=== PATIENT | female | born 1975 | race Two or more races ===

== ENCOUNTER 2020-08-27 15:59 | Emergency (ER) | payer MEDICARE, MEDICAID, SELFPAY ==
[2020-08-27 16:11] VITALS: BP 162/101; PULSE 91; RESP 18; TEMP 36.4; O2SAT 98; BMI 32.0
--- NOTE | 2020-08-27 16:33 | ED.GENADULT ---
HPI - General Adult General Chief complaint: General Medical Stated complaint: Back pain Time Seen by Provider: 08/27/20 16:17 Source: patient Mode of arrival: ambulatory Limitations: no limitations History of Present Illness HPI narrative: 45 yo female presenting with acute on chronic low back pain. She reports a history of 2 low back surgeries back in 2004 with resulting chronic back pain since. She woke up 4 days ago with worsening pain. No trauma or injury. She states it is slightly worse on the left than the right and it radiates down the back of her legs. No numbness or tingling. No incontinence. She has been taking her previously prescribed hydromorphone, ibuprofen and Tylenol without improvement. MD complaint: back pain Onset (ago): day(s) (4) Location: back Radiation: extremity Severity: severe Severity scale (1-10): 9 Quality: aching and sharp Pain Consistency: constant Relieving factors: none Exacerbating factors: movement Associated symptoms: denies other symptoms Treatments prior to arrival: none Related Data Home Medications Medication Instructions Recorded Confirmed ibuprofen 800 mg tablet 800 mg PO TID 08/03/20 Previous Rx's Medication Instructions Recorded pregabalin 100 mg capsule 100 mg PO TID 30 Days #90 cap 06/14/20 zolpidem 10 mg tablet 10 mg PO BEDTIME #30 tab 07/14/20 ibuprofen 800 mg tablet 800 mg PO TID PRN 30 Days #90 tab 08/03/20 hydromorphone 4 mg tablet 4 mg PO TID PRN 15 Days #45 tab 08/11/20 cyclobenzaprine 10 mg PO TID PRN #15 tab 08/27/20 lidocaine [Lidoderm] 1 patch TOPICAL DAILY #15 ea 08/27/20 prednisone 40 mg PO DAILY #10 tab 08/27/20 Allergies Allergy/AdvReac Type Severity Reaction Status Date / Time morphine [MORPHINE] Allergy Unknown RASH Verified 08/27/20 16:14 Review of Systems Review of Systems: Constitutional: No Fever, No Chills Cardiovascular: No Chest Pain, No SOB Respiratory: No Cough, No Sputum Gastrointestinal: No Nausea, No Vomiting, No Diarrhea, No abdominal Pain Genitourinary: No Dysuria, No Urinary Frequency, No Hematuria Musculoskeletal: + joint pain, + Myalgias (hx fibromyalgia) Skin: No Skin Lesions, No rash Neuro: No Weakness, No Numbness, No Dizziness, No Headache Heme/Lymph: No Bruising PMFSH Past Medical History Attestation statement: The following information was validated with the patient. Medical History Fibromyalgia Social History Social History Advance Directives: No Advance Directives Information Provided: Yes Physical Exam Vital Signs: Vital Signs: Last Vital Signs Temp 97.6 F 08/27/20 16:11 Pulse 91 08/27/20 16:11 Resp 18 08/27/20 16:11 BP 162/101 H 08/27/20 16:11 Pulse Ox 98 08/27/20 16:11 Body Mass Index 32.0 Appearance: Alert. Oriented X3. No acute distress. HEENT: normal inspection CVS: Normal heart rate and rhythm. Pulses normal. Respiratory: No respiratory distress. Skin: Skin warm and dry. Normal skin color. Normal skin turgor. No rashes. Back: bilateral middle lumbar soft tissue with tenderness, bilateral SI joint tenderness, Extremities: pelvis stable, atraumatic, no LE edema, normal DTR Neuro: Oriented X 3. No motor deficit. No sensory deficit. Ambulates with steady gait Course Course Course Narrative: 45 y/o female with acute on chronic LBP, non-traumatic. Already on opiates. Suspect sciatica with nerve inflammation. No red flag symptoms of LBP. No hx IVDA. Will give trial of steroids to help with pain and refer to her NS and have her follow up with her PCP tomorrow. Pt requesting toradol now. Stable for discharge. Critical Care Time Critical Care Time Critical Care Time: No Discharge Plan Discharge Clinical Impression: Sciatica Qualifiers: Laterality: bilateral Qualified Code(s): M54.31 - Sciatica, right side Patient Disposition: Home, Self-Care Instructions: Sciatica (ED), Lower Back Exercises (ED) Additional Instructions: You need to follow up with your PCP tomorrow. Please follow up with a Neurosurgeon for further workup and possible surgical intervention. Take the prescribed medications as directed. If you develop new numbness, tingling, worsening pain or urinary incontinence come back to the ER for further evaluation. Prescriptions: New cyclobenzaprine 10 mg tablet 10 mg PO TID PRN (Reason: muscle spasm) Qty: 15 RF: 0 prednisone 20 mg tablet 40 mg PO DAILY Qty: 10 RF: 0 lidocaine [Lidoderm] 5 % adhesive patch,medicated 1 patch topical DAILY Qty: 15 RF: 0 No Action pregabalin 100 mg capsule 100 mg PO TID 30 Days Qty: 90 RF: 1 zolpidem 10 mg tablet 10 mg PO BEDTIME Qty: 30 RF: 0 ibuprofen 800 mg tablet 800 mg PO TID RF: 0 ibuprofen 800 mg tablet 800 mg PO TID PRN (Reason: pain) 30 Days Qty: 90 RF: 1 hydromorphone 4 mg tablet 4 mg PO TID PRN (Reason: pain) 15 Days Qty: 45 RF: 0 Referrals: Braydon Radford MD [Physician] - 2 days
[2020-08-27] MEDS: Ketorolac Tromethamine 30 MG/ML VIAL IM (16:40)
== END 2020-08-27 17:30 | disposition home or self-care (01) ==
PROVIDERS: Emergency Provider Emergency Medicine Emergency Medical Services; PCP Internal Medicine
DX: M54.41 Lumbago with sciatica, right side (principal); Z79.899 Other long term (current) drug therapy
CPT/HCPCS: 96372; 99283; 99284; J1885

== ENCOUNTER → 2020-09-07 15:25 | Outpatient (BNVA) | payer MEDICARE, MEDICAID, SELFPAY | PROVIDERS: PCP Internal Medicine; Visit Provider Nurse Practitioner Family | DX: M47.27 Other spondylosis with radiculopathy, lumbosacral region (principal) | CPT/HCPCS: 99202 ==

== ENCOUNTER 2020-10-05 18:31 | Outpatient (REF) | payer OTHER, SELFPAY ==
--- NOTE | 2020-10-05 18:45 | MR_ITS ---
EXAMINATION: MR LUMBAR SPINE WITHOUT CONTRAST CLINICAL INFORMATION: Low back pain radiating into groin and legs. Prior lumbar surgery. COMPARISON: X-ray dated 10/28/2015. TECHNIQUE: MRI of the lumbar spine was obtained using routine sequences without contrast. FINDINGS: VERTEBRAL BODIES AND PARASPINAL STRUCTURES: The patient is status post interbody fusion at the L4-L5 and L5-S1 levels with hardware in place. There are chronic fatty atrophic changes in the posterior paraspinal muscles at these levels. No compression fractures identified. There are mild posterior subluxations at the L1-L2, L2-L3, and L3-L4 levels. Aeeq-ii-pwxqkhcu loss of disc height evident at the L2-L3 level with reduced intradiscal signal. No marrow or soft tissue edema is seen. CONUS MEDULLARIS AND CAUDA EQUINA: Normal, terminating at the level of T12. No lower cord signal abnormality is seen. The cauda equina nerve roots are normal. SPINAL LEVELS: L1-L2: Central to left paracentral disc protrusion mildly distorts the ventral thecal sac without central canal stenosis or foraminal narrowing. L2-L3: Loss of disc height and retrosubluxation with a broad-based disc bulge and superimposed shallow, broad-based central to right subarticular zone disc protrusion contacting but not visibly compressing the right L3 nerve root. Mild facet arthropathy without significant central canal stenosis. Patent foramina. L3-L4: Mild retrosubluxation and posterior disc bulge present with a lateralized component resulting in moderate right foraminal encroachment. Tyov-hl-nlzvavcg facet arthropathy. No significant central canal stenosis. Milder left foraminal narrowing. L4-L5: Postsurgical changes and fusion across the disc space. Patent foramina. L5-S1: Post fusion changes across the disc space with hardware in place. Hypertrophic facet arthropathy without central canal stenosis or foraminal narrowing. MR/MR lumbar spine wo con IMPRESSION: Central to left paracentral disc protrusion mildly distorting the ventral thecal sac at the L1-L2 level. Fxil-qg-ssvzwgws spondylosis and retrosubluxation at L2-L3 with a shallow, broad-based central to right subarticular zone disc protrusion abutting the right L3 nerve root. Mild retrosubluxation and disc bulge lateralized to the right side posterolaterally at the L3-L4 level with moderate right foraminal encroachment.
== END 2020-10-05 18:32 | disposition home or self-care (01) ==
LOC: HO.MRI 18:31
PROVIDERS: Visit Provider Physician Assistant
DX: M47.16 Other spondylosis with myelopathy, lumbar region (principal)
CPT/HCPCS: 72148

== ENCOUNTER → 2020-11-23 10:11 | Outpatient (BNVA) | payer OTHER, SELFPAY | PROVIDERS: PCP Internal Medicine; Visit Provider Nurse Practitioner Family | DX: M47.27 Other spondylosis with radiculopathy, lumbosacral region (principal) | CPT/HCPCS: 99212 ==

== ENCOUNTER → 2020-12-07 10:04 | Outpatient (BNVA) | payer MEDICARE, OTHER, SELFPAY | PROVIDERS: PCP Internal Medicine; Visit Provider Nurse Practitioner Family | DX: M47.27 Other spondylosis with radiculopathy, lumbosacral region (principal); G89.29 Other chronic pain | CPT/HCPCS: 99212 ==

== ENCOUNTER → 2020-12-21 15:33 | Outpatient (BNVA) | payer MEDICARE, SELFPAY | PROVIDERS: PCP Internal Medicine; Visit Provider Nurse Practitioner Family | DX: M47.27 Other spondylosis with radiculopathy, lumbosacral region (principal) | CPT/HCPCS: 99212 ==

== ENCOUNTER 2021-01-14 13:35 | Emergency (ER) | payer OTHER, SELFPAY ==
--- NOTE | ~2021-01-14 | CT_ITS ---
EXAMINATION: CT HEAD WITHOUT CONTRAST CLINICAL INFORMATION: Left facial swelling and spasm. COMPARISON: None TECHNIQUE: Contiguous axial imaging was performed from the skull base to vertex without intravenous administration of contrast. This CT examination was performed using dose optimization techniques as appropriate, variously including the following: *Automated exposure control *Adjustment of mA and/or kV according to patient size (this includes techniques or standardized protocols for targeted exams where dose is matched to indication/reason for exam; i.e. extremities or head) *Use of iterative reconstruction technique DLP: 646 mGy-cm FINDINGS: There is no evidence of acute intracranial hemorrhage or territorial infarction. No abnormal mass effect or midline shift is seen. Cazares to white matter differentiation is well preserved. No extra-axial fluid collections are identified. The ventricles are normal in size. There is no abnormal attenuation within the brain parenchyma. The osseous structures and soft tissues are normal. The mastoid air cells and visualized portions of the paranasal sinuses are well aerated. CT/CT head/brain wo con IMPRESSION: No acute intracranial process seen.
[2021-01-14 13:41] VITALS: BP 148/93; PULSE 100; RESP 18; TEMP 36.8; O2SAT 98; BMI 34.7
--- NOTE | 2021-01-14 13:55 | PC.NURSE ---
cheryl judge to assess pt- ? bells palsy
--- NOTE | 2021-01-14 14:21 | ED.NEUROSD ---
HPI - Neuro Symptoms/Deficit General Chief Complaint: Neuro Symptoms/Deficit Stated Complaint: MOUTH SWELLING Time Seen by Provider: 01/14/21 14:07 Source: patient Mode of arrival: ambulatory Limitations: no limitations History of Present Illness HPI Narrative: 45 yo female with hx of chronic back pain depression and anxiety hx of facial twitching in the past (occurred with life stressors) that resolved on its own comes in with L lower facial twitching sice 1130am she denies any other symptoms, remote history of lyme in past. Onset (ago): hour(s) (started at 1130am today) Location: left face History of same: Yes Severity: moderate Quality: intermittent and other (her left lower face twitches) Relieving factors: none Exacerbating factors: other (anxious) Context: gradual onset On Anticoagulants: No Associated symptoms: other (anxiety) Treatments Prior to Arrival: none Related Data Home Medications Medication Instructions Recorded Confirmed albuterol sulfate 90 mcg/actuation 2 puff PO QID PRN 09/02/20 12/21/20 aerosol inhaler buspirone 10 mg tablet mg PO 09/02/20 12/21/20 cetirizine 10 mg tablet 10 mg PO DAILY PRN 09/02/20 12/21/20 fluticasone propionate 50 0 mcg INTRANASAL 09/02/20 12/21/20 mcg/actuation nasal spray,suspension omeprazole 20 mg capsule,delayed mg PO 09/02/20 12/21/20 release topiramate 25 mg tablet 25 mg PO BID 09/02/20 12/07/20 venlafaxine 150 mg mg PO 09/02/20 12/21/20 capsule,extended release 24 hr Previous Rx's Medication Instructions Recorded ibuprofen 800 mg tablet 800 mg PO TID PRN #90 tab 09/29/20 pregabalin 100 mg capsule 100 mg PO TID 30 Days #90 cap 11/12/20 hydromorphone 4 mg tablet 4 mg PO TID PRN 15 Days #45 tab 11/29/20 clonidine HCl 0.1 mg tablet 0.1 mg PO ONCE PRN #30 tab 12/07/20 hydroxyzine HCl 25 mg tablet 25 mg PO BID PRN #60 tab 12/07/20 buprenorphine 10 mcg/hour weekly 1 patch TRANSDERMAL Q7D #4 ea 01/01/21 transdermal patch tizanidine 2 mg tablet 2 mg PO TID PRN #90 tab 01/08/21 albuterol sulfate 2.5 mg CONTINUOUS NEBULIZATION QID 01/12/21 PRN 30 Days #120 vial zolpidem 10 mg tablet 10 mg PO BEDTIME PRN 30 Days #30 01/12/21 tab Allergies Allergy/AdvReac Type Severity Reaction Status Date / Time morphine [MORPHINE] Allergy Unknown RASH Verified 12/21/20 15:56 Review of Systems Review of Systems: Constitutional : No Weight loss, No Fever, No Chills, No Fatigue, No Malaise ENT/Mouth : No sore throat, No Rhinorrhea Eyes: No Eye Pain, No Swelling, No Redness Cardiovascular : No Chest Pain, No SOB, No Dyspnea on Exertion, No Orthopnea, No Edema, No Palpitations Respiratory : No Cough, No Sputum, No Wheezing Gastrointestinal : No Nausea, No Vomiting, No Diarrhea, No Constipation, No abdominal Pain, No Hematochezia, No Melena Genitourinary : No Dysuria, No Urinary Frequency, No Hematuria, Musculoskeletal : No joint pain, No Myalgias, No Joint Swelling Skin : No Skin Lesions, No rash Neuro : No Weakness, No Numbness, No Dizziness, No Headache, pos twitching L face Psych : pos Anxiety/Panic, No Depression Heme/Lymph: No Bruising, No Bleeding,No Lymphadenopathy Endocrine : No Polyuria, No Polydipsia All other systems reviewed and are negative [facility] Past Medical History Attestation statement: The following information was validated with the patient. Medical History Fibromyalgia Herniated intervertebral disc of lumbar spine Loss of hearing Opioid abuse Surgical History History of cholecystectomy History of lumbar fusion History of tubal ligation Family History Family History Father No problems noted. Mother Skin cancer Maternal Aunt Myocardial infarction Social History Social History Alcohol intake: never Smoking Status: Never smoker Advance Directives: Yes Advance Directives Information Provided: Yes Advance Directives on File: No Patient : No Physical Exam Vital Signs: Vital Signs: Last Vital Signs Temp 98.2 F 01/14/21 13:41 Pulse 100 01/14/21 13:41 Resp 18 01/14/21 13:41 BP 148/93 H 01/14/21 13:41 Pulse Ox 98 01/14/21 13:41 Body Mass Index 34.7 Appearance: Alert. Oriented X3. No acute distress. Eyes: Pupils equal, round and reactive to light. ENT: Pharynx normal. Neck: Normal inspection. Neck supple. CVS: Normal heart rate and rhythm. Pulses normal. Respiratory: No respiratory distress. Breath sounds normal. Abdomen: Soft and nontender. Skin: Skin warm and dry. Normal skin color. Normal skin turgor. Extremities: No lower extremity edema. No calf ttp Neuro: Oriented X 3. No motor deficit. No sensory deficit. Facial spasms of left lower face but all movements intact no CN deficits, no drift, steady gait Course Course Course Narrative: symptoms resolved with ativan patient already on multiple medications including tizanidine, buprenorphine patch, pregabalin MDM - Neuro Symptoms/Deficit MDM Narrative Medical decision making narrative: 45 yo female with hx of chronic pain, anxiety depression notes hx of facial twitching in the past that resolved on its own today's episode seems more facial spasms she can perform all CN testing without assymetry, stroke seems unlikely NIH 0 - will obtain basic labs, CT head and give ativan for spasms. Lab Data Result diagrams: 01/14/21 15:02 01/14/21 15:02 Labs: Lab Results 01/14/21 01/14/21 Range/Units 15:02 15:02 WBC 6.1 (4.8-10.8) X10*3/uL RBC 4.30 (4.20-5.50) X10*6/uL Hgb 11.6 L (12.0-16.0) g/dl Hct 37.0 (37-47) % MCV 86.0 (80-98) fL MCH 27.0 (27.0-33.0) pg MCHC 31.4 (31.0-35.0) g/dl RDW 13.9 (11.0-16.0) % Plt Count 294 (160-400) X10*3/uL MPV 9.6 (9.4-12.3) fL Immature Gran % (Auto) 0.3 (0.0-0.4) % Neut % (Auto) 68.6 (45-73) % Lymph % (Auto) 19.0 L (20-40) % [place] % (Auto) 8.1 (2-11) % Eos % (Auto) 3.3 (0-4) % Baso % (Auto) 0.7 (0-2) % Lymph # (Auto) 1.2 (1.2-4.9) X10*3/uL [place] # (Auto) 0.5 (0.1-1.2) X10*3/uL Eos # (Auto) 0.2 (0.0-0.4) X10*3/uL Baso # (Auto) 0.0 (0.0-0.2) X10*3/uL Abs Immat Gran (auto) 0.02 (0.00-0.03) X10*3/uL Absolute Neuts (auto) 4.2 (2.0-8.3) X10*3/uL Absolute Nucleated RBC 0.000 (0.0-0.012) X10*3/uL Nucleated RBC % (auto) 0.0 (0.0-0.2) /100WBC Hold Blue Top SEE NOTE NIH Stroke Scale Internal: Initial- Upon Arrival Level of Consciousness: Alert Level of Consciousness Questions: Answers both questions correctly Level of Consciousness Commands: Performs both tasks correctly Best Gaze: Normal Visual: No visual loss Facial Palsy: Normal Motor Arm (Right): No drift Motor Arm (Left): No drift Motor Leg (Right): No drift Motor Leg (Left): No drift Limb Ataxia: Absent Sensory: Normal Best Language: No aphasia Dysarthia: Normal Extinction and Inattention: No abnormality Score: 0 Discharge Plan Discharge Clinical Impression: Facial twitching Patient Disposition: Home, Self-Care Instructions: Muscle Spasm (ED) Additional Instructions: return to ED for any worsening symptoms or concerns Prescriptions: No Action ibuprofen 800 mg tablet 800 mg PO TID PRN (Reason: for pain) Qty: 90 RF: 6 pregabalin 100 mg capsule 100 mg PO TID 30 Days Qty: 90 RF: 1 hydromorphone 4 mg tablet 4 mg PO TID PRN (Reason: pain) 15 Days Qty: 45 RF: 0 buprenorphine [Butrans] 10 mcg/hour patch weekly 1 patch transdermal Q7D Qty: 4 RF: 0 tizanidine 2 mg tablet 2 mg PO TID PRN (Reason: muscle spasticity) Qty: 90 RF: 0 albuterol sulfate 2.5 mg /3 mL (0.083 %) solution for nebulization 2.5 mg continuous nebulization QID PRN (Reason: shortness of breath or wheezing) 30 Days Qty: 120 RF: 3 zolpidem 10 mg tablet 10 mg PO BEDTIME PRN (Reason: sleep) 30 Days Qty: 30 RF: 0 venlafaxine 150 mg capsule,extended release 24hr PO RF: 0 topiramate 25 mg tablet 25 mg PO BID RF: 0 fluticasone propionate 50 mcg/actuation spray,suspension 0 mcg intranasal RF: 0 omeprazole 20 mg capsule,delayed release(DR/EC) PO RF: 0 buspirone 10 mg tablet PO RF: 0 cetirizine 10 mg tablet 10 mg PO DAILY PRNRF: 0 albuterol sulfate 90 mcg/actuation HFA aerosol inhaler 2 puff PO QID PRNRF: 0 clonidine HCl 0.1 mg tablet 0.1 mg PO ONCE PRN (Reason: withdrawal symptoms) Qty: 30 RF: 0 hydroxyzine HCl 25 mg tablet 25 mg PO BID PRN (Reason: withdrawal symptoms) Qty: 60 RF: 0 Referrals: Fidencio Gomez MD [Primary Care Provider] - 2 days (if not better) Stand Alone Forms: Work/School Release
[2021-01-14] MEDS: diazePAM 5 MG TABLET PO (14:35)
[2021-01-14 15:07] LABS: MANUAL DIFF FLAG NO
[2021-01-14 15:17] LABS: Basophils Percent Auto 0.7 % (0-2); Eosinophils Absolute Auto 0.2 X10*3/uL (0.0-0.4); Eosinophils Percent Auto 3.3 % (0-4); Hemoglobin 11.6 g/dl (12.0-16.0); Imm Gran Abs Auto 0.02 X10*3/uL (0.00-0.03); Imm Gran Pct Auto 0.3 % (0.0-0.4); Lymphocytes Absolute Auto 1.2 X10*3/uL (1.2-4.9); Mean Corpuscular HGB Conc 31.4 g/dl (31.0-35.0); Mean Platelet Volume 9.6 fL (9.4-12.3); Monocytes Absolute Auto 0.5 X10*3/uL (0.1-1.2); Monocytes Percent Auto 8.1 % (2-11); Neutrophils Absolute Auto 4.2 X10*3/uL (2.0-8.3); Neutrophils Percent Auto 68.6 % (45-73); Platelet Count 294 X10*3/uL (160-400); Red Cell Distribution Width 13.9 % (11.0-16.0); White Blood Count 6.1 X10*3/uL (4.8-10.8)
[2021-01-14 15:32] LABS: Calcium 9.1 mg/dL (8.4-10.2)
[2021-01-14 15:39] LABS: Anion Gap 10 (12-20); Blood Urea Nitrogen 11 mg/dL (9-16); Calcium 8.9 mg/dL (8.4-10.2); Carbon Dioxide 28 mmol/L (22-29); Chloride 107 mmol/L (96-108); Creatinine Clr Calc Pharmacy 90.6; Estimated Glomerular Filt Rate > 60; Glucose Random 96 mg/dL (60-115); Potassium 4.4 mmol/L (3.3-5.1); Sodium 141 mmol/L (135-145)
== END 2021-01-14 15:59 | disposition home or self-care (01) ==
PROVIDERS: Emergency Provider Emergency Medicine; PCP Internal Medicine
DX: R25.3 Fasciculation (principal); F11.20 Opioid dependence, uncomplicated
CPT/HCPCS: 36415; 70450; 80048; 82310; 85025; 99283; 99284

== ENCOUNTER → 2021-01-15 09:51 | Outpatient (BNVA) | payer OTHER, SELFPAY | PROVIDERS: PCP Internal Medicine; Visit Provider Nurse Practitioner Family | DX: M47.27 Other spondylosis with radiculopathy, lumbosacral region (principal) | CPT/HCPCS: 99212 ==

== ENCOUNTER 2021-01-22 14:27 | Outpatient (REF) | payer OTHER, SELFPAY ==
[2021-01-22 14:45] LABS: COVID-19 Test Negative (Negative)
== END 2021-01-22 14:28 | disposition home or self-care (01) ==
LOC: HO.LAB 14:27
PROVIDERS: Visit Provider Internal Medicine
DX: Z20.822 Contact with and (suspected) exposure to COVID-19 (principal)
CPT/HCPCS: 36415; 87635; C9803

== ENCOUNTER → 2021-02-11 11:02 | Outpatient (REF) | payer OTHER, SELFPAY ==
--- NOTE | 2021-02-11 11:07 | ECG_ITS ---
Test Reason : Z91.89 Blood Pressure : / mmHG Vent. Rate : 069 BPM Atrial Rate : 069 BPM P-R Int : 152 ms QRS Dur : 086 ms QT Int : 410 ms P-R-T Axes : 046 053 036 degrees QTc Int : 439 ms Normal sinus rhythm Possible Left atrial enlargement Borderline ECG When compared to the previous EKG of No significant changes seen Referred By: Jumana Sabillon Electronically Signed By:Juan Ewing
== END ==
LOC: HO.CARD 11:02
PROVIDERS: PCP Internal Medicine; Visit Provider Nurse Practitioner Family
DX: Z91.89 Other specified personal risk factors, not elsewhere classified (principal)
CPT/HCPCS: 93005

== ENCOUNTER → 2021-02-12 11:11 | Outpatient (BNVA) | payer OTHER, SELFPAY | PROVIDERS: PCP Internal Medicine; Visit Provider Nurse Practitioner Family | DX: M47.27 Other spondylosis with radiculopathy, lumbosacral region (principal) | CPT/HCPCS: Q3014 ==

== ENCOUNTER 2021-02-27 22:22 | Inpatient (IN) | payer OTHER, SELFPAY ==
[2021-02-27 22:32] VITALS: BP 135/88; PULSE 114; RESP 22; TEMP 37.1; O2SAT 95; BMI 36.0
--- NOTE | 2021-02-27 22:49 | ED_ITS ---
HPI - Psych General Chief Complaint: Psychiatric Symptoms Stated Complaint: crisis Time Seen by Provider: 02/27/21 22:49 Source: patient Mode of arrival: ambulatory History of Present Illness HPI Narrative: This is a 45-year-old female who presents with complaints of suicidal ideation but does not have a specific plan and states that she is feeling additionally depressed that prompted her to do superficial cutting on the left wrist. She states that she is ?having a bad day?. She states that she is having a lot of stress and friction with her boyfriend and has been drinking alcohol today. Otherwise, she states she takes her prescribed medications regularly. Related Data Home Medications Medication Instructions Recorded Confirmed buprenorphine 1 patch TOPICAL QWEEK 02/27/21 02/27/21 hydroxyzine HCl 1 tab PO BID PRN 02/27/21 02/27/21 ibuprofen 1 tab PO TID 02/27/21 02/27/21 tizanidine 1 tab PO TID PRN 02/27/21 02/27/21 venlafaxine 300 mg PO QAM 02/27/21 02/27/21 ziprasidone HCl 40 mg PO BEDTIME 02/27/21 02/27/21 zolpidem 1 tab PO BEDTIME PRN 02/27/21 02/27/21 Previous Rx's Medication Instructions Recorded pregabalin 100 mg capsule 100 mg PO TID 30 Days #90 cap 11/12/20 Allergies Allergy/AdvReac Type Severity Reaction Status Date / Time morphine [MORPHINE] Allergy Unknown RASH Verified 02/12/21 11:33 Review of Systems Review of Systems: Pertinent positives and negatives as stated in HPI 10 point review of systems is otherwise negative. [facility] Past Medical History Source: nursing notes reviewed Medical History Anxiety Fibromyalgia Herniated intervertebral disc of lumbar spine Loss of hearing Memory impairment Obesity (BMI 30-39.9) Opioid abuse Opioid dependence Surgical History History of cholecystectomy History of lumbar fusion History of tubal ligation Family History Family History Father No problems noted. Mother Skin cancer Maternal Aunt Myocardial infarction Social History Social History Alcohol intake: current Alcohol intake frequency: holidays/special occasions only Advance Directives: No Advance Directives Information Provided: No Patient : No Physical Exam Vital Signs: Vital Signs: Last Vital Signs Temp 98.7 F 02/27/21 22:32 Pulse 114 H 02/27/21 22:32 Resp 22 H 02/27/21 22:32 BP 135/88 02/27/21 22:32 Pulse Ox 95 02/27/21 22:32 Body Mass Index 36.0 VITAL SIGNS: Reviewed. GENERAL: Well developed, well nourished, in no acute distress. HEAD: Normocephalic/atraumatic EYES: PERRLA, EOMI OROPHARYNX: no oral lesions noted, posterior pharynx clear NECK: Supple, no adenopathy LUNGS: Normal breath sounds. No adventitious sounds or accessory muscle use. SpO2<95> CARDIOVASCULAR: Regular rate and rhythm without noted murmurs ABDOMEN: Soft, non-tender, non-distended with bowel sounds. NEUROLOGIC: Alert and oriented x 4. PSYCH: Depressed affect, tearful Course Course Course Narrative: This is a 45-year-old female with history and clinical presentation consistent with depression and vague suicidal ideation without a discrete plan. Review of all investigations is otherwise negative in patient is medically clear for further evaluation by the crisis team. Reevaluation(s) Reevaluation #1: Patient placed in physician observation because the patient needed more time for crisis evaluation. At the time observation was started the patient's vital signs were stable, patient is alert and oriented, neuro: Nonfocal, CV RRR, lungs clear Time: 00:03 MDM - Psych Lab Data Labs: Lab Results 02/27/21 02/27/21 02/27/21 Range/Units 23:39 23:39 23:39 Urine Color STRAW Urine Appearance CLEAR Urine pH 6.0 (5.0-8.0) Ur Specific [place] <= 1.005 (1.005-1.025) Urine Protein NEG (NEG-TRACE) MG/DL Urine Glucose (UA) NEG (NEG) MG/DL Urine Ketones NEG (NEG) MG/DL Urine Blood NEG (NEG) Urine Nitrite NEG (NEG) Ur Leukocyte Esterase NEG (NEG) Urine Test NEGATIVE (NEGATIVE) Urine Opiates Screen (Not Detect) Ur Barbiturates Screen (Not Detect) Ur Phencyclidine Scrn (Not Detect) Ur Amphetamines Screen (Not Detect) U Benzodiazepines Scrn (Not Detect) Urine Cocaine Screen (Not Detect) U Marijuana (THC) Screen (Not Detect) Ethyl Alcohol 114 mg/dL COVID-19 (MARY) (Negative) COVID-19 [employer] 02/27/21 02/27/21 Range/Units 23:39 23:39 Urine Color Urine Appearance Urine pH (5.0-8.0) Ur Specific [place] (1.005-1.025) Urine Protein (NEG-TRACE) MG/DL Urine Glucose (UA) (NEG) MG/DL Urine Ketones (NEG) MG/DL Urine Blood (NEG) Urine Nitrite (NEG) Ur Leukocyte Esterase (NEG) Urine Test (NEGATIVE) Urine Opiates Screen Not Detected (Not Detect) Ur Barbiturates Screen Not Detected (Not Detect) Ur Phencyclidine Scrn Not Detected (Not Detect) Ur Amphetamines Screen Not Detected (Not Detect) U Benzodiazepines Scrn Not Detected (Not Detect) Urine Cocaine Screen Not Detected (Not Detect) U Marijuana (THC) Screen Not Detected (Not Detect) Ethyl Alcohol mg/dL COVID-19 (MARY) Negative (Negative) COVID-19 Clin Com See Note Discharge Plan Discharge Prescriptions: No Action pregabalin 100 mg capsule 100 mg PO TID 30 Days Qty: 90 RF: 1 tizanidine 2 mg tablet 1 tab PO TID PRN (Reason: muscle spasm) RF: 0 venlafaxine 150 mg capsule,extended release 24hr 300 mg PO QAM RF: 0 ziprasidone HCl 40 mg capsule 40 mg PO BEDTIME RF: 0 zolpidem 10 mg tablet 1 tab PO BEDTIME PRN (Reason: insomnia) RF: 0 buprenorphine 10 mcg/hour patch weekly 1 patch topical QWEEK RF: 0 ibuprofen 800 mg tablet 1 tab PO TID RF: 0 hydroxyzine HCl 25 mg tablet 1 tab PO BID PRN (Reason: diarrhea) RF: 0
[2021-02-27 23:57] LABS: Appearance Urine CLEAR; Color Urine STRAW; Glucose Urine UA NEG (NEG); Leukocyte Esterase Urine NEG (NEG); Nitrite Urine NEG (NEG); Specific Gravity - Urine <= 1.005 (1.005-1.025); Urine Blood NEG (NEG); Urine Ketones NEG (NEG); Urine Protein NEG (NEG-TRACE)
[2021-02-27 23:59] LABS: UPreg QC Valid YES; Urine Pregnancy NEGATIVE (NEGATIVE)
[2021-02-28 00:06] LABS: Amphetamine Screen Urine Not Detected (Not Detect); Barbiturates, Urine Not Detected (Not Detect); Benzodiazepines Screen Urine Not Detected (Not Detect); Cannabinoid Screen Urine Not Detected (Not Detect); Cocaine Screen Urine Not Detected (Not Detect); Opiate Screen Urine Not Detected (Not Detect); Phencyclidine Screen Urine Not Detected (Not Detect)
[2021-02-28 00:14] LABS: Ethanol 114 mg/dL
[2021-02-28 00:34] LABS: IDNOW Serial# 9DD0AD1C
[2021-02-28 00:35] LABS: COVID-19 Test Negative (Negative)
--- NOTE | 2021-02-28 01:18 | PC.NURSE ---
Patient in bed appears sleeping, no distress observed/reported, respiration +/=/non-labored bilaterally, [facility] faxed/called/spoke with [facility]/confirmed receipt of referral, will continue to monitor.
--- NOTE | 2021-02-28 02:21 | MHC.CARE ---
CARE team completed evaluation. Disposition is for inpt psych admission. Plan of care discussed with ED physician, Sect 12a signed and in chart. N notified that CARE team assumed responsibility of the case and asked that [facility] be contacted re: this.
[2021-02-28 04:42] VITALS: BP 127/76; PULSE 74; RESP 16; TEMP 37; O2SAT 95
[2021-02-28] MEDS: Venlafaxine HCl ER 75 MG CAP.ER.24H 300 MG PO (10:32)
[2021-02-28 10:33] VITALS: BP 134/76; PULSE 77
[2021-02-28] MEDS: cloNIDine HCL 0.1 MG TABLET PO (10:33)
[2021-02-28] MEDS: Ibuprofen 800 MG TABLET PO ×3 (10:33→20:48)
[2021-02-28 10:38] VITALS: BP 128/69; PULSE 84; RESP 17; TEMP 37.2; O2SAT 98
[2021-02-28] MEDS: Pregabalin 100 MG CAPSULE PO (10:51)
--- NOTE | 2021-02-28 10:59 | PC.NURSE ---
informed of bed search and agreeable , medicated as ordered, reports anxiety, pleasant and friendly
--- NOTE | 2021-02-28 12:18 | MHC.CARE ---
[facility] Rachael gave auth for 4 days 02/28-03/03 [id number] UR is Eleanor Santa [phone]
--- NOTE | 2021-02-28 14:01 | PC.NURSE ---
RN TO RN GIVEN TO COLLEEN
--- NOTE | 2021-02-28 14:17 | ECG_ITS ---
Test Reason : CHECK QTC Blood Pressure : / mmHG Vent. Rate : 065 BPM Atrial Rate : 065 BPM P-R Int : 146 ms QRS Dur : 082 ms QT Int : 400 ms P-R-T Axes : 061 061 046 degrees QTc Int : 416 ms Normal sinus rhythm Normal ECG When compared with ECG of 11-FEB-2021 11:32, No significant change was found Referred By: Francisco Banks Electronically Signed By:Juan Ewing
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
[2021-02-28] MEDS: busPIRone HCl 10 MG TABLET 20 MG PO ×2 (17:07→20:49)
[2021-02-28 18:00] VITALS: BP 150/72; PULSE 89; TEMP 36.4
[2021-02-28] MEDS: TiZANidine HCL 4 MG TABLET 2 MG PO (19:23)
[2021-02-28] MEDS: Ziprasidone 40 MG CAPSULE PO (20:48)
[2021-02-28] MEDS: busPIRone HCl 10 MG TABLET PO (20:48)
[2021-02-28] MEDS: Zolpidem Tartrate 5 MG TABLET 10 MG PO (20:49)
[2021-03-01 06:00] VITALS: BP 133/82; PULSE 84; TEMP 36.4
[2021-03-01] MEDS: Ibuprofen 800 MG TABLET PO ×3 (10:03→20:26)
[2021-03-01] MEDS: Pregabalin 100 MG CAPSULE PO ×3 (10:03→20:25)
[2021-03-01] MEDS: Venlafaxine HCl ER 75 MG CAP.ER.24H 300 MG PO (10:03)
[2021-03-01] MEDS: busPIRone HCl 10 MG TABLET 20 MG PO ×2 (10:05→20:26)
[2021-03-01] MEDS: TiZANidine HCL 4 MG TABLET 2 MG PO (14:06)
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
[2021-03-01 17:45] VITALS: BP 125/78; PULSE 72; TEMP 36.7
[2021-03-01] MEDS: Ziprasidone 40 MG CAPSULE PO (20:25)
[2021-03-01] MEDS: busPIRone HCl 10 MG TABLET PO (20:26)
[2021-03-01] MEDS: Zolpidem Tartrate 5 MG TABLET 10 MG PO (20:33)
[2021-03-02 06:00] VITALS: BP 128/69; PULSE 83; RESP 16; TEMP 37; O2SAT 98
[2021-03-02 07:04] LABS: MANUAL DIFF FLAG NO
[2021-03-02 07:11] LABS: Basophils Percent Auto 0.4 % (0-2); Eosinophils Absolute Auto 0.4 X10*3/uL (0.0-0.4); Eosinophils Percent Auto 5.6 % (0-4); Hematocrit 37.3 % (37-47); Imm Gran Abs Auto 0.03 X10*3/uL (0.00-0.03); Imm Gran Pct Auto 0.4 % (0.0-0.4); Lymphocytes Absolute Auto 2.6 X10*3/uL (1.2-4.9); Lymphocytes Percent Auto 36.1 % (20-40); Mean Corpuscular HGB Conc 32.2 g/dl (31.0-35.0); Mean Corpuscular Hemoglobin 27.3 pg (27.0-33.0); Mean Platelet Volume 9.5 fL (9.4-12.3); Monocytes Absolute Auto 0.6 X10*3/uL (0.1-1.2); Monocytes Percent Auto 7.6 % (2-11); Neutrophils Absolute Auto 3.6 X10*3/uL (2.0-8.3); Neutrophils Percent Auto 49.9 % (45-73); Platelet Count 336 X10*3/uL (160-400); Red Blood Count 4.39 X10*6/uL (4.20-5.50); Red Cell Distribution Width 13.7 % (11.0-16.0); White Blood Count 7.2 X10*3/uL (4.8-10.8)
[2021-03-02 07:29] LABS: Alanine Aminotransferase 15 U/L (0-31); Albumin Level 3.9 g/dL (3.5-5.0); Alkaline Phosphatase 111 U/L (39-117); Anion Gap 12 (12-20); Aspartate Amino Transferase 16 U/L (5-31); Bilirubin Total 0.2 mg/dL (0.0-1.0); Blood Urea Nitrogen 13 mg/dL (9-16); Calcium 9.4 mg/dL (8.4-10.2); Carbon Dioxide 28 mmol/L (22-29); Chloride 106 mmol/L (96-108); Cholesterol 198 mg/dL; Creatinine Clr Calc Pharmacy 90.1; Estimated Glomerular Filt Rate > 60; Glucose Random 101 mg/dL (60-115); HDL Cholesterol 53 mg/dL; LDL Cholesterol Calculated 102 mg/dl; Potassium 4.4 mmol/L (3.3-5.1); Sodium 142 mmol/L (135-145); Triglycerides 215 mg/dL
[2021-03-02 07:34] LABS: Estimated Average Glucose 108 mg/dL; Hemoglobin A1c % 5.4 %
[2021-03-02 07:49] LABS: Thyroid Stimulating Hormone 1.14 uIU/mL (0.32-4.0); Vitamin D 25-OH Total 29.1 ng/mL (>30)
[2021-03-02 08:15] LABS: Folate 13.5 ng/mL (> or = 4.0); Vitamin B12 285 pg/mL (200-900)
[2021-03-02] MEDS: Ibuprofen 800 MG TABLET PO ×3 (10:09→21:52)
[2021-03-02] MEDS: Pregabalin 100 MG CAPSULE PO ×3 (10:10→21:52)
[2021-03-02] MEDS: busPIRone HCl 10 MG TABLET 20 MG PO ×2 (10:11→21:51)
[2021-03-02] MEDS: Ziprasidone 20 MG CAPSULE PO (12:58)
[2021-03-02] MEDS: Venlafaxine HCl ER 75 MG CAP.ER.24H 300 MG PO (12:58)
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
[2021-03-02] MEDS: TiZANidine HCL 4 MG TABLET 2 MG PO (14:21)
[2021-03-02 14:23] VITALS: BP 145/74; PULSE 74
[2021-03-02] MEDS: cloNIDine HCL 0.1 MG TABLET PO (14:23)
[2021-03-02 17:16] VITALS: BP 130/58; PULSE 62; TEMP 35.9
[2021-03-02] MEDS: Magnesium Hydrox/Alum Hydrox 30 ML ORAL.SUSP PO (17:38)
[2021-03-02] MEDS: hydrOXYzine HCL 25 MG TABLET PO (19:33)
[2021-03-02] MEDS: busPIRone HCl 10 MG TABLET PO (21:51)
[2021-03-02] MEDS: lamoTRIgine 25 MG TABLET PO (21:52)
[2021-03-02] MEDS: Ziprasidone 40 MG CAPSULE PO (21:52)
[2021-03-02] MEDS: Zolpidem Tartrate 5 MG TABLET 10 MG PO (22:04)
[2021-03-03 06:00] VITALS: BP 128/71; PULSE 86; RESP 18; TEMP 36.6; O2SAT 99
[2021-03-03] MEDS: Ibuprofen 800 MG TABLET PO ×3 (08:53→22:04)
[2021-03-03] MEDS: DULoxetine HCl 30 MG CAPSULE.DR PO (08:53)
[2021-03-03] MEDS: Pregabalin 100 MG CAPSULE PO ×3 (08:53→22:05)
[2021-03-03] MEDS: Venlafaxine HCl ER 150 MG CAP.ER.24H PO (08:54)
[2021-03-03] MEDS: busPIRone HCl 10 MG TABLET 20 MG PO (08:54)
[2021-03-03] MEDS: Ziprasidone 20 MG CAPSULE PO (08:54)
[2021-03-03] MEDS: TiZANidine HCL 4 MG TABLET 2 MG PO ×2 (09:22→16:15)
[2021-03-03] MEDS: Magnesium Hydrox/Alum Hydrox 30 ML ORAL.SUSP PO (11:59)
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
[2021-03-03 16:14] VITALS: BP 134/67; PULSE 77
[2021-03-03] MEDS: cloNIDine HCL 0.1 MG TABLET PO (16:14)
[2021-03-03 18:00] VITALS: BP 134/67; PULSE 77; RESP 18; TEMP 36.3; O2SAT 98
[2021-03-03 21:18] LABS: Color Urine YELLOW; Glucose Urine UA NEG (NEG); Leukocyte Esterase Urine 1+ (NEG); Nitrite Urine NEG (NEG); PH 6.5 (5.0-8.0); UACC Culture Trigger YES; Urine Blood NEG (NEG); Urine Ketones NEG (NEG); Urine Protein NEG (NEG-TRACE)
[2021-03-03 21:19] LABS: Appearance Urine HAZY
[2021-03-03 21:25] LABS: Amorphous Sediment Urine 1+ /LPF; Bacteria Urine 2+ /LPF; RBC Urine 0 /HPF (0); Squamous Epithelial Cell Urine 1+ /LPF; WBC Urine 0-2 /HPF (0-4)
[2021-03-03] MEDS: Milk of Magnesia 30 ML ORAL.SUSP PO (22:04)
[2021-03-03] MEDS: busPIRone HCl 10 MG TABLET PO (22:04)
[2021-03-03] MEDS: lamoTRIgine 25 MG TABLET PO (22:04)
[2021-03-03] MEDS: Ziprasidone 40 MG CAPSULE PO (22:05)
[2021-03-03] MEDS: hydrOXYzine HCL 25 MG TABLET PO (22:36)
[2021-03-03] MEDS: Zolpidem Tartrate 5 MG TABLET 10 MG PO (22:38)
[2021-03-04 06:00] VITALS: BP 103/80; PULSE 96; RESP 18; TEMP 36.6; O2SAT 96
[2021-03-04] MEDS: busPIRone HCl 10 MG TABLET 20 MG PO (09:05)
[2021-03-04] MEDS: Venlafaxine HCl ER 150 MG CAP.ER.24H PO (09:05)
[2021-03-04] MEDS: Ibuprofen 800 MG TABLET PO ×3 (09:05→21:10)
[2021-03-04] MEDS: Ziprasidone 20 MG CAPSULE PO (09:05)
[2021-03-04] MEDS: Pregabalin 100 MG CAPSULE PO ×3 (09:05→21:10)
[2021-03-04] MEDS: DULoxetine HCl 30 MG CAPSULE.DR PO (09:05)
[2021-03-04 09:15] VITALS: BMI 37.0
[2021-03-04] MEDS: Fluconazole 150 MG TABLET PO (10:38)
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
[2021-03-04 16:11] VITALS: BP 141/81; PULSE 77
[2021-03-04] MEDS: cloNIDine HCL 0.1 MG TABLET PO (16:11)
[2021-03-04 16:53] VITALS: BP 141/81; PULSE 77; RESP 18; TEMP 36.3; O2SAT 97
[2021-03-04] MEDS: busPIRone HCl 10 MG TABLET PO (21:10)
[2021-03-04] MEDS: lamoTRIgine 25 MG TABLET PO (21:10)
[2021-03-04] MEDS: Ziprasidone 40 MG CAPSULE PO (21:10)
[2021-03-04] MEDS: Zolpidem Tartrate 5 MG TABLET 10 MG PO (21:11)
[2021-03-05 06:00] VITALS: BP 110/67; PULSE 77; RESP 18; TEMP 36.9; O2SAT 95
[2021-03-05] MEDS: busPIRone HCl 10 MG TABLET 20 MG PO ×2 (09:41→22:09)
[2021-03-05] MEDS: Pregabalin 100 MG CAPSULE PO ×3 (09:41→22:09)
[2021-03-05] MEDS: Venlafaxine HCl ER 150 MG CAP.ER.24H PO (09:41)
[2021-03-05] MEDS: DULoxetine HCl 30 MG CAPSULE.DR PO (09:41)
[2021-03-05] MEDS: Ibuprofen 800 MG TABLET PO ×3 (09:41→22:10)
[2021-03-05] MEDS: Ziprasidone 20 MG CAPSULE PO (09:41)
[2021-03-05 16:18] VITALS: BP 140/68; PULSE 61; RESP 18; TEMP 36.2; O2SAT 95
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
[2021-03-05 21:07] VITALS: BP 142/69; PULSE 76
[2021-03-05] MEDS: cloNIDine HCL 0.1 MG TABLET PO (21:07)
[2021-03-05 22:00] VITALS: BP 145/69; PULSE 74; TEMP 36.7
[2021-03-05] MEDS: busPIRone HCl 10 MG TABLET PO (22:10)
[2021-03-05] MEDS: Ziprasidone 40 MG CAPSULE PO (22:10)
[2021-03-05] MEDS: lamoTRIgine 25 MG TABLET PO (22:10)
[2021-03-05 22:11] VITALS: BP 145/69; PULSE 74
[2021-03-05] MEDS: Prazosin HCL 1 MG CAPSULE PO (22:11)
[2021-03-06] MEDS: Acetaminophen 325 MG TABLET 650 MG PO (04:50)
[2021-03-06 06:00] VITALS: BP 102/58; PULSE 87; RESP 16; TEMP 36.6; O2SAT 96
[2021-03-06] MEDS: Ibuprofen 800 MG TABLET PO ×3 (08:23→22:27)
[2021-03-06] MEDS: DULoxetine HCl 30 MG CAPSULE.DR PO (08:23)
[2021-03-06] MEDS: Ziprasidone 20 MG CAPSULE PO (08:23)
[2021-03-06] MEDS: Venlafaxine HCl ER 150 MG CAP.ER.24H PO (08:23)
[2021-03-06] MEDS: busPIRone HCl 10 MG TABLET 20 MG PO ×2 (08:23→22:28)
[2021-03-06] MEDS: Pregabalin 100 MG CAPSULE PO ×3 (08:23→22:27)
--- NOTE | 2021-03-06 09:30 | HO.PSYCHPN ---
Subjective Subjective Date of Service: 03/06/21 Reason For Visit: Depression SI Interim History: Patient was seen and discussed on rounds today. She states that she had trouble sleeping last night, mostly because of pain. We discussed options and I will increase the prazosin which was started for her to 2 mg. I also increased the for hydroxyzine 25 mg 2 t.i.d. p.r.n.. She denies any side effects. He is eating adequately and sleeping discussed. No other changes were made Review of Systems Review of Systems Yes all other systems are reviewed and are negative Psychiatric: Reports anxiety, Reports depression, Reports difficulty concentrating, Reports hopelessness, Reports irritability, Reports mood swings and Reports suicidal ideation Mental Status Exam Mental Status Exam Narrative: In today's visit she is alert, oriented and pleasant. Normal speech. Good eye contact. Affect is appropriate and slightly tense. Moderate anxiety present. She does admit to some racing thoughts. No signs of psychosis. No SI. Cognitively intact. Judgment is intact Diagnostics Vital Signs (24Hr): Vital Signs - 24 hr 03/05/21 16:18 03/05/21 21:07 03/05/21 22:00 Temperature 97.1 F 98.0 F Pulse Rate 61 76 74 Respiratory Rate 18 Blood Pressure 140/68 H 142/69 H 145/69 H Pulse Oximetry 95 03/05/21 22:11 03/06/21 06:00 Temperature 98 F Pulse Rate 74 87 Respiratory Rate 16 Blood Pressure 145/69 H 102/58 L Pulse Oximetry 96 Body Mass Index 37.0 Labs Results: 03/02/21 06:55 03/02/21 06:55 Medications Medications Current Medications Generic Name Dose Route Start Last Admin Trade Name Freq PRN Reason Stop Dose Admin Acetaminophen 650 mg 02/28/21 14:17 03/06/21 04:50 Acetaminophen 325 Mg Tablet PO 650 mg Q6H PRN Administration Headache/Pain Mild Scale (1-3) Al Hydroxide/Mg Hydroxide 30 ml 02/28/21 14:17 03/03/21 11:59 Magnesium Hydrox/Alum Hydrox 30 Ml Oral.Susp PO 30 ml Q6H PRN Administration Heartburn/Nausea Buspirone HCl 10 mg 02/28/21 21:00 03/05/21 22:10 Buspirone Hcl 10 Mg Tablet PO 10 mg BEDTIME RUSSELL Administration Buspirone HCl 20 mg 02/28/21 14:30 03/06/21 08:23 Buspirone Hcl 10 Mg Tablet PO 20 mg BID RUSSELL Administration Clonidine HCl 0.1 mg 02/28/21 10:11 03/05/21 21:07 Clonidine Hcl 0.1 Mg Tablet PO 0.1 mg DAILY PRN Administration withdrawl Protocol Duloxetine HCl 30 mg 03/03/21 09:00 03/06/21 08:23 Duloxetine Hcl 30 Mg Capsule.Dr PO 30 mg DAILY RUSSELL Administration Hydroxyzine HCl 25 mg 02/28/21 14:17 03/03/21 22:36 Hydroxyzine Hcl 25 Mg Tablet PO 25 mg BEDTIME PRN Administration Anxiety Hydroxyzine HCl 25 mg 03/06/21 09:30 Hydroxyzine Hcl 25 Mg Tablet PO TID PRN diarrhea Ibuprofen 800 mg 02/28/21 09:45 03/06/21 08:23 Ibuprofen 800 Mg Tablet PO 800 mg TID RUSSELL Administration Lamotrigine 25 mg 03/02/21 21:00 03/05/21 22:10 Lamotrigine 25 Mg Tablet PO 25 mg BEDTIME RUSSELL Administration Magnesium Hydroxide 30 ml 02/28/21 14:17 03/03/21 22:04 Milk Of Magnesia 30 Ml Oral.Susp PO 30 ml DAILY PRN Administration Constipation Prazosin HCl 2 mg 03/06/21 21:00 Prazosin Hcl 1 Mg Capsule PO BEDTIME RUSSELL Protocol Pregabalin 100 mg 02/28/21 09:45 03/06/21 08:23 Pregabalin 100 Mg Capsule PO 100 mg TID RUSSELL Administration Tizanidine HCl 2 mg 02/28/21 09:52 03/03/21 16:15 Tizanidine Hcl 4 Mg Tablet PO 2 mg TID PRN Administration muscle spasm Trazodone HCl 50 mg 02/28/21 14:17 Trazodone Hcl 50 Mg Tablet PO BEDTIME PRN Insomnia Venlafaxine HCl 150 mg 03/03/21 09:00 03/06/21 08:23 Venlafaxine Hcl Er 150 Mg Cap.Er.24h PO 150 mg DAILY RUSSELL Administration Ziprasidone 40 mg 02/28/21 21:00 03/05/21 22:10 Ziprasidone 40 Mg Capsule PO 40 mg BEDTIME RUSSELL Administration Ziprasidone 20 mg 03/02/21 09:00 03/06/21 08:23 Ziprasidone 20 Mg Capsule PO 20 mg DAILY RUSSELL Administration Allergies Allergies Allergy/AdvReac Type Severity Reaction Status Date / Time morphine [MORPHINE] Allergy Unknown RASH Verified 02/12/21 11:33 Assessment & Plan Assessment & Plan (1) Recurrent major depression-severe: Status: Acute Code(s): F33.2 - Major depressive disorder, recurrent severe without psychotic features Assessment and Plan: 45 yo female, s/p suicide attempt via cutting her wrist and attempt to stab herself and fiance with BAL 114 after drinking 4 beers, 2 shots and 3 shots of bauma red. Pt reports several stressors-her wedding is postponed due to fiance needing to address some issues, her rented room in mothers home is currently being used by her sister and pt is experiencing discord with her daughter. Pt reports also needing to live with chronic back pain. These, in addition to pt feeling useless and alone due to not being able to find a career that works for her precipitated sx. She reports lability so this may be a differential dx of bipolar disorder. Today, she reports fiance has ended their relationship. Plan: Continue Geodon to 20 mg a.m. and 40 mg h.s. Continue Effexor decrease to 150 mg daily ContinueCymbalta 30 mg daily Continue Lamictal 25 mg daily Prazosin 1 mg HS (2) Alcohol use disorder, moderate, dependence: Status: Acute Code(s): F10.20 - Alcohol dependence, uncomplicated Assessment and Plan: BAL 114. 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 (4) Borderline personality disorder: Status: Acute Code(s): F60.3 - Borderline personality disorder Assessment and Plan: Pt given written info on borderline personality, DBT, and DBT workbook to review. Greater than 50% of the session was spent on counseling and/or coordination of care Reason for contiued inpatient stay Substantial Risk for: other
[2021-03-06] MEDS: hydrOXYzine HCL 25 MG TABLET PO (11:17)
[2021-03-06] MEDS: TiZANidine HCL 4 MG TABLET 2 MG PO (14:15)
[2021-03-06] MEDS: TiZANidine HCL 4 MG TABLET PO (17:56)
[2021-03-06 22:20] VITALS: BP 116/67; PULSE 82; TEMP 36.4
[2021-03-06] MEDS: Ziprasidone 40 MG CAPSULE PO (22:26)
[2021-03-06] MEDS: lamoTRIgine 25 MG TABLET PO (22:27)
[2021-03-06] MEDS: busPIRone HCl 10 MG TABLET PO (22:27)
[2021-03-06 22:28] VITALS: BP 116/67; PULSE 82
[2021-03-06] MEDS: Prazosin HCL 1 MG CAPSULE 2 MG PO (22:28)
[2021-03-06] MEDS: Zolpidem Tartrate 5 MG TABLET 10 MG PO (22:37)
[2021-03-07] MEDS: TiZANidine HCL 4 MG TABLET PO ×2 (03:00→08:59)
[2021-03-07] MEDS: Acetaminophen 325 MG TABLET 650 MG PO (03:00)
[2021-03-07 06:00] VITALS: BP 96/67; PULSE 78; TEMP 36.7
[2021-03-07] MEDS: DULoxetine HCl 30 MG CAPSULE.DR PO (08:22)
[2021-03-07] MEDS: Ziprasidone 20 MG CAPSULE PO (08:22)
[2021-03-07] MEDS: Pregabalin 100 MG CAPSULE PO ×3 (08:22→22:44)
[2021-03-07] MEDS: Venlafaxine HCl ER 150 MG CAP.ER.24H PO (08:22)
[2021-03-07] MEDS: Ibuprofen 800 MG TABLET PO ×3 (08:22→22:43)
[2021-03-07] MEDS: busPIRone HCl 10 MG TABLET 20 MG PO ×2 (08:22→20:57)
--- NOTE | 2021-03-07 09:27 | P.PNPSI_ITS ---
Subjective Subjective Date of Service: 03/07/21 Reason For Visit: Depression SI Interim History: Patient was seen and discussed in rounds today. She continues to complain of depression and anxiety. She is more social. Continues to complain of pain there was a misunderstanding about her Suboxone patch which was ordered to use our own supply. A change was made in her nighttime CPAP order. No complaints other than above. No changes were made other than above. Continue current regimen and plans Mental Status Exam Mental Status Exam Narrative: In today's visit she is alert, oriented and pleasant. Normal speech. Good eye contact. Affect is appropriate and slightly tense. Moderate anxiety present. She does admit to some racing thoughts. No signs of psychosis. No SI. Cognitively intact. Judgment is intact Diagnostics Vital Signs (24Hr): Vital Signs - 24 hr 03/06/21 22:20 03/06/21 22:28 03/07/21 06:00 Temperature 97.5 F 98.1 F Pulse Rate 82 82 78 Blood Pressure 116/67 116/67 96/67 Body Mass Index 37.0 Labs Results: 03/02/21 06:55 03/02/21 06:55 Medications Medications Current Medications Generic Name Dose Route Start Last Admin Trade Name Freq PRN Reason Stop Dose Admin Acetaminophen 650 mg 02/28/21 14:17 03/07/21 03:00 Acetaminophen 325 Mg Tablet PO 650 mg Q6H PRN Administration Headache/Pain Mild Scale (1-3) Al Hydroxide/Mg Hydroxide 30 ml 02/28/21 14:17 03/03/21 11:59 Magnesium Hydrox/Alum Hydrox 30 Ml Oral.Susp PO 30 ml Q6H PRN Administration Heartburn/Nausea Buspirone HCl 10 mg 02/28/21 21:00 03/06/21 22:27 Buspirone Hcl 10 Mg Tablet PO 10 mg BEDTIME RUSSELL Administration Buspirone HCl 20 mg 02/28/21 14:30 03/07/21 08:22 Buspirone Hcl 10 Mg Tablet PO 20 mg BID RUSSELL Administration Clonidine HCl 0.1 mg 02/28/21 10:11 03/05/21 21:07 Clonidine Hcl 0.1 Mg Tablet PO 0.1 mg DAILY PRN Administration withdrawl Protocol Duloxetine HCl 30 mg 03/03/21 09:00 03/07/21 08:22 Duloxetine Hcl 30 Mg Capsule.Dr PO 30 mg DAILY RUSSELL Administration Hydroxyzine HCl 25 mg 02/28/21 14:17 03/03/21 22:36 Hydroxyzine Hcl 25 Mg Tablet PO 25 mg BEDTIME PRN Administration Anxiety Hydroxyzine HCl 25 mg 03/06/21 09:30 03/06/21 11:17 Hydroxyzine Hcl 25 Mg Tablet PO 25 mg TID PRN Administration diarrhea Ibuprofen 800 mg 02/28/21 09:45 03/07/21 08:22 Ibuprofen 800 Mg Tablet PO 800 mg TID RUSSELL Administration Lamotrigine 25 mg 03/02/21 21:00 03/06/21 22:27 Lamotrigine 25 Mg Tablet PO 25 mg BEDTIME RUSSELL Administration Magnesium Hydroxide 30 ml 02/28/21 14:17 03/03/21 22:04 Milk Of Magnesia 30 Ml Oral.Susp PO 30 ml DAILY PRN Administration Constipation Pt Own Med: 1 each 03/06/21 18:00 03/06/21 17:51 Buprenorphine 10 Mcg TOPICAL 1 each /Hr Patch Sa@1800 RUSSELL Administration Prazosin HCl 2 mg 03/06/21 21:00 03/06/21 22:28 Prazosin Hcl 1 Mg Capsule PO 2 mg BEDTIME RUSSELL Administration Protocol Pregabalin 100 mg 02/28/21 09:45 03/07/21 08:22 Pregabalin 100 Mg Capsule PO 100 mg TID RUSSELL Administration Tizanidine HCl 4 mg 03/06/21 14:25 03/07/21 08:59 Tizanidine Hcl 4 Mg Tablet PO 4 mg TID PRN Administration muscle spasm Trazodone HCl 50 mg 02/28/21 14:17 Trazodone Hcl 50 Mg Tablet PO BEDTIME PRN Insomnia Venlafaxine HCl 150 mg 03/03/21 09:00 03/07/21 08:22 Venlafaxine Hcl Er 150 Mg Cap.Er.24h PO 150 mg DAILY RUSSELL Administration Ziprasidone 40 mg 02/28/21 21:00 03/06/21 22:26 Ziprasidone 40 Mg Capsule PO 40 mg BEDTIME RUSSELL Administration Ziprasidone 20 mg 03/02/21 09:00 03/07/21 08:22 Ziprasidone 20 Mg Capsule PO 20 mg DAILY RUSSELL Administration Zolpidem Tartrate 10 mg 03/06/21 22:25 03/06/21 22:37 Zolpidem Tartrate 5 Mg Tablet PO 10 mg BEDTIME PRN Administration Insomnia Allergies Allergies Allergy/AdvReac Type Severity Reaction Status Date / Time morphine [MORPHINE] Allergy Unknown RASH Verified 02/12/21 11:33 Assessment & Plan Assessment & Plan (1) Recurrent major depression-severe: Status: Acute Code(s): F33.2 - Major depressive disorder, recurrent severe without psychotic features Assessment and Plan: 45 yo female, s/p suicide attempt via cutting her wrist and attempt to stab herself and fiance with BAL 114 after drinking 4 beers, 2 shots and 3 shots of bauma red. Pt reports several stressors-her wedding is postponed due to fiance needing to address some issues, her rented room in mothers home is currently being used by her sister and pt is experiencing discord with her daughter. Pt reports also needing to live with chronic back pain. These, in addition to pt feeling useless and alone due to not being able to find a career that works for her precipitated sx. She reports lability so this may be a differential dx of bipolar disorder. Today, she reports fiance has ended their relationship. Plan: Continue Geodon to 20 mg a.m. and 40 mg h.s. Continue Effexor decrease to 150 mg daily ContinueCymbalta 30 mg daily Continue Lamictal 25 mg daily Prazosin 1 mg HS (2) Alcohol use disorder, moderate, dependence: Status: Acute Code(s): F10.20 - Alcohol dependence, uncomplicated Assessment and Plan: BAL 114. 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 (4) Borderline personality disorder: Status: Acute Code(s): F60.3 - Borderline personality disorder Assessment and Plan: Pt given written info on borderline personality, DBT, and DBT workbook to review. Greater than 50% of the session was spent on counseling and/or coordination of care Reason for contiued inpatient stay Substantial Risk for: other
[2021-03-07 20:57] VITALS: BP 146/76; PULSE 85
[2021-03-07] MEDS: hydrOXYzine HCL 25 MG TABLET PO ×2 (20:57→22:43)
[2021-03-07] MEDS: Ziprasidone 40 MG CAPSULE PO (20:57)
[2021-03-07] MEDS: cloNIDine HCL 0.1 MG TABLET PO (20:57)
[2021-03-07] MEDS: busPIRone HCl 10 MG TABLET PO (20:57)
[2021-03-07] MEDS: Zolpidem Tartrate 5 MG TABLET 10 MG PO (22:43)
[2021-03-07] MEDS: Prazosin HCL 1 MG CAPSULE 2 MG PO (22:43)
[2021-03-07] MEDS: lamoTRIgine 25 MG TABLET PO (22:43)
[2021-03-08] MEDS: Magnesium Hydrox/Alum Hydrox 30 ML ORAL.SUSP PO (04:15)
[2021-03-08 06:20] VITALS: BP 102/55; PULSE 82; RESP 16; TEMP 36.4; O2SAT 94
[2021-03-08] MEDS: Pregabalin 100 MG CAPSULE PO ×3 (08:07→22:28)
[2021-03-08] MEDS: Ziprasidone 20 MG CAPSULE PO (08:07)
[2021-03-08] MEDS: Venlafaxine HCl ER 150 MG CAP.ER.24H PO (08:07)
[2021-03-08] MEDS: DULoxetine HCl 30 MG CAPSULE.DR PO (08:07)
[2021-03-08] MEDS: Ibuprofen 800 MG TABLET PO ×3 (08:08→22:28)
[2021-03-08] MEDS: busPIRone HCl 10 MG TABLET 20 MG PO ×2 (08:08→22:29)
--- NOTE | 2021-03-08 12:50 | HO.PSYCHPN ---
Subjective Subjective Date of Service: 03/08/21 Reason For Visit: Depression SI Subjective Notes: Conditional Voluntary Healthcare Proxy: No Guardianship: No Medical Problems Affecting Mental Status: Yes (pain) Interim History: Difficult weekend for pt. Loss of relationship, chronic pain. Today she reports feeling tired, possibly contributing is initiation and titration of Prazosin. Pt reports no SE from Effexor XR/Cymbalta cross-titration. Will continue this week. Discussed her feelings of loss and moving forward. Medication Compliance: Yes Side effects from medications: Yes (some tiredness) Attending Groups: Yes Review of Systems Psychiatric: Reports anxiety, Reports depression, Reports difficulty concentrating, Reports hopelessness, Reports irritability, Reports anhedonia, Reports mood swings and Reports suicidal ideation (If I was not here I think I would jump off a bridge.) Mental Status Exam Mental Status Exam Patient Appearance: Appropriate Patient Orientation: Person, Place, Time and Situation Level of Consciousness: Alert Patient Behavior: Talkative, Fatigued, Good Eye Contact and Crying Mood Description: Depressed Affect Description: Flat Patient Cognition Impaired: No Ability to Follow Directions: Good Speech Pattern: Perseverating, Spontaneous Speech and Soft-Spoken Memory Description: Intact Hallucinations: None Delusions: Not Present Perceptual Disturbances: Depersonalization Thought Process: Distracted and Rumination Thought Content: positive for Circumstantial, positive for Perseveration and positive for Suicidal Ideation Depressive Symptoms: Increased Anxiety, Diff. Making Decisions, Loss of Int. in Activity, Feelings of Worthlessness, Hopelessness, Isolating-Friends/Family, Feelings of Guilt, Unhappiness, Increased Fatigue, Thoughts of /Suicide, Low Self Esteem, Loss of Energy and Difficulty Concentrating Judgement: Fair Diagnostics Vital Signs (24Hr): Vital Signs - 24 hr 03/07/21 20:57 03/08/21 06:20 Temperature 97.5 F Pulse Rate 85 82 Respiratory Rate 16 Blood Pressure 146/76 H 102/55 L Pulse Oximetry 94 Body Mass Index 37.0 Labs Results: 03/02/21 06:55 03/02/21 06:55 Medications Medications Current Medications Generic Name Dose Route Start Last Admin Trade Name Freq PRN Reason Stop Dose Admin Acetaminophen 650 mg 02/28/21 14:17 03/07/21 03:00 Acetaminophen 325 Mg Tablet PO 650 mg Q6H PRN Administration Headache/Pain Mild Scale (1-3) Al Hydroxide/Mg Hydroxide 30 ml 02/28/21 14:17 03/08/21 04:15 Magnesium Hydrox/Alum Hydrox 30 Ml Oral.Susp PO 30 ml Q6H PRN Administration Heartburn/Nausea Buspirone HCl 10 mg 02/28/21 21:00 03/07/21 20:57 Buspirone Hcl 10 Mg Tablet PO 10 mg BEDTIME RUSSELL Administration Buspirone HCl 20 mg 02/28/21 14:30 03/08/21 08:08 Buspirone Hcl 10 Mg Tablet PO 20 mg BID RUSSELL Administration Clonidine HCl 0.1 mg 02/28/21 10:11 03/07/21 20:57 Clonidine Hcl 0.1 Mg Tablet PO 0.1 mg DAILY PRN Administration withdrawl Protocol Duloxetine HCl 30 mg 03/03/21 09:00 03/08/21 08:07 Duloxetine Hcl 30 Mg Capsule.Dr PO 30 mg DAILY RUSSELL Administration Hydroxyzine HCl 25 mg 02/28/21 14:17 03/07/21 22:43 Hydroxyzine Hcl 25 Mg Tablet PO 25 mg BEDTIME PRN Administration Anxiety Hydroxyzine HCl 25 mg 03/06/21 09:30 03/07/21 20:57 Hydroxyzine Hcl 25 Mg Tablet PO 25 mg TID PRN Administration diarrhea Ibuprofen 800 mg 02/28/21 09:45 03/08/21 08:08 Ibuprofen 800 Mg Tablet PO 800 mg TID RUSSELL Administration Lamotrigine 25 mg 03/02/21 21:00 03/07/21 22:43 Lamotrigine 25 Mg Tablet PO 25 mg BEDTIME RUSSELL Administration Magnesium Hydroxide 30 ml 02/28/21 14:17 03/03/21 22:04 Milk Of Magnesia 30 Ml Oral.Susp PO 30 ml DAILY PRN Administration Constipation Pt Own Med: 1 each 03/06/21 18:00 03/06/21 17:51 Buprenorphine 10 Mcg TOPICAL 1 each /Hr Patch Sa@1800 RUSSELL Administration Prazosin HCl 2 mg 03/06/21 21:00 03/07/21 22:43 Prazosin Hcl 1 Mg Capsule PO 2 mg BEDTIME RUSSELL Administration Protocol Pregabalin 100 mg 02/28/21 09:45 03/08/21 08:07 Pregabalin 100 Mg Capsule PO 100 mg TID RUSSELL Administration Tizanidine HCl 4 mg 03/06/21 14:25 03/07/21 08:59 Tizanidine Hcl 4 Mg Tablet PO 4 mg TID PRN Administration muscle spasm Trazodone HCl 50 mg 02/28/21 14:17 Trazodone Hcl 50 Mg Tablet PO BEDTIME PRN Insomnia Venlafaxine HCl 150 mg 03/03/21 09:00 03/08/21 08:07 Venlafaxine Hcl Er 150 Mg Cap.Er.24h PO 150 mg DAILY RUSSELL Administration Ziprasidone 40 mg 02/28/21 21:00 03/07/21 20:57 Ziprasidone 40 Mg Capsule PO 40 mg BEDTIME RUSSELL Administration Ziprasidone 20 mg 03/02/21 09:00 03/08/21 08:07 Ziprasidone 20 Mg Capsule PO 20 mg DAILY RUSSELL Administration Zolpidem Tartrate 10 mg 03/06/21 22:25 03/07/21 22:43 Zolpidem Tartrate 5 Mg Tablet PO 10 mg BEDTIME PRN Administration Insomnia Allergies Allergies Allergy/AdvReac Type Severity Reaction Status Date / Time morphine [MORPHINE] Allergy Unknown RASH Verified 02/12/21 11:33 Assessment & Plan Assessment & Plan (1) Recurrent major depression-severe: Status: Acute Code(s): F33.2 - Major depressive disorder, recurrent severe without psychotic features Assessment and Plan: 45 yo female, s/p suicide attempt via cutting her wrist and attempt to stab herself and fiance with BAL 114 after drinking 4 beers, 2 shots and 3 shots of bauma red. Pt reports several stressors-her wedding is postponed due to fiance needing to address some issues, her rented room in mothers home is currently being used by her sister and pt is experiencing discord with her daughter. Pt reports also needing to live with chronic back pain. These, in addition to pt feeling useless and alone due to not being able to find a career that works for her precipitated sx. She reports lability so this may be a differential dx of bipolar disorder. Today, she reports fiance has ended their relationship. Plan: Continue Geodon to 20 mg a.m. and 40 mg h.s. Decrease Effexor XR to 75 mg daily Increase Cymbalta 60 mg daily Continue Lamictal 25 mg daily Continue Prazosin 2 mg HS (2) Alcohol use disorder, moderate, dependence: Status: Acute Code(s): F10.20 - Alcohol dependence, uncomplicated Assessment and Plan: BAL 114. 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 (4) Borderline personality disorder: Status: Acute Code(s): F60.3 - Borderline personality disorder Assessment and Plan: Pt given written info on borderline personality, DBT, and DBT workbook to review. Greater than 50% of the session was spent on counseling and/or coordination of care Reason for contiued inpatient stay Substantial Risk for: harm to self, harm to others, inability to function and rapid decompensation
[2021-03-08 18:00] VITALS: BP 124/57; PULSE 85
[2021-03-08] MEDS: hydrOXYzine HCL 25 MG TABLET PO (19:42)
[2021-03-08] MEDS: cloNIDine HCL 0.1 MG TABLET PO (20:31)
[2021-03-08] MEDS: lamoTRIgine 25 MG TABLET PO (22:28)
[2021-03-08] MEDS: busPIRone HCl 10 MG TABLET PO (22:28)
[2021-03-08] MEDS: Prazosin HCL 1 MG CAPSULE 2 MG PO (22:28)
[2021-03-08] MEDS: Ziprasidone 40 MG CAPSULE PO (22:28)
[2021-03-08] MEDS: Zolpidem Tartrate 5 MG TABLET 10 MG PO (22:32)
[2021-03-09] MEDS: traZODone HCL 50 MG TABLET PO ×2 (02:34→22:41)
[2021-03-09] MEDS: hydrOXYzine HCL 25 MG TABLET PO ×2 (02:34→22:41)
[2021-03-09 06:00] VITALS: BP 101/55; PULSE 73; RESP 18; TEMP 36.7; O2SAT 95
[2021-03-09] MEDS: Ibuprofen 800 MG TABLET PO ×3 (08:37→21:02)
[2021-03-09] MEDS: busPIRone HCl 10 MG TABLET 20 MG PO ×2 (08:37→21:03)
[2021-03-09] MEDS: Pregabalin 100 MG CAPSULE PO ×3 (08:37→21:02)
[2021-03-09] MEDS: DULoxetine HCl 60 MG CAPSULE.DR PO (08:37)
[2021-03-09] MEDS: Venlafaxine HCl ER 75 MG CAP.ER.24H PO (08:37)
[2021-03-09] MEDS: Ziprasidone 20 MG CAPSULE PO (08:37)
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
[2021-03-09 17:28] VITALS: BP 138/69; PULSE 85
[2021-03-09] MEDS: cloNIDine HCL 0.1 MG TABLET PO (17:28)
[2021-03-09 18:00] VITALS: BP 123/66; PULSE 92; RESP 18; TEMP 35.4; O2SAT 97
[2021-03-09] MEDS: Ziprasidone 40 MG CAPSULE PO (21:01)
[2021-03-09] MEDS: Zolpidem Tartrate 5 MG TABLET 10 MG PO (21:01)
[2021-03-09 21:02] VITALS: BP 120/65; PULSE 83
[2021-03-09] MEDS: lamoTRIgine 25 MG TABLET PO (21:02)
[2021-03-09] MEDS: Prazosin HCL 1 MG CAPSULE 2 MG PO (21:02)
[2021-03-09] MEDS: busPIRone HCl 10 MG TABLET PO (21:03)
[2021-03-10 06:00] VITALS: BP 99/52; PULSE 77; RESP 18; TEMP 36.4; O2SAT 98
[2021-03-10] MEDS: Venlafaxine HCl ER 75 MG CAP.ER.24H PO (08:55)
[2021-03-10] MEDS: Ibuprofen 800 MG TABLET PO ×3 (08:55→20:38)
[2021-03-10] MEDS: Pregabalin 100 MG CAPSULE PO ×3 (08:55→20:38)
[2021-03-10] MEDS: DULoxetine HCl 60 MG CAPSULE.DR PO (08:55)
[2021-03-10] MEDS: busPIRone HCl 10 MG TABLET 20 MG PO ×2 (08:56→20:38)
[2021-03-10] MEDS: Ziprasidone 20 MG CAPSULE PO (08:56)
[2021-03-10 12:29] VITALS: BP 130/67; PULSE 83
[2021-03-10] MEDS: cloNIDine HCL 0.1 MG TABLET PO (12:29)
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
[2021-03-10 17:44] VITALS: BP 116/79; PULSE 94; RESP 16; TEMP 36.6; O2SAT 96
[2021-03-10 20:32] VITALS: BP 133/60; PULSE 81
[2021-03-10] MEDS: Prazosin HCL 1 MG CAPSULE 2 MG PO (20:32)
[2021-03-10] MEDS: Ziprasidone 40 MG CAPSULE PO (20:37)
[2021-03-10] MEDS: busPIRone HCl 10 MG TABLET PO (20:38)
[2021-03-10] MEDS: lamoTRIgine 25 MG TABLET PO (20:38)
[2021-03-10] MEDS: Zolpidem Tartrate 5 MG TABLET 10 MG PO (20:42)
[2021-03-10] MEDS: hydrOXYzine HCL 25 MG TABLET PO (20:42)
[2021-03-10] MEDS: traZODone HCL 50 MG TABLET PO (20:42)
[2021-03-11] MEDS: Magnesium Hydrox/Alum Hydrox 30 ML ORAL.SUSP PO (04:53)
[2021-03-11 05:01] VITALS: BP 129/73; PULSE 88; RESP 18; TEMP 36.6; O2SAT 96
[2021-03-11 07:00] VITALS: BMI 37.5
[2021-03-11] MEDS: Ibuprofen 800 MG TABLET PO ×3 (09:03→22:33)
[2021-03-11] MEDS: Pregabalin 100 MG CAPSULE PO ×3 (09:03→22:38)
[2021-03-11] MEDS: DULoxetine HCl 60 MG CAPSULE.DR PO (09:04)
[2021-03-11] MEDS: Venlafaxine HCl ER 75 MG CAP.ER.24H PO (09:04)
[2021-03-11] MEDS: Ziprasidone 20 MG CAPSULE PO (09:04)
[2021-03-11] MEDS: busPIRone HCl 10 MG TABLET 20 MG PO ×2 (09:04→22:33)
[2021-03-11] MEDS: TiZANidine HCL 4 MG TABLET PO (14:35)
[2021-03-11 14:38] VITALS: BP 122/70; PULSE 93
[2021-03-11] MEDS: cloNIDine HCL 0.1 MG TABLET PO (14:38)
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
[2021-03-11] MEDS: busPIRone HCl 10 MG TABLET PO (22:32)
[2021-03-11] MEDS: Ziprasidone 40 MG CAPSULE PO (22:33)
[2021-03-11] MEDS: lamoTRIgine 25 MG TABLET PO (22:33)
[2021-03-11] MEDS: Mirtazapine 7.5 MG TABLET PO (22:33)
[2021-03-11 22:34] VITALS: BP 149/83; PULSE 85
[2021-03-11] MEDS: Prazosin HCL 1 MG CAPSULE 2 MG PO (22:34)
[2021-03-11] MEDS: traZODone HCL 50 MG TABLET PO (22:42)
[2021-03-12 06:00] VITALS: BP 90/52; PULSE 72; TEMP 36.3
[2021-03-12] MEDS: Ibuprofen 800 MG TABLET PO ×3 (08:55→20:29)
[2021-03-12] MEDS: DULoxetine HCl 60 MG CAPSULE.DR PO (08:55)
[2021-03-12] MEDS: Ziprasidone 20 MG CAPSULE PO (08:55)
[2021-03-12] MEDS: Venlafaxine HCl ER 75 MG CAP.ER.24H PO (08:55)
[2021-03-12] MEDS: busPIRone HCl 10 MG TABLET 20 MG PO ×2 (08:55→20:29)
[2021-03-12] MEDS: Pregabalin 100 MG CAPSULE PO ×3 (08:55→20:28)
[2021-03-12 13:13] VITALS: BP 135/73; PULSE 110
[2021-03-12] MEDS: cloNIDine HCL 0.1 MG TABLET PO (13:13)
[2021-03-12] MEDS: TiZANidine HCL 4 MG TABLET PO (13:14)
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
[2021-03-12 18:00] VITALS: RESP 16; TEMP 36.2; O2SAT 97
[2021-03-12] MEDS: busPIRone HCl 10 MG TABLET PO (20:28)
[2021-03-12] MEDS: Ziprasidone 20 MG CAPSULE 60 MG PO (20:28)
[2021-03-12 20:29] VITALS: BP 120/66; PULSE 88
[2021-03-12] MEDS: lamoTRIgine 25 MG TABLET PO (20:29)
[2021-03-12] MEDS: Prazosin HCL 1 MG CAPSULE 2 MG PO (20:29)
[2021-03-12] MEDS: Mirtazapine 7.5 MG TABLET PO (20:29)
[2021-03-12] MEDS: Magnesium Hydrox/Alum Hydrox 30 ML ORAL.SUSP PO (20:29)
[2021-03-13] MEDS: Acetaminophen 325 MG TABLET 650 MG PO (06:37)
[2021-03-13 06:47] VITALS: BP 122/56; PULSE 65; RESP 16; O2SAT 95
[2021-03-13] MEDS: Ziprasidone 20 MG CAPSULE PO (09:31)
[2021-03-13] MEDS: Pregabalin 100 MG CAPSULE PO ×3 (09:31→21:17)
[2021-03-13] MEDS: busPIRone HCl 10 MG TABLET 20 MG PO ×2 (09:31→21:16)
[2021-03-13] MEDS: Ibuprofen 800 MG TABLET PO ×3 (09:31→21:17)
[2021-03-13] MEDS: DULoxetine HCl 60 MG CAPSULE.DR PO (09:31)
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
[2021-03-13] MEDS: TiZANidine HCL 4 MG TABLET PO ×2 (17:50→22:26)
[2021-03-13 17:51] VITALS: BP 131/69; PULSE 78
[2021-03-13] MEDS: cloNIDine HCL 0.1 MG TABLET PO (17:51)
[2021-03-13 18:00] VITALS: BP 107/50; PULSE 71; TEMP 36.7
[2021-03-13] MEDS: busPIRone HCl 10 MG TABLET PO (21:16)
[2021-03-13] MEDS: Mirtazapine 7.5 MG TABLET PO (21:17)
[2021-03-13] MEDS: lamoTRIgine 25 MG TABLET PO (21:17)
[2021-03-13] MEDS: Ziprasidone 20 MG CAPSULE 60 MG PO (21:20)
[2021-03-14] MEDS: traZODone HCL 50 MG TABLET PO ×2 (01:39→20:58)
[2021-03-14] MEDS: hydrOXYzine HCL 25 MG TABLET PO ×2 (01:39→20:58)
[2021-03-14 06:00] VITALS: BP 122/70; PULSE 70; RESP 16; TEMP 36.3; O2SAT 98
[2021-03-14] MEDS: Pregabalin 100 MG CAPSULE PO ×3 (07:54→20:58)
[2021-03-14] MEDS: Ziprasidone 20 MG CAPSULE PO (07:55)
[2021-03-14] MEDS: Ibuprofen 800 MG TABLET PO ×3 (07:55→20:58)
[2021-03-14] MEDS: DULoxetine HCl 60 MG CAPSULE.DR PO (07:55)
[2021-03-14] MEDS: busPIRone HCl 10 MG TABLET 20 MG PO ×2 (07:55→21:23)
[2021-03-14 09:53] VITALS: BP 139/63; PULSE 107
[2021-03-14] MEDS: cloNIDine HCL 0.1 MG TABLET PO (09:53)
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
[2021-03-14 16:58] VITALS: BP 128/69; PULSE 70; TEMP 36.4; O2SAT 100
[2021-03-14] MEDS: Ziprasidone 20 MG CAPSULE 60 MG PO (20:56)
[2021-03-14] MEDS: TiZANidine HCL 4 MG TABLET PO (20:56)
[2021-03-14 20:57] VITALS: BP 119/68; PULSE 73
[2021-03-14] MEDS: Prazosin HCL 1 MG CAPSULE 2 MG PO (20:57)
[2021-03-14] MEDS: lamoTRIgine 25 MG TABLET PO (20:58)
[2021-03-14] MEDS: busPIRone HCl 10 MG TABLET PO (20:58)
[2021-03-14] MEDS: Mirtazapine 7.5 MG TABLET PO (20:58)
[2021-03-15 06:00] VITALS: BP 111/59; PULSE 69; RESP 16; TEMP 36.4; O2SAT 93
[2021-03-15] MEDS: Ibuprofen 800 MG TABLET PO ×3 (08:29→20:38)
[2021-03-15] MEDS: DULoxetine HCl 60 MG CAPSULE.DR PO (08:29)
[2021-03-15] MEDS: Pregabalin 100 MG CAPSULE PO ×3 (08:29→20:38)
[2021-03-15] MEDS: busPIRone HCl 10 MG TABLET 20 MG PO ×2 (08:30→20:40)
[2021-03-15] MEDS: Ziprasidone 20 MG CAPSULE PO (08:30)
[2021-03-15 10:02] VITALS: BP 132/62; PULSE 91
[2021-03-15] MEDS: cloNIDine HCL 0.1 MG TABLET PO (10:02)
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
[2021-03-15 16:33] VITALS: BP 150/74; PULSE 79; RESP 16; TEMP 36.8; O2SAT 100
[2021-03-15 20:38] VITALS: BP 119/61; PULSE 75
[2021-03-15] MEDS: Prazosin HCL 1 MG CAPSULE 2 MG PO (20:38)
[2021-03-15] MEDS: Ziprasidone 20 MG CAPSULE 60 MG PO (20:39)
[2021-03-15] MEDS: busPIRone HCl 10 MG TABLET PO (20:39)
[2021-03-15] MEDS: traZODone HCL 50 MG TABLET PO (20:40)
[2021-03-15] MEDS: Mirtazapine 7.5 MG TABLET PO (20:40)
[2021-03-15] MEDS: TiZANidine HCL 4 MG TABLET PO (20:40)
[2021-03-15] MEDS: hydrOXYzine HCL 25 MG TABLET PO (20:41)
[2021-03-15] MEDS: lamoTRIgine 25 MG TABLET PO (20:41)
[2021-03-16 06:00] VITALS: BP 112/57; PULSE 77; RESP 18; TEMP 37.1; O2SAT 96
[2021-03-16] MEDS: Ziprasidone 20 MG CAPSULE PO (08:21)
[2021-03-16] MEDS: Ibuprofen 800 MG TABLET PO (08:21)
[2021-03-16] MEDS: Pregabalin 100 MG CAPSULE PO (08:21)
[2021-03-16] MEDS: busPIRone HCl 10 MG TABLET 20 MG PO (08:21)
[2021-03-16] MEDS: DULoxetine HCl 60 MG CAPSULE.DR PO (08:21)
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
== END 2021-03-16 12:00 | disposition home or self-care (01) | DRG 885 ==
LOC: HO.ED 22:44 → HO.PM5 02-28 14:37
PROVIDERS: Social Worker; Admitting Provider Psychiatry & Neurology Psychiatry; Emergency Provider Student in an Organized Health Care Education/Training Program; PCP Internal Medicine; Visit Provider Clinical Nurse Specialist Psychiatric/Mental Health, Adult
DX: F33.2 Major depressive disorder, recurrent severe without psychotic features (principal); R45.851 Suicidal ideations; F11.20 Opioid dependence, uncomplicated; F41.9 Anxiety disorder, unspecified; Y90.5 Blood alcohol level of 100-119 mg/100 ml; F10.20 Alcohol dependence, uncomplicated; F60.3 Borderline personality disorder; Z20.822 Contact with and (suspected) exposure to COVID-19; Z91.5 Personal history of self-harm; Z79.1 Long term (current) use of non-steroidal anti-inflammatories (NSAID); Z79.899 Other long term (current) drug therapy
CPT/HCPCS: 36415; 80053; 80061; 80307; 81001; 81003; 81025; 82077; 82306; 82607; 82746; 83036; 84443; 85025; 87086; 87635; 93005; 99284

== ENCOUNTER 2021-04-02 13:20 | Outpatient (REF) | payer OTHER, SELFPAY ==
[2021-04-03 01:17] LABS: CT PCR NOT DETECTED (Not Detect.); NG PCR NOT DETECTED (Not Detect.)
[2021-04-03 12:03] LABS: BV Int Neg Control Negative (Negative); BV Int Pos Control Positive (Positive)
[2021-04-07 17:00] LABS: HPV mRNA E6/E7 rflx Not Detected (Not Detected)
== END 2021-04-02 13:21 | disposition home or self-care (01) ==
LOC: HO.LAB 13:20
PROVIDERS: Visit Provider Advanced Practice Midwife
DX: Z01.419 Encounter for gynecological examination (general) (routine) without abnormal findings (principal); E66.9 Obesity, unspecified; Z87.42 Personal history of other diseases of the female genital tract; Z20.2 Contact with and (suspected) exposure to infections with a predominantly sexual mode of transmission; Z79.899 Other long term (current) drug therapy
CPT/HCPCS: 87480; 87491; 87510; 87591; 87624; 87660; 88142

== ENCOUNTER 2021-04-05 17:13 | Outpatient (REF) | payer OTHER, SELFPAY | END 2021-04-05 17:14 | disposition home or self-care (01) | LOC: HO.LNP 17:13 | PROVIDERS: Visit Provider Advanced Practice Midwife | DX: Z13.89 Encounter for screening for other disorder (principal) ==

== ENCOUNTER 2021-08-23 14:27 | Outpatient (REF) | payer OTHER, SELFPAY ==
[2021-08-23 16:55] LABS: Alanine Aminotransferase 16 U/L (0-31); Albumin Level 4.2 g/dL (3.5-5.0); Alkaline Phosphatase 112 U/L (39-117); Anion Gap 11 (12-20); Aspartate Amino Transferase 13 U/L (5-31); Bilirubin Total < 0.2 mg/dL (0.0-1.0); Blood Urea Nitrogen 12 mg/dL (9-16); Calcium 9.7 mg/dL (8.4-10.2); Carbon Dioxide 25 mmol/L (22-29); Chloride 107 mmol/L (96-108); Cholesterol 206 mg/dL; Estimated Glomerular Filt Rate > 60; Glucose Fasting 84 mg/dL (60-99); HDL Cholesterol 63 mg/dL; LDL Cholesterol Calculated 118 mg/dl; Potassium 4.1 mmol/L (3.3-5.1); Sodium 139 mmol/L (135-145); Total Protein 7.5 g/dL (6.5-8.0); Triglycerides 128 mg/dL
[2021-08-23 17:11] LABS: Syphilis Screen Nonreactive (Nonreactive)
[2021-08-24 02:51] LABS: CT PCR NOT DETECTED (Not Detect.); NG PCR NOT DETECTED (Not Detect.)
[2021-08-24 08:10] LABS: HIV AB/AG Nonreactive (Nonreactive); HIV Num 1 0.07 S/CO (0.00-0.99); ~HepC Num1 0.12 S/CO (0.00-0.79); ~Hepatitis C Antibody Nonreactive (Nonreactive)
[2021-08-24 08:36] LABS: HBsAGNum1 0.19 S/CO (0.00-0.99); Hepatitis B Surface Antigen Negative (Negative)
[2021-08-24 11:04] LABS: BV Int Neg Control Negative (Negative); BV Int Pos Control Positive (Positive)
== END 2021-08-23 14:28 | disposition home or self-care (01) ==
LOC: HO.LAB 14:27
PROVIDERS: PCP Internal Medicine; Visit Provider Advanced Practice Midwife
DX: Z01.411 Encounter for gynecological examination (general) (routine) with abnormal findings (principal); Z11.4 Encounter for screening for human immunodeficiency virus [HIV]; N85.2 Hypertrophy of uterus; Z20.2 Contact with and (suspected) exposure to infections with a predominantly sexual mode of transmission; E78.00 Pure hypercholesterolemia, unspecified; Z87.42 Personal history of other diseases of the female genital tract
CPT/HCPCS: 36415; 80053; 80061; 86780; 86803; 87340; 87389; 87480; 87491; 87510; 87591; 87660; 99212

== ENCOUNTER → 2021-09-01 10:13 | Outpatient (BNVA) | payer OTHER, SELFPAY | PROVIDERS: PCP Internal Medicine; Visit Provider Nurse Practitioner Family | DX: M47.816 Spondylosis without myelopathy or radiculopathy, lumbar region (principal); M53.3 Sacrococcygeal disorders, not elsewhere classified | CPT/HCPCS: 99212 ==

== ENCOUNTER 2021-10-11 14:23 | Outpatient (REF) | payer OTHER, SELFPAY ==
--- NOTE | ~2021-10-11 | XR_ITS ---
EXAMINATION: XR BILATERAL HIPS WITH AP PELVIS CLINICAL INFORMATION: Pain right hip COMPARISON: None TECHNIQUE: AP view of the pelvis and single views of each hip were obtained. FINDINGS: Bone alignment is normal. No fracture or dislocation is seen. The joint spaces are normal. Bones of the pelvis are normal. There are postsurgical changes at the L4-L5 and L5-S1 disc spaces. Soft tissues are unremarkable. XR/XR hip BI w PEL1V IMPRESSION: Normal-appearing hips.
[2021-10-11 15:33] LABS: Hematocrit 34.6 % (37.0-47.0); Mean Corpuscular HGB Conc 31.8 g/dl (31.0-35.0); Mean Corpuscular Hemoglobin 25.9 pg (27.0-33.0); Mean Corpuscular Volume 81.4 fL (80.0-98.0); Mean Platelet Volume 9.6 fL (9.4-12.3); Platelet Count 313 X10*3/uL (160-400); Red Blood Count 4.25 X10*6/uL (4.20-5.50); Red Cell Distribution Width 14.5 % (11.0-16.0); White Blood Count 7.5 X10*3/uL (4.8-10.8)
[2021-10-11 15:56] LABS: Alanine Aminotransferase 23 U/L (0-31); Alkaline Phosphatase 106 U/L (39-117); Anion Gap 11 (12-20); Aspartate Amino Transferase 18 U/L (5-31); Bilirubin Total 0.2 mg/dL (0.0-1.0); Blood Urea Nitrogen 8 mg/dL (9-16); Calcium 9.7 mg/dL (8.4-10.2); Carbon Dioxide 28 mmol/L (22-29); Chloride 107 mmol/L (96-108); Estimated Glomerular Filt Rate > 60; Glucose Random 104 mg/dL (60-115); Potassium 3.9 mmol/L (3.3-5.1); Sodium 142 mmol/L (135-145); Total Protein 7.3 g/dL (6.5-8.0)
[2021-10-12 18:31] LABS: Transglutaminase Ab IgG <1.0 U/mL; Transglutaminase IgA <1.0 U/mL
[2021-10-15 13:36] LABS: Vitamin D 25-OH, D2 <4 ng/mL; Vitamin D 25-OH, D3 25 ng/mL; Vitamin D 25-OH, Total 25 ng/mL (30-100)
== END 2021-10-11 14:24 | disposition home or self-care (01) ==
LOC: HO.XRAY 14:23
PROVIDERS: PCP Internal Medicine; Referring Provider Internal Medicine; Visit Provider Nurse Practitioner Family
DX: M25.551 Pain in right hip (principal); M25.552 Pain in left hip; R10.11 Right upper quadrant pain; E55.9 Vitamin D deficiency, unspecified; R14.0 Abdominal distension (gaseous); K62.5 Hemorrhage of anus and rectum; K21.9 Gastro-esophageal reflux disease without esophagitis; K58.2 Mixed irritable bowel syndrome; K59.01 Slow transit constipation; Z12.11 Encounter for screening for malignant neoplasm of colon
CPT/HCPCS: 36415; 73521; 80053; 82306; 85027; 86364; 99202

== ENCOUNTER → 2021-12-10 14:58 | Outpatient (BNVA) | payer OTHER, SELFPAY | PROVIDERS: PCP Internal Medicine; Visit Provider Nurse Practitioner Family | DX: M53.3 Sacrococcygeal disorders, not elsewhere classified (principal); M47.816 Spondylosis without myelopathy or radiculopathy, lumbar region; M79.7 Fibromyalgia; M96.1 Postlaminectomy syndrome, not elsewhere classified; M25.551 Pain in right hip; M25.552 Pain in left hip; M54.16 Radiculopathy, lumbar region | CPT/HCPCS: 99212 ==

== ENCOUNTER 2021-12-20 15:50 | Outpatient (REF) | payer OTHER, SELFPAY ==
--- NOTE | ~2021-12-20 | US_ITS ---
EXAMINATION: US PELVIC AND TRANSVAGINAL CLINICAL INFORMATION: Metrorrhagia. COMPARISON: None TECHNIQUE: Ultrasound of the pelvis is performed using both transabdominal and transvaginal transducers along with Doppler. Transvaginal imaging is performed due to inadequate visualization transabdominally. FINDINGS: UTERUS: The uterus is anteverted, anteflexed and measures 11.2 x 3.8 x 1.3 cm. The double wall endometrial thickness is 1.2 cm. The uterus is smooth in contour and has normal myometrial echogenicity. No visible fibroid. There are small nabothian cysts seen in the cervix. ADNEXA: Both ovaries are visualized. There is normal color flow to the adnexa. There is no ovarian torsion. There is no pelvic ascites or fluid collection. Right ovary measures 3.0 x 1.3 to 1.8 cm on transabdominal view. There is an anechoic cyst measuring 1.3 x 0.9 x 1.1 cm. Left ovary measures 5.2 x 2.9 x 2.6 cm and volume 21.0 mL. There are 2 anechoic cysts measuring 1.8 x 1.9 x 2.0 cm and 2.1 x 1.2 x 1.5 cm. US/US pelvic and transvaginal IMPRESSION: Bilateral renal cysts. No echogenic stones or hydronephrosis. Small nabothian cysts seen. The uterus is unremarkable.
== END 2021-12-20 15:51 | disposition home or self-care (01) ==
LOC: HO.US 15:50
PROVIDERS: PCP Internal Medicine; Visit Provider Advanced Practice Midwife
DX: N85.2 Hypertrophy of uterus (principal); Z20.2 Contact with and (suspected) exposure to infections with a predominantly sexual mode of transmission; Z87.42 Personal history of other diseases of the female genital tract
CPT/HCPCS: 76830; 76856

== ENCOUNTER 2022-01-04 14:43 | Outpatient (RCR) | payer OTHER, SELFPAY ==
--- NOTE | 2022-01-04 15:51 | MHC.PT.EP ---
[facility] [place] [facility] [place] [facility] [place] [facility] [address] Hussein Claire [address] [phone] F: [phone] F: [phone] F: [phone] F: [phone] Physical Therapy Plan of Care Date of Evaluation: Date of Surgery: Diagnosis: lumbar radiculopathy Assessment: 46 y/o F referred to PT with lumbar radiculopathy. She has a hx of lumbar fusion with hardware over 15 years ago and has on/off sever LBP that radiates into the groin. She reports pain and difficulty with prolonged standing, walking, sitting > 15min, lifting, and sleeping. S/s consistent with lumbar derangement and overlapping SI dysfunction secondary to decreased lumbar AROM, decreased LE strength, poor TrA recruitment and coordination, R posterior innominate, breath-=holding patterns, increased pain, and impaired postural awareness. Recommend PT 2x/week for 5 weeks to address impairments, implement HEP. Frequency and Duration: The patient will be seen 2x/week for 5 weeks Short Term Goals: 3 weeks 1. Compliance with HEP 2. Demonstrate proper diaphragmatic breathing technique without cues Care Home Goals: 5 weeks 1. I with HEP and self management of sx 2. Improve lumbar AROM by 25% to faciliate ADL's 3. Pt will be able to sit > 45 min with pain < 3/10 Treatment Plan: Modalities to reduce pain, spasms and effusion. Manual therapy to restore motion and function. Therapeutic exercise to improve strength and flexibility. Neuromuscular re-education for posture and balance. Therapeutic activities to return to functional activities of daily living. Electronically signed by: Joya Gamez PT Please sign and return to therapist. Thank you for your referral.
--- NOTE | 2022-01-25 10:48 | MHC.PT.DC ---
[facility] [place] Office [place] Office [place] Office [address] [place] [address] [facility] [phone] F: [phone] F: [phone] F: [phone] F: [phone] Physical Therapy Discharge Report Diagnosis: lumbar radiculopathy Date of Surgery: Date of Evaluation: 01/04/22 Date of Discharge: 01/25/22 Treatments to Date: 1 Cancellations to Date: 0 No Shows to Date: 0 Discharge Status: Patient Elected to Stop Discharge Summary: Pt daughter called to cancel and d/c as the pt is currently at an inpatient facility. Electronically signed by: Joya Gamez PT Please sign and return to therapist. Thank you for your referral.
== END 2022-01-25 10:48 | disposition home or self-care (01) ==
LOC: HO.PT 14:43
PROVIDERS: PCP Internal Medicine; Visit Provider Nurse Practitioner Family
DX: M54.16 Radiculopathy, lumbar region (principal)
CPT/HCPCS: 97110; 97112; 97162

== ENCOUNTER → 2022-01-05 13:22 | Outpatient (BNVA) | payer OTHER, SELFPAY | PROVIDERS: PCP Internal Medicine; Visit Provider Advanced Practice Midwife | DX: Z30.09 Encounter for other general counseling and advice on contraception (principal); N85.2 Hypertrophy of uterus; N76.0 Acute vaginitis; B96.89 Other specified bacterial agents as the cause of diseases classified elsewhere; Z87.42 Personal history of other diseases of the female genital tract | CPT/HCPCS: 99212 ==

== ENCOUNTER 2022-01-15 03:22 | Emergency (ER) | payer OTHER, SELFPAY ==
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
[2022-01-15 03:28] VITALS: RESP 24; BMI 35.5
[2022-01-15 03:34] VITALS: BP 131/76; PULSE 118; RESP 20; TEMP 36.9; O2SAT 96
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
[2022-01-15] MEDS: 0.9 % Sodium Chloride 1,000 ML 999 ML IV (03:47)
[2022-01-15] MEDS: LORazepam 2 MG/ML VIAL 1 MG IVPUSH (03:47)
[2022-01-15 04:30] LABS: MANUAL DIFF FLAG NO
[2022-01-15 04:32] LABS: Basophils Absolute Auto 0.1 X10*3/uL (0.0-0.2); Basophils Percent Auto 0.6 % (0-2); Eosinophils Percent Auto 0.1 % (0-4); Hematocrit 35.7 % (37.0-47.0); Hemoglobin 11.4 g/dl (12.0-16.0); Imm Gran Abs Auto 0.04 X10*3/uL (0.00-0.03); Imm Gran Pct Auto 0.5 % (0.0-0.4); Lymphocytes Absolute Auto 1.8 X10*3/uL (1.2-4.9); Mean Corpuscular HGB Conc 31.9 g/dl (31.0-35.0); Mean Corpuscular Hemoglobin 25.3 pg (27.0-33.0); Mean Corpuscular Volume 79.3 fL (80.0-98.0); Mean Platelet Volume 9.9 fL (9.4-12.3); Monocytes Absolute Auto 0.4 X10*3/uL (0.1-1.2); Neutrophils Percent Auto 71.8 % (45-73); Platelet Count 370 X10*3/uL (160-400); Red Cell Distribution Width 15.5 % (11.0-16.0); White Blood Count 8.4 X10*3/uL (4.8-10.8)
[2022-01-15 04:43] LABS: INTERNATIONAL NORM RATIO 1.1 (0.9-1.1); Prothrombin Time 12.8 SEC (9.9-13.0)
[2022-01-15 04:45] LABS: Ethanol 193 mg/dL
[2022-01-15 04:46] LABS: Partial Thromboplastin Time 33.4 SEC (24.1-38.0)
[2022-01-15 04:48] LABS: Alanine Aminotransferase 18 U/L (0-31); Albumin Level 4.3 g/dL (3.5-5.0); Alkaline Phosphatase 104 U/L (39-117); Anion Gap 15 (12-20); Aspartate Amino Transferase 24 U/L (5-31); Bilirubin Total 0.3 mg/dL (0.0-1.0); Blood Urea Nitrogen 7 mg/dL (9-16); COVID-19 Test Negative (Negative); Calcium 9.3 mg/dL (8.4-10.2); Carbon Dioxide 23 mmol/L (22-29); Chloride 106 mmol/L (96-108); Creatinine Clr Calc Pharmacy 76.7; Estimated Glomerular Filt Rate 54; Glucose Random 119 mg/dL (60-115); Lipase 18 U/L (8-78); Potassium 4.1 mmol/L (3.3-5.1); Sodium 140 mmol/L (135-145); Total Protein 7.8 g/dL (6.5-8.0)
[2022-01-15 04:54] LABS: HCG Quantitative < 2 mIU/mL
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
[2022-01-15 06:00] VITALS: BP 98/54; PULSE 82; RESP 15; O2SAT 96
[2022-01-15 06:11] VITALS: BP 112/77
--- NOTE | 2022-01-15 06:28 | PC.NURSE ---
call out to [facility] transfer line @[phone] spoke to Gina regarding transfer.
--- NOTE | 2022-01-15 06:52 | PC.NURSE ---
[facility] Charge nurse called, Peggy Terry and report given. While this specification writer was giving report, charge nurse hung up on this RN.
== END 2022-01-15 07:44 | disposition short-term general hospital (02) ==
PROVIDERS: Emergency Provider Emergency Medicine Emergency Medical Services
DX: S02.32XA Fracture of orbital floor, left side, initial encounter for closed fracture (principal); S00.81XA Abrasion of other part of head, initial encounter; M62.89 Other specified disorders of muscle; M79.89 Other specified soft tissue disorders; F41.9 Anxiety disorder, unspecified; J45.909 Unspecified asthma, uncomplicated; Z20.822 Contact with and (suspected) exposure to COVID-19; V87.8XXA Person injured in other specified noncollision transport accidents involving motor vehicle (traffic), initial encounter; Y93.9 Activity, unspecified; Y92.410 Unspecified street and highway as the place of occurrence of the external cause; Y99.9 Unspecified external cause status
CPT/HCPCS: 36415; 70450; 70486; 71250; 72125; 73090; 73130; 74176; 80053; 82077; 83690; 84702; 85025; 85610; 85730; 87635; 93005; 96361; 96374; 99285; 99291; J2060

== ENCOUNTER 2022-02-11 13:23 | Outpatient (RCR) | payer OTHER, SELFPAY | END 2022-04-14 13:07 | disposition home or self-care (01) | LOC: HO.PT 13:23 | PROVIDERS: PCP Internal Medicine; Visit Provider Internal Medicine | DX: M25.512 Pain in left shoulder (principal) ==

== ENCOUNTER 2022-02-22 06:16 | Outpatient (REF) | payer OTHER, SELFPAY ==
--- NOTE | ~2022-02-22 | FL_ITS ---
EXAMINATION: XR FLUOROSCOPY WITH IMAGES CLINICAL INFORMATION: M53.3 - Sacrococcygeal disorders, not elsewhere classified COMPARISON: CT abdomen and pelvis 01/15/2022 TECHNIQUE: Fluoroscopy performed by Dr. Saud Hutton. Fluoroscopy time: 0.3 minutes DAP: 3.33 Gycm2 Images: 3 FINDINGS: Spinal needle overlies lower bilateral SI joint. There is contrast in the periarticular soft tissues with probable early intra-articular contrast. There are disc spacers again noted lower lumbar spine. FL/FL guidance in treatment room IMPRESSION: Fluoroscopy for pain management procedure.
== END 2022-02-22 06:17 | disposition home or self-care (01) ==
LOC: HO.RADIR 06:16
PROVIDERS: Visit Provider Anesthesiology
DX: M53.3 Sacrococcygeal disorders, not elsewhere classified (principal); M47.816 Spondylosis without myelopathy or radiculopathy, lumbar region; M79.7 Fibromyalgia; M96.1 Postlaminectomy syndrome, not elsewhere classified; M25.551 Pain in right hip; M25.552 Pain in left hip; M54.16 Radiculopathy, lumbar region
CPT/HCPCS: 27096; J2795; Q9966

== ENCOUNTER → 2022-03-09 15:34 | Outpatient (BNVA) | payer OTHER, SELFPAY | PROVIDERS: PCP Internal Medicine; Visit Provider Nurse Practitioner Family | DX: M53.3 Sacrococcygeal disorders, not elsewhere classified (principal) | CPT/HCPCS: Q3014 ==

== ENCOUNTER 2022-03-18 15:21 | Outpatient (REF) | payer OTHER, SELFPAY ==
--- NOTE | ~2022-03-18 | XR_ITS ---
EXAMINATION: XR SHOULDER, LEFT CLINICAL INFORMATION: Fracture COMPARISON: None TECHNIQUE: AP external rotation, Grashey, scapular Y, and axillary views of the left shoulder. FINDINGS: There is question of nondisplaced fracture of the greater tuberosity. No other fracture is seen. Joint spaces are normal. Soft tissues are normal. XR/XR shoulder LT min 2V IMPRESSION: Question nondisplaced fracture of the left greater tuberosity.
== END 2022-03-18 15:22 | disposition home or self-care (01) ==
LOC: HO.XRAY 15:21
PROVIDERS: PCP Internal Medicine; Visit Provider Internal Medicine
DX: S42.92XA Fracture of left shoulder girdle, part unspecified, initial encounter for closed fracture (principal); X58.XXXA Exposure to other specified factors, initial encounter; Y93.9 Activity, unspecified; Y92.9 Unspecified place or not applicable; Y99.9 Unspecified external cause status
CPT/HCPCS: 73030

== ENCOUNTER 2022-03-31 08:55 | Outpatient (REF) | payer OTHER, SELFPAY | END 2022-03-31 08:56 | disposition home or self-care (01) | LOC: HO.HOSX 08:55 | PROVIDERS: Visit Provider Physician Assistant | DX: Z13.89 Encounter for screening for other disorder (principal) ==

== ENCOUNTER → 2022-04-05 14:55 | Outpatient (BNVA) | payer OTHER, SELFPAY | PROVIDERS: PCP Internal Medicine; Visit Provider Physician Assistant | DX: S42.302A Unspecified fracture of shaft of humerus, left arm, initial encounter for closed fracture (principal) | CPT/HCPCS: 99202 ==

== ENCOUNTER 2022-04-20 07:25 | Outpatient (REF) | payer OTHER, SELFPAY ==
--- NOTE | ~2022-04-20 | XR_ITS ---
EXAMINATION: XR SHOULDER, LEFT CLINICAL INFORMATION: Pain COMPARISON: 03/18/22 TECHNIQUE: Three views of the left shoulder. FINDINGS: There is increasing sclerosis involving a portion of the left greater tuberosity. This is best appreciated in a single view. No new suspicious right shoulder region finding. No abnormality in the visualized portion of the chest XR/XR shoulder LT min 2V IMPRESSION: There is an approximately 1.1 cm area of sclerosis developing around the region of the greater tuberosity. This could reflect some healing of an avulsion-type fracture. This is not reproduced on other views.
== END 2022-04-20 07:26 | disposition home or self-care (01) ==
LOC: HO.HOSX 07:25
PROVIDERS: Visit Provider Physician Assistant
DX: M25.512 Pain in left shoulder (principal)
CPT/HCPCS: 73030

== ENCOUNTER → 2022-06-21 11:36 | Outpatient (BNVA) | payer OTHER, SELFPAY | PROVIDERS: PCP Internal Medicine; Visit Provider Nurse Practitioner Family | DX: M53.3 Sacrococcygeal disorders, not elsewhere classified (principal); M96.1 Postlaminectomy syndrome, not elsewhere classified; M62.838 Other muscle spasm | CPT/HCPCS: 99212 ==

== ENCOUNTER 2022-06-24 12:05 | Outpatient (REF) | payer OTHER, SELFPAY | END 2022-06-24 12:06 | disposition home or self-care (01) | LOC: HO.HOSX 12:05 | PROVIDERS: Visit Provider Physician Assistant | DX: Z13.89 Encounter for screening for other disorder (principal) ==

== ENCOUNTER 2022-08-09 06:01 | Outpatient (REF) | payer OTHER, SELFPAY ==
--- NOTE | ~2022-08-09 | FL_ITS ---
EXAMINATION: XR FLUOROSCOPY WITH IMAGES CLINICAL INFORMATION: M53.3 - Sacrococcygeal disorders, not elsewhere classified COMPARISON: Fluoroscopic spot view 02/22/2022; CT abdomen and pelvis 01/15/2022 TECHNIQUE: Fluoroscopy Supervised By: Dr. Saud Hutton. Fluoroscopy Time: 0.1 minutes. Cumulative Dose: 2.20 mGy. DAP: 0.565 Gycm2. Images: 2. FINDINGS: Spinal needles overlies mid left and mid right SI joints. There is contrast in the periarticular soft tissues with probable early intra-articular contrast. No vasculature communication appreciated. There are prior postsurgical changes with disc spacers again noted lower lumbar spine. FL/FL guidance in treatment room IMPRESSION: Fluoroscopy for pain management procedure.
== END 2022-08-09 06:02 | disposition home or self-care (01) ==
LOC: CF 06:01
PROVIDERS: Visit Provider Anesthesiology
DX: M53.3 Sacrococcygeal disorders, not elsewhere classified (principal)
CPT/HCPCS: 27096; J2795; Q9965; Q9967

== ENCOUNTER → 2022-08-16 10:46 | Outpatient (BNVA) | payer OTHER, SELFPAY | PROVIDERS: PCP Internal Medicine; Visit Provider Nurse Practitioner Family | DX: M96.1 Postlaminectomy syndrome, not elsewhere classified (principal); M53.3 Sacrococcygeal disorders, not elsewhere classified; M47.816 Spondylosis without myelopathy or radiculopathy, lumbar region | CPT/HCPCS: Q3014 ==

== ENCOUNTER 2022-10-04 10:25 | Outpatient (REF) | payer OTHER, SELFPAY ==
[2022-10-04 15:04] LABS: CT PCR NOT DETECTED (Not Detect.); NG PCR NOT DETECTED (Not Detect.)
[2022-10-05 11:32] LABS: BV Int Neg Control Negative (Negative); BV Int Pos Control Positive (Positive)
== END 2022-10-04 10:26 | disposition home or self-care (01) ==
LOC: HO.LNP 10:25
PROVIDERS: PCP Internal Medicine; Visit Provider Advanced Practice Midwife
DX: Z11.3 Encounter for screening for infections with a predominantly sexual mode of transmission (principal); R35.0 Frequency of micturition; N95.1 Menopausal and female climacteric states; N91.1 Secondary amenorrhea; Z20.2 Contact with and (suspected) exposure to infections with a predominantly sexual mode of transmission
CPT/HCPCS: 0353U; 87086; 87088; 87186; 87480; 87510; 87660; 99212

== ENCOUNTER 2022-10-21 12:28 | Outpatient (REF) | payer OTHER, SELFPAY ==
--- NOTE | ~2022-10-21 | MM_ITS ---
EXAMINATION: MM SCREENING DIGITAL BREAST TOMOSYNTHESIS, BILATERAL CLINICAL INFORMATION: Screening. Asymptomatic. The lifetime risk of breast cancer based on the Tyrer-Cuzick Model is 13%. COMPARISON: Mammography: 05/12/2020, 09/22/2016, bilateral breast ultrasound 09/22/2016 TECHNIQUE: Digital breast tomosynthesis is performed in both the craniocaudal and mediolateral oblique views along with computer-aided detection (CAD). Synthesized 2D images are generated from the tomosynthesis. FINDINGS: There are scattered areas of fibroglandular density (ACR BI-RADS breast composition Category b). There are no significant masses, abnormal calcifications, or other abnormalities. No architectural abnormality or developing density or significant change from prior studies. Again, there are scattered stable bilateral minor parenchymal asymmetries. The axilla and skin contours are unremarkable. MM/MM tomosynthesis screening BI IMPRESSION: No mammographic evidence of malignancy. ASSESSMENT: BI-RADS 2: Benign RECOMMENDATION: Routine annual mammography screening. This patient's information was entered into a reminder system with a target due date for their next mammogram.
== END 2022-10-21 12:29 | disposition home or self-care (01) ==
LOC: HO.MAMMO 12:28
PROVIDERS: PCP Internal Medicine; Visit Provider Internal Medicine
DX: Z12.31 Encounter for screening mammogram for malignant neoplasm of breast (principal)
CPT/HCPCS: 77063; 77067

== ENCOUNTER → 2022-11-08 08:53 | Outpatient (BNVA) | payer OTHER, SELFPAY | PROVIDERS: PCP Internal Medicine; Visit Provider Nurse Practitioner Family | DX: M47.27 Other spondylosis with radiculopathy, lumbosacral region (principal); M96.1 Postlaminectomy syndrome, not elsewhere classified; M79.7 Fibromyalgia; M53.3 Sacrococcygeal disorders, not elsewhere classified; M47.816 Spondylosis without myelopathy or radiculopathy, lumbar region | CPT/HCPCS: Q3014 ==

== ENCOUNTER 2022-11-09 10:51 | Day surgery (SDC) | payer OTHER, SELFPAY ==
[2022-09-28 19:27] VITALS: BMI 29.2
--- NOTE | 2022-10-04 13:06 | P.CONAN_ITS ---
Documented by User: Amrita Cotton NP 10/04/22 13:09 HPI - Anesthesia Eval Consult details Narrative: 47yo F for Sacroiliac Joint Radiofrequency Ablation PMFSH Active Problems Active Problems: All Active Problems (Updated 10/04/22 @ 11:19 by Gisel Barney CNM) Amenorrhea, secondary (Acute) Increased urinary frequency (Acute) Lumbar spondylosis with myelopathy (Acute) Spondylosis of lumbosacral spine with radiculopathy (Acute) At risk for prolonged QT interval syndrome (Acute) Bipolar disorder, unspecified (Acute) Sherice-menopausal (Acute) Alcohol use disorder, moderate, dependence (Acute) Borderline personality disorder (Acute) Well woman exam with routine gynecological exam (Acute) Hx of abnormal cervical Pap smear (Acute) Potential exposure to STD (Acute) Bipolar disorder, now depressed (Acute) Annual physical exam (Acute) Bilateral hip pain (Acute) Potential exposure to STD (Acute) History of irregular menstrual bleeding (Acute) Bulky or enlarged uterus (Acute) Spondylosis of lumbar spine (Acute) Sacroiliac joint pain (Acute) Lumbar radiculopathy (Acute) Failed back syndrome of lumbar spine (Acute) Bacterial vaginosis (Acute) Counseling for control, intrauterine device (Acute) Left orbit fracture (Acute) Shoulder pain, left (Acute) SI (sacroiliac) joint dysfunction (Acute) Left humeral fracture (Acute) Greater tuberosity of humerus fracture (Acute) Muscle spasm (Acute) Hypertriglyceridemia (Acute) Bipolar disorder current episode depressed (Acute) Irritable bowel syndrome (IBS) (Acute) GERD without esophagitis (Acute) Asthma (Acute) Obesity (BMI 30-39.9) (Acute) Anxiety (Acute) Memory impairment (Acute) Loss of hearing (Acute) Fibromyalgia (Acute) Past Medical History Medical History Anxiety Asthma Bipolar disorder current episode depressed Fibromyalgia GERD without esophagitis Hypertriglyceridemia Irritable bowel syndrome (IBS) Loss of hearing Memory impairment Obesity (BMI 30-39.9) Opioid dependence Opioid use disorder, mild, in early remission Recurrent major depression-severe Family History Family History Father No problems noted. Mother Skin cancer Maternal Aunt Myocardial infarction Other Mental health problem Substance abuse Surgical History Surgical History History of cholecystectomy History of esophagogastroduodenoscopy (EGD) History of lumbar fusion History of tubal ligation Hx of excision of mass Social History Social History Household Members: Family Housing: Apartment Are you a primary spiritual care coordinator to a significant other at home: No Do you presently have visiting nurse or other home services: No Alcohol intake: current Alcohol intake frequency: holidays/special occasions only Patient Tobacco Use Status: Never used Tobacco e-Cigarette/Vaping Use: Never Used Second Hand Smoke Exposure: No Use of substances other than those prescribed or required for medical reasons: No Have you been hit, kicked, punched, or otherwise hurt by someone within the past year? 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 Sexual orientation: Straight/Heterosexual Cognitive needs: No Hearing needs: No Vision needs: No Meds Allergies Allergy/AdvReac Type Severity Reaction Status Date / Time morphine [MORPHINE] Allergy Intermediate RASH Verified 11/08/22 08:54 Home Medications Medication Instructions Recorded Confirmed Last Taken Type clonidine HCl 0.1 mg tablet 0.05 - 0.1 mg PO BID PRN anxiety 06/21/22 10/04/22 Unknown History lamotrigine 150 mg tablet 150 mg PO BID 06/21/22 10/04/22 11/09/22 History topiramate 50 mg tablet 50 mg PO BEDTIME 06/21/22 10/04/22 Unknown History zolpidem 10 mg tablet 10 mg PO BEDTIME PRN insomnia 06/21/22 10/04/22 Unknown History methylphenidate HCl 18 mg 18 mg PO QAM 10/04/22 11/09/22 11/09/22 History tablet,extended release 24 hr prazosin 2 mg capsule 2 mg PO DAILY 10/04/22 11/09/22 Unknown History Exam Exam Date and Time: October 04, 2022 1306 Height,Weight and Vital Signs: Height 5 ft 2 in Weight 72.575 kg Pertinent Lab Results Pertinent Lab Results: Laboratory Tests 01/15/22 01/15/22 04:22 04:22 WBC 8.4 Hgb 11.4 L Hct 35.7 L Plt Count 370 Sodium 140 Potassium 4.1 Chloride 106 Carbon Dioxide 23 BUN 7 L Creatinine 1.08 Narrative Narrative: EKG 01/2022 Vent. Rate : 122 BPM ? ? Atrial Rate : 122 BPM ?? P-R Int : 148 ms? QRS Dur : 084 ms ? ? QT Int : 324 ms ? ? ? P-R-T Axes : 069 078 054 degrees ?? QTc Int : 461 ms ? Sinus tachycardia Otherwise normal ECG When compared to the previous EKG of No significant changes seen Assessment and Plan Assessment Anesthesia Assessment: Chart Reviewed Documented by User: Anastacia Barnett MD 11/09/22 11:38 PMFSH Past Medical History Medical History Anxiety Asthma Bipolar disorder current episode depressed Fibromyalgia GERD without esophagitis Hypertriglyceridemia Irritable bowel syndrome (IBS) Loss of hearing Memory impairment Obesity (BMI 30-39.9) Opioid dependence Opioid use disorder, mild, in early remission Recurrent major depression-severe Family History Family History Father No problems noted. Mother Skin cancer Maternal Aunt Myocardial infarction Other Mental health problem Substance abuse Family history of problems with anesthesia: No Surgical History Surgical History History of cholecystectomy History of esophagogastroduodenoscopy (EGD) History of lumbar fusion History of tubal ligation Hx of excision of mass History of Problems with Anesthesia: No Social History Social History Household Members: Family Housing: Apartment Are you a primary spiritual care coordinator to a significant other at home: No Do you presently have visiting nurse or other home services: No Alcohol intake: current Alcohol intake frequency: holidays/special occasions only Patient Tobacco Use Status: Never used Tobacco e-Cigarette/Vaping Use: Never Used Second Hand Smoke Exposure: No Use of substances other than those prescribed or required for medical reasons: No Have you been hit, kicked, punched, or otherwise hurt by someone within the past year? 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 Sexual orientation: Straight/Heterosexual Cognitive needs: No Hearing needs: No Vision needs: No Meds Allergies Allergy/AdvReac Type Severity Reaction Status Date / Time morphine [MORPHINE] Allergy Intermediate RASH Verified 11/08/22 08:54 Home Medications Medication Instructions Recorded Confirmed Last Taken Type clonidine HCl 0.1 mg tablet 0.05 - 0.1 mg PO BID PRN anxiety 06/21/22 10/04/22 Unknown History lamotrigine 150 mg tablet 150 mg PO BID 06/21/22 10/04/22 11/09/22 History topiramate 50 mg tablet 50 mg PO BEDTIME 06/21/22 10/04/22 Unknown History zolpidem 10 mg tablet 10 mg PO BEDTIME PRN insomnia 06/21/22 10/04/22 Unknown History methylphenidate HCl 18 mg 18 mg PO QAM 10/04/22 11/09/22 11/09/22 History tablet,extended release 24 hr prazosin 2 mg capsule 2 mg PO DAILY 10/04/22 11/09/22 Unknown History Exam Airway Mallampati Class: II TM Dist: >3cm Neck ROM: Full Heart: rrr Lungs: cta Assessment and Plan Assessment Anesthesia Assessment: Anesthesia Plan Discussed Final Anesthetic Review Family History of Problems with Anesthesia: No History of Problems with Anesthesia: No NPO: Yes ASA Class: III Final Preanesthetic Review: No Changes in Pt Med Stat, Meds/Allgs Chart Reviewed and Consent Obtained/Reviewed Patient Risk: Intermediate Procedure Risk: Intermediate Anesthetic Plan Anesthetic Plan: MAC: Disposition: Standard PACU
--- NOTE | ~2022-11-09 | FL_ITS ---
EXAMINATION: XR FLUOROSCOPY WITH IMAGES CLINICAL INFORMATION: Pain management procedure. M53.3 - Sacrococcygeal disorders, not elsewhere classified. COMPARISON: Fluoroscopic images 08/09/2022. TECHNIQUE: Fluoroscopy Supervised By: Dr. Hugh Powell. Fluoroscopy Time: 0.6 minutes. Cumulative Dose: 11.0 mGy. DAP: 1.47 Gycm2. Images: 7. FINDINGS: There are 3 needles/electrodes overlying the left sacral wing and 3 needles/electrodes overlying the right sacral wing. Each set is in three separate arrangements for each side. Again, there are postsurgical changes lower lumbar spine as previously noted. FL/FL guidance in OR IMPRESSION: Fluoroscopy for pain management procedure.
[2022-11-09 11:11] VITALS: BMI 33.8
[2022-11-09 11:21] VITALS: BP 148/93; PULSE 88; RESP 18; TEMP 36.6; O2SAT 96; BMI 33.8
[2022-11-09 11:23] LABS: Amphetamine Screen Urine Not Detected (Not Detect); Barbiturates, Urine Not Detected (Not Detect); Benzodiazepines Screen Urine Not Detected (Not Detect); Cannabinoid Screen Urine Not Detected (Not Detect); Cocaine Screen Urine Not Detected (Not Detect); Fentanyl, urine Not Detected (Not Detect); Opiate Screen Urine Not Detected (Not Detect); Phencyclidine Screen Urine Not Detected (Not Detect)
[2022-11-09] MEDS: Lactated Ringers 1,000 ML 100 ML IVCONT (12:02)
[2022-11-09 13:56] VITALS: BP 126/86; PULSE 68; RESP 16; TEMP 36.2; O2SAT 97
[2022-11-09 14:11] VITALS: BP 122/88; PULSE 70; RESP 16; TEMP 36.2; O2SAT 98
--- NOTE | 2022-11-09 14:22 | MHC.SHP ---
Pre-Procedural Eval Section A Date of Service: 11/10/22 The patient is an INPATIENT: No The History & Physical has been completed within 30 days and I have reviewed it.: No Section B Chief Complaint: Sacrococcygeal disorders, not elsewhere classified Relevant Family History (Specify if Yes): No Relevant Social History: None Present Medications: see Short Stay Collaborative assessment Medical History: No relevant PMH History of Previous Operations: No relevant previous surgery Allergies: Allergies Allergy/AdvReac Type Severity Reaction Status Date / Time morphine [MORPHINE] Allergy Intermediate RASH Verified 11/08/22 08:54 Review of Systems Sugical H&P ROS: Negative: Constitution, Cardiovascular and Respiratory Exam Surgical H&P Exam: Normal: HEENT, Normal: Heart and Normal: Lungs Plan Diagnosis/Plan: Unchanged I have reviewed the history and physical and performed a pertinent physical examination on my patient. No changes have occurred unless specified. Time Spent With Patient Time: Total time managing care of this patient today ____ minutes.
--- NOTE | 2022-11-09 15:47 | P.OP_ITS ---
Operative Note Operative Note Date of Service: 11/09/22 Narrative: Cooled radiofrequency ablation, Bilateral L5 dorsal ramus and lateral branches of the S1, S2, S3 posterior primary rami nerves - fluoroscopic guided After obtaining written consent, pre-procedure blood pressure and heart rate were stable and recorded in the nursing record. Standard monitors were applied. The patient was placed prone on the fluoroscopy table and sedated by the methane gas collection system operator. The area overlying the peripheral nerves was widely prepped with chloraprep, allowed to dry and sterilely draped. Using fluoroscopy, the appropriate landmarks were identified. The skin overlying the target was anesth etized with 0.5% lidocaine. 18 gauge 50mm radiofrequency needles were advanced under fluoroscopic guidance to the sacral ala (L5 medial branch) and around the lateral margins of the S1, S2 & S3 foramina (sacral lateral branches). Verification was done using AP views and bony contact outside the foramina. Impedences were verified under 600 ohms. Sensory testing (50 Hz) and then motor testing (2 Hz) confirmed needle placement at each site within the appropriate voltage thresholds. Radiofrequency lesioning was performed for 165 seconds at 80 deg Celcius tissue temperature. Each site was then injected with 0.5 ml 0.5% preservative-free ropivacaine. The needles were removed, skin cleansed and a sterile bandage was applied. The patient tolerated the procedure well and no complications were enco untered. No immediate evidence of skin damage was seen. Following the procedure the patient's vital signs were stable. The patient was discharged home in good condition with post-procedural instructions. Time Out: Immediately prior to the procedure, the following was verbally confirmed that there is a signed consent form and that the correct patient, planned procedure, site and side are consistent with documentation and that necessary equipment and/or blood products are available prior to the start of the case. Complications: none EBL: <5 cc
--- NOTE | 2022-11-09 15:47 | P.BOP_ITS ---
Brief Operative Note Date of Service: 11/09/22 Pre-op diagnosis: Sacroiliac joint pain, bilateral; chronic sacroiliac joint dysfunction Post-op diagnosis: same Procedure: Cooled radiofrequency ablation, bilateral L5 dorsal ramus and lateral branches of the S1, S2, S3 posterior primary rami nerves - fluoroscopic guided Implants: None Surgeon: Hugh Powell MD Anesthesia: MAC Was an Roads Superintendent used for this Procedure?: No Estimated blood loss (mL): 1 Pathology: none sent Condition: stable Disposition: PACU
== END 2022-11-09 15:45 | disposition home or self-care (01) ==
PROVIDERS: Nurse Practitioner; PCP Internal Medicine; Visit Provider Internal Medicine
PROC: (CPT 64635; principal; 2022-11-09 12:00)
DX: M53.3 Sacrococcygeal disorders, not elsewhere classified (principal); G89.29 Other chronic pain; M96.1 Postlaminectomy syndrome, not elsewhere classified; M47.816 Spondylosis without myelopathy or radiculopathy, lumbar region; M79.7 Fibromyalgia; J45.909 Unspecified asthma, uncomplicated; F41.1 Generalized anxiety disorder; F31.9 Bipolar disorder, unspecified; R41.3 Other amnesia; F11.20 Opioid dependence, uncomplicated; F10.90 Alcohol use, unspecified, uncomplicated; Z87.820 Personal history of traumatic brain injury; Z88.8 Allergy status to other drugs, medicaments and biological substances; Z98.890 Other specified postprocedural states
CPT/HCPCS: 64625; 64640; 80307; J2250; J2795; J3301; Q9965

== ENCOUNTER 2022-12-21 13:33 | Outpatient (REF) | payer OTHER, SELFPAY ==
--- NOTE | ~2022-12-21 | US_ITS ---
EXAMINATION: US PELVIS CLINICAL INFORMATION: Secondary amenorrhea; the last menstrual period was one year prior. COMPARISON: Pelvic ultrasound dated 03/03/2011. TECHNIQUE: Ultrasound of the pelvis is performed using both transabdominal and transvaginal transducers along with Doppler. Transvaginal imaging is performed due to inadequate visualization transabdominally. FINDINGS: Uterus: The uterus is anteverted and measures 7.8 x 3.4 x 3.8 cm. The uterus is anteverted and anteflexed. Nabothian cysts are seen within the cervix. The double wall endometrial thickness is 4 mm. The uterus is smooth in contour and has normal myometrial echogenicity. No visible fibroid. Adnexa: Both ovaries are visualized. There is normal color flow to the adnexa. There is no ovarian torsion. There is no pelvic ascites or fluid collection. Right ovary measures 1.8 x 1.1 x 1.5 cm, volume 1.6 mL. Left ovary measures 1.9 x 1.0 x 2.1 cm, volume 2.0 mL. US/US pelvic and transvaginal IMPRESSION: Nabothian cysts are seen within the cervix. The examination is otherwise unremarkable.
== END 2022-12-21 13:34 | disposition home or self-care (01) ==
LOC: HO.US 13:33
PROVIDERS: PCP Internal Medicine; Visit Provider Advanced Practice Midwife
DX: N95.1 Menopausal and female climacteric states (principal); N91.1 Secondary amenorrhea
CPT/HCPCS: 76830; 76856

== ENCOUNTER 2022-12-28 16:22 | Outpatient (REF) | payer OTHER, SELFPAY ==
[2022-12-28 16:47] LABS: Appearance Urine Cloudy; Color Urine Yellow; Glucose Urine UA Negative (Negative); Leukocyte Esterase Urine Large (3+) (Negative); Nitrite Urine Negative (Negative); UMIC TRIGGER UACC YES; Urine Blood Large (3+) (Negative); Urine Ketones Negative (Negative); Urine Protein 30 (1+) mg/dL (Neg-Trace)
[2022-12-28 17:11] LABS: Bacteria Urine 1+ (None Seen); Calcium Oxalate Crystals Urine Present; RBC Urine >20 /HPF (0-2); UACC Culture Trigger YES; WBC Urine >50 /HPF (0-5)
== END 2022-12-28 16:23 | disposition home or self-care (01) ==
LOC: HO.LNP 16:22
PROVIDERS: Visit Provider Nurse Practitioner Family
DX: R30.0 Dysuria (principal)
CPT/HCPCS: 81001; 87086

== ENCOUNTER 2023-01-05 13:45 | Outpatient (REF) | payer OTHER, SELFPAY ==
[2023-01-05 15:24] LABS: Hematocrit 36.5 % (37.0-47.0); Hemoglobin 11.6 g/dl (12.0-16.0); Mean Corpuscular HGB Conc 31.8 g/dl (31.0-35.0); Mean Corpuscular Volume 81.7 fL (80.0-98.0); Mean Platelet Volume 9.6 fL (9.4-12.3); Platelet Count 324 X10*3/uL (160-400); Red Blood Count 4.47 X10*6/uL (4.20-5.50); Red Cell Distribution Width 15.1 % (11.0-16.0); White Blood Count 8.8 X10*3/uL (4.8-10.8)
[2023-01-05 16:19] LABS: Thyroid Stimulating Hormone 1.26 uIU/mL (0.32-4.0)
[2023-01-05 17:30] LABS: Appearance Urine Clear; Color Urine Yellow; Glucose Urine UA Negative (Negative); Leukocyte Esterase Urine Negative (Negative); Nitrite Urine Negative (Negative); Urine Blood Negative (Negative); Urine Ketones Negative (Negative); Urine Protein Negative (Neg-Trace)
[2023-01-06 08:24] LABS: HBsAGNum1 0.33 S/CO (0.00-0.99); HIV AB/AG Nonreactive (Nonreactive); HIV Num 1 0.06 S/CO (0.00-0.99); Hepatitis B Surface Antigen Negative (Negative); ~HepC Num1 0.14 S/CO (0.00-0.79); ~Hepatitis C Antibody Nonreactive (Nonreactive)
[2023-01-06 08:56] LABS: Syphilis Screen Nonreactive (Nonreactive)
[2023-01-06 18:19] LABS: Follicle Stimulating Hormone 76.3 mIU/mL
== END 2023-01-05 13:46 | disposition home or self-care (01) ==
LOC: HO.LAB 13:45
PROVIDERS: PCP Internal Medicine; Visit Provider Advanced Practice Midwife
DX: Z11.4 Encounter for screening for human immunodeficiency virus [HIV] (principal); R35.0 Frequency of micturition; R39.9 Unspecified symptoms and signs involving the genitourinary system; N91.1 Secondary amenorrhea; N95.1 Menopausal and female climacteric states; Z20.2 Contact with and (suspected) exposure to infections with a predominantly sexual mode of transmission
CPT/HCPCS: 36415; 81003; 83001; 84443; 85027; 86780; 86803; 87340; 87389; 99212

== ENCOUNTER → 2023-01-09 11:05 | Outpatient (BNVA) | payer OTHER, SELFPAY | PROVIDERS: PCP Internal Medicine; Visit Provider Nurse Practitioner Family | DX: K58.1 Irritable bowel syndrome with constipation (principal); K21.9 Gastro-esophageal reflux disease without esophagitis; K59.04 Chronic idiopathic constipation | CPT/HCPCS: 99212 ==

== ENCOUNTER → 2023-01-27 10:21 | Outpatient (BNVA) | payer OTHER, SELFPAY | PROVIDERS: PCP Internal Medicine; Visit Provider Internal Medicine | DX: M53.3 Sacrococcygeal disorders, not elsewhere classified (principal) | CPT/HCPCS: 99212 ==

== ENCOUNTER → 2023-02-23 15:22 | Outpatient (BNVA) | payer OTHER, SELFPAY | PROVIDERS: PCP Internal Medicine; Visit Provider Nurse Practitioner Family | DX: M53.3 Sacrococcygeal disorders, not elsewhere classified (principal); M47.816 Spondylosis without myelopathy or radiculopathy, lumbar region; G43.109 Migraine with aura, not intractable, without status migrainosus; R41.3 Other amnesia | CPT/HCPCS: 99212 ==

== ENCOUNTER 2023-03-07 13:48 | Outpatient (AMB) | payer OTHER, SELFPAY ==
[2023-03-07 13:56] VITALS: BP 106/63; PULSE 83; BMI 34.2
--- NOTE | 2023-03-07 13:56 | A.OFFVIS_ITS ---
Intake Vital Signs 03/07/23 13:56 Height 5 ft 2 in Weight 186 lb 15.232 oz BMI 34.2 BP 106/63 Blood Pressure Location Lt brachial Position Sitting Pulse 83 Intake Visit Reasons: 8wk f/u for CIC, IBS Intake Note: Shira presents in office as a est.patient for a 8wk f/u for CIC, IBS PT CC: pt reports having diarrhea, constipation , abdominal pain , bloating , GERD , nauseas pt denies any other GI Issues Teacher Resource Required: No Accompanied by: Self / Same As Patient Allergies morphine [MORPHINE] Allergy (Intermediate, Verified 03/07/23 13:56) RASH HPI 8wk f/u for CIC, IBS HPI Details LAST VISIT: Irritable bowel syndrome (IBS) Discussed with patient avoiding dietary triggers. Flow FODMAP diet discussed with patient. List of food recommended as well as list of food to avoid given to patient. GERD (gastroesophageal reflux disease) Patient can continue omeprazole and famotidine. She has not taking it for some time. Discussed with patient avoiding dietary triggers in late night snacking. Staying upright for minimum 3 hours after meals discussed with patient. Patient reports postprandial fullness will send her for gastric emptying study to rule out gastroparesis, however it might be just because patient is not emptying her bowels and has been constipated. Chronic idiopathic constipation Patient continues to be constipated despite taking senna and Colace. Will send script for Trulance. Patient will call us if this not going to be effective been will order Linzess for her. I will see her in 8 weeks, sooner as patient is agreeable to this plan and verbalizes understanding of instructions. She was given the opportunity to ask questions and all questions answered. ? Thank you for allowing me to participate in her care Plan Orders Orders NM gastric emptying study Today K21.9 Medications New plecanatide (Trulance) 3 mg PO DAILY 30 tabs 3RF K59.09 sennosides (Natural Senna Laxative) 8.6 mg PO BEDTIME 90 tabs 3RF constipation K59.00 hydrocortisone 2.5% (Proctosol HC) 1 appl [place] BID-QID PRN 30 grams 2RF hemorrhoids K64.9 Refilled cholecalciferol (vitamin D3) 50 mcg PO DAILY 90 caps 3RF R79.89 famotidine (Pepcid) 20 mg PO BEDTIME 90 tabs 3RF K21.9 TODAY'S VISIT Patient is here today for follow-up and to discuss going for colonoscopy. Gastric emptying study was not done yet. Patient reports that she continues to have occasional loose stool and then constipation. Patient denies melena, hematochezia, unintentional weight loss or ribbon like stools. Patient reports dyspepsia without dysphagia or odynophagia. Patient denies any issues with anesthesia in the past. Not on any anticoagulation medication. History of asthma. Denies any cardiac or respiratory symptoms. Denies any issues with anesthesia in the past. No history of sleep apnea. [facility] Medical History Anxiety Asthma Bipolar disorder current episode depressed Fibromyalgia GERD without esophagitis Hypertriglyceridemia Irritable bowel syndrome (IBS) Loss of hearing Memory impairment Obesity (BMI 30-39.9) Opioid dependence Opioid use disorder, mild, in early remission Recurrent major depression-severe Surgical History History of cholecystectomy History of esophagogastroduodenoscopy (EGD) History of lumbar fusion History of tubal ligation Hx of excision of mass Family History Father No problems noted. 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 Sexual orientation: Straight/Heterosexual Cognitive needs: No Hearing needs: No Vision needs: No Female Reproductive History Menstrual Age of Menarche: 10 Review of Systems Const Denies weight gain and Denies weight loss ENT Reports no additional complaints, Denies dysphagia and Denies odynophagia Card Reports no additional complaints Resp Reports no additional complaints GI Denies abdominal pain, Denies belching, Denies melena, Denies bloating, Reports constipation, Denies dysphagia, Denies excessive flatus, Reports dyspepsia, Reports heartburn, Denies diarrhea, Reports loose stools, Denies nausea, Denies odynophagia and Denies vomiting Musc Reports no additional complaints Neuro Reports no additional complaints Psych Reports no additional complaints Endo Reports no additional complaints Physical Exam Vital Signs: Last Vital Signs Pulse 83 03/07/23 13:56 BP 106/63 03/07/23 13:56 BMI result Body Mass Index 34.2 Const General: healthy appearing, no acute distress and well developed Nutritional Appearance: obese Orientation/consciousness: patient oriented x3 HEENT Head: Yes normal to inspection, Yes normocephalic and Yes atraumatic Face and sinus: Yes normal facial exam Mouth: Normal oral and palatal mucosa present Throat: Yes posterior oropharynx normal, Yes tonsils normal and Yes uvula midline Eyes General: appearance normal, both eyes and all related structures Neck Neck: Yes normal visual inspection, Yes full ROM and Yes trachea midline Thyroid: Thyroid normal Resp Effort & Inspection: normal respiratory effort, able to speak in complete sentences, no tracheal deviation and symmetric chest movement Auscultation: clear to auscultation bilaterally Cardio Rate: regular rate Heart sounds: S1 normal heart sound present and S2 normal heart sound present GI Inspection: Yes normal to inspection, No distended and Yes obesity Palpation (GI): Soft to palpation, not firm, nontender and No hepatosplenomegaly present Auscultation: normal bowel sounds General: Yes no CVA tenderness Back/Spine/Pelvis Back: no CVA tenderness Skin General skin exam: elasticity normal, turgor normal and dry skin Neuro General: patient oriented x3 Psych Appearance: grossly normal Mental Status: mental status grossly normal Speech and movement: Normal speech and movement present Affect: normal affect Assessment & Plan Assessment & Plan (1) Irritable bowel syndrome (IBS): Code(s): K58.9 - Irritable bowel syndrome without diarrhea Qualifiers: Irritable bowel syndrome type: with constipation Qualified Code(s): K58.1 - Irritable bowel syndrome with constipation Plan: IBS with both constipation and diarrhea. Patient was encouraged to eat smaller meals. Continue avoiding food that can trigger her symptoms. Low FODMAP diet discussed with patient. Patient has list of food recommended as well as list of food to avoid at home. (2) GERD (gastroesophageal reflux disease): Code(s): K21.9 - Gastro-esophageal reflux disease without esophagitis Qualifiers: Esophagitis presence: esophagitis presence not specified Qualified Code(s): K21.9 - Gastro-esophageal reflux disease without esophagitis Plan: Continue avoiding dietary treatment. Continue current management with omeprazole in the morning and famotidine at bedtime. I will send her for upper endoscopy to rule out esophagitis, gastritis, duodenitis, gastric or peptic ulcer, H pylori, Griffin's. Patient is also going for gastric emptying study that will be done next month (3) Chronic idiopathic constipation: Code(s): K59.04 - Chronic idiopathic constipation Plan: Continue current regimen with Trulance. Patient was encouraged to increase fluid intake and activity to promote better bowel motility. (4) Screen for colon cancer: Code(s): Z12.11 - Encounter for screening for malignant neoplasm of colon Plan: As mentioned above in HPI patient denies any issues with anesthesia. No history of sleep apnea. Not on any anticoagulation medication. No history of infectious diseases in the past or present. Patient denies any melena, hematochezia, unintentional weight loss or ribbon like stools. What to expect before during and after procedure discussed with patient. Clear liquid diet and good bowel prep day before the procedure discussed with patient. I will see her after the procedure, sooner on as needed basis. Patient is agreeable to this plan and verbalizes understanding of instructions. She was given the opportunity to ask questions and all questions answered. Thank you for allowing me to participate in her care Medications: New bisacodyl (Dulcolax (bisacodyl)) Start taking 2 tablet every night 7 days before the procedure and 1 day before procedure take 2 tablets at noon time followed by MiraLax prep 10 mg (2 x 5 mg) PO BEDTIME 14 tabs 0RF Z12.11 - Encounter for screening for malignant neoplasm of colon polyethylene glycol 3350 (Miralax) As directed by gastroenterology department at [facility] 238 grams PO ONCE 238 grams 0RF Z12.11 - Encounter for screening for malignant neoplasm of colon Coding Level of Care Code Est Pt Level 4 (62850) Diagnoses Irritable bowel syndrome (IBS) K58.1 Irritable bowel syndrome type: with constipation GERD (gastroesophageal reflux disease) K21.9 Esophagitis presence: esophagitis presence not specified Chronic idiopathic constipation K59.04 Screen for colon cancer Z12.11 Time Spent (min) 40 Comment 25 minute spent with patient and additional 15 minutes spent reviewing her records
== END 2023-03-07 15:13 | disposition home or self-care (01) ==
PROVIDERS: Visit Provider Nurse Practitioner Family
DX: K58.1 Irritable bowel syndrome with constipation (principal); K21.9 Gastro-esophageal reflux disease without esophagitis; K59.04 Chronic idiopathic constipation; Z12.11 Encounter for screening for malignant neoplasm of colon
CPT/HCPCS: 99214

== ENCOUNTER → 2023-03-07 13:48 | Outpatient (BNVA) | payer OTHER, SELFPAY | PROVIDERS: Visit Provider Nurse Practitioner Family | DX: Z12.11 Encounter for screening for malignant neoplasm of colon (principal); K58.1 Irritable bowel syndrome with constipation; K21.9 Gastro-esophageal reflux disease without esophagitis; K59.04 Chronic idiopathic constipation | CPT/HCPCS: 99212 ==

== ENCOUNTER 2023-04-12 12:01 | Day surgery (SDC) | payer OTHER, SELFPAY ==
[2023-04-10 10:47] VITALS: BMI 34.2
[2023-04-12] VITALS (7 sets, daily range): BP systolic 125–154; BP diastolic 81–98; PULSE 61–94; RESP 12–16; TEMP 36.1–36.7; O2SAT 93–99
--- NOTE | ~2023-04-12 | FL_ITS ---
EXAMINATION: XR FLUOROSCOPY WITH IMAGES CLINICAL INFORMATION: SI joint fusion. COMPARISON: None available. TECHNIQUE: Fluoroscopy Supervised By: Dr. Hugh Powell. Fluoroscopy Time: 1.7 minutes. Cumulative Dose: 49.7 mGy. DAP: 5.22 Gycm2. Images: 5. FINDINGS: Images demonstrate surgical hardware for fusion projecting over the right sacroiliac joint. There is evidence of previous surgery to the visualized lower lumbar spine. FL/FL guidance in OR IMPRESSION: Fluoroscopy guidance for right sacroiliac joint fusion.
--- NOTE | 2023-04-12 15:16 | MHC.SHP ---
Pre-Procedural Eval Section A Date of Service: 04/12/23 The patient is an INPATIENT: No Changes since office visit: Yes Patient answered all questions The History & Physical has been completed within 30 days and I have reviewed it.: No Section B Chief Complaint: Sacrococcygeal disorders, not elsewhere classified Relevant Family History (Specify if Yes): No Relevant Social History: None Present Medications: see Short Stay Collaborative assessment Medical History: No relevant PMH History of Previous Operations: No relevant previous surgery Allergies: Allergies Allergy/AdvReac Type Severity Reaction Status Date / Time morphine [MORPHINE] Allergy Intermediate RASH Verified 03/07/23 13:56 Review of Systems Sugical H&P ROS: Negative: Constitution, Cardiovascular and Respiratory Exam Surgical H&P Exam: Normal: HEENT, Normal: Heart and Normal: Lungs Plan Diagnosis/Plan: Unchanged I have reviewed the history and physical and performed a pertinent physical examination on my patient. No changes have occurred unless specified. Proceed with minimally invasive right posterior SI joint fusion. Time Spent With Patient Time: Total time managing care of this patient today ____ minutes.
[2023-04-12 17:18] LABS: MRSA Nasal PCR NEGATIVE (Negative); SA Nasal PCR POSITIVE (Negative)
--- NOTE | 2023-04-12 17:30 | PM.OP ---
Brief Operative Note Date of Service: 04/12/23 Pre-op diagnosis: Sacroiliac joint instability, dysfunction Post-op diagnosis: same Procedure: Posterior sacroiliac joint fusion with bone graft Implants: PainTeq LinQ SI joint fusion graft Surgeon: Hugh Powell MD Anesthesia: GETA Was an Job Press Feeder used for this Procedure?: No Estimated blood loss (mL): 50 Pathology: none sent Condition: stable Disposition: PACU
--- NOTE | 2023-04-12 17:32 | P.OP_ITS ---
Operative Note Operative Note Date of Service: 04/12/23 Narrative: Posterior Sacroiliac Joint Fusion, RIGHT After induction of general anesthesia, the patient was placed on the operating table in the prone position on a radiolucent table with appropriate padding and support. Cefazolin 2 gm was given intravenously for preoperative antibiotic prophylaxis. Time-out was performed, which included a confirmation of the operative side. The skin was then prepped and draped in the usual sterile manner. Intraoperative fluoroscopy was used to delineate the relevant sacroiliac joint, including the identification of the anterior and posterior joint articulation. A 22 gauge 3.5 in spinal needle was first used to access the joint and anesthetize the operative tract for intra and postop analgesia. A guide pin was then inserted under x-ray guidance and slid into the articular surface. Appropriate caution was observed to not advance the guide pin beyond the anterior cortical line of the sacrum. With the pin in place, a 1 cm incision was made superior and inferior to the guide pin including the skin and soft tissue using a 15 blade. Soft tissue dissection down to the sacroiliac joint was then performed using the blade superior and inferior to the guide pin. Hemostasis was achieved with electrocautery as needed.? The external and internal working channels were then assembled and railroaded over the guide pin to access the posterior articulation of the sacroiliac joint. Fluoroscopy was used to adjust the orientation of the working channels with respect to the posterior joint articulation. The superior and inferior tines of the outer working channel were oriented and aligned with the posterior joint line. Channel assembly was then gently tapped with a mallet to gain access into the sacroiliac joint. The sacroiliac joint was then prepared for a structural allograft implant by broaching and rasping the articular surfaces using a bone decorticater. Once the joint was prepared, the structural allograft implant was? packed with a DBM ortho-biologic in and around the implant and then inserted into the joint. The intra-articular position of the implant was confirmed with fluoroscopy. The access channels were then removed. Hemostasis was achieved with electroca utery as needed. The wound was irrigated copiously with vancomycin solution. Subcutaneous tissue was closed with 2-0 Vicryl interrupted sutures. Deep dermal layer was closed with 3-0 Vicryl followed by skin closure with rodo. The wound was dressed with bacitracin ointment, gauze and Tegaderm. The patient was then flipped supine and an appropriately sized sacroiliac compression belt was applied. The patient was then woken up and brought to the PACU in stable condition. Neurologic exam was within normal limits in the postop recovery area and the patient indicated adequate analgesia.?Patient was discharged in stable condition with discharge instructions, including instructions for follow-up. Complications: none? Estimated blood loss: 50 mL
== END 2023-04-12 18:37 | disposition home or self-care (01) ==
PROVIDERS: Registered Nurse Emergency; PCP Internal Medicine; Visit Provider Internal Medicine
PROC: (CPT 27279; principal; 2023-04-12 13:30)
DX: M53.3 Sacrococcygeal disorders, not elsewhere classified (principal); M46.1 Sacroiliitis, not elsewhere classified; M53.2X8 Spinal instabilities, sacral and sacrococcygeal region; M47.816 Spondylosis without myelopathy or radiculopathy, lumbar region; M54.50 Low back pain, unspecified; R20.2 Paresthesia of skin; M79.7 Fibromyalgia; G43.109 Migraine with aura, not intractable, without status migrainosus; Z87.820 Personal history of traumatic brain injury; F31.9 Bipolar disorder, unspecified; R41.3 Other amnesia; J45.909 Unspecified asthma, uncomplicated; Z79.899 Other long term (current) drug therapy; Z88.8 Allergy status to other drugs, medicaments and biological substances; F11.91 Opioid use, unspecified, in remission; Z98.890 Other specified postprocedural states
CPT/HCPCS: 27279; 87640; 87641; C1713; J0690; J1100; J2250; J2405; J2795; J3010; J3370

== ENCOUNTER → 2023-04-12 12:01 | Outpatient (BNV) | payer OTHER, SELFPAY | PROVIDERS: PCP Internal Medicine; Visit Provider Internal Medicine | DX: M53.3 Sacrococcygeal disorders, not elsewhere classified (principal) | CPT/HCPCS: 27279 ==

== ENCOUNTER 2023-04-18 14:19 | Outpatient (AMB) | payer OTHER, SELFPAY ==
--- NOTE | 2023-04-18 14:21 | MHC.OFFVIS ---
Intake Vital Signs 04/18/23 14:23 Height 5 ft 1 in Weight 186 lb BMI 35.1 BP 122/77 Blood Pressure Location Rt brachial Position Sitting Respiration 14 Pulse 113 H Pulse Source Pulse Oximeter Pulse Oximetry (%) 96 Oxygen Delivery Method Room Air Intake Visit Reasons: s/p R. SIJ Fusion 04/12/23 Allergies morphine [MORPHINE] Allergy (Intermediate, Verified 04/18/23 14:25) RASH Medication List - Last Reconciled 04/18/23 by Sylvie Jansen LPN albuterol sulfate 90 mcg/actuation (Ventolin HFA) 1 puff inhalation ONCE PRN bisacodyl (Dulcolax (bisacodyl)) 10 mg (2 x 5 mg) PO BEDTIME buspirone 0 mg PO cetirizine 10 mg PO DAILY PRN 90 days cholecalciferol (vitamin D3) 50 mcg PO DAILY clonidine HCl 0.05 - 0.1 mg (0.5 - 1 x 0.1 mg) PO BID PRN cyclobenzaprine 10 mg (2 x 5 mg) PO TID PRN 30 days dexmethylphenidate ER 10 mg PO DAILY duloxetine 60 mg PO DAILY famotidine (Pepcid) 20 mg PO BEDTIME hydrocortisone 2.5% (Proctosol HC) 1 appl [place] BID-QID PRN hydroxyzine HCl Take 1 to 2 tablets 3 times a day orally as needed for increased anxiety AND 1 tablet daily at bedtime; 30 days lamotrigine 150 mg PO BID magnesium glycinate 200 mg (2 x 100 mg) PO DAILY 30 days meloxicam 15 mg PO DAILY PRN omeprazole 40 mg PO DAILY 30 days oxycodone 5 mg PO TID PRN plecanatide (Trulance) 3 mg PO DAILY prazosin 2 mg PO DAILY riboflavin (vitamin B2) 400 mg PO DAILY 30 days sennosides (Natural Senna Laxative) 8.6 mg PO BEDTIME topiramate 50 mg PO BEDTIME zolpidem 10 mg PO BEDTIME PRN HPI HPI Comments History of Present Illness Details Patient presents today 1 week status PainTeq LinQ posterior right sacroiliac joint fusion on 04/12/[address] Powell. Patient presents via wheelchair today and reports significant surgical pain in the projection of right lower back and buttocks. She notes oxycodone is not very helpful and states hydromorphine worked better for her in the past. [facility] 2nd [facility]one script prescribed by Dr. Powell yesterday and was encouraged to use it only for moderate-severe pain. She was assisted by her daughter to exam table without significant difficulty. She is wearing SIJ belt. The dressing was removed today. No redness, swelling, erythema, local temperature or pathological discharge noted. [place] x8 are intact. The incision was cleansed with ChloraPrep, and dressed Bacitracin, gauze and Tegaderm film. Patient will return next week for ekta removal. Reviewed activity restrictions s/p SI fusion with patient and family. Denies any recent cough, cold, infection, fever or other significant changes in medical history since last office visit. Patient denies any bladder or bowel incontinence or saddle anesthesia. PRIOR: king presents today for follow up for increased pain in low back and has requested sacroiliac joint fusion in setting of prior relief from sacroiliac joint injections but incomplete relief from sacroiliac joint innervation ablation. She presents with localized tenderness in sacroliac joint areas, worse on the right side. She has previously exhausted conservative therapy including physical therapy, activity modifications, home exercise program and oral medications with no relief. Unfortunately, prior authorization is still pending for minimally invasive sacroiliac joint fusion with a LinQ device at this time and patient was informed accordingly. Patient also requests referral to Neurology for migraine headaches management and ongoing memory issues. Describes more than 15 episodes a month, each lasting about 6 to 8 hours and at times up to 3 days. Reports migraines with and without auras, usually involve half of her sculp associated with vision disturbances, nausea, at times vomiting, and photosensitivity before pounding headache starts. She was previously treated at [facility] with abortive therapy, topamax, duloxetine, Exedrine, NSAIDs, tramadol, pregabalin, and Botox injections. Patient reports she avoids known migraine triggers as well as trying to maintain a healthier weight, decrease stresses and improve sleep. She reports difficulty with maintaining adequate sleep given persistent sacroiliac joint pain that wakes her up at night and requires frequent repositioning for comport. PRIOR Dr. Powell 01/27/23: 47-year-old female presenting today for a follow-up. The patient reports 30-40% relief following the procedure. She is experiencing weakness in her leg and a pins and needles sensation. She discussed spinal cord stimulators in the past with [facility] but declined them because of her discomfort from anxiety. She underwent back surgery in 2004. She was recently approved for [employer]. She denies having any menstrual cycle, but she reports severe muscle cramps in her inguinal region. Past Procedures: Hugh Powell MD. 11/09/22: Cooled radiofrequency ablation, Bilateral L5 dorsal ramus and lateral branches of the S1, S2, S3 posterior primary rami nerves - fluoroscopic guided: 30-40% relief. Past Procedures: Saud Hutton MD. 08/09/22: Bilateral Diagnostic SIJ injections-100% pain relief for 24 hours. 02/22/22: Bilateral Diagnostic SIJ injections-100% pain relief for 12 hours. PRIOR: Shira is a pleasant 45 year old female accompanied by her fiance to help with her past medical history as she has had a traumatic brain injury. She is here for evaluation of her constant lower back pain that has been present for over 15 years. She states she had two ripped discs and had surgery performed about 15 years ago with hardware placed, but can not recall the name of the surgeon. She then reports having the rods removed due to possible nerve impingement shortly after. She does have some hardware still intact.? Recently she went to the ED for excruciating low back pain with radiation into bilateral legs, left worse than right.? At her ED follow up with her PCP, an MRI was ordered but she is still waiting for it to be scheduled. She reports the pain is affecting her activities of daily living, sleep and function normally. She was managed previously at [facility] receiving injections with no effect. She has tried physical therapy a few months ago, with some improvement. She reports the pain is exacerbated by weather changes and movements. Her pain is alleviated by medication and heat. She currently is receiving dilaudid 4 mg three times per day from her PCP for almost a year. She states she is not getting good relief from this dose and would like an increase. She rates her pain a 10/10. Her pain is worse in the morning and at night. In terms of tissue damage she describes her pain as pulsing, throbbing, stabbing, cramping, crushing, tight, squeezing and tearing. Her past medical history is fibromyalgia, depression, bipolar, anxiety, asthma, kidney stones and headaches. She reports occasional alcohol use and caffeine. She denies any recreational drug use, being addicted to any drug or any history of drug/alcohol rehabilitation. [facility] Medical History Anxiety Asthma Bipolar disorder current episode depressed Fibromyalgia GERD without esophagitis Hypertriglyceridemia Irritable bowel syndrome (IBS) Loss of hearing Memory impairment Obesity (BMI 30-39.9) Opioid dependence Opioid use disorder, mild, in early remission Recurrent major depression-severe Surgical History History of cholecystectomy History of esophagogastroduodenoscopy (EGD) History of lumbar fusion History of tubal ligation Hx of excision of mass Family History Father No problems noted. 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 Alert and oriented. Mood and affect appropriate. Follows and participates in conversation appropriately. Respiratory effort is unlabored. No cough present. Able to transition from sit to stand with assistance. Arrived via wheelchair, able to stand and walk with minimal assistance. Back/Spine/Pelvis Incision site looks clean, dry, and intact. Ek[place] x 8 are intact. No pathological discharge, no swelling, erythema, redness or tenderness. Dressing changed today. Patient is wearing a SIJ belt. Assessment & Plan Assessment & Plan (1) Spondylosis of lumbar spine: Code(s): M47.816 - Spondylosis without myelopathy or radiculopathy, lumbar region (2) Sacroiliac joint pain: Code(s): M53.3 - Sacrococcygeal disorders, not elsewhere classified (3) SI (sacroiliac) joint dysfunction: Code(s): M53.3 - Sacrococcygeal disorders, not elsewhere classified (4) Status post fusion of sacroiliac joint: Code(s): Z98.1 - Arthrodesis status Plan Patient is a status post right SIJ fusion on 04/12/23 with minimal chronic SIJ pain relief in the projection of the right SIJ. She reports post-op pain and has filled 2nd script of oxycodone on 04/17/[address] Powell. Dressing was changed today. No pathological discharge, no swelling, erythema, redness or tenderness. [place] are intact. Continue wearing SIJ belt 03/04, activity modifications including avoiding climbing stairs. All questions were answered and the patient agreed with the plan. Follow up in 1 week for staple removal and sooner as needed. Coding Level of Care Code Est Pt Level 3 (17558) Diagnoses Spondylosis of lumbar spine M47.816 Sacroiliac joint pain M53.3 SI (sacroiliac) joint dysfunction M53.3 Status post fusion of sacroiliac joint Z98.1
[2023-04-18 14:23] VITALS: BP 122/77; PULSE 113; RESP 14; O2SAT 96; BMI 35.1
== END 2023-04-18 14:50 | disposition home or self-care (01) ==
PROVIDERS: PCP Internal Medicine; Visit Provider Nurse Practitioner Family
DX: M47.816 Spondylosis without myelopathy or radiculopathy, lumbar region (principal); M53.3 Sacrococcygeal disorders, not elsewhere classified; Z98.1 Arthrodesis status
CPT/HCPCS: 99213

== ENCOUNTER → 2023-04-18 14:19 | Outpatient (BNVA) | payer OTHER, SELFPAY | PROVIDERS: PCP Internal Medicine; Visit Provider Nurse Practitioner Family | DX: M47.816 Spondylosis without myelopathy or radiculopathy, lumbar region (principal); M53.3 Sacrococcygeal disorders, not elsewhere classified; Z98.1 Arthrodesis status | CPT/HCPCS: 99212 ==

== ENCOUNTER 2023-04-24 14:09 | Outpatient (AMB) | payer OTHER, SELFPAY ==
[2023-04-24 14:13] VITALS: BP 137/80; PULSE 114; RESP 14; O2SAT 96; BMI 35.1
--- NOTE | 2023-04-24 14:13 | A.OFFVIS_ITS ---
Intake Vital Signs 04/24/23 14:13 Height 5 ft 1 in Weight 186 lb BMI 35.1 BP 137/80 Blood Pressure Location Lt radial Position Sitting Respiration 14 Pulse 114 H Pulse Source Pulse Oximeter Pulse Oximetry (%) 96 Oxygen Delivery Method Room Air Intake Visit Reasons: s/p R. SIJ Fusion 04/12/23 Allergies morphine [MORPHINE] Allergy (Intermediate, Verified 04/24/23 14:15) RASH HPI s/p R. SIJ Fusion 04/12/23 HPI Details 48-year-old female presenting today for a status post right SIJ fusion on 04/12/23. The patient reports mild relief following the procedure, though she feels it is too early to tell since she has had significant surgical site pain in the projection of the right lower back and buttock. She is wearing the SIJ belt as prescribed. She is able to get out of bed without support. Her daughter is helping with shower and dressing changes at home. She is currently taking oxycodone 5 mg. She is taking Tizanidine with good effect. She is a side sleeper and keeps switching positions throughout the night. She reports pain in her left side due to prolonged sleeping on the same side. She denies any weakness in her leg. Past Procedures: 04/12/23: Posterior Sacroiliac Joint Fusion, Right: 11/09/22: Cooled radiofrequency ablation, Bilateral L5 dorsal ramus and lateral branches of the S1, S2, S3 posterior primary rami nerves - fluoroscopic guided: 30-40% relief. 08/09/22: Bilateral Diagnostic SIJ injections-100% pain relief for 24 hours. 02/22/22: Bilateral Diagnostic SIJ injections-100% pain relief for 12 hours. [facility] Medical History Anxiety Asthma Bipolar disorder current episode depressed Fibromyalgia GERD without esophagitis Hypertriglyceridemia Irritable bowel syndrome (IBS) Loss of hearing Memory impairment Obesity (BMI 30-39.9) Opioid dependence Opioid use disorder, mild, in early remission Recurrent major depression-severe Surgical History History of cholecystectomy History of esophagogastroduodenoscopy (EGD) History of lumbar fusion History of tubal ligation Hx of excision of mass Family History Father No problems noted. 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 Alert and oriented. Mood and affect appropriate. Follows and participates in conversation appropriately. Respiratory effort is unlabored. Able to transition from sit to stand unassisted. Ambulates with bilaterally normal heel strike and toe off. Surgical site: Site is clean dry and intact. No tenderness to palpation. [place] removed atraumatically. Results Reviewed Results Reviewed: No imaging is available for review. Assessment & Plan Assessment & Plan (1) Status post fusion of sacroiliac joint: Comment: right side Code(s): Z98.1 - Arthrodesis status Plan Encouraged the patient to wean off the oxycodone 5 mg. She can resume her normal daily activities, but continued to exercise caution with bending forward or engaging in excessive activity. I advised her to abstain from showering for another three to four days until her incision is completely healed. The rodo were removed today in the office and a Band-Aid was placed overlying the incision. Ordered a refill of oxycodone 5 mg 7 tablets for the patient. If the patient notices significant improvement from the right-sided SIJ fusion procedure, we will schedule her for left-sided SIJ fusion. The patient will follow up in ten weeks. Scribed for Dr. Powell by Fausto Mariscal, medical record librarians teacher, on 04/24/2023. I, Dr. Powell, have personally reviewed and agree with the information entered by the scribe. Medications: Refilled 2 oxycodone Partial Fill upon patient request. 5 mg PO TID PRN 14 caps 0RF moderate pain (scale score 5-6) Coding Level of Care Code Est Pt Level 3 (02775) Diagnoses Status post fusion of sacroiliac joint Z98.1
== END 2023-04-24 14:35 | disposition home or self-care (01) ==
PROVIDERS: PCP Internal Medicine; Visit Provider Internal Medicine
DX: Z98.1 Arthrodesis status (principal)
CPT/HCPCS: 99441

== ENCOUNTER → 2023-04-24 14:09 | Outpatient (BNVA) | payer OTHER, SELFPAY | PROVIDERS: PCP Internal Medicine; Visit Provider Internal Medicine ==

== ENCOUNTER → 2023-05-01 15:53 | Outpatient (BNVA) | payer OTHER, SELFPAY | PROVIDERS: PCP Internal Medicine; Visit Provider Internal Medicine | DX: Z98.1 Arthrodesis status (principal); M79.7 Fibromyalgia; Z79.891 Long term (current) use of opiate analgesic | CPT/HCPCS: 99212 ==

== ENCOUNTER → 2023-05-01 15:54 | Outpatient (AMB) | payer OTHER, SELFPAY ==
--- NOTE | 2023-05-01 15:52 | A.OFFVIS_ITS ---
Intake Intake Visit Reasons: Concerns W/ SIJ Belt Causing Pain Allergies morphine [MORPHINE] Allergy (Intermediate, Verified 04/24/23 14:15) RASH HPI Concerns W/ SIJ Belt Causing Pain HPI Details 48-year-old female is presenting via telehealth visit for discussion of concerns about her SIJ belt. The patient reports aggravation of the back pain with certain movements from the SIJ belt. She states that oxycodone is not providing relief. She would like to try a muscle relaxant. She is currently taking Flexeril and Pepcid. [facility] Medical History Anxiety Asthma Bipolar disorder current episode depressed Fibromyalgia GERD without esophagitis Hypertriglyceridemia Irritable bowel syndrome (IBS) Loss of hearing Memory impairment Obesity (BMI 30-39.9) Opioid dependence Opioid use disorder, mild, in early remission Recurrent major depression-severe Surgical History History of cholecystectomy History of esophagogastroduodenoscopy (EGD) History of lumbar fusion History of tubal ligation Hx of excision of mass Family History Father No problems noted. 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 Assessment & Plan Assessment & Plan (1) Status post fusion of sacroiliac joint: Comment: right side Code(s): Z98.1 - Arthrodesis status Plan Advised the patient to intermittently use the SIJ belt as per her convenience, during periods of increased activity. I will switch her to tizanidine 4 mg as needed. Counseled her to avoid cyclobenzaprine (Flexeril) and pepcid with tizanidine. Patient expressed understanding. Scribed for Dr. Powell by Fausto Mariscal, biomedical photographer, on 05/01/2023. I, Dr. Powell, have personally reviewed and agree with the information entered by the scribe. Medications: New tizanidine 4 mg PO TID PRN 90 caps 6RF muscle spasticity Telehealth Telehealth Location of provider rendering services: practice address Location of patient: address on file Patient Identification confirmed using: Name, : Yes Telehealth method: voice only Patient verbally consented to treatment: Yes Patient verbally consented to billing insurance company: Yes Patient informed of any privacy concerns related to visit: Yes Minutes spent on Phone/Video with Pt.: 4 Coding Level of Care Code Tele Est Pt Level 3 (69316) Diagnoses Status post fusion of sacroiliac joint Z98.1
== END | disposition home or self-care (01) ==
LOC: HO.PMC 15:53
PROVIDERS: PCP Internal Medicine; Visit Provider Internal Medicine
DX: Z98.1 Arthrodesis status (principal)
CPT/HCPCS: 99024

== ENCOUNTER 2023-07-03 15:08 | Outpatient (AMB) | payer OTHER, SELFPAY ==
[2023-07-03 15:22] VITALS: PULSE 99; RESP 14; BMI 35.1
--- NOTE | 2023-07-03 15:22 | A.OFFVIS_ITS ---
Intake Vital Signs 07/03/23 15:22 Height 5 ft 1 in Weight 186 lb BMI 35.1 Blood Pressure Location Lt brachial Position Sitting Respiration 14 Pulse 99 Pulse Source Pulse Oximeter Intake Visit Reasons: 10 week follow up Allergies morphine [MORPHINE] Allergy (Intermediate, Verified 07/03/23 15:23) RASH Medication List - Last Reconciled 07/03/23 by Sylvie Jansen, GERARD albuterol sulfate 90 mcg/actuation (Ventolin HFA) 1 puff inhalation ONCE PRN bisacodyl (Dulcolax (bisacodyl)) 10 mg (2 x 5 mg) PO BEDTIME buspirone 0 mg PO cetirizine 10 mg PO DAILY PRN 90 days cholecalciferol (vitamin D3) 50 mcg PO DAILY clonidine HCl 0.05 - 0.1 mg (0.5 - 1 x 0.1 mg) PO BID PRN [DETACHABLE SHOWER HEAD As directed] dexmethylphenidate ER 10 mg PO DAILY duloxetine 60 mg PO DAILY famotidine (Pepcid) 20 mg PO BEDTIME hydrocortisone 2.5% (Proctosol HC) 1 appl NM BID-QID PRN hydroxyzine HCl Take 1 to 2 tablets 3 times a day orally as needed for increased anxiety AND 1 tablet daily at bedtime; 30 days lamotrigine 150 mg PO BID magnesium glycinate 200 mg (2 x 100 mg) PO DAILY 30 days meloxicam 15 mg PO DAILY PRN omeprazole 40 mg PO DAILY 30 days plecanatide (Trulance) 3 mg PO DAILY prazosin 2 mg PO DAILY riboflavin (vitamin B2) 400 mg PO DAILY 30 days sennosides (Natural Senna Laxative) 8.6 mg PO BEDTIME [SHOWER BENCH As directed] tizanidine 4 mg PO TID PRN [TOILET SEAT with GRAB BAR As directed] topiramate 50 mg PO BEDTIME zolpidem 10 mg PO BEDTIME PRN HPI 10 week follow up HPI Details 48-year-old female who presents today to the office for a 10-week follow-up. The patient reports >50% relief following the procedure. She is wearing a SIJ belt currently. She reports hypersensitivity in her back and inguinal region that started after the surgery. She had stopped wearing the SIJ belt for a few days, but her symptoms did not improve. She has difficulty wearing undergarments or clothes due to hypersensitivity. She had tried gabapentin in the past but not tolerated well. She has not used pregabalin in the past. Past Procedures: 04/12/23: Posterior Sacroiliac Joint Fus ion, Right: >50% relief. 11/09/22: Cooled radiofrequency ablation , Bilateral L5 dorsal ramus and lateral branches of the S1, S2, S3 posterior primary rami nerves - fluoroscopic guided: 30-40% relief. 08/09/22: Bilateral Diagnostic SIJ injec tions-100% pain relief for 24 hours. 02/22/22: Bilateral Diagnostic SIJ injec tions-100% pain relief for 12 hours. FOR[facility], LAT[facility] Medical History Anxiety Asthma Bipolar disorder current episode depressed Fibromyalgia GERD without esophagitis Hypertriglyceridemia Irritable bowel syndrome (IBS) Loss of hearing Memory impairment Obesity (BMI 30-39.9) Opioid dependence Opioid use disorder, mild, in early remission Recurrent major depression-severe Surgical History History of cholecystectomy History of esophagogastroduodenoscopy (EGD) History of lumbar fusion History of tubal ligation Hx of excision of mass Family History Father No problems noted. 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 Alert and oriented. Mood and affect appropriate. Follows and participates in conversation appropriately. Respiratory effort is unlabored. Able to transition from sit to stand unassisted. Ambulates with bilaterally normal heel strike and toe off. Results Reviewed Results Reviewed: No imaging is available for review. Assessment & Plan Assessment & Plan (1) Status post fusion of sacroiliac joint: Comment: right side Code(s): Z98.1 - Arthrodesis status (2) Sacroiliac joint pain: Code(s): M53.3 - Sacrococcygeal disorders, not elsewhere classified Plan Patient reports notable improvement in symptoms on the right side and feels the difference between her right and left side in terms of pain. She is interested in proceeding with left sacroiliac joint fusion. Will schedule her for a left posterior sacroiliac joint fusion. Discussed the risks and benefits of the procedure with the patient in detail. All questions were answered. The patient is on board with the plan. Also, advised taking pregabalin 75 mg PO QHS for hypersensitivity of the skin, likely secondary to cutaneous nerve compression from wearing the SI belt. I cleared her for removal of SI belt in resume usual activities without restrictions. Justification for interventional therapy: ? Patient with average pain > 6/10 ? Patient has exhausted conservative therapy . Right-sided intervention provided more than 50% relief Scribed for Dr. Powell by Fausto Mariscal, medical equipment technician, on 07/03/2023. I, Dr. Powell, have personally reviewed and agree with the information entered by the scribe. Medications: New pregabalin 75 mg PO BEDTIME 30 caps 1RF Coding Level of Care Code Est Pt Level 4 (92963) Diagnoses Status post fusion of sacroiliac joint Z98.1 Sacroiliac joint pain M53.3
== END 2023-07-03 15:45 | disposition home or self-care (01) ==
PROVIDERS: PCP Internal Medicine; Visit Provider Internal Medicine
DX: M53.3 Sacrococcygeal disorders, not elsewhere classified (principal); Z98.1 Arthrodesis status
CPT/HCPCS: 99024

== ENCOUNTER → 2023-07-03 15:08 | Outpatient (BNVA) | payer OTHER, SELFPAY | PROVIDERS: PCP Internal Medicine; Visit Provider Internal Medicine | DX: M53.3 Sacrococcygeal disorders, not elsewhere classified (principal); Z98.1 Arthrodesis status | CPT/HCPCS: 99212 ==

== ENCOUNTER 2023-08-14 09:40 | Outpatient (AMB) | payer MEDICARE, MEDICAID, SELFPAY ==
[2023-08-14 09:52] VITALS: BP 109/67; PULSE 94; RESP 12; BMI 34.8
--- NOTE | 2023-08-14 09:52 | MHC.OFFVIS ---
Intake Vital Signs 08/14/23 09:52 Height 5 ft 1 in Weight 184 lb BMI 34.8 BP 109/67 Blood Pressure Location Lt brachial Position Sitting Respiration 12 Pulse 94 Pulse Source Pulse Oximeter Intake Visit Reasons: low back pain/lvm Allergies morphine [MORPHINE] Allergy (Intermediate, Verified 08/14/23 09:53) RASH Medication List - Last Reconciled 08/14/23 by Sylvie Jansen LPN albuterol sulfate 90 mcg/actuation (Ventolin HFA) 1 puff inhalation ONCE PRN bisacodyl (Dulcolax (bisacodyl)) 10 mg (2 x 5 mg) PO BEDTIME buspirone 20 mg PO TID cetirizine 10 mg PO DAILY PRN 90 days cholecalciferol (vitamin D3) 50 mcg PO DAILY clonidine HCl 0.05 - 0.1 mg (0.5 - 1 x 0.1 mg) PO BID PRN cyclobenzaprine 10 mg PO TID PRN [DETACHABLE SHOWER HEAD As directed] dexmethylphenidate ER 10 mg PO DAILY duloxetine 60 mg PO DAILY famotidine (Pepcid) 20 mg PO BEDTIME hydrocortisone 2.5% (Proctosol HC) 1 appl NE BID-QID PRN hydroxyzine HCl Take 1 to 2 tablets 3 times a day orally as needed for increased anxiety AND 1 tablet daily at bedtime; 30 days lamotrigine 200 mg PO BID omeprazole 40 mg PO DAILY 30 days plecanatide (Trulance) 3 mg PO DAILY prazosin 2 mg PO DAILY riboflavin (vitamin B2) 400 mg PO DAILY 30 days sennosides (Natural Senna Laxative) 8.6 mg PO BEDTIME [SHOWER BENCH As directed] [TOILET SEAT with GRAB BAR As directed] topiramate 50 mg PO BEDTIME zolpidem 10 mg PO BEDTIME PRN HPI low back pain/lvm HPI Details 48-year-old female who presents today to the office for a low back pain. The patient reports bilateral low back pain. Her left side is worse than her right side. She is taking Lyrica. Her symptoms of burning pain and numbness in the thighs have mostly improved. She is no longer wearing tight belts or a dress. She has difficulty sleeping due to pain, primarily on the left side. She would like to defer the fusion on the left side until November. She is also using an OTC topical cream with moderate benefit. Past Procedures: 04/12/23: Posterior Sacroiliac Joint Fusion, Right: >50% relief. 11/09/22: Cooled radiofrequency ablation, Bilateral L5 dorsal ramus and lateral branches of the S1, S2, S3 posterior primary rami nerves - fluoroscopic guided: 30-40% relief. 08/09/22: Bilateral Diagnostic SIJ injections-100% pain relief for 24 hours. 02/22/22: Bilateral Diagnostic SIJ injections-100% pain relief for 12 hours. COUNT INCLUDES THE [facility] Medical History Anxiety Asthma Bipolar disorder current episode depressed Fibromyalgia GERD without esophagitis Hypertriglyceridemia Irritable bowel syndrome (IBS) Loss of hearing Memory impairment Obesity (BMI 30-39.9) Opioid dependence Opioid use disorder, mild, in early remission Recurrent major depression-severe Surgical History History of cholecystectomy History of esophagogastroduodenoscopy (EGD) History of lumbar fusion History of tubal ligation Hx of excision of mass Family History Father No problems noted. 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 Alert and oriented. Mood and affect appropriate. Follows and participates in conversation appropriately. Respiratory effort is unlabored. Able to transition from sit to stand unassisted. Ambulates with bilaterally normal heel strike and toe off. Results Reviewed Results Reviewed: No imaging is available for review. Assessment & Plan Assessment & Plan (1) Status post fusion of sacroiliac joint: Comment: right side Code(s): Z98.1 - Arthrodesis status (2) Sacroiliac joint pain: Code(s): M53.3 - Sacrococcygeal disorders, not elsewhere classified Plan 1. CT of the sacrum to interrogate the fusion status of her right sacroiliac joint. 2. I renewed her prescription for cyclobenzaprine 10 milligrams TID PRN. 3. Continue [id number] topical medications as needed for occasional pain exacerbations. Her pins and needles sensation in the thighs has resolved. 4. Schedule left-sided SI joint fusion as per patient preference. Scribed for Dr. Powell by Fausto Mariscal medical technologist microbiology, on 08/14/2023. I, Dr. Powell, have personally reviewed and agree with the information entered by the scribe. Orders: Orders CT sacrum 08/14/23 Z98.1 - Arthrodesis status Medications: New cyclobenzaprine 10 mg PO TID PRN 90 tabs 5RF muscle spasm Coding Level of Care Code Est Pt Level 4 (18649) Diagnoses Status post fusion of sacroiliac joint Z98.1 Sacroiliac joint pain M53.3
== END 2023-08-14 10:17 | disposition home or self-care (01) ==
PROVIDERS: PCP Internal Medicine; Visit Provider Internal Medicine
DX: Z98.1 Arthrodesis status (principal); M53.3 Sacrococcygeal disorders, not elsewhere classified
CPT/HCPCS: 99214

== ENCOUNTER → 2023-08-14 09:40 | Outpatient (BNVA) | payer MEDICARE, MEDICAID, SELFPAY | PROVIDERS: PCP Internal Medicine; Visit Provider Internal Medicine | DX: M53.3 Sacrococcygeal disorders, not elsewhere classified (principal); Z98.1 Arthrodesis status | CPT/HCPCS: 99212 ==

== ENCOUNTER 2023-09-27 17:18 | Outpatient (AMB) | payer OTHER, SELFPAY ==
[2023-09-27 17:19] VITALS: BP 106/80; PULSE 103; O2SAT 99; BMI 34.4
--- NOTE | 2023-09-27 17:19 | A.OFFPC_ITS ---
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: No Accompanied by: Self / Same As Patient Allergies morphine [MORPHINE] Allergy (Intermediate, Verified 09/27/23 17:32) RASH Medication List - Last Reconciled 09/27/23 by Fidencio Gomez MD albuterol sulfate 90 mcg/actuation (Ventolin HFA) 1 puff inhalation ONCE PRN bisacodyl (Dulcolax (bisacodyl)) 10 mg (2 x 5 mg) PO BEDTIME buspirone 20 mg PO TID cetirizine 10 mg PO DAILY PRN 90 days cholecalciferol (vitamin D3) 50 mcg PO DAILY clonidine HCl 0.05 - 0.1 mg (0.5 - 1 x 0.1 mg) PO BID PRN cyclobenzaprine 10 mg PO TID PRN [DETACHABLE SHOWER HEAD As directed] dexmethylphenidate ER 10 mg PO DAILY duloxetine 60 mg PO DAILY famotidine (Pepcid) 20 mg PO BEDTIME hydrocortisone 2.5% 1 appl AK Q8-12H hydroxyzine HCl Take 1 to 2 tablets 3 times a day orally as needed for increased anxiety AND 1 tablet daily at bedtime; 30 days lamotrigine 200 mg PO BID omeprazole 40 mg PO DAILY 30 days plecanatide (Trulance) 3 mg PO DAILY prazosin 2 mg PO DAILY riboflavin (vitamin B2) 400 mg PO DAILY 90 days sennosides (Natural Senna Laxative) 8.6 mg PO BEDTIME [SHOWER BENCH As directed] [TOILET SEAT with GRAB BAR As directed] topiramate 50 mg PO BEDTIME zolpidem 10 mg PO BEDTIME PRN Tobacco use date assessed: 09/27/23 Dental Screening Dental Screen Date: 09/27/23 Did you have a dental visit in the last 12 months?: No Did you have a dental problem in the last 6 months where you did not have access to dental care?: No Was dental information given to patient?: Patient has dentist HPI Physical Exam HPI Details Patient comes in today for her annual physical examination States that she is in constant pain, especially over her lower back Relates that she had a right posterior sacroiliac joint fusion done last year on 04/12/23, which provided some relief of her back pain at the time Since then, she's had RFA ablation and SI joint injections from pain management with mixed results She is currently being sent for a sacral CT for further evaluation although she has not gotten that scheduled yet and depending on her CT results, would like to see if she can get a left posterior fusion surgery done as well States that she continues to experience problems with her memory - her family states that she often keeps repeating herself Was seen by Dr. Bautista for the same complaints years ago and was diagnosed as MCI with memory changes and at the time, was advised that her symptoms are likely in large part due to her polypharmacy Patient states that she would like to see neurology for follow up but does not wish to go back to see Dr. Bautista Looking into her chart, it looks like she was referred to neurology already by pain management a few months ago and she is scheduled to be seen by [facility] Neurology at their office on [facility] next month on 10/26/2023 She relates (+) on and off headaches - (+) Hx of migraine Also relates (+) dizziness at times Patient denies any chest pains but has some ROCHA at times - feels that this is mostly due to her weight and her chronic pain, which makes it harder for her to move around and she has to exert a lot of effort just to move about and do some routine activities No nausea/vomiting, no abdominal pain Still has chronic constipation (has to take Trulance and stool softeners often) and is following up with GI regularly for these issues States that she has never had a colonoscopy done in the past She denies any acute urinary symptoms Had her screening mammogram last done in October 2022 and she is scheduled for her annual mammogram next month on 10/25/2023 She also has a gynecology appt scheduled next month on 11/02/23 here at [facility] Has had no recent follow up labs done [facility] Medical History (Updated 09/27/23 @ 18:46 by Fidencio Gomez MD) Vitamin D deficiency Migraine Hypertriglyceridemia Bipolar disorder current episode depressed Irritable bowel syndrome (IBS) GERD without esophagitis Recurrent major depression-severe Asthma Opioid use disorder, mild, in early remission Obesity (BMI 30-39.9) Anxiety Opioid dependence Memory impairment Loss of hearing Fibromyalgia Surgical History (Updated 09/27/23 @ 18:35 by Fidencio Gomez MD) Hx of excision of mass History of esophagogastroduodenoscopy (EGD) History of tubal ligation History of lumbar fusion History of cholecystectomy Family History Father No problems noted. 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 1. Little interest or pleasure in doing things: more than half the days 2. Feeling down, depressed, or hopeless: not at all 3. Trouble falling or staying asleep, or sleeping too much: nearly every day 4. Feeling tired or having little energy: nearly every day 5. Poor appetite or overeating: nearly every day 6. Feeling bad about yourself - or that you are a failure or have let yourself or your family down: not at all 7. Trouble concentrating on things, such as reading the newspaper or watching television: more than half the days 8. Moving or speaking so slowly that other people could have noticed. Or the opposite - being so fidgety or restless that you have been moving around a lot more than usual: not at all 9. Thoughts that you would be better off or of hurting yourself in some way: not at all Total score: 13 Depression Screening Interpretation: Positive Depression Screening Follow-up: Existing condition and In treatment Depression Screening Done: Yes 74006 - PHQ-9 Billing: Yes Source: Developed by Drs. Braydon Kellogg, Angela Ni, Adrian Monge and colleagues, with an educational chaz from [employer]. Thrive Questionnaire Date Thrive assessed: 09/27/23 I am a: Patient What is your living situation today?: I have a steady place to live Within the past 12 months, did the food you bought not last and you didn't have the money to get more?: Never true Within the past 12 months, did you worry whether your food would run out before you got money to buy more?: Never true Do you have trouble paying for medicines?: No Do you have trouble getting transportation to medical appointments?: No Do you have trouble paying your heating and electricity bill?: No Do you have trouble taking care of your child, family member or friend?: No Do you have trouble with day-to-day activities such as bathing, preparing meals, shopping, managing finances, etc.?: No Are you currently unemployed and looking for a job?: No Are you interested in more education?: No Please select the resources that you would like help with: None Currently or been in a relationship where the following occur: no concerns reported AUDIT C Alcohol Use Questionnaire (AUDIT-C) 1. How often do you have a drink containing alcohol?: Monthly or less 2. How many drinks containing alcohol do you have on a typical day when you are drinking?: 1 or 2 3. How often do you have six or more drinks on one occasion?: Never Total Score: 1 Score Reviewed/Action Taken: Yes CINTHIA-7 AMB Questionnaire CINTHIA-7 Date CINTHIA - 7 assessed: 09/27/23 Feeling nervous, anxious, or on edge: 3 = Nearly every day Not being able to stop or control worryin = Nearly every day Worrying too much about different things: 3 = Nearly every day Trouble relaxin = Nearly every day Being so restless that it is hard to sit still: 3 = Nearly every day Becoming easily annoyed or irritable: 3 = Nearly every day Feeling afraid as if something awful might happen: 3 = Nearly every day Total CINTHIA-7 score (0-4 normal; 5-9 mild; 10-14 moderate; 15-21 severe): 21 Source: Developed by Drs. Braydon Kellogg, Angela Ni, Adrian Monge and colleagues, with an educational chaz from [employer] Review of Systems Const Denies chills, Reports fatigue, Denies fever(s), Reports headache(s) (on and off) and Denies malaise Eyes Denies blurry vision, Denies change in vision, Denies irritation and Denies itchy eyes ENT Denies dysphagia, Reports dizziness (occasionally), Denies otalgia, Reports headache(s) (on and off), Denies nasal congestion, Denies neck pain, Denies odynophagia, Denies sinus pain and Denies sore throat Card Denies chest pain, Denies rapid heart rate, Denies irregular heart rhythm, Denies palpitations and Reports dyspnea on exertion (mild) Resp Denies chest congestion, Denies cough, Reports dyspnea on exertion (mild) and Denies wheezing GI Denies abdominal pain, Reports bloating (frequent), Reports hematochezia (at times), Reports constipation (chronic), Denies dysphagia, Denies heartburn, Denies diarrhea, Denies nausea, Denies odynophagia and Denies vomiting Denies hematuria, Denies urinary frequency, Reports nocturia, Denies dysuria, Denies urinary incontinence and Denies urinary urgency Musc Reports back pain (chronic; increasing lately), Reports myalgias (involving multiple joints), Reports arthralgias (diffuse), Denies joint swelling, Reports muscle weakness (especially in both legs) and Denies neck pain Skin/Breast Denies breast pain, Denies breast mass, Denies change in pigmentation, Denies lesions, Denies rash and Denies unusual bruising Neuro Reports dizziness (occasionally), Reports headache(s) (on and off), Reports memory loss and Denies paresthesias Psych Denies anxiety, Reports depression and Reports memory loss Endo Reports fatigue and Denies palpitations Juan R/Lymph Denies easy bruising Aller/Immun Denies itchy eyes and Denies wheezing Physical exam (Primary Care) Vital Signs: Last Vital Signs Pulse 103 H 09/27/23 17:19 BP 106/80 09/27/23 17:19 Pulse Ox 99 09/27/23 17:19 Oxygen Delivery Method Room Air 09/27/23 17:19 BMI result Body Mass Index 34.4 Tobacco/Smoking Status: Tobacco use Status Tobacco use date assessed 09/27/23 09/27/23 17:25 Patient Tobacco Use Status Never used Tobacco 09/27/23 17:25 e-Cigarette/Vaping Use Never Used 09/27/23 17:25 PHQ-9: PHQ-9 Score PHQ-9: Total score 13 09/27/23 17:25 Depression Screening Interpretation: Positive Depression Screening Follow-up: Existing condition and In treatment Thrive Assessment: Date of Thrive Assessment Date Thrive assessed 09/27/23 09/27/23 17:25 Currently or been in a relationship where the following occur: no concerns reported Const General: no acute distress, alert, awake and tired appearing Orientation/consciousness: patient oriented x3 HENMT Head: Yes normocephalic and Yes atraumatic Ears: external ears normal, TM's normal bilaterally and EAC's normal General nose exam: No nasal discharge present Face and sinus: Yes normal facial exam and Yes sinuses nontender Teeth and gingiva: dentition normal Throat: Yes posterior oropharynx normal and Yes tonsils normal (no TP congestion) Eyes Eyelids: Yes eyelids normal Conjunctivae: conjunctivae normal Pupils: Equal, round and reactive pupils present EOM: EOMs intact bilaterally Neck Neck: Yes no lymphadenopathy and Yes supple Thyroid: Thyroid normal Resp Auscultation: clear to auscultation bilaterally, no rales and no wheezes Cardio Rate: regular rate Rhythm: regular rhythm Heart sounds: no murmurs GI Palpation (GI): Soft to palpation, nontender and No hepatosplenomegaly present Auscultation: normal bowel sounds General: Yes no CVA tenderness Back/Spine/Pelvis Back: no CVA tenderness Thoracic/Lumbar Spine: lumbar spinal tenderness and straight leg raise positive (bilaterally) Sacroiliac joints: bilaterally tender to palpation Skin Lesions: no lesions Rashes: no rashes Neuro General: patient oriented x3, moves all extremities, no focal motor deficits and CN's II-XI intact bilaterally Cranial nerves: Yes Equal, round and reactive pupils present Cognition (Neuro): normal cognition Gait exam (Neuro): Normal gait present Extrem General: Yes no clubbing, cyanosis or edema Assessment and Plan Assessment & Plan (1) Annual physical exam: Code(s): Z00.00 - Encounter for general adult medical examination without abnormal findings Plan: Check labs Patient is scheduled for her annual mammogram and annual pap smear/gynecology exam next month She has never had a screening colonoscopy done in the past and is advised to speak to GI regarding this since she is following up with them regularly for her chronic constipation and GI issues (2) Memory impairment: Code(s): R41.3 - Other amnesia Plan: She has been diagnosed with mild cognitive impairment with memory loss a few years ago by Dr. Bautista She was referred back to neurology by pain management a few months ago and is scheduled to be seen by [facility] Neurology next month on 10/26/2023 (3) Hypertriglyceridemia: Code(s): E78.1 - Pure hyperglyceridemia Plan: Reinforced low cholesterol diet Will recheck her labs and fasting lipids PA for follow up (4) Migraine: Code(s): G43.909 - Migraine, unspecified, not intractable, without status migrainosus Qualifiers: Migraine type: unspecified Status migrainosus presence: without status migrainosus Intractability: not intractable Qualified Code(s): G43.909 - Migraine, unspecified, not intractable, without status migrainosus Plan: Continue Vitamin B2 400 mg QD and Topiramate 50 mg Q HS for [place] prophylaxis Will be seeing neurology for further management of her headaches as well next month (5) Asthma: Code(s): J45.909 - Unspecified asthma, uncomplicated Qualifiers: Asthma severity: mild Asthma persistence: intermittent Asthma complication type: uncomplicated Qualified Code(s): J45.20 - Mild intermittent asthma, uncomplicated Plan: Stable Continue Ventolin HFA 1 to 2 inhalations Q 6 hours PRN (6) GERD without esophagitis: Code(s): K21.9 - Gastro-esophageal reflux disease without esophagitis Plan: Dietary restrictions reinforced Continue Omeprazole 40 mg QD and Famotidine 20 mg Q HS Follow up with GI as scheduled (7) Irritable bowel syndrome (IBS): Code(s): K58.9 - Irritable bowel syndrome without diarrhea Qualifiers: Irritable bowel syndrome type: with constipation Qualified Code(s): K58.1 - Irritable bowel syndrome with constipation Plan: Continue Trulance 3 mg QD, Senna 8.6 mg Q HS and Dulcolax 10 mg Q HS PRN Patient also used to take Dicyclomine 20 mg QID PRN but has not done so in a while now Follow up with GI as scheduled - she is advised to speak to GI about getting a screening colonoscopy done as she has never had one done in the past (8) Vitamin D deficiency: Code(s): E55.9 - Vitamin D deficiency, unspecified Plan: Continue Vitamin D3 2000 units QD Will recheck her Vitamin D level for follow up (9) Spondylosis of lumbosacral spine with radiculopathy: Code(s): M47.27 - Other spondylosis with radiculopathy, lumbosacral region Plan: Reinforced activity and weight-lifting restrictions Patient has had right posterior sacroiliac joint fusion done last year in April 2023 and subsequently had RFA ablation and SI joint injections done with variable results She is currently awaiting appointment for a sacral CT for follow up Follow up with [facility] Pain Management as scheduled (10) Fibromyalgia: Code(s): M79.7 - Fibromyalgia Plan: Continue Duloxetine 60 mg QD and Cyclobenzaprine 10 mg TID PRN She is encouraged again to continue to exercise regularly and stay active as much as she can to help manage her fibromyalgia symptoms better although she states that her lower back issues (pain) is making this much more difficult for her (11) Insomnia: Code(s): G47.00 - Insomnia, unspecified Qualifiers: Insomnia type: unspecified Qualified Code(s): G47.00 - Insomnia, unspecified Plan: Sleep hygiene reinforced Continue Zolpidem 10 mg Q HS PRN (12) Anxiety: Code(s): F41.9 - Anxiety disorder, unspecified Plan: Continue Buspirone 20 mg TID, Clonidine 0.1 mg 1/2 to 1 tablet BID PRN and Hydroxyzine 25 mg 1 to 2 tablets TID PRN and Q HS Follow up with psychiatry as scheduled (13) Bipolar disorder current episode depressed: Code(s): F31.30 - Bipolar disorder, current episode depressed, mild or moderate severity, unspecified Qualifiers: Current episode severity: unspecified Qualified Code(s): F31.30 - Bipolar disorder, current episode depressed, mild or moderate severity, unspecified Plan: Continue current medications, including Duloxetine 60 mg QD, Lamictal 200 mg BID and Prazosin 2 mg Q HS Follow up with psychiatry as scheduled (14) Obesity (BMI 30-39.9): Code(s): E66.9 - Obesity, unspecified Plan: Reinforced diet; exercise and weight loss are unrealistic expectations in this patient due to her multiple physical comorbidities Plan Follow up in 4 months Orders: Orders Complete Blood Count Auto Diff Today D64.9 - Anemia, unspecified, Z00.00 - Encounter for general adult medical examination without abnormal findings Comprehensive [place]. Panel Fast Today E78.00 - Pure hypercholesterolemia, unspecified, Z00.00 - Encounter for general adult medical examination without abnormal findings TSH reflex Free T4 Today E78.00 - Pure hypercholesterolemia, unspecified, Z00.00 - Encounter for general adult medical examination without abnormal findings UA CC w/rflx Micro + Cult Today R30.0 - Dysuria, Z00.00 - Encounter for general adult medical examination without abnormal findings Erythrocyte Sedimentation Rate Today M79.7 - Fibromyalgia, Z00.00 - Encounter for general adult medical examination without abnormal findings Hemoglobin A1c Today R73.01 - Impaired fasting glucose Vitamin B12 and Folate Today E53.8 - Deficiency of other specified B group vitamins, R41.3 - Other amnesia Lyme IgG/IgM w/reflex to WB Today M25.50 - Pain in unspecified joint, R41.3 - Other amnesia Lipid Panel Today E78.00 - Pure hypercholesterolemia, unspecified, Z00.00 - Encounter for general adult medical examination without abnormal findings Vitamin D 25-OH Total Today E55.9 - Vitamin D deficiency, unspecified, Z00.00 - Encounter for general adult medical examination without abnormal findings Coding Level of Care Code Est Pt Prev Care 40-64y(58048) Diagnoses Annual physical exam Z00.00 Memory impairment R41.3 Hypertriglyceridemia E78.1 Migraine without status migrainosus, not intractable, unspecified migraine type G43.909 Migraine type: unspecified Status migrainosus presence: without status migrainosus Intractability: not intractable Mild intermittent asthma without complication J45.20 Asthma severity: mild Asthma persistence: intermittent Asthma complication type: uncomplicated GERD without esophagitis K21.9 Irritable bowel syndrome with constipation K58.1 Irritable bowel syndrome type: with constipation Vitamin D deficiency E55.9 Spondylosis of lumbosacral spine with radiculopathy M47.27 Fibromyalgia M79.7 Insomnia, unspecified type G47.00 Insomnia type: unspecified Anxiety F41.9 Bipolar affective disorder, current episode depressed, current episode severity unspecified F31.30 Current episode severity: unspecified Obesity (BMI 30-39.9) E66.9
== END 2023-09-27 17:46 | disposition home or self-care (01) ==
LOC: HO.HMGH 17:18
PROVIDERS: PCP Internal Medicine; Visit Provider Internal Medicine
DX: Z00.00 Encounter for general adult medical examination without abnormal findings (principal); F31.30 Bipolar disorder, current episode depressed, mild or moderate severity, unspecified; R41.3 Other amnesia; E78.1 Pure hyperglyceridemia; G43.909 Migraine, unspecified, not intractable, without status migrainosus; J45.20 Mild intermittent asthma, uncomplicated; K21.9 Gastro-esophageal reflux disease without esophagitis; K58.1 Irritable bowel syndrome with constipation; E55.9 Vitamin D deficiency, unspecified; M47.27 Other spondylosis with radiculopathy, lumbosacral region; M79.7 Fibromyalgia; E66.9 Obesity, unspecified
CPT/HCPCS: 99396

== ENCOUNTER 2023-10-12 14:19 | Outpatient (AMB) | payer OTHER, SELFPAY ==
[2023-10-12 14:34] VITALS: BP 105/60; PULSE 111; BMI 33.3
--- NOTE | 2023-10-12 14:34 | A.OFFVIS_ITS ---
Intake Vital Signs 10/12/23 14:34 Height 5 ft 1 in Weight 176 lb 5.917 oz BMI 33.3 BP 105/60 Blood Pressure Location Lt brachial Position Sitting Pulse 111 H Intake Visit Reasons: pt req appointment Intake Note: Shira presents to in office follow up of CIC, IBS CC: Pt states that she was supposed to have a colonoscopy and EGD but she had to cancel d/t back surgery. She c/o constipation, rectal bleeding, and not eating much. Patient unsure about medications she is taking as she gets them pre packed by pharmacy. 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 Patient was encouraged to eat smaller meals. Continue avoiding food that can trigger her symptoms. Low FODMAP diet discussed with patient. Patient has list of food recommended as well as list of food to avoid at home. GERD (gastroesophageal reflux disease) Continue avoiding dietary treatment. Continue current management with omeprazole in the morning and famotidine at bedtime. I will send her for upper endoscopy to rule out esophagitis, gastritis, duodenitis, gastric or peptic ulcer, H pylori, Griffin's. Patient is also going for gastric emptying study that will be done next month Chronic idiopathic constipation Continue current regimen with Trulance. Patient was encouraged to increase fluid intake and activity to promote better bowel motility. Screen for colon cancer As mentioned above in HPI patient denies any issues with anesthesia. No history of sleep apnea. Not on any anticoagulation medication. No history of infectious diseases in the past or present. Patient denies any melena, hematochezia, unintentional weight loss or ribbon like stools. What to expect before during and after procedure discussed with patient. Clear liquid diet and good bowel prep day before the procedure discussed with patient. I will see her after the procedure, sooner on as needed basis. Patient is agreeable to this plan and v ashaalizes understanding of instructions. She was given the opportunity to ask questions and all questions answered. ? Thank you for allowing me to participate in her care Plan Medications New bisacodyl (Dulcolax (bisacodyl)) Start taking 2 tablet every night 7 days before the procedure and 1 day before procedure take 2 tablets at noon time followed by MiraLax prep 10 mg (2 x 5 mg) PO BEDTIME 14 tabs 0RF Z12.11 - Encounter for screening for malignant neoplasm of colon polyethylene glycol 3350 (Miralax) As directed by gastroenterology department at [facility] 238 grams PO ONCE 238 grams 0RF Z12.11 - Encounter for screening for malignant neoplasm of colon TODAY'S VISIT Patient is here today requesting a follow-up visit. Patient was unable to have colonoscopy as she had to have back surgery. Patient had posterior sacral ileal joint fusion in April of last year. Patient has been recuperating and following up with pain management. Patient reports that she continues to be constipated. States that Trulance and senna are not helpful. Patient states t hat in the very beginning Trulance was helpful, however lately she has been having trouble moving her bowels. Patient also states that omeprazole has not been working for her. She continues to have an epigastric discomfort postprandially. Occasional postprandial abdominal bloating. Patient denies any nausea or vomiting. Occasional dyspepsia without dysphagia or odynophagia. Patient denies any melena, hematochezia, unintentional weight loss or ribbon like stools [facility] Medical History Vitamin D deficiency Migraine Hypertriglyceridemia Bipolar disorder current episode depressed Irritable bowel syndrome (IBS) GERD without esophagitis Recurrent major depression-severe Asthma Opioid use disorder, mild, in early remission Obesity (BMI 30-39.9) Anxiety Opioid dependence Memory impairment Loss of hearing Fibromyalgia Surgical History Hx of excision of mass History of esophagogastroduodenoscopy (EGD) History of tubal ligation History of lumbar fusion History of cholecystectomy Family History Father No problems noted. 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 Sexual orientation: Straight/Heterosexual Cognitive needs: No Hearing needs: No Vision needs: No Female Reproductive History Menstrual Age of Menarche: 10 Review of Systems Const Denies weight gain and Denies weight loss ENT Reports no additional complaints, Denies dysphagia and Denies odynophagia Card Reports no additional complaints Resp Reports no additional complaints GI Denies abdominal pain, Denies belching, Denies melena, Reports bloating, Reports constipation, Denies dysphagia, Denies excessive flatus, Denies dyspepsia, Reports heartburn, Denies diarrhea, Denies loose stools, Denies nausea, Denies odynophagia and Denies vomiting Reports no additional complaints Musc Reports no additional complaints Neuro Reports no additional complaints Psych Reports no additional complaints Endo Reports no additional complaints Physical Exam Vital Signs: Last Vital Signs Pulse 111 H 10/12/23 14:34 BP 105/60 10/12/23 14:34 BMI result Body Mass Index 33.3 Const General: healthy appearing, no acute distress and well developed Nutritional Appearance: well nourished Orientation/consciousness: patient oriented x3 Resp Effort & Inspection: normal respiratory effort, able to speak in complete sentences, no tracheal deviation and symmetric chest movement Auscultation: clear to auscultation bilaterally Cardio Rate: regular rate GI Inspection: Yes normal to inspection and No distended Palpation (GI): Soft to palpation, not firm, nontender and No hepatosplenomegaly present Auscultation: normal bowel sounds General: Yes no CVA tenderness Back/Spine/Pelvis Back: no CVA tenderness Skin General skin exam: elasticity normal, turgor normal and dry skin Neuro General: patient oriented x3 Psych Appearance: grossly normal Mental Status: mental status grossly normal Assessment & Plan Assessment & Plan (1) Irritable bowel syndrome (IBS): Code(s): K58.9 - Irritable bowel syndrome without diarrhea Qualifiers: Irritable bowel syndrome type: with constipation Qualified Code(s): K58.1 - Irritable bowel syndrome with constipation (2) GERD (gastroesophageal reflux disease): Code(s): K21.9 - Gastro-esophageal reflux disease without esophagitis Qualifiers: Esophagitis presence: esophagitis presence not specified Qualified Code(s): K21.9 - Gastro-esophageal reflux disease without esophagitis (3) Chronic idiopathic constipation: Code(s): K59.04 - Chronic idiopathic constipation (4) Screen for colon cancer: Code(s): Z12.11 - Encounter for screening for malignant neoplasm of colon Plan Will change omeprazole to pantoprazole daily and will add famotidine at bedtime. Discussed with patient avoiding dietary triggers and late night snacking. Staying upright for minimum 3 hours after meals discussed with patient. Patient will be sent to check for H pylori and will treat empirically if positive. Reports upper abdominal pain, epigastric postprandially. Will check lipase and liver enzymes. Patient continues with postprandial abdominal bloating most likely related to patient's constipation and related to food. Low FODMAP diet discussed with patient. List of food recommended as well as list of food to avoid given to patient. Patient will be started on Linzess in the morning. Patient can take magnesium at bedtime. I will see patient in 6 weeks so we can discuss going for colonoscopy and possible upper endoscopy. Patient is agreeable to this plan and verbalizes understanding of instructions. She was given the opportunity to ask questions and all questions answered. Thank you for allowing me to participate in her care Orders: Orders H pylori Ag Stool 10/12/23 K21.9 - Gastro-esophageal reflux disease without esophagitis Lipase 10/12/23 R10.9 - Unspecified abdominal pain Liver Panel 10/12/23 R74.01 - Elevation of levels of liver transaminase levels Medications: New linaclotide (Linzess) 145 mcg PO DAILY 30 caps 2RF famotidine 40 mg PO BEDTIME 30 tabs 3RF K21.9 - Gastro-esophageal reflux disease without esophagitis pantoprazole take one tablet half an hour before breakfast 40 mg PO DAILY 30 tabs 2RF K21.9 - Gastro-esophageal reflux disease without esophagitis magnesium oxide 400 mg PO DAILY 30 caps 2RF K59.04 - Chronic idiopathic constipation Discontinued omeprazole Discontinued Reason: Doctor's Order 40 mg PO DAILY 30 days 30 caps 3RF K21.9 - Gastro-esophageal reflux disease without esophagitis sennosides Discontinued Reason: Duplicate 8.6 mg PO BEDTIME 90 tabs 3RF constipation K59.00 - Constipation, unspecified plecanatide Discontinued Reason: Doctor's Order 3 mg PO DAILY 30 tabs 3RF K59.09 - Other constipation Coding Level of Care Code Est Pt Level 4 (41996) Diagnoses Irritable bowel syndrome with constipation K58.1 Irritable bowel syndrome type: with constipation Gastroesophageal reflux disease, unspecified whether esophagitis present K21.9 Esophagitis presence: esophagitis presence not specified Chronic idiopathic constipation K59.04 Screen for colon cancer Z12.11 Time Spent (min) 40 Comment 25 minutes spent with patient and additional 15 minutes spent reviewing her records
== END 2023-10-12 15:37 | disposition home or self-care (01) ==
PROVIDERS: PCP Internal Medicine; Visit Provider Nurse Practitioner Family
DX: K58.1 Irritable bowel syndrome with constipation (principal); K21.9 Gastro-esophageal reflux disease without esophagitis; K59.04 Chronic idiopathic constipation; Z12.11 Encounter for screening for malignant neoplasm of colon
CPT/HCPCS: 99214

== ENCOUNTER → 2023-10-12 14:19 | Outpatient (BNVA) | payer OTHER, SELFPAY | PROVIDERS: PCP Internal Medicine; Visit Provider Nurse Practitioner Family | DX: K58.1 Irritable bowel syndrome with constipation (principal); K21.9 Gastro-esophageal reflux disease without esophagitis; K59.04 Chronic idiopathic constipation; Z79.899 Other long term (current) drug therapy | CPT/HCPCS: 99212 ==

== ENCOUNTER → 2023-10-26 15:22 | Outpatient (BNVA) | payer OTHER, SELFPAY | PROVIDERS: PCP Internal Medicine; Referring Provider Nurse Practitioner Family; Visit Provider Nurse Practitioner Family | DX: F09 Unspecified mental disorder due to known physiological condition (principal); G43.709 Chronic migraine without aura, not intractable, without status migrainosus; R53.83 Other fatigue; R51.9 Headache, unspecified; R47.1 Dysarthria and anarthria; R20.2 Paresthesia of skin; R25.1 Tremor, unspecified; R06.83 Snoring; R06.81 Apnea, not elsewhere classified; G47.9 Sleep disorder, unspecified | CPT/HCPCS: 99202 ==

== ENCOUNTER 2023-11-02 13:42 | Outpatient (REF) | payer OTHER, SELFPAY ==
[2023-11-03 16:53] LABS: CT PCR NOT DETECTED (Not Detect.); NG PCR NOT DETECTED (Not Detect.)
[2023-11-04 14:43] LABS: BV Int Neg Control Negative (Negative); BV Int Pos Control Positive (Positive)
[2023-11-12 11:04] LABS: HPV mRNA E6/E7 rflx Not Detected (Not Detected)
== END 2023-11-02 13:43 | disposition home or self-care (01) ==
LOC: HO.LAB 13:42
PROVIDERS: PCP Internal Medicine; Visit Provider Advanced Practice Midwife
DX: Z01.419 Encounter for gynecological examination (general) (routine) without abnormal findings (principal); N76.0 Acute vaginitis; B96.89 Other specified bacterial agents as the cause of diseases classified elsewhere; N95.1 Menopausal and female climacteric states; R33.9 Retention of urine, unspecified; R41.3 Other amnesia; Z11.3 Encounter for screening for infections with a predominantly sexual mode of transmission; Z20.2 Contact with and (suspected) exposure to infections with a predominantly sexual mode of transmission; Z87.42 Personal history of other diseases of the female genital tract
CPT/HCPCS: 0353U; 87480; 87510; 87624; 87660; 88142

== ENCOUNTER 2023-11-02 13:42 | Outpatient (AMB) | payer OTHER, SELFPAY ==
--- NOTE | 2023-11-02 13:46 | A.OFFVIS_ITS ---
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 Information Interpreted: clinical only Opto Mechanical Technician: Opto Mechanical Technician Present Allergies morphine [MORPHINE] Allergy (Intermediate, Verified 11/02/23 13:46) RASH Medication List - Last Reconciled 11/02/23 by Gisel Barney CNM albuterol sulfate 90 mcg/actuation (Ventolin HFA) 1 puff inhalation ONCE PRN bisacodyl (Dulcolax (bisacodyl)) 10 mg (2 x 5 mg) PO BEDTIME buspirone 20 mg PO TID cetirizine 10 mg PO DAILY PRN 90 days cholecalciferol (vitamin D3) 50 mcg PO DAILY clonidine HCl 0.05 - 0.1 mg (0.5 - 1 x 0.1 mg) PO BID PRN cyclobenzaprine 10 mg PO TID PRN [DETACHABLE SHOWER HEAD As directed] dexmethylphenidate ER 15 mg PO DAILY duloxetine 60 mg PO DAILY famotidine 40 mg PO BEDTIME famotidine (Pepcid) 20 mg PO BEDTIME galcanezumab-gnlm (Emgality Pen) 240 mg (2 mL) subcut ONCE 30 days hydrocortisone 2.5% 1 appl OK Q8-12H hydroxyzine HCl Take 1 to 2 tablets 3 times a day orally as needed for increased anxiety AND 1 tablet daily at bedtime; 30 days lamotrigine 200 mg PO BID linaclotide (Linzess) 145 mcg PO DAILY magnesium oxide 400 mg PO DAILY pantoprazole 40 mg PO DAILY prazosin 2 mg PO DAILY riboflavin (vitamin B2) 400 mg PO DAILY 90 days [SHOWER BENCH As directed] sumatriptan succinate 50 - 100 mg orally at onset of headache, may repeat in 2 hrs PRN; max 2 tabs per day or 4 tabs/week (may take with Ibuprofen) 30 days [TOILET SEAT with GRAB BAR As directed] topiramate 100 mg PO DAILY zolpidem 10 mg PO BEDTIME PRN Post menopausal: Yes HPI 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 She has been seen by many different specialists she is getting neurological workups as well as repeat sleep apnea studies. She has been having such problems with her memory and that such that her daughter is taking care of her finances and her sister is taking care of her appointments and both have stepped up to take care of her and she feels very mitchell to have them both and she trust them. She had not been sexually active for a long time and she was recently a couple of weeks ago she has not had a period in a few years but she does not remember exactly how long. She has been plagued by a fishy odor to the discharge she had not expected to have sex it was very unexpected she says but the fishy odor remains and she would like something to do with that as well as getting tested for all STDs. Additionally she feels she does urinate frequently but she always feels like she has to go again and she wonders if she is peeing on herself. Additionally when she did have sex it was dry and uncomfortable. She believes she has a mammogram appointment coming up in November. [facility] Medical History (Updated 11/02/23 @ 14:49 by Gisel Barney CNM) Bacterial vaginosis Vitamin D deficiency Migraine Hypertriglyceridemia Bipolar disorder current episode depressed Irritable bowel syndrome (IBS) GERD without esophagitis Recurrent major depression-severe Asthma Opioid use disorder, mild, in early remission Obesity (BMI 30-39.9) Anxiety Opioid dependence Memory impairment Loss of hearing Fibromyalgia Surgical History Hx of excision of mass History of esophagogastroduodenoscopy (EGD) History of tubal ligation History of lumbar fusion History of cholecystectomy Family History Father No problems noted. 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 Sexual orientation: Straight/Heterosexual Cognitive needs: No Hearing needs: No Vision needs: No Female Reproductive History Menstrual Age of Menarche: 10 control method: none Menopause type: natural Total pregnancies: 3 Full term: 3 Date of last pap smear: 03/31/21 (negative) History of abnormal pap smear: Yes (unsure date ?) Physical Exam Vital Signs: Last Vital Signs BP 116/70 11/02/23 14:03 BMI result Body Mass Index 33.1 Const General: healthy appearing, comfortable, no acute distress, well developed and alert Nutritional Appearance: average body habitus Orientation/consciousness: patient oriented x3 Limitations: no limitations HEENT Head: Yes normocephalic Neck Neck: Yes normal visual inspection Chest Chest palpation & inspection: normal inspection of the chest Breast/axilla inspection: normal inspection of the breasts and normal inspection of the axillae Breast/axilla palpation: normal palpation of the breasts and normal palpation of the axillae Resp Effort & Inspection: normal respiratory effort GI Inspection: Yes normal to inspection, No Abdominal wall edema and No distended Palpation (GI): Soft to palpation and nontender Other: Vagina pink and moist there was a thin whitish yellowish runny discharge possibly consistent with BV not really suspicious for trich but we will test for it. Testing for STIs done as well as Pap smear as she has a history of abnormals. Uterus is feeling today small midposition mobile nontender adnexa nontender patient has a excellent tone with Kegel and was able to sustain a muscle contraction for upwards of 30 seconds.. General: Yes bladder normal to palpation External Female Exam: normal external appearance and normal appearance of the urethra Speculum Exam - Vagina: normal appearance of the vagina, normal palpation and normal vaginal discharge Speculum Exam - Cervix: normal appearance of the cervix, normal palpation and nontender Bimanual exam- vagina & uterus: normal bimanual exam, normal palpation, uterine size normal, bladder normal to palpation, consistency normal, normal palpation, uterine mobility normal, uterine shape normal, No Cervical tenderness present, non-tender and no cervical motion tenderness Bimanual Exam- Adnexa, other: normal adnexae, no masses, normal and No adnexal tenderness Neuro General: patient oriented x3 Assessment & Plan Assessment & Plan (1) Encounter for screening examination for sexually transmitted disease: Code(s): Z11.3 - Encounter for screening for infections with a predominantly sexual mode of transmission (2) Bacterial vaginosis: Code(s): N76.0 - Acute vaginitis; B96.89 - Other specified bacterial agents as the cause of diseases classified elsewhere (3) Memory impairment: Code(s): R41.3 - Other amnesia (4) Urinary retention with incomplete bladder emptying: Comment: Very good tone with Kegel. Code(s): R33.9 - Retention of urine, unspecified (5) Sherice-menopausal: Code(s): N95.1 - Menopausal and female climacteric states (6) Well woman exam with routine gynecological exam: Code(s): Z01.419 - Encounter for gynecological examination (general) (routine) without abnormal findings (7) Hx of abnormal cervical Pap smear: Comment: 04/02/21 pap = neg w neg hpv. Code(s): Z87.42 - Personal history of other diseases of the female genital tract Plan -----Discussed in this visit the following: healthy balanced diet, regular and consistent exercise, getting recommended health screens, doing the best she can for her particular health concerns, kegel exercises, pap smear screening and followup recommendations, mammography screening and SBE, normal changes in cycles in her life stage--- ---Discussed the current research around the phenomena of bacterial vaginosis, and the many factors involved in the increase and change in the prevalence of certain bacteria in the vagina, that contribute to the clingy discharge, the fishy malodor, and the discomfort, that many women experience very frequently in their lives. Discussed the many factors that can promote it, and current thinkin g about best options for treatment of both the a 1 time episode, or frequently occurring episodes. Discussed the role of partner condom use. Discussed that previously, treatment was recommended for both partners, but is not currently recommended today in 2020. Discussed the testing involved. Discussed treatment options including Flagyl, metronidazole gel, boric acid capsules and others.- given that odor is the main concern I recommend treating with Metrogel instead of Flagyl p.o. as she is already on so many medications. Additionally I told her about boric acid capsules that she could consider for occasional use if she has a problem. Additionally condoms are useful tool discussed the challenges of introduction of another person's zac even if there are no infectious issues -----. Discussed her many challenges with her memory and accepting help and the challenges that that brings up also discussed menopausal changes in detail that she is experiencing. ---------discussed her symptoms with the frequent urination it may be that she has not completely emptying her bladder and she suspects this may be the case she has very very good tone with a Kegel so it has not about not being able to hold her urine in any way she has had other spinal surgeries so there may be some innervated of issues as well I placing a referral to Urology. We will see her next year she has her mammograms scheduled. Orders: Orders Hepatitis B Surface Antigen Today B96.89 - Other specified bacterial agents as the cause of diseases classified elsewhere, N76.0 - Acute vaginitis, R33.9 - Retention of urine, unspecified, Z11.3 - Encounter for screening for infections with a predominantly sexual mode of transmission Hepatitis C Antibody Today B96.89 - Other specified bacterial agents as the cause of diseases classified elsewhere, N76.0 - Acute vaginitis, R33.9 - Retention of urine, unspecified, Z11.3 - Encounter for screening for infections with a predominantly sexual mode of transmission HIV Ab/Ag Today B96.89 - Other specified bacterial agents as the cause of diseases classified elsewhere, N76.0 - Acute vaginitis, R33.9 - Retention of urine, unspecified, Z11.3 - Encounter for screening for infections with a p redominantly sexual mode of transmission Pap Smear Today Z01.419 - Encounter for gynecological examination (general) (routine) without abnormal findings CT NG by PCR Today Z01.419 - Encounter for gynecological examination (general) (routine) without abnormal findings Bacterial Vaginosis Panel Today Z20.2 - Contact with and (suspected) exposure to infections with a predominantly sexual mode of transmission Syphilis Screen Today B96.89 - Other specified bacterial agents as the cause of diseases classified elsewhere, N76.0 - Acute vaginitis, R33.9 - Retention of urine, unspecified, Z11.3 - Encounter for screening for infections with a predominantly sexual mode of transmission Referrals Urology Referral B96.89 - Other specified bacterial agents as the cause of diseases classified elsewhere, N76.0 - Acute vaginitis, R33.9 - Retention of urine, unspecified, R41.3 - Other amnesia, Z11.3 - Encounter for screening for infections with a predominantly sexual mode of transmission Medications: New metronidazole 0.75%(37.5mg/5gram) use when you have clear symptoms of Bacterial vaginosis 1 appful vaginal BID 5 days 70 grams 2RF Coding Level of Care Code Est Pt Prev Care 40-64y([id number]) Diagnoses Encounter for screening examination for sexually transmitted disease Z11.3 Bacterial vaginosis N76.0; B96.89 Memory impairment R41.3 Urinary retention with incomplete bladder emptying R33.9 Sherice-menopausal N95.1 Well woman exam with routine gynecological exam Z01.419 Hx of abnormal cervical Pap smear Z87.42
[2023-11-02 14:03] VITALS: BP 116/70; BMI 33.1
== END 2023-11-02 15:00 | disposition home or self-care (01) ==
LOC: HO.HWSM 13:42
PROVIDERS: PCP Internal Medicine; Visit Provider Advanced Practice Midwife
DX: Z01.419 Encounter for gynecological examination (general) (routine) without abnormal findings (principal); N76.0 Acute vaginitis; B96.89 Other specified bacterial agents as the cause of diseases classified elsewhere; R41.3 Other amnesia
CPT/HCPCS: 99396

== ENCOUNTER 2023-11-08 13:49 | Outpatient (REF) | payer OTHER, SELFPAY ==
--- NOTE | ~2023-11-08 | CT_ITS ---
EXAMINATION: CT SACRUM WITHOUT CONTRAST INDICATION: Z98.1 - Arthrodesis status. Assess arthrodesis, right SI joint. COMPARISON: Fluoroscopic images dated 04/12/2023. CT abdomen and pelvis dated 01/15/2022. TECHNIQUE: Multidetector volumetric imaging was obtained through the sacrum without contrast material. Multiplanar reformatted images in coronal and sagittal orientations were submitted. This CT examination was performed using dose optimization techniques as appropriate, variously including the following: *Automated exposure control *Adjustment of mA and/or kV according to patient size (this includes techniques or standardized protocols for targeted exams where dose is matched to indication/reason for exam; i.e. extremities or head) *Use of iterative reconstruction technique DLP: 384 mGy-cm. FINDINGS: There is a round allograft at the fibrous portion of the right SI joint posterosuperiorly at the level of S2. There are sites of osseous bridging between the allograft and both the iliac and sacral margins of the joint, consistent with at least partial osseous bridging. The sites of osseous fusion are relatively small and constitute less than 20 percent of the overall area of the graft. This represents a very small percentage effusion of the entirety of the right SI joint. In particular, there is no osseous bridging across the synovial portion of the SI joint. There is vauy-ay-ctzqxcnc osteoarthritis at the SI joints bilaterally, characterized by marginal osteophytes and articular sclerosis, as well as mild articular cortical irregularity. No erosions. There is solid osseous bridging across the interbody graft at L5-S1, as well as across the L5-S1 facet joints bilaterally. No central canal or neural foraminal narrowing. Mild osteoarthritis is present in both hips. Pubic symphysis is only partially imaged. No acute osseous findings. Diverticulosis is present in the sigmoid colon. No acute diverticulitis. No intrapelvic free fluid or free air. Pelvic musculature is unremarkable. CT/CT sacrum IMPRESSION: Partial osseous bridging across the allograft at the right SI joint accounting for less than 20 percent of the potential allograft contact area. No osseous bridging at the synovial portion of the SI joint. Uxbw-gt-tqybzipi sacroiliac osteoarthritis bilaterally. Solid osseous fusion at L5-S1.
[2023-11-08 14:51] LABS: MANUAL DIFF FLAG NO
[2023-11-08 15:17] LABS: Basophils Percent Auto 0.6 % (0-2); Eosinophils Absolute Auto 0.2 X10*3/uL (0.0-0.4); Eosinophils Percent Auto 2.8 % (0-4); Hematocrit 33.1 % (37.0-47.0); Hemoglobin 10.7 g/dl (12.0-16.0); Imm Gran Abs Auto 0.04 X10*3/uL (0.00-0.03); Imm Gran Pct Auto 0.6 % (0.0-0.4); Lymphocytes Absolute Auto 1.8 X10*3/uL (1.2-4.9); Lymphocytes Percent Auto 26.9 % (20-40); Mean Corpuscular HGB Conc 32.3 g/dl (31.0-35.0); Mean Corpuscular Hemoglobin 26.9 pg (27.0-33.0); Mean Corpuscular Volume 83.2 fL (80.0-98.0); Mean Platelet Volume 10.1 fL (9.4-12.3); Monocytes Absolute Auto 0.3 X10*3/uL (0.1-1.2); Monocytes Percent Auto 4.8 % (2-11); Neutrophils Absolute Auto 4.2 x10*3/uL (2.0-8.3); Neutrophils Percent Auto 64.3 % (45-73); Platelet Count 299 X10*3/uL (160-400); Red Blood Count 3.98 X10*6/uL (4.20-5.50); Red Cell Distribution Width 14.3 % (11.0-16.0); White Blood Count 6.5 X10*3/uL (4.8-10.8)
[2023-11-08 16:02] LABS: Erythrocyte Sedimentation Rate 23 MM/HR (0-20)
[2023-11-08 16:05] LABS: Estimated Average Glucose 100 mg/dL; Hemoglobin A1c % 5.1 % (<6.0)
[2023-11-08 16:06] LABS: Folate 12.8 ng/mL (> or = 4.0); Vitamin B12 515 pg/mL (200-900)
[2023-11-08 17:16] LABS: Appearance Urine Cloudy; Color Urine Dark Yellow; Glucose Urine UA Negative (Negative); Leukocyte Esterase Urine Moderate (2+) (Negative); Nitrite Urine Negative (Negative); UMIC TRIGGER UACC YES; Urine Blood Negative (Negative); Urine Ketones Negative (Negative); Urine Protein Negative (Neg-Trace)
[2023-11-08 18:00] LABS: Bacteria Urine 4+ (None Seen); Hyaline Casts Urine 0-2 /LPF (0-2); RBC Urine 0-2 /HPF (0-2); UACC Culture Trigger YES; WBC Urine 21-50 /HPF (0-5)
[2023-11-08 18:01] LABS: Alanine Aminotransferase 12 U/L (0-31); Albumin Level 4.1 g/dL (3.5-5.0); Alkaline Phosphatase 123 U/L (39-117); Anion Gap 13 (12-20); Aspartate Amino Transferase 13 U/L (5-31); Bilirubin Direct < 0.2 mg/dL (0.0-0.5); Bilirubin Total 0.2 mg/dL (0.0-1.0); Blood Urea Nitrogen 8 mg/dL (9-16); Calcium 9.3 mg/dL (8.4-10.2); Carbon Dioxide 23 mmol/L (22-29); Chloride 109 mmol/L (96-108); Estimated Glomerular Filt Rate 51; Glucose Fasting 84 mg/dL (60-99); Glucose Random 82 mg/dL (60-115); Iron 40 mcg/dL (30-160); Lipase 20 U/L (8-78); Percent Iron Saturation 15 % (15-50); Potassium 3.5 mmol/L (3.3-5.1); Sodium 141 mmol/L (135-145); Total Iron Binding Capacity 268 mcg/dL (228-428); Total Protein 7.5 g/dL (6.5-8.0); Unsaturated Iron Binding 228 ug/dL
[2023-11-08 18:05] LABS: TSH reflex Free T4 1.63 uIU/mL (0.32-4.0); Vitamin D 25-OH Total 48.6 ng/mL (>30)
[2023-11-08 18:17] LABS: Rheumatoid Factor 176.1 IU/mL (<15.0)
[2023-11-09 04:09] LABS: Syphilis Screen Nonreactive (Nonreactive)
[2023-11-09 04:10] LABS: Syphilis Screen Nonreactive (Nonreactive)
[2023-11-09 04:17] LABS: HBsAGNum1 0.62 S/CO (0.00-0.99); HIV AB/AG Nonreactive (Nonreactive); HIV Num 1 0.05 S/CO (0.00-0.99); Hepatitis B Surface Antigen Negative (Negative); ~HepC Num1 0.18 S/CO (0.00-0.79); ~Hepatitis C Antibody Nonreactive (Nonreactive)
[2023-11-09 04:19] LABS: HIV AB/AG Nonreactive (Nonreactive); HIV Num 1 0.07 S/CO (0.00-0.99)
[2023-11-09 13:19] LABS: Lyme Abs Screen <0.90 index
[2023-11-09 17:13] LABS: Homocysteine 12.1 umol/L (<10.4)
[2023-11-09 19:28] LABS: CRP High Sensitivity >10.0 mg/L
[2023-11-15 08:33] LABS: Anti Nuclear Antibody Screen NEGATIVE (NEGATIVE)
[2023-11-15 17:32] LABS: Methylmalonic Acid 247 nmol/L (87-318)
== END 2023-11-08 13:50 | disposition home or self-care (01) ==
LOC: HO.CT 13:49
PROVIDERS: Nurse Practitioner Family; Absent Provider Nurse Practitioner Family; PCP Internal Medicine; Referring Provider Advanced Practice Midwife; Visit Provider Nurse Practitioner Family
DX: Z00.00 Encounter for general adult medical examination without abnormal findings (principal); Z11.4 Encounter for screening for human immunodeficiency virus [HIV]; E78.00 Pure hypercholesterolemia, unspecified; M79.7 Fibromyalgia; E53.8 Deficiency of other specified B group vitamins; R41.3 Other amnesia; E55.9 Vitamin D deficiency, unspecified; R73.01 Impaired fasting glucose; F09 Unspecified mental disorder due to known physiological condition; R53.83 Other fatigue; F41.9 Anxiety disorder, unspecified; G43.909 Migraine, unspecified, not intractable, without status migrainosus; R10.9 Unspecified abdominal pain; Z20.2 Contact with and (suspected) exposure to infections with a predominantly sexual mode of transmission; R74.01 Elevation of levels of liver transaminase levels; R33.9 Retention of urine, unspecified; N76.0 Acute vaginitis; B96.89 Other specified bacterial agents as the cause of diseases classified elsewhere; Z98.1 Arthrodesis status
CPT/HCPCS: 36415; 72192; 80053; 81001; 82248; 82306; 82607; 82746; 83036; 83090; 83540; 83690; 83921; 84443; 85025; 85652; 86038; 86141; 86431; 86617; 86618; 86780; 86803; 87086; 87340; 87389

== ENCOUNTER → 2023-11-21 12:45 | Outpatient (BNV) | payer OTHER, SELFPAY | PROVIDERS: PCP Internal Medicine; Visit Provider Radiology Diagnostic Radiology | DX: Z12.31 Encounter for screening mammogram for malignant neoplasm of breast (principal) | CPT/HCPCS: 77063; 77067 ==

== ENCOUNTER 2023-11-21 13:29 | Outpatient (REF) | payer OTHER, SELFPAY ==
--- NOTE | ~2023-11-21 | MM_ITS ---
EXAMINATION: MM SCREENING DIGITAL BREAST TOMOSYNTHESIS, BILATERAL CLINICAL INFORMATION: Screening. Asymptomatic. COMPARISON: Mammography: 10/21/2022, 05/12/2020, 09/22/2016,; bilateral breast ultrasound 09/22/2016. TECHNIQUE: Digital breast tomosynthesis is performed in both the craniocaudal and mediolateral oblique views along with computer-aided detection (CAD). Synthesized 2D images are generated from the tomosynthesis. FINDINGS: There are scattered areas of fibroglandular density (ACR BI-RADS breast composition Category b). Parenchymal nodular focus on the central left CC projection is unchanged from 2017 and benign. Nodular appearing parenchyma in the right breast 12:00 axis posterior one third is also unchanged. There are no suspicious masses, suspicious grouped calcifications, or areas of architectural distortion in either breast. The parenchymal pattern is stable from prior exams. MM/MM tomosynthesis screening BI IMPRESSION: No mammographic evidence of malignancy. Overall no change. ASSESSMENT: BI-RADS BI-RADS 2 - Benign Findings RECOMMENDATION: Routine annual mammography screening. 1 year F/U This examination should not preclude the clinical evaluation of a suspicious palpable abnormality. This patient's information was entered into a reminder system with a target due date for their next mammogram.
== END 2023-11-21 13:30 | disposition home or self-care (01) ==
LOC: HO.MAMMO 13:29
PROVIDERS: PCP Internal Medicine; Visit Provider Internal Medicine
DX: Z12.31 Encounter for screening mammogram for malignant neoplasm of breast (principal)
CPT/HCPCS: 77063; 77067

== ENCOUNTER → 2023-11-22 15:19 | Outpatient (BNVA) | payer OTHER, SELFPAY | PROVIDERS: PCP Internal Medicine; Visit Provider Nurse Practitioner Family ==

== ENCOUNTER 2023-11-30 13:11 | Outpatient (REF) | payer OTHER, SELFPAY ==
--- NOTE | 2023-11-30 13:14 | EEG_ITS ---
This is a 16-channel EEG with an EKG lead. The patient is reported restless during the tracing, which resulted in frequent muscle artifact limiting interpretation of EEG. Background EEG rhythm when clearly seen was about 10 hertz 5-20 microvolt posteriorly and lower amplitude fast anteriorly. Photic stimulation was not performed. Hyperventilation did not produce any significant abnormality. Cardiac lead did not reveal any significant arrhythmia. No obvious sharp wave spikes or paroxysmal tendency noted. IMPRESSION: No significant abnormality noted on this EEG. MD STACY Harris/BEAN / [id number]
== END 2023-11-30 13:12 | disposition home or self-care (01) ==
LOC: HO.NEURO 13:11
PROVIDERS: PCP Internal Medicine; Visit Provider Nurse Practitioner Family
DX: F09 Unspecified mental disorder due to known physiological condition (principal); G43.909 Migraine, unspecified, not intractable, without status migrainosus
CPT/HCPCS: 95816

== ENCOUNTER 2023-12-15 15:35 | Outpatient (REF) | payer OTHER, SELFPAY | END 2023-12-15 15:36 | disposition home or self-care (01) | LOC: HO.LNP 15:35 | PROVIDERS: PCP Internal Medicine; Visit Provider Nurse Practitioner Family | DX: R33.9 Retention of urine, unspecified (principal); R39.15 Urgency of urination; R32 Unspecified urinary incontinence; N32.81 Overactive bladder; R35.1 Nocturia; Z79.899 Other long term (current) drug therapy | CPT/HCPCS: 51798; 81003; 87086; 99202 ==

== ENCOUNTER 2023-12-15 15:35 | Outpatient (AMB) | payer OTHER, SELFPAY ==
--- NOTE | 2023-12-15 15:47 | MHC.OFFVIS ---
Intake Intake Visit Reasons: Incomplete Bladder Emptying Intake Note: New Patient presents for initial visit for incomplete bladder emptying Urology Medications: none Blood Thinner: none PVR: 0ml's Flat Locker Required: No Accompanied by: Unknown Allergies morphine [MORPHINE] Allergy (Intermediate, Verified 12/15/23 16:43) RASH Medication List - Last Reconciled 12/15/23 by STEWART MoyerP- albuterol sulfate 90 mcg/actuation (Ventolin HFA) 1 puff inhalation ONCE PRN bisacodyl (Dulcolax (bisacodyl)) 10 mg (2 x 5 mg) PO BEDTIME buspirone 20 mg PO TID cetirizine 10 mg PO DAILY PRN 90 days cholecalciferol (vitamin D3) 50 mcg PO DAILY clonidine HCl 0.05 - 0.1 mg (0.5 - 1 x 0.1 mg) PO BID PRN cyclobenzaprine 10 mg PO TID PRN [DETACHABLE SHOWER HEAD As directed] dexmethylphenidate ER 15 mg PO DAILY duloxetine 60 mg PO DAILY famotidine 40 mg PO BEDTIME famotidine (Pepcid) 20 mg PO BEDTIME galcanezumab-gnlm (Emgality Pen) 120 mg subcut ONCE 30 days hydrocortisone 2.5% 1 appl [place] Q8-12H hydroxyzine HCl Take 1 to 2 tablets 3 times a day orally as needed for increased anxiety AND 1 tablet daily at bedtime; 30 days lamotrigine 200 mg PO BID linaclotide (Linzess) 145 mcg PO DAILY magnesium oxide 400 mg PO DAILY metronidazole 0.75%(37.5mg/5gram) 1 appful vaginal BID 5 days metronidazole 0.75%(37.5mg/5gram) 1 appful vaginal BEDTIME 5 days mirabegron ER (Myrbetriq) 25 mg PO DAILY 30 days pantoprazole 40 mg PO DAILY prazosin 2 mg PO DAILY riboflavin (vitamin B2) 400 mg PO DAILY 90 days [SHOWER BENCH As directed] sumatriptan succinate 50 - 100 mg orally at onset of headache, may repeat in 2 hrs PRN; max 2 tabs per day or 4 tabs/week (may take with Ibuprofen) 30 days [TOILET SEAT with GRAB BAR As directed] topiramate 100 mg PO DAILY zolpidem 10 mg PO BEDTIME PRN HPI HPI Comments History of Present Illness Details Shira is a pleasant 48 year old female patient of Dr. Gomez was accompanied by her sister at today's office visit. She has a PMH of BV, vitamin-D deficiency, migraines, bipolar disorder, IBS, GERD, depression, asthma, opioid use disorder in remission, obesity, anxiety, memory impairment, loss of hearing, and fibromyalgia. She presents to the office today as a new patient for ongoing lower urinary tract symptoms. In discussion with the patient today she reports noting for over a year to be having episodes of urinary urgency and frequency as well as sensed and on sensed incontinence. She otherwise denies hematuria, dysuria, foul smelling urine, changes to urinary stream, flank pain, fever, and or chills. She discusses at length her multiple medical issues as well as undergoing back surgery twice and is currently awaiting a 3rd surgery for her back. In office urinalysis results reviewed with the patient today 2+ leukocytes negative nitrates. PVR 0 mL. She reports following up with [employer] as she often receives treatment for ongoing bacterial vaginosis. Discussed at length potential causes for lower urinary tract symptoms patient is experiencing. She otherwise offers no other issues or concerns at this time. [facility] Medical History Bacterial vaginosis Vitamin D deficiency Migraine Hypertriglyceridemia Bipolar disorder current episode depressed Irritable bowel syndrome (IBS) GERD without esophagitis Recurrent major depression-severe Asthma Opioid use disorder, mild, in early remission Obesity (BMI 30-39.9) Anxiety Opioid dependence Memory impairment Loss of hearing Fibromyalgia Surgical History Hx of excision of mass History of esophagogastroduodenoscopy (EGD) History of tubal ligation History of lumbar fusion History of cholecystectomy Family History Father No problems noted. 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 Sexual orientation: Straight/Heterosexual Cognitive needs: No Hearing needs: No Vision needs: No Female Reproductive History Menstrual Age of Menarche: 10 Review of Systems Const Reports as per [facility] Eyes Reports no additional complaints ENT Reports as per HPI Card Reports as per HPI Resp Reports as per [facility] GI Reports as per [facility] Reports as per [facility] Musc Reports as per [facility] Neuro Reports as per HPI Psych Reports as per HPI Endo Reports no additional complaints Juan R/Lymph Reports no additional complaints Aller/Immun Reports as per [facility] Physical Exam Const General: cooperative, comfortable, no acute distress, well developed, alert and awake Orientation/consciousness: patient oriented x3 HEENT Head: Yes normal to inspection, Yes normocephalic and Yes atraumatic Ears: hearing grossly normal bilaterally Eyes General: appearance normal, both eyes and all related structures Neck Neck: Yes normal visual inspection and Yes trachea midline Chest Chest palpation & inspection: normal inspection of the chest Resp Effort & Inspection: normal respiratory effort and able to speak in complete sentences Cardio Rate: regular rate GI Inspection: Yes normal to inspection General: Yes no CVA tenderness Back/Spine/Pelvis Back: no CVA tenderness Skin General skin exam: no rashes or lesions noted Neuro General: patient oriented x3 Extrem General: Yes normal to inspection Psych Appearance: grossly normal and well kempt Mental Status: mental status grossly normal Speech and movement: Normal speech and movement present and Clear speech present Affect: normal affect Attitude: cooperative Thought process: Normal thought process present Thought content: Normal thought content present Office Procedures Post Void Residual Post Residual Void Post Void Residual (PVR): 0 [id number] Void Residual by ultrasound Results AMB Urinalysis, Automated UA Leukoctes 125 Fiona/uL Last Edit by Alirio Mason on 12/15/23 16:00 UA Nitrite Negative Last Edit by Alirio Mason on 12/15/23 16:00 UA Urobilinogen 0.2 mg/dL Last Edit by Alirio Mason on 12/15/23 16:00 UA Protein 0 mg/dL Last Edit by Alirio Mason on 12/15/23 16:00 UA pH 6.0 Last Edit by Alirio Mason on 12/15/23 16:00 UA Blood 0 Victor Hugo/uL Last Edit by Eduardjewelamelia Aritajose luis on 12/15/23 16:00 UA Specific [place] 1.010 Last Edit by Alirio Aritajose luis on 12/15/23 16:00 UA Ketone Negative Last Edit by Eduardshana Lylajose luis on 12/15/23 16:00 UA Bilirubin 0 mg/dL Last Edit by Eduardshana Lylajose luis on 12/15/23 16:00 UA Glucose 0 mg/dL Last Edit by Eduardshana Lylajose luis on 12/15/23 16:00 Results Reviewed Results Reviewed: Laboratory Last Values Urine pH (Auto) 6.0 12/15/23 15:50 Specific [place] (Auto) 1.010 12/15/23 15:50 Urine Protein (Auto) 0 mg/dL 12/15/23 15:50 Glucose (UA)(Auto) 0 mg/dL 12/15/23 15:50 Urine Ketones (Auto) Negative 12/15/23 15:50 Urine Blood (Auto) 0 Victor Hugo/uL 12/15/23 15:50 Urine Nitrite (Auto) Negative 12/15/23 15:50 Urine Bilirubin (Auto) 0 mg/dL 12/15/23 15:50 Urine Urobilinogen (Auto) 0.2 mg/dL 12/15/23 15:50 Leukocyte Esterase (Auto) 125 Fiona/uL 12/15/23 15:50 Assessment & Plan Assessment & Plan (1) Increased urinary frequency: Code(s): R35.0 - Frequency of micturition Plan In office urinalysis results reviewed with the patient today; as noted above; will send for urine culture. PVR 0 mL. Discussed at length potential causes for lower urinary tract symptoms patient is experiencing. Discussed at length further treatment options. Will obtain retroperitoneal ultrasound for further assessment evaluation. Discussed bladder triggers/irritants. Will refer to pelvic floor therapy for further assessment evaluation. Start Myrbetriq 25 mg daily as discussed and prescribed. Discussed possible near future in office cystoscopy and or urodynamics for further assessment evaluation. Follow-up in 6-8 weeks with imaging and PVR at next office visit; or sooner with any issues, concerns, and or questions. Orders: Orders AMB Urinalysis Automated Today Z13.9 - Encounter for screening, unspecified AMB Post Void Residual by ultrasound Today R33.9 - Retention of urine, unspecified Urine Culture Today R35.0 - Frequency of micturition US retroperitoneal comp Today R32 - Unspecified urinary incontinence, R35.0 - Frequency of micturition, R39.15 - Urgency of urination PT Evaluation and Treatment Today R32 - Unspecified urinary incontinence, R39.15 - Urgency of urination Medications: New mirabegron ER (Myrbetriq) 25 mg PO DAILY 30 days 30 tabs 2RF N30.10 - Interstitial cystitis (chronic) without hematuria, N32.81 - Overactive bladder, R35.1 - Nocturia, R39.15 - Urgency of urination Patient Instructions: The patient had an opportunity to ask questions regarding the treatment plan. All questions were answered. Physical exam, labs, and imaging were discussed and reviewed in detail. As well as risks, benefits, and discussion of treatment choices. No major barriers to understanding were identified. The patient expressed understanding and agreement with the above treatment plan. The patient was made aware they should contact our office by phone for worsening of their current condition, the appearance of new symptoms, or with any questions or concerns. Compliance is encouraged with any medications and follow up testing that is ordered. It is a privilege to be allowed the opportunity to participate in? your urological care.? Again, if you have any questions or concerns If you have any questions or concerns please do not hesitate to contact me. The office is [phone]. This note is constructed using voice recognition software. While every effort has been made to ensure accuracy fire department battalion chief errors may have been included. Yours sincerely, MARIA FERNANDA Moyer Coding Level of Care Code New Pt Level 4 (96885) Diagnoses Increased urinary frequency R35.0 CPT Codes Post Residual Void - PVR CPT Code: 28888-Kthf Void Residual by ultrasound ([id number])
== END 2023-12-15 16:38 | disposition home or self-care (01) ==
PROVIDERS: PCP Internal Medicine; Visit Provider Nurse Practitioner Family
DX: Z13.9 Encounter for screening, unspecified (principal); R35.0 Frequency of micturition
CPT/HCPCS: 99204

== ENCOUNTER 2023-12-18 11:49 | Outpatient (AMB) | payer OTHER, SELFPAY ==
--- NOTE | 2023-12-18 11:50 | A.OFFVIS_ITS ---
Intake Intake Visit Reasons: 8 wks f/u-Conf Intake Note: Patient presents for 8 week Allergies morphine [MORPHINE] Allergy (Intermediate, Verified 12/18/23 11:51) RASH Medication List - Last Reconciled 12/18/23 by RAYMON Rosas albuterol sulfate 90 mcg/actuation (Ventolin HFA) 1 puff inhalation ONCE PRN bisacodyl (Dulcolax (bisacodyl)) 10 mg (2 x 5 mg) PO BEDTIME buspirone 20 mg PO TID cetirizine 10 mg PO DAILY PRN 90 days cholecalciferol (vitamin D3) 50 mcg PO DAILY clonidine HCl 0.05 - 0.1 mg (0.5 - 1 x 0.1 mg) PO BID PRN cyclobenzaprine 10 mg PO TID PRN [DETACHABLE SHOWER HEAD As directed] dexmethylphenidate ER 15 mg PO DAILY duloxetine 60 mg PO DAILY famotidine 40 mg PO BEDTIME famotidine (Pepcid) 20 mg PO BEDTIME galcanezumab-gnlm (Emgality Pen) 120 mg subcut ONCE 30 days hydrocortisone 2.5% 1 appl [place] Q8-12H hydroxyzine HCl Take 1 to 2 tablets 3 times a day orally as needed for increased anxiety AND 1 tablet daily at bedtime; 30 days lamotrigine 200 mg PO BID linaclotide (Linzess) 145 mcg PO DAILY magnesium oxide 400 mg PO BEDTIME 30 days metronidazole 0.75%(37.5mg/5gram) 1 appful vaginal BID 5 days metronidazole 0.75%(37.5mg/5gram) 1 appful vaginal BEDTIME 5 days mirabegron ER (Myrbetriq) 25 mg PO DAILY 30 days pantoprazole 40 mg PO DAILY prazosin 2 mg PO DAILY riboflavin (vitamin B2) 400 mg PO DAILY 90 days [SHOWER BENCH As directed] sumatriptan succinate 50 - 100 mg orally at onset of headache, may repeat in 2 hrs PRN; max 2 tabs per day or 4 tabs/week (may take with Ibuprofen) 30 days [TOILET SEAT with GRAB BAR As directed] topiramate 100 mg PO DAILY zolpidem 10 mg PO BEDTIME PRN HPI HPI Comments History of Present Illness Details 48-yr-old female presents for f/u televi jerald visit via [facility]. Pt reports she is feeling more tired and increased hypersomnia, achey, and she has started having red round/oval mildy itchy patches on her legs. She also notes chronic dry eye, vaginal dryness. Continues to be very forgetful. She has started Emgality- loading dose and 1 f/u dose so far. Does continue to have low grade daily but now severe headache only 2 x's per week. She does not think that she started B2 or Mag yet. Also compliant w/ Topiramate- states memory difficulties started before starting Topiramate. Sumatriptan is effective when needed. Interval work-up notable for RBC 3.98 L, Hgb 10.7 L, Hct 33.1 L, MCV 83.2, Rheumatoid Factor 176.1, IVANA Screen- negative. Upon review of labs, rheumatology referral was placed- has initial appt tomorrow. She states she has previously not tolerated oral iron tx. EEG: unremarkable. HST- scheduled for 12/26. MRI, brain w/wo- not scheduled. 11/08/23 14:49 WBC 6.5 RBC 3.98 L Hgb 10.7 L Hct 33.1 L MCV 83.2 MCH 26.9 L ESR 23 H Sodium 141 Potassium 3.5 Chloride 109 H Carbon Dioxide 23 Anion Gap 13 BUN 8 L Creatinine 1.14 Estimated GFR 51 Random Glucose 82 Fasting Glucose 84 Estimat Average Gl ucose 100 Hemoglobin A1c % 5.1 Calcium 9.3 Iron 40 TIBC 268 % Saturation 15 Unsat Iron Binding 228 Direct Bilirubin < 0.2 AST 13 ALT 12 Alkaline Phosphata se 123 H C-React Prot High Sens >10.0 H Albumin 4.1 Lipase 20 Vitamin B12 515 Methylmalonic Acid 247 25-OH Vitamin D To keena 48.6 Folate 12.8 Homocysteine 12.1 H TSH 1.63 Rheumatoid Factor 176.1 H IVANA Screen NEGATIVE T.pallidum Ab (EIA ) Nonreactive Lyme Screen IgG & IgM <0.90 Hep Bs Antigen Negative Hepatitis C Ab (EI A) Nonreactive HIV 1&2 Ab/P24 Ag 4thGn Nonreactive PFSH Medical History Bacterial vaginosis Vitamin D deficiency Migraine Hypertriglyceridemia Bipolar disorder current episode depressed Irritable bowel syndrome (IBS) GERD without esophagitis Recurrent major depression-severe Asthma Opioid use disorder, mild, in early remission Obesity (BMI 30-39.9) Anxiety Opioid dependence Memory impairment Loss of hearing Fibromyalgia Surgical History Hx of excision of mass History of esophagogastroduodenoscopy (EGD) History of tubal ligation History of lumbar fusion History of cholecystectomy Family History Father No problems noted. 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 Sexual orientation: Straight/Heterosexual Cognitive needs: No Hearing needs: No Vision needs: No Female Reproductive History Menstrual Age of Menarche: 10 Physical Exam Const General: cooperative and no acute distress Orientation/consciousness: patient oriented x3 Resp Effort & Inspection: normal respiratory effort and able to speak in complete sentences Neuro General: patient oriented x3 Cognition (Neuro): normal cognition Psych Appearance: grossly normal Mental Status: mental status grossly normal Speech and movement: Normal speech and movement present Affect: normal affect Attitude: cooperative Assessment & Plan Assessment & Plan (1) Chronic migraine without aura: Code(s): G43.709 - Chronic migraine without aura, not intractable, without status migra inosus (2) Anemia: Code(s): D64.9 - Anemia, unspecified (3) Elevated rheumatoid factor: Code(s): R76.8 - Other specified abnormal immunological findings in serum (4) Cognitive dysfunction: Code(s): F09 - Unspecified mental disorder due to known physiological condition (5) Hypersomnia: Code(s): G47.10 - Hypersomnia, unspecified Plan Will f/u on order for Brain MRI with and without contrast to assess for secondary etiologies of worsening headaches, paresthesias, worsening cognition. HST as scheduled. EEG- no evidence of epileptic or encephalopathic changes. Reviewed labs: Significantly elevated RF w/ negative IVANA, in setting of fatigue/hypersomnia, dry eye, cognitive difficulties, body pains, new skin lesions. Rheumatology consult as ordered. Chronic, likely iron def anemia, will check ferritin and iron profile. For overall headache management: Optimize good self-care, including but not limited to maintaining a healthy diet, adequate fluid intake, adequate sleep, and engaging in regular physical activity. Track headaches. For acute headache treatment: Continue sumatriptan 100 mg p.r.n., may repeat x1. Max 200 mg per day. May adjuvant with naproxen. Pt asks for refill of Ibuporfen 800mg- will send- advised to not take > 15 days per month. Previous acute migraine medication trials: Naproxen Acute migraine medication contraindications: None at this time. For headache prevention medication:t. Start Riboflavin 400mg qam Start Magnesium 400mg qhs Continue Emgality 120 mg subcu q.month- as pt has already started to have good effect from use. Continue topiramate 100 mg q.day for now, consider decreasing in follow-up in hopes this helps reduce cognitive dysfunction symptoms. Continue duloxetine- ordered for mood. Continue Lamotrigine- ordered for mood. Previous migraine prevention medication trials: Botox in cervical region, had some benefit. Migraine prevention medication contraindications: Beta-blockers due to asthma diagnosis, and pt currently taking clonidine and prazosin. Follow-up on review of above and in clinic 4-6 months or sooner prn. Orders: Orders Ferritin Today D64.9 - Anemia, unspecified IRON PROFILE Today D64.9 - Anemia, unspecified Medications: New magnesium oxide may hold for loose stools 400 mg PO BEDTIME 30 tabs 6RF 30 days ibuprofen 800 mg PO Q8H PRN 60 tabs 3RF pain 30 days MDD 2 tabs Refilled riboflavin (vitamin B2) 400 mg PO DAILY 90 tabs 3RF for pain 90 days G43.109 - Migraine with aura, not intractable, without status migrainosus Discontinued magnesium oxide Discontinued Reason: Ancillary Entered New Order 400 mg PO DAILY 30 caps 2RF K59.04 - Chronic idiopathic constipation Telehealth Telehealth Location of provider rendering services: practice address Location of patient: address on file Patient Identification confirmed using: Name, : Yes Telehealth method: video Patient verbally consented to treatment: Yes Patient verbally consented to billing insurance company: Yes Patient informed of any privacy concerns related to visit: Yes Minutes spent on Phone/Video with Pt.: 30 Coding Level of Care Code Tele Est Pt Level 4 (78450) Diagnoses Chronic migraine without aura G43.709 Anemia D64.9 Elevated rheumatoid factor R76.8 Cognitive dysfunction F09 Hypersomnia G47.10
== END 2023-12-19 14:17 | disposition home or self-care (01) ==
LOC: HO.HSMS 11:49
PROVIDERS: PCP Internal Medicine; Visit Provider Nurse Practitioner Family
DX: G43.709 Chronic migraine without aura, not intractable, without status migrainosus (principal); D64.9 Anemia, unspecified; R76.8 Other specified abnormal immunological findings in serum; R41.89 Other symptoms and signs involving cognitive functions and awareness; G47.10 Hypersomnia, unspecified
CPT/HCPCS: 99214

== ENCOUNTER → 2023-12-18 11:49 | Outpatient (BNVA) | payer OTHER, SELFPAY | PROVIDERS: PCP Internal Medicine; Visit Provider Nurse Practitioner Family ==

== ENCOUNTER 2023-12-19 15:17 | Outpatient (REF) | payer OTHER, SELFPAY ==
[2023-12-19 16:55] LABS: MANUAL DIFF FLAG NO
[2023-12-19 17:10] LABS: Basophils Percent Auto 0.6 % (0-2); Eosinophils Absolute Auto 0.2 X10*3/uL (0.0-0.4); Eosinophils Percent Auto 2.3 % (0-4); Hematocrit 34.5 % (37.0-47.0); Imm Gran Abs Auto 0.03 X10*3/uL (0.00-0.03); Imm Gran Pct Auto 0.4 % (0.0-0.4); Lymphocytes Absolute Auto 1.7 X10*3/uL (1.2-4.9); Lymphocytes Percent Auto 23.8 % (20-40); Mean Corpuscular HGB Conc 31.9 g/dl (31.0-35.0); Mean Corpuscular Hemoglobin 26.7 pg (27.0-33.0); Mean Corpuscular Volume 83.7 fL (80.0-98.0); Mean Platelet Volume 9.5 fL (9.4-12.3); Monocytes Absolute Auto 0.4 X10*3/uL (0.1-1.2); Monocytes Percent Auto 5.9 % (2-11); Neutrophils Absolute Auto 4.9 x10*3/uL (2.0-8.3); Platelet Count 322 X10*3/uL (160-400); Red Blood Count 4.12 X10*6/uL (4.20-5.50); White Blood Count 7.3 X10*3/uL (4.8-10.8)
[2023-12-19 17:36] LABS: Alanine Aminotransferase 15 U/L (0-31); Albumin Level 4.5 g/dL (3.5-5.0); Alkaline Phosphatase 125 U/L (39-117); Anion Gap 11 (12-20); Aspartate Amino Transferase 17 U/L (5-31); Bilirubin Total 0.3 mg/dL (0.0-1.0); Blood Urea Nitrogen 9 mg/dL (9-16); C Reactive Protein 2.38 mg/dL (< or = 0.50); Calcium 9.5 mg/dL (8.4-10.2); Carbon Dioxide 25 mmol/L (22-29); Chloride 111 mmol/L (96-108); Estimated Glomerular Filt Rate 51; Glucose Random 81 mg/dL (60-115); Iron 41 mcg/dL (30-160); Percent Iron Saturation 13 % (15-50); Sodium 143 mmol/L (135-145); Total Iron Binding Capacity 311 mcg/dL (228-428); Total Protein 8.1 g/dL (6.5-8.0); Unsaturated Iron Binding 270 ug/dL
[2023-12-19 17:50] LABS: Erythrocyte Sedimentation Rate 33 MM/HR (0-20)
[2023-12-19 17:54] LABS: Ferritin 51 ng/mL (10-250)
[2023-12-20 08:20] LABS: HBS Num1 0.29 mIU/mL (0-7.99); HBc Num1 0.12 S/CO (0.00-0.79); HBsAGNum1 0.26 S/CO (0.00-0.99); Hepatitis A Antibody IgM 0.23 Index (0-0.79); Hepatitis B Core Antibody Nonreactive (Nonreactive); Hepatitis B Surface Antigen Negative (Negative); ~Hepatitis A Antibody IgM Nonreactive (Nonreactive); ~Hepatitis B Surface Antibody NONREACTIVE (Nonreactive); ~Hepatitis C Antibody Nonreactive (Nonreactive)
[2023-12-20 11:33] LABS: Prot Elec - Albumin 4.4 g/dL (3.8-4.8); Prot Elec - Alpha1 0.3 g/dL (0.2-0.3); Prot Elec - Alpha2 0.8 g/dL (0.5-0.9); Prot Elec - Beta 1 0.5 g/dL (0.4-0.6); Prot Elec - Beta 2 0.6 g/dL (0.2-0.5); Prot Elec - Gamma 1.1 g/dL (0.8-1.7); Prot Elec - Total Protein 7.7 g/dL (6.1-8.1)
[2023-12-20 20:09] LABS: Antibody to SS-A Antigen <1.0 NEG AI (<1.0 NEG); Antibody to SS-B Antigen <1.0 NEG AI (<1.0 NEG)
[2023-12-21 13:59] LABS: Cyclic Citrullinated Peptide <16 UNITS
[2023-12-22 07:48] LABS: TS Negative Control Passed; TS Panel A 0; TS Panel B 0; TS Positive Control Passed; TSpotTB Negative (Negative)
[2023-12-22 11:34] LABS: IgA 494 mg/dL (47-310); IgG 1175 mg/dL (600-1640); IgM 187 mg/dL (50-300)
[2023-12-23 14:13] LABS: Vitamin D 25-OH, D2 <4 ng/mL; Vitamin D 25-OH, D3 40 ng/mL; Vitamin D 25-OH, Total 40 ng/mL (30-100)
== END 2023-12-19 15:18 | disposition home or self-care (01) ==
LOC: HO.LAB 15:17
PROVIDERS: Nurse Practitioner Family; PCP Internal Medicine; Visit Provider Nurse Practitioner Family
DX: Z11.9 Encounter for screening for infectious and parasitic diseases, unspecified (principal); F09 Unspecified mental disorder due to known physiological condition; R53.83 Other fatigue; F41.9 Anxiety disorder, unspecified; R41.3 Other amnesia; M25.50 Pain in unspecified joint; G43.909 Migraine, unspecified, not intractable, without status migrainosus; R76.8 Other specified abnormal immunological findings in serum; E55.9 Vitamin D deficiency, unspecified; D64.9 Anemia, unspecified; R21 Rash and other nonspecific skin eruption
CPT/HCPCS: 36415; 80053; 82306; 82550; 82728; 82784; 83540; 84165; 84550; 85025; 85652; 86140; 86200; 86235; 86334; 86481; 86704; 86706; 86709; 86803; 87338; 87340; 99202

== ENCOUNTER 2023-12-19 15:17 | Outpatient (AMB) | payer OTHER, SELFPAY ==
--- NOTE | 2023-12-19 15:19 | A.OFFVIS_ITS ---
Intake Vital Signs 12/19/23 15:20 Height 5 ft 1 in Weight 179 lb 0.246 oz BMI 33.8 BP 112/74 Blood Pressure Location Rt brachial Position Sitting Pulse 98 Pulse Source Pulse Oximeter Pulse Oximetry (%) 96 Oxygen Delivery Method Room Air Intake Visit Reasons: Joint Pain/cm Intake Note: New patient, internally referred, presents to office today for joint pain. Joints affected: diffused myalgias, most bothersome- claribel knee pain radiating down the legs Pain began approx: forever Has tried: PT and cortisone injections through [facility], PO meds Reports unsteady wait for a long time, always bumping into things . Deicer Finisher Required: No Accompanied by: Daughter Allergies morphine [MORPHINE] Allergy (Intermediate, Verified 12/19/23 15:19) RASH HPI HPI Comments History of Present Illness Details Ms. Rome is a 48-yr-old female, on referral from neuro, presents for initial evaluation highly positive rheumatoid factor. She has a PMH of bipolar mood disorder, acid reflux, fibromyalgia and migraine headache. She has been seeing neuro because of increased incidence of forgetfulness. She has had a suicide attempt within the last month. The patient reports that she has pain all over her body. She describes excruciating pain to her upper arms, down the front of her thighs, and her hands. About a month ago she also started having red round/oval mildy itchy lesion on her thighs and lower legs. She also notes chronic dry eye, uses eyedrops about twice per day and vaginal dryness. She also has a low-grade fever daily. The patient denies sun sensitivity, mouth sores, and inflammatory swelling to her joints. She describes Raynaud's to her fingers and toes. She reports IBS with constipation takes Linzess. She denies blood or mucus in her stool. She denies uveitis, knowledge of plantar fasciitis, but does say that the backs of her heels are always tender. She has had surgery for SI joint fusion (Apr 2023) and still finds it painful such that she needs support to walk and finds it challanging to move around without holding on to items. She takes multiple mood stabilizers and depression medications, duloxetine and Ibuprofen. Per new a record: Interval work-up notable for RBC 3.98 L, Hgb 10.7 L, Hct 33.1 L, MCV 83.2, Rheumatoid Factor 176.1, IVANA Screen- negative. EEG: unremarkable. HST- scheduled for 12/26. MRI, brain w/wo- not scheduled. 11/08/23 14:49 WBC 6.5 RBC 3.98 L Hgb 10.7 L Hct 33.1 L MCV 83.2 MCH 26.9 L ESR 23 H Sodium 141 Potassium 3.5 Chloride 109 H Carbon Dioxide 23 Anion Gap 13 BUN 8 L Creatinine 1.14 Estimated GFR 51 Random Glucose 82 Fasting Glucose 84 Estimat Average Gl ucose 100 Hemoglobin A1c % 5.1 Calcium 9.3 Iron 40 TIBC 268 % Saturation 15 Unsat Iron Binding 228 Direct Bilirubin < 0.2 AST 13 ALT 12 Alkaline Phosphata se 123 H C-React Prot High Sens >10.0 H Albumin 4.1 Lipase 20 Vitamin B12 515 Methylmalonic Acid 247 25-OH Vitamin D To keena 48.6 Folate 12.8 Homocysteine 12.1 H TSH 1.63 Rheumatoid Factor 176.1 H IVANA Screen NEGATIVE T.pallidum Ab (EIA ) Nonreactive Lyme Screen IgG & IgM <0.90 Hep Bs Antigen Negative Hepatitis C Ab (EI A) Nonreactive HIV 1&2 Ab/P24 Ag 4thGn Nonreactive PFSH Medical History (Updated 12/19/23 @ 21:05 [facility] Rash and nonspecific skin eruption Pain in joint involving multiple sites Screening examination for infectious disease Hypovitaminosis D Bacterial vaginosis Vitamin D deficiency Migraine Hypertriglyceridemia Bipolar disorder current episode depressed Irritable bowel syndrome (IBS) GERD without esophagitis Recurrent major depression-severe Asthma Opioid use disorder, mild, in early remission Obesity (BMI 30-39.9) Anxiety Opioid dependence Memory impairment Loss of hearing Fibromyalgia Surgical History Hx of excision of mass History of esophagogastroduodenoscopy (EGD) History of tubal ligation History of lumbar fusion History of cholecystectomy Family History Father No problems noted. Mother Skin cancer Maternal Aunt Myocardial infarction Family/Other Lupus Other Mental health problem Substance abuse Social History (Updated 12/19/23 @ 15:22 by ZOE Godinez) Household Members: None Housing: House Are you a primary career development associate to a significant other at home: No Do you presently have visiting nurse or other home services: No Alcohol intake: current Alcohol intake frequency: holidays/special occasions only Patient Tobacco Use Status: Never used Tobacco e-Cigarette/Vaping Use: Never Used Second Hand Smoke Exposure: No service: No Current occupational status: employed and disabled 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 External ear normal. NOSE/SINUS:? Airflow through both nares, no nasal discharge, no bleeding THROAT:? Oral mucosa moist, no ulcerations NECK:? No thyromegaly or masses, no adenopathy, trachea midline. HEART:? Regular rhythm, S1-S2 heard, no murmurs, rubs or gallops. LUNG:? Clear to percussion and auscultation EXTREMITIES:? No edema, no calf tenderness, normal peripheral pulses. NEURO:? Oriented and alert x3.? No focal weakness.? Reflexes symmetric.? Gait normal. SKIN:? Multiple erythematous annular lesions to lower extremity, more to the thighs. No objective signs of Raynaud's JOINT EXAM: Cervical Spine:.? Full range of motion without pain; moderate tenderness. Thoracic Spine:.? No scoliosis.? moderate tenderness on palpation. Lumbar Spine:.? Alignment normal.? no range of motion attempted, movement causes pain, moderate tenderness. Chest Wall:.? mild tenderness, swelling, no increased warmth or erythema. Hands:.? Normal pain-free range of motion without tenderness, swelling, increased warmth or erythema. Able to make a full fist and has a good registered vascular technologist (rvt) strength but describes diffused to PIPs in fist form. Wrists:.? Normal pain-free range of motion with mild tenderness, but no swelling, increased warmth or erythema. Elbows:. Normal pain-free range of motion without tenderness, swelling, increased warmth or erythema. Shoulders:.?? Full range of motion with discomfort. Mild tenderness, but no wea kness, swelling, increased warmth or erythema. Hips:.? Range of motion not attempted due to SI joint fusion and lower back pain Hip bursa:.? Moderate tenderness. Knees:.?? Normal pain-free range of motion without tenderness, swelling, increased warmth or erythema.? There is no effusion or crepitation Ankles:.? Normal pain-free range of motion without tenderness, swelling, increased warmth or erythema. Feet:.? Normal pain-free range of motion without tenderness, swelling, increased warmth or erythema. Tender points:?Tenderness to digital palpation at the occiput, trapezius, second rib, lateral epicondyle, knees, greater trochanter and gluteal area bilaterally. Assessment & Plan Assessment & Plan (1) Elevated rheumatoid factor: Code(s): R76.8 - Other specified abnormal immunological findings in serum (2) Pain in joint involving multiple sites: Code(s): M25.50 - Pain in unspecified joint (3) Rash and nonspecific skin eruption: Code(s): R21 - Rash and other nonspecific skin eruption Plan #Positive rheumatoid factor/joint pain: Ms. Rome presents with multiple joint pains and highly positive rheumatoid factor greater than 170. On initial presentation, she does not have a clinical picture for inflammatory rheumatoid arthritis. She does presents as having fibromyalgia for which she is already being treated. I will do a thorough basic rheumatology panel to further evaluation. I think the SI joint is a big part of her discomfort. She is encouraged to increase her activity level and improved muscle strength for better joint support. #Rash:The rash to her lower extremity is concerning but the patient cannot identify any associated incidents or causes. She describes that they come and go in different areas and very itchy, but not painful. They do not present as erythema nodosum. She may benefit from Dermatology consult. Return to office in 2 weeks I spent 50 minutes reviewing history, evaluating patient, and documenting Orders: Orders Erythrocyte Sedimentation Rate Today R76.8 - Other specified abnormal immunological findings in serum Comprehensive Met. Panel Today R76.8 - Other specified abnormal immunological findings in serum Immunoglobulins,IgG IgA IgM Today R76.8 - Other specified abnormal immunological findings in serum Immunofixation Pnl, Serum Today R76.8 - Other specified abnormal immunological findings in serum T Spot TB Today R76.8 - Other specified abnormal immunological findings in serum, Z11.9 - Encounter for screening for infectious and parasitic diseases, unspecified Creatine Kinase Total Today R76.8 - Other specified abnormal immunological findings in serum Hepatitis A,B,C Profile Today R76.8 - Other specified abnormal immunological findings in serum, Z11.9 - Encounter for screening for infectious and parasitic diseases, unspecified C Reactive Protein Today R76.8 - Other specified abnormal immunological findings in serum Sjogren's Antibodies Today R76.8 - Other specified abnormal immunological findings in serum Protein Electrophoresis, Serum Today R76.8 - Other specified abnormal immunological findings in serum Uric Acid Today R76.8 - Other specified abnormal immunological findings in serum Vitamin D 25-OH (D2 and D3) Today E55.9 - Vitamin D deficiency, unspecified, R76.8 - Other specified abnormal immunological findings in serum Cyclic Citrullinated Peptide Today R76.8 - Other specified abnormal immunological findings in serum Coding Level of Care Code New Pt Level 5 (57759) Diagnoses Elevated rheumatoid factor R76.8 Pain in joint involving multiple sites M25.50 Rash and nonspecific skin eruption R21
[2023-12-19 15:20] VITALS: BP 112/74; PULSE 98; O2SAT 96; BMI 33.8
== END 2023-12-19 16:22 | disposition home or self-care (01) ==
LOC: HO.RHE 15:18
PROVIDERS: PCP Internal Medicine; Visit Provider Nurse Practitioner Family
DX: R76.8 Other specified abnormal immunological findings in serum (principal); M25.50 Pain in unspecified joint; R21 Rash and other nonspecific skin eruption
CPT/HCPCS: 99204

== ENCOUNTER 2023-12-19 19:08 | Outpatient (REF) | payer OTHER, SELFPAY | END 2023-12-19 19:09 | disposition home or self-care (01) | LOC: HO.LNP 19:08 | PROVIDERS: Visit Provider Nurse Practitioner Family | DX: Z13.89 Encounter for screening for other disorder (principal) | CPT/HCPCS: 87338 ==

== ENCOUNTER → 2023-12-26 14:31 | Outpatient (BNVA) | payer OTHER, SELFPAY | PROVIDERS: PCP Internal Medicine; Visit Provider Nurse Practitioner Family | DX: Z12.11 Encounter for screening for malignant neoplasm of colon (principal); K58.1 Irritable bowel syndrome with constipation; K21.9 Gastro-esophageal reflux disease without esophagitis; K59.04 Chronic idiopathic constipation | CPT/HCPCS: 99212 ==

== ENCOUNTER 2023-12-26 14:32 | Outpatient (AMB) | payer OTHER, SELFPAY ==
--- NOTE | 2023-12-26 14:34 | A.OFFVIS_ITS ---
Intake Vital Signs 12/26/23 14:36 Height 5 ft 1 in Weight 176 lb 5.917 oz BMI 33.3 BP 104/56 L Blood Pressure Location Lt brachial Position Sitting Pulse 97 Intake Visit Reasons: 6 week follow up Intake Note: Shira presents in the office as a 6 week follow up. CC: She states that she is showing signs of hyperglycemia - states her DRAW MACHINE OPERATOR. She wakes up with a migraine and lightheadedness - dizziness. She feels sick when she eats so she refuses to eat. Weatherization Director Required: No Allergies morphine [MORPHINE] Allergy (Intermediate, Verified 12/26/23 14:36) RASH HPI 6 week follow up HPI Details LAST VISIT: Irritable bowel syndrome (IBS) GERD (gastroesophageal reflux disease) Chronic idiopathic constipation Screen for colon cancer Plan Will change omeprazole to pantoprazole daily and will add famotidine at bedtime. Discussed with patient avoiding dietary triggers and late night snacking. Staying upright for minimum 3 hours after meals discussed with patient. Patient will be sent to check for H pylori and will treat empirically if positive. Reports upper abdominal pain, epigastric postprandially. Will check lipase and liver enzymes. Patient continues with postprandial abdominal bloating most likely related to patient's constipation and related to food. Low FODMAP diet discussed with patient. List of food recommended as well as list of food to avoid given to patient. Patient will be started on Linzess in the morning. Patient can take magnesium at bedtime. I will see patient in 6 weeks so we can discuss going for colonoscopy and possible upper endoscopy. Patient is agreeable to this plan and verbalizes understanding of instructions. She was given the opportunity to ask questions and all questions answered. ? Thank you for allowing me to participate in her care Orders Orders H pylori Ag Stool 10/12/23 K21.9 Lipase 10/12/23 R10.9 Liver Panel 10/12/23 R74.01 Medications New linaclotide (Linzess) 145 mcg PO DAILY 30 caps 2RF famotidine 40 mg PO BEDTIME 30 tabs 3RF K21.9 pantoprazole take one tablet half an hour before breakfast 40 mg PO DAILY 30 tabs 2RF K21.9 magnesium oxide 400 mg PO DAILY 30 caps 2RF K59.04 Discontinued omeprazole Discontinued Reason: Doctor's Order 40 mg PO DAILY 30 days 30 caps 3RF K21.9 sennosides Discontinued Reason: Duplicate 8.6 mg PO BEDTIME 90 tabs 3RF constipati on K59.00 plecanatide Discontinued Reason: Doctor's Order 3 mg PO DAILY 30 tabs 3RF K59.09 TODAY'S VISIT: Patient is here today for follow-up and to discuss going for colonoscopy. Patient reports that she was not taking Linzess every day and she continues to have abdominal bloating, cramping and constipation. Patient does admit that when she was taking the Linzess she was doing better. Patient continues to have epigastric discomfort and dyspepsia. Frequent abdominal bloating. Patient is taking her medications from [facility] so they are all pre packed. Believes she is taking pantoprazole in the morning and famotidine at bedtime. Patient reports that her symptoms of acid reflux continue throughout the night. Patient does admit to be eating late at night at times. Patient does admit to be creating carbs and sweets. Denies any melena, hematochezia, unintentional weight loss or ribbon like stools. Patient is little nervous about going for colonoscopy, however she agrees to it. Patient is accompanied at this visit by her sister who is her DRAW MACHINE OPERATOR. Patient denies any issues with anesthesia in the past. No history of sleep apnea. Not on any anticoagulation medication. [facility] Medical History (Updated 12/19/23 @ 21:05 by MARIA FERNANDA Mcmanus) Rash and nonspecific skin eruption Pain in joint involving multiple sites Screening examination for infectious disease Hypovitaminosis D Bacterial vaginosis Vitamin D deficiency Migraine Hypertriglyceridemia Bipolar disorder current episode depressed Irritable bowel syndrome (IBS) GERD without esophagitis Recurrent major depression-severe Asthma Opioid use disorder, mild, in early remission Obesity (BMI 30-39.9) Anxiety Opioid dependence Memory impairment Loss of hearing Fibromyalgia Surgical History Hx of excision of mass History of esophagogastroduodenoscopy (EGD) History of tubal ligation History of lumbar fusion History of cholecystectomy Family History Father No problems noted. Mother Skin cancer Maternal Aunt Myocardial infarction Family/Other Lupus Other Mental health problem Substance abuse Social History (Updated 12/19/23 @ 15:22 by ZOE Godinez) Household Members: None Housing: House Are you a primary director of career services to a significant other at home: No Do you presently have visiting nurse or other home services: No Alcohol intake: current Alcohol intake frequency: holidays/special occasions only Patient Tobacco Use Status: Never used Tobacco e-Cigarette/Vaping Use: Never Used Second Hand Smoke Exposure: No service: No Current occupational status: employed and disabled 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 Sexual orientation: Straight/Heterosexual Cognitive needs: No Hearing needs: No Vision needs: No Female Reproductive History Menstrual Age of Menarche: 10 Review of Systems Const Denies weight gain and Denies weight loss ENT Reports no additional complaints, Denies dysphagia and Denies odynophagia Card Reports no additional complaints Resp Reports no additional complaints GI Reports abdominal pain, Denies belching, Denies melena, Reports bloating, Reports constipation, Denies dysphagia, Denies excessive flatus, Denies dyspepsia, Reports heartburn, Denies diarrhea, Reports loose stools, Denies nausea, Denies odynophagia and Denies vomiting Reports no additional complaints Musc Reports no additional complaints Neuro Reports no additional complaints Psych Reports no additional complaints Endo Reports no additional complaints Physical Exam Vital Signs: Last Vital Signs Pulse 97 12/26/23 14:36 BP 104/56 L 12/26/23 14:36 BMI result Body Mass Index 33.3 Const General: healthy appearing and no acute distress Nutritional Appearance: obese Orientation/consciousness: patient oriented x3 Resp Effort & Inspection: normal respiratory effort, able to speak in complete sentences, no tracheal deviation and symmetric chest movement Auscultation: clear to auscultation bilaterally Cardio Rate: regular rate GI Inspection: Yes normal to inspection, No distended and Yes obesity Palpation (GI): Soft to palpation, not firm, nontender and No hepatosplenomegaly present Auscultation: normal bowel sounds General: Yes no CVA tenderness Back/Spine/Pelvis Back: no CVA tenderness Skin General skin exam: elasticity normal, turgor normal and dry skin Neuro General: patient oriented x3 Psych Appearance: grossly normal Mental Status: mental status grossly normal Results Reviewed Results Reviewed: Laboratory Tests 12/19/23 16:54 Iron 41 Total Bilirubin 0.3 AST 17 ALT 15 C-Reactive Protein 2.38 H Assessment & Plan Assessment & Plan (1) Irritable bowel syndrome (IBS): Code(s): K58.9 - Irritable bowel syndrome without diarrhea Qualifiers: Irritable bowel syndrome type: with constipation Qualified Code(s): K58.1 - Irritable bowel syndrome with constipation (2) GERD (gastroesophageal reflux disease): Code(s): K21.9 - Gastro-esophageal reflux disease without esophagitis Qualifiers: Esophagitis presence: esophagitis presence not specified Qualified Code(s): K21.9 - Gastro-esophageal reflux disease without esophagitis (3) Chronic idiopathic constipation: Code(s): K59.04 - Chronic idiopathic constipation (4) Screen for colon cancer: Code(s): Z12.11 - Encounter for screening for malignant neoplasm of colon Plan Epigastric discomfort postprandially. Patient will start taking Nexium in the morning and will stop pantoprazole. She can continue to take famotidine at bedtime. Patient will be sent for upper endoscopy to rule out gastritis, duodenitis, esophagitis, gastric or peptic ulcers, H pylori, Griffin's. Discussed with patient avoiding dietary triggers and late night snacking. Staying upright for minimum 3 hours after meals discussed with patient. Patient will go for her 1st colonoscopy. Denies any family history of colorectal cancer. Denies melena, hematochezia, unintentional weight loss or ribbon like stools. Patient denies any issues with anesthesia in the past. No history of sleep apnea. Not on any anticoagulation medication. Patient denies any cardiac or respiratory symptoms. What to expect before during and after procedure discussed with patient. Discussed with patient the importance of clear liquid diet as well as good bowel prep day before procedure. Patient will use wet wipes and Calmoseptine cream or Vaseline for comfort. I will see patient after the procedure, sooner on as needed basis. Both patient and her sister are agreeable to plan of care and verbalizes understanding of instructions. They were given the opportunity to ask questions and all questions answered. Thank you for allowing me to participate in her care Medications: New polyethylene glycol 3350 (Miralax) As directed by gastroenterology department at [facility] 238 grams PO ONCE 238 grams 0RF Z12.11 - Encounter for screening for malignant neoplasm of colon esomeprazole magnesium (Nexium) 40 mg PO DAILY 30 caps 5RF K21.9 - Gastro- esophageal reflux disease without esophagitis bisacodyl (Dulcolax (bisacodyl)) take 4 tabs at noon the day before your colonoscopy 20 mg (4 x 5 mg) PO ONCE 1 day 4 tabs 0RF Z12.11 - Encounter for screening for malignant neoplasm of colon Discontinued pantoprazole take one tablet half an hour before breakfast Discontinued Reason: Doctor's Order 40 mg PO DAILY 30 tabs 2RF K21.9 - Gastro-esophageal reflux disease without esophagitis Coding Level of Care Code Est Pt Level 4 (81997) Diagnoses Irritable bowel syndrome with constipation K58.1 Irritable bowel syndrome type: with constipation Gastroesophageal reflux disease, unspecified whether esophagitis present K21.9 Esophagitis presence: esophagitis presence not specified Chronic idiopathic constipation K59.04 Screen for colon cancer Z12.11 Time Spent (min) 35 Comment 25 minutes spent with patient and additional 10 minutes spent reviewing her records
[2023-12-26 14:36] VITALS: BP 104/56; PULSE 97; BMI 33.3
== END 2023-12-26 15:34 | disposition home or self-care (01) ==
PROVIDERS: PCP Internal Medicine; Visit Provider Nurse Practitioner Family
DX: K58.1 Irritable bowel syndrome with constipation (principal); K21.9 Gastro-esophageal reflux disease without esophagitis; K59.04 Chronic idiopathic constipation; Z12.11 Encounter for screening for malignant neoplasm of colon
CPT/HCPCS: 99214

== ENCOUNTER → 2023-12-27 14:15 | Outpatient (REF) | payer OTHER, SELFPAY | LOC: HO.SL 14:15 | PROVIDERS: PCP Internal Medicine; Visit Provider Nurse Practitioner Family | DX: G47.10 Hypersomnia, unspecified (principal); R06.81 Apnea, not elsewhere classified; G47.9 Sleep disorder, unspecified; R06.83 Snoring; R53.83 Other fatigue | CPT/HCPCS: 95806 ==

== ENCOUNTER → 2023-12-27 14:29 | Outpatient (BNV) | payer OTHER, SELFPAY | PROVIDERS: PCP Internal Medicine; Visit Provider Psychiatry & Neurology Neurology | DX: R06.83 Snoring (principal); G47.10 Hypersomnia, unspecified | CPT/HCPCS: 95806 ==

== ENCOUNTER 2024-02-01 15:06 | Outpatient (REF) | payer OTHER, SELFPAY ==
--- NOTE | ~2024-02-01 | MR_ITS ---
EXAMINATION: MR BRAIN WITHOUT AND WITH CONTRAST CLINICAL INFORMATION: Headache. COMPARISON: CT head from 01/15/2022. TECHNIQUE: MRI of the brain was obtained using routine sequences without and following the administration of 8 mL of Gadavist intravenous contrast. FINDINGS: No focal restricted diffusion is demonstrated to suggest acute or subacute cerebral ischemia. No evidence of acute or chronic hemorrhagic products on heme-sensitive imaging. Normal parenchymal signal characteristics. The ventricles are normal in morphology and size. No abnormal mass effect. No midline shift. Normal appearance of the pituitary gland. Normal positioning of the cerebellar tonsils. Normal arterial and venous vascular flow voids are present. No abnormal contrast enhancement. Normal, homogeneous marrow signal. Mild mucosal thickening of the paranasal sinuses. No signal abnormalities within the mastoids. MR/MR head/brain wo/w con IMPRESSION: 1. No acute intracranial abnormalities. No abnormal intracranial enhancement. 2. No MRI abnormalities to explain the patient's symptoms.
[2024-02-01] MEDS: gadobutroL 10 ML VIAL IVPUSH (16:03)
== END 2024-02-01 15:07 | disposition home or self-care (01) ==
LOC: HO.MRI 15:06
PROVIDERS: PCP Internal Medicine; Visit Provider Nurse Practitioner Family
DX: R51.9 Headache, unspecified (principal); F09 Unspecified mental disorder due to known physiological condition; R47.1 Dysarthria and anarthria; R20.2 Paresthesia of skin; R25.1 Tremor, unspecified
CPT/HCPCS: 70553; A9585

== ENCOUNTER 2024-02-02 12:57 | Outpatient (REF) | payer OTHER, SELFPAY ==
--- NOTE | ~2024-02-02 | US_ITS ---
EXAMINATION: US RETROPERITONEAL LIMITED (RENAL ONLY) CLINICAL INFORMATION: Frequency of micturition. COMPARISON: CT abdomen and pelvis 01/15/2022. TECHNIQUE: Real-time imaging of the kidneys. FINDINGS: RIGHT KIDNEY: 9.9 x 5.2 x 5.6 cm (SAG x AP x TRV). The kidney is normal in size, contour, and echogenicity. Renal cortical thickness is normal. No calculi or focal parenchymal lesions. No hydronephrosis. LEFT KIDNEY: 10.3 x 4.5 x 4.1 cm (SAG x AP x TRV). The kidney is normal in size, contour, and echogenicity. Renal cortical thickness is normal. No calculi or focal parenchymal lesions. No hydronephrosis. The bladder was not full at this time of scanning. The patient was scheduled bladder ultrasound for 02/08/2024. US/US renal BI IMPRESSION: Normal renal ultrasound. Bladder ultrasound rescheduled for 02/08/2024.
== END 2024-02-02 12:58 | disposition home or self-care (01) ==
LOC: HO.US 12:57
PROVIDERS: PCP Internal Medicine; Visit Provider Nurse Practitioner Family
DX: R35.0 Frequency of micturition (principal); R39.15 Urgency of urination; R32 Unspecified urinary incontinence
CPT/HCPCS: 76775

== ENCOUNTER 2024-02-08 12:28 | Outpatient (REF) | payer OTHER, SELFPAY ==
--- NOTE | ~2024-02-08 | US_ITS ---
EXAMINATION: US PELVIS LIMITED (BLADDER) CLINICAL INFORMATION: Frequency of micturition. Urgency. Incontinence. COMPARISON: CT abdomen and pelvis 01/15/2022. Renal ultrasound 02/02/2024. TECHNIQUE: Real-time imaging of the bladder. FINDINGS: BLADDER: Well distended and normal. Bilateral ureteral jets are demonstrated. Prevoid bladder volume is 301 mL. Postvoid bladder volume is 8.6 mL. US/US bladder IMPRESSION: Normal appearance of the bladder. Minimal post void residual.
== END 2024-02-08 12:29 | disposition home or self-care (01) ==
LOC: HO.US 12:28
PROVIDERS: PCP Internal Medicine; Visit Provider Nurse Practitioner Family
DX: R35.0 Frequency of micturition (principal); R39.15 Urgency of urination; R32 Unspecified urinary incontinence
CPT/HCPCS: 76857

== ENCOUNTER → 2024-02-12 20:30 | Outpatient (REF) | payer OTHER, SELFPAY | LOC: HO.SL 20:30 | PROVIDERS: PCP Internal Medicine; Visit Provider Nurse Practitioner Family | DX: G47.9 Sleep disorder, unspecified (principal); R06.81 Apnea, not elsewhere classified; R06.83 Snoring; R53.83 Other fatigue | CPT/HCPCS: 95810 ==

== ENCOUNTER → 2024-02-12 21:36 | Outpatient (BNV) | payer OTHER, SELFPAY | PROVIDERS: PCP Internal Medicine; Visit Provider Psychiatry & Neurology Neurology | DX: R06.83 Snoring (principal); G47.61 Periodic limb movement disorder | CPT/HCPCS: 95810 ==

== ENCOUNTER 2024-02-13 13:49 | Outpatient (AMB) | payer OTHER, SELFPAY ==
--- NOTE | 2024-02-13 13:54 | A.OFFVIS_ITS ---
Vital Signs 02/13/24 13:59 Height 5 ft 1 in Weight 179 lb 10.828 oz BMI 33.9 BP 122/88 Blood Pressure Location Rt brachial Position Sitting Pulse 72 Pulse Oximetry (%) 98 Intake Visit Reasons: +RF/Rash Intake Note: Patient last seen 12/19/23 by Catina, presents today for +RF/rash follow up and test results. Allergies morphine [MORPHINE] Allergy (Intermediate, Verified 02/13/24 14:00) RASH HPI Comments Details: Ms. Rome is a 48-yr-old female, returns for review of diagnostic and to discuss treatment options in the context of joint pain and highly positive rheumatoid factor. She continues to describe much the same pain to upper arms, down the front of her thighs and her hands. She has had no new developments since last visit. Initial history 12/19/2023 Ms. Rome is a 48-yr-old female, on referral from neuro, presents for initial evaluation highly positive rheumatoid factor. She has a PMH of bipolar mood disorder, acid reflux, fibromyalgia and migraine headache. She has been seeing neuro because of increased incidence of forgetfulness. She has had a suicide attempt within the last month. The patient reports that she has pain all over her body. She describes excruciating pain to her upper arms, down the front of her thighs, and her hands. About a month ago she also started having red round/oval mildy itchy lesion on her thighs and lower legs. She also notes chronic dry eye, uses eye drops about twice per day and vaginal dryness. She also has a low-grade fever daily. The patient denies sun sensitivity, mouth sores, and inflammatory swelling to her joints. She describes Raynaud's to her fingers and toes. She reports IBS with constipation takes Linzess. She denies blood or mucus in her stool. She denies uveitis, knowledge of plantar fasciitis, but does say that the backs of her heels are always tender. She has had surgery for SI joint fusion (Apr 2023) and still finds it painful such that she needs support to walk and finds it challanging to move around without holding on to items. She takes multiple mood stabilizers and depression medications, duloxetine and Ibuprofen. Per Neuro record: Interval work-up notable for RBC 3.98 L, Hgb 10.7 L, Hct 33.1 L, MCV 83.2, Rheumatoid Factor 176.1, IVANA Screen- negative. EEG: unremarkable. HST- scheduled for 12/26. MRI, brain w/wo- not scheduled. 11/08/23 14:49 WBC 6.5 RBC 3.98 L Hgb 10.7 L Hct 33.1 L MCV 83.2 MCH 26.9 L ESR 23 H Sodium 141 Potassium 3.5 Chloride 109 H Carbon Dioxide 23 Anion Gap 13 BUN 8 L Creatinine 1.14 Estimated GFR 51 Random Glucose 82 Fasting Glucose 84 Estimat Average Glucose 100 Hemoglobin A1c % 5.1 Calcium 9.3 Iron 40 TIBC 268 % Saturation 15 Unsat Iron Binding 228 Direct Bilirubin < 0.2 AST 13 ALT 12 Alkaline Phosphatase 123 H C-React Prot High Sens >10.0 H Albumin 4.1 Lipase 20 Vitamin B12 515 Methylmalonic Acid 247 25-OH Vitamin D Total 48.6 Folate 12.8 Homocysteine 12.1 H TSH 1.63 Rheumatoid Factor 176.1 H IVANA Screen NEGATIVE T.pallidum Ab (EIA) Nonreactive Lyme Screen IgG & IgM <0.90 Hep Bs Antigen Negative Hepatitis C Ab (EIA) Nonreactive HIV 1&2 Ab/P24 Ag 4thGn Nonreactive [facility] History (Updated 02/13/24 @ 14:40 by Zayda Dominique [facility]) Long-term use of immunosuppressant medication Seropositive rheumatoid arthritis Rash and nonspecific skin eruption Pain in joint involving multiple sites Screening examination for infectious disease Hypovitaminosis D Bacterial vaginosis Vitamin D deficiency Migraine Hypertriglyceridemia Bipolar disorder current episode depressed Irritable bowel syndrome (IBS) GERD without esophagitis Recurrent major depression-severe Asthma Opioid use disorder, mild, in early remission Obesity (BMI 30-39.9) Anxiety Opioid dependence Memory impairment Loss of hearing Fibromyalgia Surgical History Hx of excision of mass History of esophagogastroduodenoscopy (EGD) History of tubal ligation History of lumbar fusion History of cholecystectomy Family History Father No problems noted. Mother Skin cancer Maternal Aunt Myocardial infarction Family/Other Lupus Other Mental health problem Substance abuse Social History (Updated 12/19/23 @ 15:22 by ZOE Godinez) Household Members: None Housing: House Are you a primary care professionals to a significant other at home: No Do you presently have visiting nurse or other home services: No Alcohol intake: current Alcohol intake frequency: holidays/special occasions only Patient Tobacco Use Status: Never used Tobacco e-Cigarette/Vaping Use: Never Used Second Hand Smoke Exposure: No service: No Current occupational status: employed and disabled 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 External ear normal. NOSE/SINUS:? Airflow through both nares, no nasal discharge, no bleeding THROAT:? Oral mucosa moist, no ulcerations NECK:? No thyromegaly or masses, no adenopathy, trachea midline. HEART:? Regular rhythm, S1-S2 heard, no murmurs, rubs or gallops. LUNG:? Clear to percussion and auscultation EXTREMITIES:? No edema, no calf tenderness, normal peripheral pulses. NEURO:? Oriented and alert x3.? No focal weakness.? Reflexes symmetric.? Gait normal. SKIN:? Multiple scattered flat hyperpigmented annular lesions to lower extremity, more to the thighs. No objective signs of Raynaud's JOINT EXAM: Cervical Spine:.? Full range of motion without pain; moderate tenderness. Thoracic Spine:.? No scoliosis.? moderate tenderness on palpation. Lumbar Spine:.? Alignment normal.? no range of motion attempted, movement causes pain, moderate tenderness. Chest Wall:.? mild tenderness, swelling, no increased warmth or erythema. Hands:.? Normal pain-free range of motion without tenderness, swelling, increased warmth or erythema. Able to make a full fist and has a good canal driver strength but describes diffused tightness to PIPs in fist form. Wrists:.? Normal pain-free range of motion with mild tenderness, but no swelling, increased warmth or erythema. Elbows:. Normal pain-free range of motion without tenderness, swelling, increased warmth or erythema. Shoulders:.?? Full range of motion with discomfort. Mild tenderness, but no weakness, swelling, increased warmth or erythema. Hips:.? Range of motion not attempted due to SI joint fusion and lower back pain Hip bursa:.? Moderate tenderness. Knees:.?? Normal pain-free range of motion without tenderness, swelling, increased warmth or erythema.? There is no effusion or crepitation Ankles:.? Normal pain-free range of motion without tenderness, swelling, increased warmth or erythema. Feet:.? Normal pain-free range of motion without tenderness, swelling, increased warmth or erythema. Tender points:?Tenderness to digital palpation at the occiput, trapezius, second rib, lateral epicondyle, knees, greater trochanter and gluteal area bilaterally. Results Reviewed Results Reviewed: Laboratory Tests 11/08/23 12/19/23 14:49 16:54 WBC 7.3 RBC 4.12 L Hgb 11.0 L Hct 34.5 L ESR 33 H Uric Acid 5.0 Calcium 9.5 Iron 41 TIBC 311 % Saturation 13 L Unsat Iron Binding 270 Ferritin 51 AST 17 ALT 15 Alkaline Phosphatase 125 H Total Creatine Kinase 106 C-Reactive Protein 2.38 H Total Protein 8.1 H 25-OH Vitamin D Total 40 IgG Total 1175 IgA Total 494 H IgM 187 Rheumatoid Factor 176.1 H Cycl Citrul Peptide IgG <16 SS-A/Ro Antibody <1.0 NEG SS-B/La Antibody <1.0 NEG Assessment & Plan Assessment & Plan (1) Elevated rheumatoid factor: Code(s): R76.8 - Other specified abnormal immunological findings in serum Category: Medical (2) Pain in joint involving multiple sites: Code(s): M25.50 - Pain in unspecified joint Category: Medical (3) Rash and nonspecific skin eruption: Code(s): R21 - Rash and other nonspecific skin eruption Category: Medical (4) Anemia: Code(s): D64.9 - Anemia, unspecified Category: Medical Qualifiers: Anemia type: iron deficiency Iron deficiency anemia type: inadequate dietary iron intake Qualified Code(s): D50.8 - Other iron deficiency anemias (5) Seropositive rheumatoid arthritis: Code(s): M05.9 - Rheumatoid arthritis with rheumatoid factor, unspecified Category: Medical (6) Long-term use of immunosuppressant medication: Code(s): Z79.60 - assistant terminal manager (current) use of unspecified immunomodulators and immunosuppressants Category: Medical Plan #SeroPos RA - Positive rheumatoid factor/joint pain: Ms. Rome presents with multiple joint pains and highly positive rheumatoid factor greater than 170. On initial presentation, she does not have a clinical picture for inflammatory rheumatoid arthritis and her PE does not have synovitis and bradley tenderness to IP joints. But she does describe chronic stiffness to hands. Her rheumatology panel results had elevated IgA, ESR/CRP suggesting acute inflammation. Nonetheless, I think there is enough to start treatment for seropositive rheumatoid arthritis. Therefore I will start her on leflunomide 20 mg q.d. and a course of prednisone in the interim and reassess in 8 weeks for improvement. At a minimum we would hope to see improvement in her hand stiffness and perhaps prednisone can give her an overall decrease in her arthralgias and improvement in ESR CRP. I did discuss with the patient that the leflunomide will take some time to on board so the prednisone can give her immediate relief. I think the SI joint is a big part of her discomfort. She is encouraged to increase her activity level and improved muscle strength for better joint support. #Rash:The rash to her lower extremity is concerning, the patient cannot identify any associated incidents or causes. She describes that they come and go in different areas and very itchy, but not painful. Given her likely seropositive rheumatoid arthritis it is possible that this is an associated autoimmune rash. The lesions do not present as erythema nodosum. They are flat and circular with hyperpigmented appearance. But the patient shares that they are brighter when they 1st come and they hurt and they are restricted to her lower extremities. Upon consult with Dr. Bernal he recommended that this may be fungal and so we will give her a topical fungal treatment to use at this time. She may benefit from Dermatology consult so I recommend that she discuss with primary care to get a referral #AWAIS anemia: Start ferrous sulfate 325 mg q.d. patient will monitor for constipation recommend she takes with vitamin-C to help with absorption #Senior Living Use: we discussed possible side effects with leflunomide and prednisone. Patient will obtain labs 1 week before next visit. We will continue to monitor CBC and CMP while on leflunomide. Patient knows to call the office to report any side effects. Discussed with patient to hold medication in case of fevers, infections, nonhealing wounds and pending surgeries, Return to office in 8 weeks I spent 30 minutes reviewing chart, evaluating patient, educating patient on disease process and treatment options and documenting Orders: Orders Erythrocyte Sedimentation Rate 02/13/24 M05.9 - Rheumatoid arthritis with rheumatoid factor, unspecified, Z79.60 - assistant terminal manager (current) use of unspecified immunomodulators and immunosuppressants Comprehensive Met. Panel 02/13/24 M05.9 - Rheumatoid arthritis with rheumatoid factor, unspecified, Z79.60 - assistant terminal manager (current) use of unspecified immunomodulators and immunosuppressants C Reactive Protein 02/13/24 M05.9 - Rheumatoid arthritis with rheumatoid factor, unspecified, Z79.60 - assistant terminal manager (current) use of unspecified immunomodulators and immunosuppressants Complete Blood Count Auto Diff 02/13/24 M05.9 - Rheumatoid arthritis with rheumatoid factor, unspecified, Z79.60 - penitentiary (current) use of unspecified immunomodulators and immunosuppressants Medications: New leflunomide take one tablet per day for 2 weeks then 2 tablets per day 60 tabs 0RF R21 - Rash and other nonspecific skin eruption, M25.50 - Pain in unspecified joint, M05.9 - Rheumatoid arthritis with rheumatoid factor, unspecified ferrous sulfate 325 mg PO DAILY 90 tabs 1RF D64.9 - Anemia, unspecified clotrimazole-betamethasone 1-0.05 % 1 appl topical BID 45 grams 0RF R21 - Rash and other nonspecific skin eruption prednisone 3 tablets per day for 7 days 2 tablets per day for 7 days 1 tablet per day for 7 days 45 tabs 0RF Discontinued linaclotide Discontinued Reason: Doctor's Order 145 mcg PO DAILY 30 caps 2RF Coding Level of Care Code Est Pt Level 4 (82417) Complex EM visit Add On G2211 Diagnoses Elevated rheumatoid factor R76.8 Pain in joint involving multiple sites M25.50 Rash and nonspecific skin eruption R21 Iron deficiency anemia secondary to inadequate dietary iron intake D50.8 Anemia type: iron deficiency Iron deficiency anemia type: inadequate dietary iron intake Seropositive rheumatoid arthritis M05.9 Long-term use of immunosuppressant medication Z79.60
[2024-02-13 13:59] VITALS: BP 122/88; PULSE 72; O2SAT 98; BMI 33.9
== END 2024-02-13 14:40 | disposition home or self-care (01) ==
LOC: HO.RHE 13:49
PROVIDERS: PCP Internal Medicine; Visit Provider Nurse Practitioner Family
DX: M05.79 Rheumatoid arthritis with rheumatoid factor of multiple sites without organ or systems involvement (principal); R76.8 Other specified abnormal immunological findings in serum; M25.50 Pain in unspecified joint; R21 Rash and other nonspecific skin eruption; D50.8 Other iron deficiency anemias; Z79.60 Long term (current) use of unspecified immunomodulators and immunosuppressants
CPT/HCPCS: 99214; G2211

== ENCOUNTER → 2024-02-13 13:49 | Outpatient (BNVA) | payer OTHER, SELFPAY | PROVIDERS: PCP Internal Medicine; Visit Provider Nurse Practitioner Family | DX: R76.8 Other specified abnormal immunological findings in serum (principal); M25.50 Pain in unspecified joint; R21 Rash and other nonspecific skin eruption; D50.8 Other iron deficiency anemias; M05.9 Rheumatoid arthritis with rheumatoid factor, unspecified; Z79.60 Long term (current) use of unspecified immunomodulators and immunosuppressants | CPT/HCPCS: 99212 ==

== ENCOUNTER 2024-04-09 15:37 | Outpatient (AMB) | payer OTHER, SELFPAY ==
--- NOTE | 2024-04-09 15:48 | MHC.OFFVIS ---
Vital Signs 04/09/24 15:54 Height 5 ft 1 in Weight 170 lb 13.732 oz BMI 32.3 BP 120/74 Blood Pressure Location Lt brachial Position Sitting Pulse 80 Pulse Source Pulse Oximeter Pulse Oximetry (%) 98 Oxygen Delivery Method Room Air Intake Visit Reasons: RA/ Intake Note: Patient presents for RA. Allergies morphine [MORPHINE] Allergy (Intermediate, Verified 04/09/24 15:53) RASH Medication List - Last Reconciled 04/09/24 by Piyush Bernal MD albuterol sulfate 90 mcg/actuation (Ventolin HFA) 1 puff inhalation ONCE PRN bisacodyl (Dulcolax (bisacodyl)) 20 mg (4 x 5 mg) PO ONCE 1 day buspirone 20 mg PO TID cetirizine 10 mg PO DAILY PRN 90 days cholecalciferol (vitamin D3) 50 mcg PO DAILY clonidine HCl 0.05 - 0.1 mg (0.5 - 1 x 0.1 mg) PO BID PRN clotrimazole-betamethasone 1-0.05 % 1 appl topical BID [DETACHABLE SHOWER HEAD As directed] dexmethylphenidate ER 20 mg PO DAILY duloxetine 60 mg PO DAILY esomeprazole magnesium (Nexium) 40 mg PO DAILY famotidine 40 mg PO BEDTIME ferrous sulfate 325 mg PO DAILY galcanezumab-gnlm (Emgality Pen) 120 mg subcut ONCE 30 days hydrocortisone 2.5% 1 appl VA Q8-12H ibuprofen 800 mg PO Q8H PRN 30 days MDD 2 tabs lamotrigine 200 mg PO BID leflunomide 20 mg PO DAILY linaclotide (Linzess) 290 mcg PO QAM magnesium oxide 400 mg PO BEDTIME 30 days mesalamine ER (Apriso) 1.5 grams (4 x 0.375 gram) PO QAM mirabegron ER (Myrbetriq) 25 mg PO DAILY 30 days ondansetron 4 mg PO Q6H PRN 14 days polyethylene glycol 3350 (Miralax) 238 grams PO ONCE prazosin 2 mg PO DAILY prednisone 5 mg PO DAILY riboflavin (vitamin B2) 400 mg PO DAILY 90 days [SHOWER BENCH As directed] sumatriptan succinate 50 - 100 mg orally at onset of headache, may repeat in 2 hrs PRN; max 2 tabs per day or 4 tabs/week (may take with Ibuprofen) 30 days [TOILET SEAT with GRAB BAR As directed] topiramate 100 mg PO DAILY zolpidem 10 mg PO BEDTIME PRN HPI Comments Details: This is a 49-year-old female with recently diagnosed seropositive RA by Zayda Husain who returns for follow-up. She has been taking prednisone taper as prescribed as well as leflunomide 20 mg daily. She can not think of any side effects related to medicines. She feels that she feels somewhat improved but she continues to have diffuse pain everywhere. Even her nails hurt [facility] Medical History (Updated 04/09/24 @ 16:36 by Piyush Bernal MD) Rash and nonspecific skin eruption Pain in joint involving multiple sites Screening examination for infectious disease Hypovitaminosis D Bacterial vaginosis Vitamin D deficiency Migraine Hypertriglyceridemia Bipolar disorder current episode depressed Irritable bowel syndrome (IBS) GERD without esophagitis Recurrent major depression-severe Asthma Opioid use disorder, mild, in early remission Obesity (BMI 30-39.9) Anxiety Opioid dependence Memory impairment Loss of hearing Fibromyalgia Surgical History Hx of excision of mass History of esophagogastroduodenoscopy (EGD) History of tubal ligation History of lumbar fusion History of cholecystectomy Family History Father No problems noted. 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 Sexual orientation: Straight/Heterosexual Cognitive needs: No Hearing needs: No Vision needs: No Female Reproductive History Menstrual Age of Menarche: 10 Review of Systems Musc Reports back pain, Reports myalgias, Reports arthralgias, Reports numbness, Reports stiffness and Reports tingling Neuro Reports numbness and Reports tingling Physical Exam Vital Signs: Last Vital Signs Pulse 80 04/09/24 15:54 BP 120/74 04/09/24 15:54 Pulse Ox 98 04/09/24 15:54 Oxygen Delivery Method Room Air 04/09/24 15:54 BMI result Body Mass Index 32.3 Const General: cooperative and healthy appearing Nutritional Appearance: obese Orientation/consciousness: patient oriented x3 Limitations: no limitations HEENT Head: Yes normocephalic and Yes atraumatic Mouth: moist mucous membranes Resp Effort & Inspection: normal respiratory effort and able to speak in complete sentences Auscultation: clear to auscultation bilaterally Cardio Rate: regular rate Skin General skin exam: no rashes or lesions noted Neuro General: patient oriented x3 Extrem Other: No swollen joints appreciated Diffusely tender joints and diffuse fibromyalgia tender points Normal nailfold capillaroscopy Assessment & Plan Assessment & Plan (1) Pain in joint involving multiple sites: Code(s): M25.50 - Pain in unspecified joint Category: Medical Plan: This is a 49-year-old female with recently diagnosed seropositive rheumatoid arthritis by Zayda Husain returns for follow-up. She has been taking prednisone taper and has also been on leflunomide 20 mg daily. She does not note much improvement. On exam I do not see any swollen joints. There was also no swollen joints on exam by Zayda Husain before treatment was started. She has diffuse fibromyalgia tender points on exam. Advised patient to stop treatment at this time. Until diagnosis is confirmed. Repeat inflammatory markers. Check further serologies Re-evaluate in 2 months Plan I spent 22 minutes reviewing patient's chart, evaluating patient, ordering diagnostic workup, counseling patient and documenting in the chart Orders: Orders Complement C3 Today M32.9 - Systemic lupus erythematosus, unspecified Complement C4 Today M32.9 - Systemic lupus erythematosus, unspecified C Reactive Protein Today M32.9 - Systemic lupus erythematosus, unspecified Erythrocyte Sedimentation Rate Today M32.9 - Systemic lupus erythematosus, unspecified UA w Microscopic Today M32.9 - Systemic lupus erythematosus, unspecified Anti Extractable Nuclear Ag Today M32.9 - Systemic lupus erythematosus, unspecified Anti DNA DS Antibody Today M32.9 - Systemic lupus erythematosus, unspecified DNA Double Stranded-Crithidia Today M32.9 - Systemic lupus erythematosus, unspecified Protein Creatinine Ratio, Ur Today M32.9 - Systemic lupus erythematosus, unspecified Complete Blood Count Auto Diff Today M32.9 - Systemic lupus erythematosus, unspecified Comprehensive Met. Panel Today M32.9 - Systemic lupus erythematosus, unspecified Cryoglobulin Today D89.1 - Cryoglobulinemia Medications: Discontinued prednisone Discontinued Reason: Doctor's Order 5 mg PO DAILY 30 tabs 0RF leflunomide Discontinued Reason: Doctor's Order 20 mg PO DAILY 90 tabs 0RF Coding Level of Care Code Est Pt Level 4 (25705) Diagnoses Pain in joint involving multiple sites M25.50
[2024-04-09 15:54] VITALS: BP 120/74; PULSE 80; O2SAT 98; BMI 32.3
== END 2024-04-09 16:17 | disposition home or self-care (01) ==
PROVIDERS: PCP Internal Medicine; Visit Provider Student in an Organized Health Care Education/Training Program
DX: M25.50 Pain in unspecified joint (principal)
CPT/HCPCS: 99214

== ENCOUNTER → 2024-04-09 15:37 | Outpatient (BNVA) | payer OTHER, SELFPAY | PROVIDERS: PCP Internal Medicine; Visit Provider Student in an Organized Health Care Education/Training Program | DX: M25.50 Pain in unspecified joint (principal) | CPT/HCPCS: 99212 ==

== ENCOUNTER 2024-05-20 15:49 | Outpatient (REF) | payer OTHER, SELFPAY ==
[2024-05-20 16:31] LABS: MANUAL DIFF FLAG NO
[2024-05-20 17:21] LABS: Basophils Absolute Auto 0.1 X10*3/uL (0.0-0.2); Basophils Percent Auto 1.1 % (0-2); Eosinophils Absolute Auto 0.4 X10*3/uL (0.0-0.4); Eosinophils Percent Auto 4.2 % (0-4); Hematocrit 32.5 % (37.0-47.0); Hemoglobin 10.2 g/dl (12.0-16.0); Imm Gran Abs Auto 0.06 X10*3/uL (0.00-0.03); Imm Gran Pct Auto 0.7 % (0.0-0.4); Lymphocytes Absolute Auto 1.3 X10*3/uL (1.2-4.9); Lymphocytes Percent Auto 14.3 % (20-40); Mean Corpuscular HGB Conc 31.4 g/dl (31.0-35.0); Mean Corpuscular Hemoglobin 26.8 pg (27.0-33.0); Mean Corpuscular Volume 85.5 fL (80.0-98.0); Mean Platelet Volume 10.5 fL (9.4-12.3); Monocytes Absolute Auto 0.4 X10*3/uL (0.1-1.2); Monocytes Percent Auto 4.8 % (2-11); Neutrophils Absolute Auto 6.7 x10*3/uL (2.0-8.3); Neutrophils Percent Auto 74.9 % (45-73); Platelet Count 317 X10*3/uL (160-400); Red Cell Distribution Width 14.5 % (11.0-16.0)
[2024-05-20 17:35] LABS: Appearance Urine Clear; Color Urine Dark Yellow; Glucose Urine UA Negative (Negative); Leukocyte Esterase Urine Moderate (2+) (Negative); Nitrite Urine Negative (Negative); UMIC TRIGGER UA YES; Urine Blood Negative (Negative); Urine Ketones Negative (Negative); Urine Protein Negative (Neg-Trace)
[2024-05-20 17:40] LABS: Bacteria Urine 2+ (None Seen); Hyaline Casts Urine 0-2 /LPF (0-2); RBC Urine 0-2 /HPF (0-2)
[2024-05-20 18:06] LABS: Erythrocyte Sedimentation Rate 27 MM/HR (0-20)
[2024-05-20 18:14] LABS: Creatinine Urine 142.83 mg/dL; Protein/Creatinine Ratio, Ur 0.08 (<0.2); Total Protein Urine Random 12 mg/dL (<12)
[2024-05-20 18:23] LABS: Alanine Aminotransferase 20 U/L (0-31); Albumin Level 4.3 g/dL (3.5-5.0); Alkaline Phosphatase 143 U/L (39-117); Anion Gap 14 (12-20); Aspartate Amino Transferase 21 U/L (5-31); Bilirubin Total 0.2 mg/dL (0.0-1.0); Blood Urea Nitrogen 16 mg/dL (9-16); C Reactive Protein 0.77 mg/dL (< or = 0.50); Calcium 9.7 mg/dL (8.4-10.2); Carbon Dioxide 23 mmol/L (22-29); Chloride 111 mmol/L (96-108); Estimated Glomerular Filt Rate 59; Glucose Random 98 mg/dL (60-115); Potassium 3.9 mmol/L (3.3-5.1); Sodium 144 mmol/L (135-145); Total Protein 7.7 g/dL (6.5-8.0)
[2024-05-21 19:39] LABS: Anti DNA DS Antibody 1 IU/mL; SM/Ribonucleoprotein Ab <1.0 NEG AI (<1.0 NEG); Smith Protein <1.0 NEG AI (<1.0 NEG)
[2024-05-21 21:44] LABS: Complement C3 149 mg/dL (83-193)
[2024-05-23 04:39] LABS: HLA B27 Negative (Negative)
[2024-05-24 06:34] LABS: DNAds, Crithidia Antibody Positive (Negative)
[2024-05-24 07:04] LABS: DNAds, Crithidia Antibody 1:10 titer (<1:10)
[2024-05-26 21:24] LABS: Cryoglobulin, Qual Negative (Negative)
== END 2024-05-20 15:50 | disposition home or self-care (01) ==
LOC: HO.LAB 15:49
PROVIDERS: PCP Internal Medicine; Visit Provider Student in an Organized Health Care Education/Training Program
DX: M32.9 Systemic lupus erythematosus, unspecified (principal); Z79.60 Long term (current) use of unspecified immunomodulators and immunosuppressants; D89.1 Cryoglobulinemia; M45.9 Ankylosing spondylitis of unspecified sites in spine
CPT/HCPCS: 36415; 80053; 81001; 82570; 82595; 84156; 85025; 85652; 86140; 86160; 86225; 86235; 86255; 86812

== ENCOUNTER 2024-05-31 13:56 | Outpatient (AMB) | payer OTHER, SELFPAY ==
[2024-05-31 14:23] VITALS: BP 122/80; PULSE 82; O2SAT 96; BMI 32.1
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
== END 2024-05-31 15:52 | disposition home or self-care (01) ==
PROVIDERS: PCP Internal Medicine; Visit Provider Internal Medicine
DX: M79.7 Fibromyalgia (principal); F31.30 Bipolar disorder, current episode depressed, mild or moderate severity, unspecified; E66.9 Obesity, unspecified; Z68.32 Body mass index [BMI] 32.0-32.9, adult; M47.27 Other spondylosis with radiculopathy, lumbosacral region; E78.1 Pure hyperglyceridemia; G43.909 Migraine, unspecified, not intractable, without status migrainosus; R41.3 Other amnesia; J45.20 Mild intermittent asthma, uncomplicated; K21.9 Gastro-esophageal reflux disease without esophagitis; K58.1 Irritable bowel syndrome with constipation; E55.9 Vitamin D deficiency, unspecified

== ENCOUNTER → 2024-05-31 13:56 | Outpatient (BNVA) | payer OTHER, SELFPAY | PROVIDERS: PCP Internal Medicine; Visit Provider Internal Medicine | DX: M79.7 Fibromyalgia (principal); M47.27 Other spondylosis with radiculopathy, lumbosacral region; E78.1 Pure hyperglyceridemia; G43.909 Migraine, unspecified, not intractable, without status migrainosus; R41.3 Other amnesia; J45.20 Mild intermittent asthma, uncomplicated; K21.9 Gastro-esophageal reflux disease without esophagitis; K58.1 Irritable bowel syndrome with constipation; E55.9 Vitamin D deficiency, unspecified; G47.00 Insomnia, unspecified; F41.9 Anxiety disorder, unspecified; F31.30 Bipolar disorder, current episode depressed, mild or moderate severity, unspecified; E66.9 Obesity, unspecified; Z79.899 Other long term (current) drug therapy | CPT/HCPCS: 99212 ==

== ENCOUNTER 2024-06-27 14:33 | Outpatient (AMB) | payer OTHER, SELFPAY ==
[2024-06-27 14:37] VITALS: BP 118/72; PULSE 114; O2SAT 98; BMI 30.8
--- NOTE | 2024-06-27 14:37 | MHC.OFFVIS ---
Vital Signs 06/27/24 14:37 Height 5 ft 1 in Weight 163 lb BMI 30.8 BP 118/72 Blood Pressure Location Lt brachial Position Sitting Pulse 114 H Pulse Source Pulse Oximeter Pulse Oximetry (%) 98 Oxygen Delivery Method Room Air Intake Visit Reasons: RA /LVM Intake Note: Patient is here for RA follow up and lab review. Allergies morphine [MORPHINE] Allergy (Intermediate, Verified 06/27/24 14:41) RASH Medication List - Last Reconciled 06/27/24 by Ivanna Patel MD albuterol sulfate 90 mcg/actuation (Ventolin HFA) 2 puffs inhalation Q6-8H PRN bisacodyl (Dulcolax (bisacodyl)) 20 mg (4 x 5 mg) PO ONCE 1 day buspirone 20 mg PO TID cetirizine 10 mg PO DAILY PRN 90 days cholecalciferol (vitamin D3) 50 mcg PO DAILY clonidine HCl 0.05 - 0.1 mg (0.5 - 1 x 0.1 mg) PO BID PRN clotrimazole-betamethasone 1-0.05 % 1 appl topical BID [DETACHABLE SHOWER HEAD As directed] dexmethylphenidate ER 20 mg PO DAILY duloxetine 60 mg PO DAILY esomeprazole magnesium (Nexium) 40 mg PO DAILY famotidine 40 mg PO BEDTIME ferrous sulfate 325 mg PO DAILY galcanezumab-gnlm (Emgality Pen) 120 mg subcut ONCE 30 days hydrocortisone 2.5% 1 appl [place] Q8-12H ibuprofen 800 mg PO Q8H PRN 30 days MDD 2 tabs lamotrigine 200 mg PO BID linaclotide (Linzess) 290 mcg PO QAM magnesium oxide 400 mg PO BEDTIME 30 days mesalamine ER (Apriso) 1.5 grams (4 x 0.375 gram) PO QAM mirabegron ER (Myrbetriq) 25 mg PO DAILY 30 days ondansetron 4 mg PO Q6H PRN 14 days polyethylene glycol 3350 (Miralax) 238 grams PO ONCE prazosin 2 mg PO DAILY riboflavin (vitamin B2) 400 mg PO DAILY 90 days [SHOWER BENCH As directed] sumatriptan succinate 50 - 100 mg orally at onset of headache, may repeat in 2 hrs PRN; max 2 tabs per day or 4 tabs/week (may take with Ibuprofen) 30 days [TOILET SEAT with GRAB BAR As directed] topiramate 100 mg PO DAILY zolpidem 10 mg PO BEDTIME PRN HPI Comments Details: Patient is a 49-year-old female with depression and anxiety, overactive bladder, back pain status post multiple back surgeries presents for evaluation of joint pain in the setting of positive RF. Interval History: Patient last seen 04/09/[address] Bernal. At that time she noted to not have any evidence of synovitis in the was question of a diagnosis of inflammatory arthritis. Leflunomide was stopped. Today patient is frustrated because the lack of diagnosis of her symptoms. Her symptoms include multiple joints being affected including her wrists her elbows her shoulders her knees and her feet. She has a longstanding history of back problems. She reports morning stiffness lasting for about 20 minutes. Denies Raynaud's. Has overwhelming fatigue states that she feels like she can not even do this small less than activity without feeling drained. Denies photosensitivity or rashes. Has hair thinning but no alopecia. She does have a diagnosis of fibromyalgia but she thinks this is more than the fibromyalgia Rheumatologic History: Patient was 1st seen 12/19/2023 after referral for a elevated rheumatoid factor in the setting of polyarthralgias. Her other autoimmune markers were negative but her ESR and CRP were elevated. She was trialed on leflunomide and prednisone however there was a delay in follow-up since her provider had left the practice. At her follow-up she was discontinued off of leflunomide 04/09/2024 Current Rheumatology Medication([facility]): [facility] Medical History Rash and nonspecific skin eruption Pain in joint involving multiple sites Screening examination for infectious disease Hypovitaminosis D Bacterial vaginosis Vitamin D deficiency Migraine Hypertriglyceridemia Bipolar disorder current episode depressed Irritable bowel syndrome (IBS) GERD without esophagitis Recurrent major depression-severe Asthma Opioid use disorder, mild, in early remission Obesity (BMI 30-39.9) Anxiety Opioid dependence Memory impairment Loss of hearing Fibromyalgia Surgical History Hx of excision of mass History of esophagogastroduodenoscopy (EGD) History of tubal ligation History of lumbar fusion History of cholecystectomy Family History Father No problems noted. 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 Sexual orientation: Straight/Heterosexual Cognitive needs: No Hearing needs: No Vision needs: No Female Reproductive History Menstrual Age of Menarche: 10 Review of Systems Const Details: Review of Systems Constitutional: Denies fever, chills, weight loss ENT: Denies vision changes, eye pain or eye redness, dental caries, dry mouth GI: Denies nausea, vomiting, diarrhea, abdominal pain, change in BM Pulm: Denies SOB, ROCHA, hemoptysis, wheezing Cards: Denies chest pain, palpitations Skin: Denies Raynaud's, rash, nail changes, photosensitivity, [employer] 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 ?Gait normal. Constitutional Mucous membranes pink and moist patient alert and cooperative HEENT Conjunctiva and sclera clear. ?Pupils equal round and reactive to light. ?No lymphadenopathy. ?Normal dentition. Respiratory System Normal respiratory effort and able to speak in complete sentences. ?Clear to auscultation bilaterally. ?No crackles, rales, rhonchi, wheezes heard. Cardiac System Regular rate and rhythm. ?S1 and S2 heard no murmurs. ?Radial pulses intact bilaterally MSK No evidence of synovitis. ?Able to move all joints with full range of motion, without limitation. Hands:. Right 2nd and 3rd digits in splint. Able to make a fist with the left hand. No tenderness to palpation of the MCPs or PIPs DIPs. Mild swelling to the 3rd and 4th digits but this is localized in the inter joint region. Wrists: Normal pain-free range of motion without tenderness, swelling, increased warmth or erythema. Elbows: Full range of motion without pain. No tenderness, weakness, swelling, increased warmth or erythema. Shoulders: Full range of motion without pain. No tenderness, weakness, swelling, increased warmth or erythema. Hips: Full range of motion without pain. Hip bursa:.??No tenderness. Knees:.???Normal pain-free range of motion without tenderness, swelling, increased warmth or erythema.??There is no effusion or crepitation. tenderness to right lateral, area of fibia head Ankles:.??Normal pain-free range of motion without tenderness, swelling, increased warmth or erythema. Feet:.??Normal pain-free range of motion without tenderness, swelling, increased warmth or erythema. Tender points:??Tenderness to digital palpation at the occiput, trapezius, second rib, lateral epicondyle, knees, greater trochanter bilaterally Results Reviewed Results Reviewed: Laboratory Tests 12/19/23 05/20/24 16:54 16:30 WBC 7.3 9.0 RBC 4.12 L 3.80 L Hgb 11.0 L 10.2 L Hct 34.5 L 32.5 L Plt Count 322 317 ESR 33 H 27 H Sodium 143 144 Potassium 4.0 3.9 Chloride 111 H 111 H Carbon Dioxide 25 23 BUN 9 16 Creatinine 1.13 1.00 Alkaline Phosphatase 125 H 143 H C-Reactive Protein 2.38 H 0.77 H Total Protein 8.1 H 7.7 25-OH Vitamin D Total 40 Assessment & Plan Assessment & Plan (1) Fibromyalgia: Code(s): M79.7 - Fibromyalgia Category: Medical Plan: #Fibromyalgia Patient with fibromyalgia. Currently on duloxetine. We will continue the same. She expresses concern for an underlying autoimmune disease especially in the setting of elevated rheumatoid factor and elevated ESR and CRP. We will give her a trial of steroids and see again in 4-6 weeks to evaluate effectiveness. (2) Pain in joint involving multiple sites: Code(s): M25.50 - Pain in unspecified joint Category: Medical Plan I spent 60 minutes reviewing the record and labs, seeing the patient, discussing the treatment plan to patient and sister, and documenting in the medical record Orders: Orders XR elbow LT min 3V Today M25.50 - Pain in unspecified joint, M79.7 - Fibromyalgia XR knee RT 3V Today M25.50 - Pain in unspecified joint, M79.7 - Fibromyalgia XR hand wrist RT Today M25.50 - Pain in unspecified joint, M79.7 - Fibromyalgia XR hand wrist LT Today M25.50 - Pain in unspecified joint, M79.7 - Fibromyalgia XR elbow RT min 3V Today M25.50 - Pain in unspecified joint, M79.7 - Fibromyalgia XR knee LT 3V Today M25.50 - Pain in unspecified joint, M79.7 - Fibromyalgia Medications: New methylprednisolone (Medrol) Take 3 tablets for 2 weeks then 2 tablets for 2 weeks then 1 tablet for 2 weeks then stop 4 mg PO DAILY 90 tabs 0RF M25.50 - Pain in unspecified joint, M79.7 - Fibromyalgia Coding Level of Care Code Est Pt Level 5 (67226) Diagnoses Fibromyalgia M79.7 Pain in joint involving multiple sites M25.50
== END 2024-06-27 15:36 | disposition home or self-care (01) ==
PROVIDERS: PCP Internal Medicine; Visit Provider Student in an Organized Health Care Education/Training Program
DX: M79.7 Fibromyalgia (principal); M25.50 Pain in unspecified joint
CPT/HCPCS: 99215

== ENCOUNTER → 2024-06-27 14:33 | Outpatient (BNVA) | payer OTHER, SELFPAY | PROVIDERS: PCP Internal Medicine; Visit Provider Student in an Organized Health Care Education/Training Program | DX: M79.7 Fibromyalgia (principal); M25.50 Pain in unspecified joint | CPT/HCPCS: 99212 ==

== ENCOUNTER 2024-07-05 10:36 | Outpatient (AMB) | payer OTHER, SELFPAY ==
[2024-07-05 10:36] VITALS: BP 118/76; PULSE 88; O2SAT 98; BMI 31.8
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
== END 2024-07-05 11:36 | disposition home or self-care (01) ==
LOC: HO.HSMS 10:36
PROVIDERS: PCP Internal Medicine; Visit Provider Nurse Practitioner Family
DX: R41.3 Other amnesia (principal); F90.9 Attention-deficit hyperactivity disorder, unspecified type; G43.709 Chronic migraine without aura, not intractable, without status migrainosus; D50.8 Other iron deficiency anemias; R76.8 Other specified abnormal immunological findings in serum; R41.89 Other symptoms and signs involving cognitive functions and awareness; G47.10 Hypersomnia, unspecified
CPT/HCPCS: 99214

== ENCOUNTER → 2024-07-05 10:36 | Outpatient (BNVA) | payer OTHER, SELFPAY | PROVIDERS: PCP Internal Medicine; Visit Provider Nurse Practitioner Family | DX: G43.709 Chronic migraine without aura, not intractable, without status migrainosus (principal); D50.8 Other iron deficiency anemias; R76.8 Other specified abnormal immunological findings in serum; F09 Unspecified mental disorder due to known physiological condition; G47.10 Hypersomnia, unspecified; F90.9 Attention-deficit hyperactivity disorder, unspecified type; R41.3 Other amnesia | CPT/HCPCS: 99212 ==

== ENCOUNTER 2024-09-19 15:38 | Outpatient (REF) | payer OTHER, SELFPAY ==
--- NOTE | ~2024-09-19 | XR_ITS ---
CLINICAL HISTORY: M25.50 - Pain in unspecified joint 4 view left hand Comparison: None Findings: No fractures or dislocations. No significant arthritic change. No erosions. No radiopaque foreign body. IMPRESSION: 1. No acute findings This document has been electronically signed by: David Moore MD on 09/21/2024 07:20:28
--- NOTE | ~2024-09-19 | XR_ITS ---
CLINICAL HISTORY: M25.50 - Pain in unspecified joint 4 view right hand and wrist Comparison: None Findings: No acute fractures. No dislocations. There are surgical material crossing a minimally healing index finger proximal phalangeal fracture. No significant loss of joint space or osteophytes. No erosions. No other radiopaque foreign body. IMPRESSION: 1. No acute findings This document has been electronically signed by: David Moore MD on 09/21/2024 07:22:18
--- NOTE | ~2024-09-19 | XR_ITS ---
CLINICAL HISTORY: M25.50 - Pain in unspecified joint 3 view left elbow Comparison: None Findings: No acute fractures. Normal alignment. No significant loss of joint space, osteophytes, or erosions. No joint effusion. No radiopaque foreign body. IMPRESSION: 1. No acute findings This document has been electronically signed by: David Moore MD on 09/21/2024 07:19:50
--- NOTE | ~2024-09-19 | XR_ITS ---
CLINICAL HISTORY: M25.50 - Pain in unspecified joint 3 view right knee Comparison: None Findings: Bones intact. No dislocations. No significant arthritic change or erosions. No joint effusion. No radiopaque foreign body. IMPRESSION: 1. No acute findings. This document has been electronically signed by: David Moore MD on 09/21/2024 07:17:59
--- NOTE | ~2024-09-19 | XR_ITS ---
CLINICAL HISTORY: M25.50 - Pain in unspecified joint 3 view right elbow Comparison: None Findings: No acute fractures. Normal alignment. No significant arthritic change or erosions. No joint effusion. No radiopaque foreign body. IMPRESSION: 1. No acute findings This document has been electronically signed by: David Moore MD on 09/21/2024 07:15:42
--- NOTE | ~2024-09-19 | XR_ITS ---
CLINICAL HISTORY: M25.50 - Pain in unspecified joint 3 view left knee Comparison: None Findings: Bones intact. No dislocations. No significant arthritic change or erosions. No joint effusion. No radiopaque foreign body. IMPRESSION: 1. No acute findings. This document has been electronically signed by: David Moore MD on 09/21/2024 07:15:14
== END 2024-09-19 15:39 | disposition home or self-care (01) ==
LOC: HO.XRAY 15:38
PROVIDERS: PCP Internal Medicine; Visit Provider Student in an Organized Health Care Education/Training Program
DX: M25.50 Pain in unspecified joint (principal); M79.7 Fibromyalgia
CPT/HCPCS: 73080; 73110; 73130; 73562

== ENCOUNTER → 2024-09-19 15:43 | Outpatient (BNV) | payer OTHER, SELFPAY | PROVIDERS: PCP Internal Medicine; Visit Provider Specialist | DX: M25.561 Pain in right knee (principal); M25.562 Pain in left knee; M25.521 Pain in right elbow; M25.522 Pain in left elbow | CPT/HCPCS: 73080; 73562 ==

== ENCOUNTER 2024-10-21 12:12 | Outpatient (AMB) | payer OTHER, SELFPAY ==
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
[2024-10-21 12:25] VITALS: BP 100/58; PULSE 94; O2SAT 97; BMI 32.2
== END 2024-10-21 14:46 | disposition home or self-care (01) ==
PROVIDERS: PCP Internal Medicine; Visit Provider Nurse Practitioner Family
DX: K58.2 Mixed irritable bowel syndrome (principal); K21.9 Gastro-esophageal reflux disease without esophagitis; Z12.11 Encounter for screening for malignant neoplasm of colon
CPT/HCPCS: 99214; G2211

== ENCOUNTER → 2024-10-21 12:12 | Outpatient (BNVA) | payer OTHER, SELFPAY | PROVIDERS: PCP Internal Medicine; Visit Provider Nurse Practitioner Family | DX: Z01.818 Encounter for other preprocedural examination (principal); K58.1 Irritable bowel syndrome with constipation; K59.04 Chronic idiopathic constipation; K21.9 Gastro-esophageal reflux disease without esophagitis; R13.10 Dysphagia, unspecified; K52.9 Noninfective gastroenteritis and colitis, unspecified; R15.9 Full incontinence of feces | CPT/HCPCS: 99212 ==

== ENCOUNTER 2024-10-31 10:32 | Day surgery (SDC) | payer OTHER, SELFPAY ==
[2024-10-31 11:10] VITALS: BMI 30.7
[2024-10-31 11:18] VITALS: BP 107/73; PULSE 68; RESP 16; TEMP 36.2; O2SAT 99
[2024-10-31] MEDS: Lactated Ringers 1,000 ML 100 ML IVCONT (11:20)
--- NOTE | 2024-10-31 12:17 | P.HPSUR_ITS ---
Pre-Procedural Eval Section A - 24 Hr Update-Section A only Date of Service: 10/31/24 Section B - Complete if H&P > 30 days Chief Complaint: abn bowel habits and dysphagia Relevant Family History (Specify if Yes): No Relevant Social History: None Present Medications: see Short Stay Collaborative assessment Medical History: Significant History ( Rash and nonspecific skin eruption Pain in joint involving multiple sites Screening examination for infectious disease Hypovitaminosis D Bacterial vaginosis Vitamin D deficiency Migraine Hypertriglyceridemia Bipolar disorder current episode depressed Irritable bowel syndrome (IBS) GERD without esop) History of Previous Operations: Relevant previous surgery/procedure and date(s) (Hx of excision of mass History of esophagogastroduodenoscopy (EGD) History of tubal ligation History of lumbar fusion History of cholecystectomy) Allergies: Allergies Allergy/AdvReac Type Severity Reaction Status Date / Time morphine [MORPHINE] Allergy Intermediate RASH Verified 10/31/24 11:27 Review of Systems Sugical H&P ROS: Negative: Constitution, Cardiovascular, Respiratory, Neurological, Psychiatric, Hem-Onc, Allergic/Immunologic, Gastrointestinal, Genitourinary, Musculoskeletal, Integumentary, Endocrine and Eyes/Ears/ Nose/Throat Exam Surgical H&P Exam: Normal: HEENT, Normal: Heart, Normal: Lungs, Normal: Extremities, Normal: Abdomen, Normal: Skin and Normal: Neurological Plan Diagnosis/Plan: Unchanged I have reviewed the history and physical and performed a pertinent physical examination on my patient. No changes have occurred unless specified. Time Spent With Patient Time: Total time managing care of this patient today ____ minutes.
--- NOTE | 2024-10-31 12:18 | HO.ANESPROP2 ---
HPI - Anesthesia Eval Consult details Narrative: foe EGD and colonoscopy PMFSH Active Problems Active Problems: All Active Problems ADHD (Acute) Rash and nonspecific skin eruption (Acute) Pain in joint involving multiple sites (Acute) Screening examination for infectious disease (Acute) Hypovitaminosis D (Acute) Hypersomnia (Acute) Anemia (Acute) Incontinence in female (Acute) Urinary urgency (Acute) Elevated rheumatoid factor (Acute) Chronic migraine without aura (Acute) Urinary retention with incomplete bladder emptying (Acute) Bacterial vaginosis (Acute) Encounter for screening examination for sexually transmitted disease (Acute) Witnessed apneic spells (Acute) Snoring (Acute) Sleep difficulties (Acute) Tremor (Acute) Paresthesias (Acute) Dysarthria (Acute) Worsening headaches (Acute) Fatigue (Acute) Cognitive dysfunction (Acute) Insomnia (Acute) Vitamin D deficiency (Acute) Migraine (Acute) Arthralgia (Acute) Impaired fasting glucose (Acute) Status post fusion of sacroiliac joint (Acute) Migraine aura occurring with and without headache (Acute) Cystitis (Acute) Exposure to sexually transmitted disease (STD) (Acute) Dysuria (Acute) Amenorrhea, secondary (Acute) Increased urinary frequency (Acute) Lumbar spondylosis with myelopathy (Acute) Spondylosis of lumbosacral spine with radiculopathy (Acute) At risk for prolonged QT interval syndrome (Acute) Bipolar disorder, unspecified (Acute) Sherice-menopausal (Acute) Alcohol use disorder, moderate, dependence (Acute) Borderline personality disorder (Acute) Well woman exam with routine gynecological exam (Acute) Hx of abnormal cervical Pap smear (Acute) Potential exposure to STD (Acute) Bipolar disorder, now depressed (Acute) Annual physical exam (Acute) Bilateral hip pain (Acute) Potential exposure to STD (Acute) History of irregular menstrual bleeding (Acute) Bulky or enlarged uterus (Acute) Spondylosis of lumbar spine (Acute) Sacroiliac joint pain (Acute) Lumbar radiculopathy (Acute) Failed back syndrome of lumbar spine (Acute) Counseling for control, intrauterine device (Acute) Left orbit fracture (Acute) Shoulder pain, left (Acute) SI (sacroiliac) joint dysfunction (Acute) Left humeral fracture (Acute) Greater tuberosity of humerus fracture (Acute) Muscle spasm (Acute) Hypertriglyceridemia (Acute) Bipolar disorder current episode depressed (Acute) Irritable bowel syndrome (IBS) (Acute) GERD without esophagitis (Acute) Asthma (Acute) Obesity (BMI 30-39.9) (Acute) Anxiety (Acute) Memory impairment (Acute) Loss of hearing (Acute) Fibromyalgia (Acute) Past Medical History Medical History Rash and nonspecific skin eruption Pain in joint involving multiple sites Screening examination for infectious disease Hypovitaminosis D Bacterial vaginosis Vitamin D deficiency Migraine Hypertriglyceridemia Bipolar disorder current episode depressed Irritable bowel syndrome (IBS) GERD without esophagitis Recurrent major depression-severe Asthma Opioid use disorder, mild, in early remission Obesity (BMI 30-39.9) Anxiety Opioid dependence Memory impairment Loss of hearing Fibromyalgia Family History Family History Father No problems noted. Mother Skin cancer Maternal Aunt Myocardial infarction Family/Other Lupus Other Mental health problem Substance abuse Family history of problems with anesthesia: No Surgical History Surgical History Hx of excision of mass History of esophagogastroduodenoscopy (EGD) History of tubal ligation History of lumbar fusion History of cholecystectomy History of Problems with Anesthesia: No Social History Social History Household Members: None Housing: House Are you a primary reproductive healthcare assistant to a significant other at home: No Do you presently have visiting nurse or other home services: No Alcohol intake: current Alcohol intake frequency: holidays/special occasions only Patient Tobacco Use Status: Never used Tobacco e-Cigarette/Vaping Use: Never Used Second Hand Smoke Exposure: No Use of substances other than those prescribed or required for medical reasons: No Are you DNR?: No Advance Directives: No Advance Directives Information Provided: Yes service: No Current occupational status: employed and disabled 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 Sexual orientation: Straight/Heterosexual Cognitive needs: No Hearing needs: No Vision needs: No Meds Allergies Allergy/AdvReac Type Severity Reaction Status Date / Time morphine [MORPHINE] Allergy Intermediate RASH Verified 10/31/24 11:27 Active Medications: Current Medications Lactated Ringer's (Lr) 1,000 mls @ 100 mls/hr IVCONT .Q10H RUSSELL Home Medications ?Medication ?Instructions ?Recorded ?Confirmed ?Last Taken ?Type zolpidem 10 mg tablet 10 mg PO BEDTIME PRN insomnia 06/21/22 10/31/24 Unknown History prazosin 2 mg capsule 2 mg PO DAILY 10/04/22 10/31/24 Unknown History buspirone 10 mg tablet 20 mg PO TID 08/14/23 10/31/24 Unknown History lamotrigine 200 mg tablet 200 mg PO BID 08/14/23 10/31/24 Unknown History topiramate 100 mg tablet 100 mg PO DAILY 10/12/23 10/31/24 Unknown History dexmethylphenidate 30 mg mg PO QAM 10/21/24 Unknown History capsule,extended release [id number] dexmethylphenidate 5 mg tablet mg PO DAILY PRN ADHD 10/21/24 Unknown History propranolol 10 mg tablet mg PO DAILY 10/21/24 Unknown History Exam Height,Weight and Vital Signs: Height 5 ft 2 in Weight 76.204 kg Last Vital Signs Temp 97.2 F 10/31/24 11:18 Pulse 68 10/31/24 11:18 Resp 16 10/31/24 11:18 BP 107/73 10/31/24 11:18 Pulse Ox 99 10/31/24 11:18 O2 Del Method Room Air 10/31/24 11:18 Airway Mallampati Class: II TM Dist: <=3cm Neck ROM: Full Loose/Missing/Broken Teeth: No Heart: ok Lungs: ok Assessment and Plan Assessment Anesthesia Assessment: Anesthesia Plan Discussed and Chart Reviewed Final Anesthetic Review Family History of Problems with Anesthesia: No History of Problems with Anesthesia: No NPO: Yes ASA Class: II Final Preanesthetic Review: No Changes in Pt Med Stat, Meds/Allgs Chart Reviewed, Consent Obtained/Reviewed and Anes Risks/Benef Reviewed Patient Risk: Intermediate Procedure Risk: Intermediate Anesthetic Plan Anesthetic Plan: Agree w/ Assess. and Plan and TIVA Disposition: Standard PACU
--- NOTE | 2024-10-31 13:07 | HO.OPN-COLON ---
Colonoscopy Operative Note Operative Note Date of Service: 10/31/24 Narrative: Operative Information Procedure Description: EGD, Colonoscopy Indication: satiety, dysphagia and abn bowel habits Anesthesia: MAC FLEXIBLE TRANSORAL UPPER GASTROINTESTINAL ENDOSCOPY AND COLONOSCOPY PROCEDURE NOTE UPPER ENDOSCOPY Consent: Indications for the procedure and potential complications of bleeding, perforation, reaction to medications and missed diagnosis were discussed with the patient and informed consent was obtained. Instrument: Olympus GIF H 190 J mid size upper endoscope Monitoring: Vital signs and clinical assessment, continuous EKG monitoring, Pulse oximetry, Carbon Dioxide monitoring and blood pressure monitoring were done throughout the procedure. Procedure: The patient was placed in the left lateral decubitis position and pre-procedure medications were administered and a bite block was placed. The endoscope was inserted into the mouth and advanced under direct vision to the third part of duodenum. A careful inspection was made as the upper endoscope was withdrawn including a retroflexed examination of the proximal stomach; Findings and interventions are described below. Findings: Larynx:normal Esophagus: GE junction at 38 cm, diaphragm hiatus at 38 cm, mild esophagitis and possible tongue of short segment barretts, bx taken and balloon dilation done to 18 mm to LES and UES, no tears seen Stomach: Normal mucosa. Biopsies were obtained. Grade 2 flap valve on retroflexed examination of the cardia. Pylorus seemed tight, balloon dilation to 19 mm with wire guided technique with tear noted at outlet Duodenum: Normal bulb and descending duodenum, bx taken Intervention: Biopsies as noted above, balloon with wire guidance at pylorus and without wire at esophagus COLONOSCOPY Instrument: Olympus variable stiffness pediatric scope 190L Colonoscopy Monitoring: Vital signs and clinical assessment, continuous EKG monitoring, Pulse oximetry, Carbon Dioxide monitoring and blood pressure monitoring were done throughout the procedure. Colon withdrawal time was 14 minutes. Procedure: The patient was placed in the left lateral decubitis position and pre-procedure medications were administered. After a digital rectal examination of the ano-rectum, the video colonoscope was inserted into the rectum and advanced through the colon to the cecum/TI. The colonoscope was slowly withdrawn in a retrograde panoramic fashion and the colon mucosa was carefully examined including a retroflexed view of the rectum. Findings and interventions are described below. Procedure Difficulty:moderate Findings: Terminal Ileum-normal, bx taken random bx taken from right, left and rectum, one area on the left was oozing a lot so clip applied for hemostasis Cecum:normal Ascending Colon: normal Transverse Colon -normal Descending Colon:normal Sigmoid Colon: patchy areas of featureless colon, mild diverticulosis noted Rectum: Retroflexion with small internal hemorrhoids, grade I 10-12 mm sessile polyp removed with cold snare Anorectum - normal Colon preparation: [place] Bowel Preparation Scale Right colon; 2 Transverse colon: 2 Left colon; 2 (0 = Unprepared colon segment with mucosa not seen due to solid stool that cannot be cleared. 1 = Portion of mucosa of the colon segment seen, but other areas of the colon segment not well seen due to staining, residual stool and/or opaque liquid. 2 = Minor amount of residual staining, small fragments of stool and/or opaque liquid, but mucosa of colon segment seen well. 3 = Entire mucosa of colon segment seen well with no residual staining, small fragments of stool or opaque liquid) Impression and Post Procedure Diagnosis: Endoscopy Findings: pyloric stenosis possible barretts Colonoscopy Findings: diverticulosis colon polyps internal hemorrhoids Plan: Await Pathology results Repeat Colonoscopy in 3-5 years if adenomatous polyp, 5 yrs if hyperplastic due to the size or earlier if clinically indicated High fiber diet leaflet avoid straining at stool, epsom salts and sitz bath, anusol supps or cream Above findings were reviewed with the patient and relevant handouts were provided if indicated.
[2024-10-31 13:14] VITALS: BP 117/56; PULSE 80; RESP 17; TEMP 36.2; O2SAT 98
[2024-10-31] MEDS: Mag&Al/Sim/Diphenhyd/Lidocaine 10 ML ORAL.SUSP PO (13:25)
[2024-10-31 13:29] VITALS: BP 123/77; PULSE 66; RESP 20; TEMP 36.8; O2SAT 97
== END 2024-10-31 14:16 | disposition home or self-care (01) ==
PROVIDERS: PCP Internal Medicine; Visit Provider Internal Medicine Gastroenterology
PROC: (CPT 45385; principal; 2024-10-31 13:10)
DX: R19.4 Change in bowel habit (principal); K62.1 Rectal polyp; K57.30 Diverticulosis of large intestine without perforation or abscess without bleeding; K64.0 First degree hemorrhoids; K58.9 Irritable bowel syndrome, unspecified; R13.10 Dysphagia, unspecified; K21.9 Gastro-esophageal reflux disease without esophagitis; K20.80 Other esophagitis without bleeding; R68.81 Early satiety; K31.1 Adult hypertrophic pyloric stenosis; K44.9 Diaphragmatic hernia without obstruction or gangrene; E55.9 Vitamin D deficiency, unspecified; M79.7 Fibromyalgia; E78.1 Pure hyperglyceridemia; G43.909 Migraine, unspecified, not intractable, without status migrainosus; F31.9 Bipolar disorder, unspecified; Z79.899 Other long term (current) drug therapy; Z88.5 Allergy status to narcotic agent; Z90.49 Acquired absence of other specified parts of digestive tract; Z98.890 Other specified postprocedural states
CPT/HCPCS: 45385; 45380; 43249; 43245; 43239; 88305; 88312; 88313; 88342; C1726; J2003; J2704; J3010

== ENCOUNTER → 2024-10-31 10:32 | Outpatient (BNV) | payer OTHER, SELFPAY | PROVIDERS: PCP Internal Medicine; Visit Provider Internal Medicine Gastroenterology | DX: R19.4 Change in bowel habit (principal); K63.5 Polyp of colon; K57.30 Diverticulosis of large intestine without perforation or abscess without bleeding; K64.0 First degree hemorrhoids; R68.81 Early satiety; R13.10 Dysphagia, unspecified; K29.80 Duodenitis without bleeding; K20.90 Esophagitis, unspecified without bleeding; K31.1 Adult hypertrophic pyloric stenosis | CPT/HCPCS: 43239; 43245; 43249; 45380; 45385 ==

== ENCOUNTER 2024-11-08 09:50 | Outpatient (AMB) | payer OTHER, SELFPAY ==
--- NOTE | 2024-11-08 09:53 | A.OFFVIS_ITS ---
Vital Signs 11/08/24 10:03 Height 5 ft 2 in Weight 171 lb 1.259 oz BMI 31.3 BP 112/80 Blood Pressure Location Lt brachial Position Sitting Pulse 95 Pulse Source Pulse Oximeter Pulse Oximetry (%) 98 Oxygen Delivery Method Room Air Intake Visit Reasons: RA/ discuss xray Intake Note: Patient presents for RA and Xray results. Allergies morphine [MORPHINE] Allergy (Intermediate, Verified 11/08/24 09:58) RASH Medication List - Last Reconciled 11/08/24 by Ivanna Patel MD albuterol sulfate 90 mcg/actuation (Ventolin HFA) 2 puffs inhalation Q6-8H PRN [Bathmat As directed] [Boost supplement drinks As directed] buspirone 20 mg PO TID cetirizine 10 mg PO DAILY PRN 90 days cholecalciferol (vitamin D3) 50 mcg PO DAILY clotrimazole-betamethasone 1-0.05 % 1 appl topical BID [DETACHABLE SHOWER HEAD As directed] dexmethylphenidate mg PO DAILY PRN dexmethylphenidate ER mg PO QAM duloxetine 60 mg PO DAILY esomeprazole magnesium 40 mg PO DAILY famotidine 40 mg PO BEDTIME ferrous sulfate 325 mg PO DAILY galcanezumab-gnlm (Emgality Pen) 120 mg subcut ONCE 30 days hydrocortisone 2.5% 1 appl LA Q8-12H ibuprofen 800 mg PO Q8H PRN 30 days MDD 2 tabs lamotrigine 200 mg PO BID linaclotide (Linzess) 290 mcg PO QAM magnesium oxide 400 mg PO BEDTIME 90 days melatonin 3 - 9 mg (1 - 3 x 3 mg) PO DAILY PRN 30 days methylprednisolone (Medrol) 4 mg PO DAILY mirabegron ER (Myrbetriq) 25 mg PO DAILY 30 days ondansetron 4 mg PO Q6H PRN 14 days prazosin 2 mg PO DAILY propranolol mg PO DAILY [Wilkinson size memory form foam bed topper As directed] riboflavin (vitamin B2) 400 mg PO DAILY 90 days [SHOWER BENCH As directed] sucralfate 10 mL PO BEDTIME sumatriptan succinate 50 - 100 mg orally at onset of headache, may repeat in 2 hrs PRN; max 2 tabs per day or 4 tabs/week (may take with Ibuprofen) 30 days [TOILET SEAT with GRAB BAR As directed] topiramate 100 mg PO DAILY zolpidem 10 mg PO BEDTIME PRN HPI Comments Details: Patient is a 49-year-old female with depression and anxiety, overactive bladder, back pain status post multiple back surgeries and polyarthralgias in the setting of positive rheumatoid factor here today for follow up Interval History: Patient last seen 06/27/2024 with me. At that time she was very frustrated because of the lack of diagnosis of her symptoms. She continued to complain of widespread joint pains with about 20 minutes of morning stiffness. She was given a trial of Medrol which she said helped her symptoms. Brought pictures showing swelling involving her digits of bilateral hands.. Rheumatologic History: Patient was 1st seen 12/19/2023 after referral for a elevated rheumatoid factor in the setting of polyarthralgias. Her other autoimmune markers were negative but her ESR and CRP were elevated. She was trialed on leflunomide and prednisone however there was a delay in follow-up since her provider had left the practice. At her follow-up she was discontinued off of leflunomide 04/09/2024 Current Rheumatology Medication(s): Medrol taper (completed) [facility] Medical History (Updated 11/08/24 @ 10:22 by Ivanna Patel MD) Rash and nonspecific skin eruption Screening examination for infectious disease Hypovitaminosis D Bacterial vaginosis Vitamin D deficiency Migraine Hypertriglyceridemia Bipolar disorder current episode depressed Irritable bowel syndrome (IBS) GERD without esophagitis Recurrent major depression-severe Asthma Opioid use disorder, mild, in early remission Obesity (BMI 30-39.9) Anxiety Opioid dependence Memory impairment Loss of hearing Fibromyalgia Surgical History Hx of excision of mass History of esophagogastroduodenoscopy (EGD) History of tubal ligation History of lumbar fusion History of cholecystectomy Family History Father No problems noted. Mother Skin cancer Maternal Aunt Myocardial infarction Family/Other Lupus Other Mental health problem Substance abuse Social History Household Members: None Housing: House Are you a primary care rep to a significant other at home: No Do you presently have visiting nurse or other home services: No Alcohol intake: current Alcohol intake frequency: holidays/special occasions only Patient Tobacco Use Status: Never used Tobacco e-Cigarette/Vaping Use: Never Used Second Hand Smoke Exposure: No service: No Current occupational status: employed and disabled Current occupation: [employer]/rt hand Sexual orientation: Straight/Heterosexual Cognitive needs: No Hearing needs: No Vision needs: No Female Reproductive History Menstrual Age of Menarche: 10 Review of Systems Const Details: Review of Systems Constitutional: Denies fever, chills, weight loss ENT: Denies vision changes, eye pain or eye redness, dental caries, dry mouth GI: Denies nausea, vomiting, diarrhea, abdominal pain, change in BM Pulm: Denies SOB, ROCHA, hemoptysis, wheezing Cards: Denies chest pain, palpitations Skin: Denies Raynaud's, rash, nail changes, photosensitivity, 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 ?Gait normal. Constitutional Mucous membranes pink and moist patient alert and cooperative HEENT Conjunctiva and sclera clear. ?Pupils equal round and reactive to light. ?No lymphadenopathy. ?Normal dentition. Respiratory System Normal respiratory effort and able to speak in complete sentences. ?Clear to auscultation bilaterally. ?No crackles, rales, rhonchi, wheezes heard. Cardiac System Regular rate and rhythm. ?S1 and S2 heard no murmurs. ?Radial pulses intact bilaterally MSK No evidence of synovitis. ?Able to move all joints with full range of motion, without limitation. Hands:. Right 2nd and 3rd digits in splint. Able to make a fist with the left hand. No tenderness to palpation of the MCPs or PIPs DIPs. Mild swelling to the 3rd and 4th digits but this is localized in the inter joint region. Wrists: Normal pain-free range of motion without tenderness, swelling, increased warmth or erythema. Elbows: Full range of motion without pain. No tenderness, weakness, swelling, increased warmth or erythema. Shoulders: Full range of motion without pain. No tenderness, weakness, swelling, increased warmth or erythema. Hips: Full range of motion without pain. Hip bursa:.??No tenderness. Knees:.???Normal pain-free range of motion without tenderness, swelling, increased warmth or erythema.??There is no effusion or crepitation. tenderness to right lateral, area of fibia head Ankles:.??Normal pain-free range of motion without tenderness, swelling, increased warmth or erythema. Feet:.??Normal pain-free range of motion without tenderness, swelling, increased warmth or erythema. Tender points:??Tenderness to digital palpation at the occiput, trapezius, second rib, lateral epicondyle, knees, greater trochanter bilaterally Results Reviewed Results Reviewed: Laboratory Tests 12/19/23 05/20/24 16:54 16:30 WBC 7.3 9.0 RBC 4.12 L 3.80 L Hgb 11.0 L 10.2 L Hct 34.5 L 32.5 L Plt Count 322 317 ESR 33 H 27 H Sodium 143 144 Potassium 4.0 3.9 Chloride 111 H 111 H Carbon Dioxide 25 23 BUN 9 16 Creatinine 1.13 1.00 Alkaline Phosphatase 125 H 143 H C-Reactive Protein 2.38 H 0.77 H Total Protein 8.1 H 7.7 25-OH Vitamin D Total 40 Laboratory Tests 11/08/23 12/19/23 14:49 16:54 Rheumatoid Factor 176.1 H Cycl Citrul Peptide IgG <16 Assessment & Plan Assessment & Plan (1) Seropositive rheumatoid arthritis: Code(s): M05.9 - Rheumatoid arthritis with rheumatoid factor, unspecified Category: Medical Plan: #Seropositive RA Patient is a 49-year-old female with polyarthralgias in the setting of the highly elevated rheumatoid factor. Responded to prednisone. We will try methotrexate the next 4 months. All questions answered and discussed side effect profile with patient and her sister. 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 Limit alcohol and avoid Bactrim ? Monitoring: ?CBC, BMP, LFTs every 3-4 months and hepatitis serologies as needed (3) Fibromyalgia: Code(s): M79.7 - Fibromyalgia Category: Medical Plan: #Fibromyalgia Patient with fibromyalgia. Currently on duloxetine. We will continue the same. Plan - Continue duloxetine Plan I spent 35 minutes reviewing the record and labs, taking a history, examining the patient, discussing the treatment plan and documenting in the medical record Orders: Orders Comprehensive Met. Panel 4 Months M05.9 - Rheumatoid arthritis with rheumatoid factor, unspecified C Reactive Protein 4 Months M05.9 - Rheumatoid arthritis with rheumatoid factor, unspecified T Spot TB 4 Months M05.9 - Rheumatoid arthritis with rheumatoid factor, unspecified Comprehensive Met. Panel Today M05.9 - Rheumatoid arthritis with rheumatoid factor, unspecified Hepatitis A,B,C Profile Today M05.9 - Rheumatoid arthritis with rheumatoid factor, unspecified T Spot TB Today M05.9 - Rheumatoid arthritis with rheumatoid factor, unspecified Cyclic Citrullinated Peptide Today M05.9 - Rheumatoid arthritis with rheumatoid factor, unspecified Complete Blood Count Auto Diff 4 Months M05.9 - Rheumatoid arthritis with rheumatoid factor, unspecified Erythrocyte Sedimentation Rate 4 Months M05.9 - Rheumatoid arthritis with rheumatoid factor, unspecified Hepatitis A,B,C Profile 4 Months M05.9 - Rheumatoid arthritis with rheumatoid factor, unspecified Complete Blood Count Auto Diff Today M05.9 - Rheumatoid arthritis with rheumatoid factor, unspecified C Reactive Protein Today M05.9 - Rheumatoid arthritis with rheumatoid factor, unspecified Erythrocyte Sedimentation Rate Today M05.9 - Rheumatoid arthritis with rheumatoid factor, unspecified Rheumatoid Factor Today M05.9 - Rheumatoid arthritis with rheumatoid factor, unspecified Medications: New methotrexate sodium 15 mg (6 x 2.5 mg) PO QWEEK 78 tabs 1RF 90 days M05.9 - Rheumatoid arthritis with rheumatoid factor, unspecified, Z51.81 - Encounter for therapeutic drug level monitoring, 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
[2024-11-08 10:03] VITALS: BP 112/80; PULSE 95; O2SAT 98; BMI 31.3
== END 2024-11-08 10:31 | disposition home or self-care (01) ==
PROVIDERS: PCP Internal Medicine; Visit Provider Student in an Organized Health Care Education/Training Program
DX: M05.79 Rheumatoid arthritis with rheumatoid factor of multiple sites without organ or systems involvement (principal); Z51.81 Encounter for therapeutic drug level monitoring; Z79.631 Long term (current) use of antimetabolite agent; M79.7 Fibromyalgia
CPT/HCPCS: 99214; G2211

== ENCOUNTER → 2024-11-08 09:50 | Outpatient (BNVA) | payer OTHER, SELFPAY | PROVIDERS: PCP Internal Medicine; Visit Provider Student in an Organized Health Care Education/Training Program | DX: M05.9 Rheumatoid arthritis with rheumatoid factor, unspecified (principal); M79.7 Fibromyalgia; Z79.631 Long term (current) use of antimetabolite agent | CPT/HCPCS: 99212 ==

== ENCOUNTER 2024-11-13 15:00 | Outpatient (AMB) | payer OTHER, SELFPAY ==
--- NOTE | 2024-11-13 15:10 | A.OFFVIS_ITS ---
Vital Signs 11/13/24 15:16 Height 5 ft 2 in Weight 171 lb BMI 31.3 BP 116/72 Intake Visit Reasons: Pain with [place] Director Of Email Marketing: Director Of Email Marketing Present (Rochelle) Accompanied by: Self / Same As Patient Allergies morphine [MORPHINE] Allergy (Intermediate, Verified 11/13/24 15:13) RASH Medication List - Last Reconciled 11/13/24 by Gisel Barney CNM albuterol sulfate 90 mcg/actuation (Ventolin HFA) 2 puffs inhalation Q6-8H PRN [Bathmat As directed] [Boost supplement drinks As directed] buspirone 20 mg PO TID cetirizine 10 mg PO DAILY PRN 90 days cholecalciferol (vitamin D3) 50 mcg PO DAILY clotrimazole-betamethasone 1-0.05 % 1 appl topical BID [DETACHABLE SHOWER HEAD As directed] dexmethylphenidate mg PO DAILY PRN dexmethylphenidate ER mg PO QAM duloxetine 60 mg PO DAILY esomeprazole magnesium 40 mg PO DAILY famotidine 40 mg PO BEDTIME ferrous sulfate 325 mg PO DAILY folic acid 1 mg PO DAILY galcanezumab-gnlm (Emgality Pen) 120 mg subcut ONCE 30 days hydrocortisone 2.5% 1 appl IN Q8-12H lamotrigine 200 mg PO BID linaclotide (Linzess) 290 mcg PO QAM magnesium oxide 400 mg PO BEDTIME 90 days melatonin 3 - 9 mg (1 - 3 x 3 mg) PO DAILY PRN 30 days methotrexate sodium 15 mg (6 x 2.5 mg) PO QWEEK 90 days methylprednisolone (Medrol) 4 mg PO DAILY mirabegron ER (Myrbetriq) 25 mg PO DAILY 30 days ondansetron 4 mg PO Q6H PRN 14 days prazosin 2 mg PO DAILY propranolol mg PO DAILY [Wilkinson size memory form foam bed topper As directed] riboflavin (vitamin B2) 400 mg PO DAILY 90 days [SHOWER BENCH As directed] sucralfate 10 mL PO BEDTIME sumatriptan succinate 50 - 100 mg orally at onset of headache, may repeat in 2 hrs PRN; max 2 tabs per day or 4 tabs/week (may take with Ibuprofen) 30 days [TOILET SEAT with GRAB BAR As directed] topiramate 100 mg PO DAILY zolpidem 10 mg PO BEDTIME PRN Is last menstrual period known: No Post menopausal: Yes Patient : No HPI HPI Pain with [place]: Details: She wants checked for STDs and she has had been having pain with intercourse. The last time she had sex was a couple of months ago. She has got a number of medical conditions and she is on a number of medications that have different side effects including causing oral mouth dryness for which she sucks on Lollie pops all the time she also has vaginal dryness which we have discussed in past visits she does use some vaginal lubricants but it does not help necessarily she also has constipation and diarrhea with IBS she had a colonoscopy and endoscopic procedure done last week because she is also having digestive issues. She thinks that a lot of the issues are related to the medications and are side effects of the medications but on balance between medications she has her for her physical symptoms and mental health meds she thinks she needs the medications and she has had conversations with her doctors about the side effects in light of this as well. She is awaiting a follow-up from her colonoscopy to see if there is anything more she can do to deal with the constipation and stool patterns., Patient clenched very tightly during the speculum exam and it was difficult to visualize her cervix the vagina itself was not particularly dry although external vulva was dry.. On bimanual exam cervix was very deep in the pelvis and difficult to reach but it was near the nontender uterus difficult palpate completely but again mobile nontender. Adnexa nontender patient had hard lump of stool in rectum that was in some ways blocking vaginal entrance which explained some of her clenching with the exam. Picture drawn of the proximal location of rectum to vagina and discussed that this could be contributing to her dyspareunia when she does have sex in that she did not not in perceive that she had hard lump of stool there today. Testing done for gonorrhea chlamydia trich as well as BV and yeast discharge appeared fairly within normal limits actually. Testing ordered for her for STIs including HIV and syphilis. There were already orders in the system from previous provider's for hep a B and C panel. She can check the portal for the results we will call for positive discussed vaginal lubrication discussed the challenge of dry mouth and drive vagina and the medications that would cause dryness in 1 would certainly cause dryness in another as well as they are not entirely dissimilar from each other. She will be scheduling her annual exam if it isn't already scheduled. [facility] Medical History (Updated 11/13/24 @ 15:46 by Gisel Barney CNM) Rash and nonspecific skin eruption Screening examination for infectious disease Hypovitaminosis D Bacterial vaginosis Vitamin D deficiency Migraine Hypertriglyceridemia Bipolar disorder current episode depressed Irritable bowel syndrome (IBS) GERD without esophagitis Recurrent major depression-severe Asthma Opioid use disorder, mild, in early remission Obesity (BMI 30-39.9) Anxiety Opioid dependence Memory impairment Loss of hearing Fibromyalgia Surgical History Hx of excision of mass History of esophagogastroduodenoscopy (EGD) History of tubal ligation History of lumbar fusion History of cholecystectomy Family History Father No problems noted. 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: [employer]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 Sexual orientation: Straight/Heterosexual Cognitive needs: No Hearing needs: No Vision needs: No Female Reproductive History Menstrual Age of Menarche: 10 Total pregnancies: 3 Full term: 3 Date of last pap smear: 11/02/23 History of abnormal pap smear: Yes Date of Mammogram: 11/21/23 ([facility] RAD 2) Physical Exam Vital Signs: Last Vital Signs BP 116/72 11/13/24 15:16 BMI result Body Mass Index 31.3 Other: External vulva is slightly dry vaginal mucosa is moist healthy appearing cervix deep in pelvis difficult to reach but mobile and nontender uterus difficult to palpate but mobile and nontender adnexa nontender patient had hard lumps of stool in rectum that was partially blocking the entrance to the vagina with the speculum in the the speculum needed to rise over it and press down. Discussed how this could possibly be contributing to dyspareunia when she does have sex she has extensive IBS and has just undergone a colonoscopy and endoscopy and is awaiting results and we will be discussing possible other relief measures for her constipation and diarrhea.. See note. External Female Exam: normal external appearance and normal appearance of the urethra Speculum Exam - Vagina: normal appearance of the vagina, normal palpation and normal vaginal discharge Speculum Exam - Cervix: normal appearance of the cervix, normal palpation and Cervical os closed Bimanual exam- vagina & uterus: normal bimanual exam, normal palpation, consistency normal, normal palpation and uterine mobility normal Assessment & Plan Assessment & Plan (1) Shreice-menopausal: Code(s): N95.1 - Menopausal and female climacteric states Category: Medical (2) Encounter for screening examination for sexually transmitted disease: Code(s): Z11.3 - Encounter for screening for infections with a predominantly sexual mode of transmission Category: Medical (3) Dyspareunia in female: Code(s): N94.10 - Unspecified dyspareunia Category: Medical (4) Oral dryness: Code(s): R68.2 - Dry mouth, unspecified Category: Medical Plan She wants checked for STDs and she has had been having pain with intercourse. The last time she had sex was a couple of months ago. She has got a number of medical conditions and she is on a number of medications that have different side effects including causing oral mouth dryness for which she sucks on Lollie pops all the time she also has vaginal dryness which we have discussed in past visits she does use some vaginal She wants checked for STDs and she has had been having pain with intercourse. The last time she had sex was a couple of months ago. She has got a number of medical conditions and she is on a number of medications that have different side effects including causing oral mouth dryness for which she sucks on Lollie pops all the time she also has vaginal dryness which we have discussed in past visits she does use some vaginal lubricants but it does not help necessarily she also has constipation and diarrhea with IBS she had a colonoscopy and endoscopic procedure done last week because she is also having digestive issues. She thinks that a lot of the issues are related to the medications and are side effects of the medications but on balance between medications she has her for her physical symptoms and mental health meds she thinks she needs the med ications and she has had conversations with her doctors about the side effects in light of this as well. She is awaiting a follow-up from her colonoscopy to see if there is anything more she can do to deal with the constipation and stool patterns., Patient clenched very tightly during the speculum exam and it was difficult to visualize her cervix the vagina itself was not particularly dry although external vulva was dry.. On bimanual exam cervix was very deep in the pelvis and difficult to reach but it was near the nontender uterus difficult palpate completely but again mobile nontender. Adnexa nontender patient had hard lump of stool in rectum that was in some ways blocking vaginal entrance which explained some of her clenching with the exam. Picture drawn of the proximal location of rectum to vagina and discussed that this could be contributing to her dyspareunia when she does have sex in that she did not not in perceive that she had hard lump of stool there today. Testing done for gonorrhea chlamydia trich as well as BV and yeast discharge appeared fairly within normal limits actually. Testing ordered for her for STIs including HIV and syphilis. There were already orders in the system from previous provider's for hep a B and C panel. She can check the portal for the results we will call for positive discussed vaginal lubrication discussed the challenge of dry mouth and drive vagina and the medications that would cause dryness in 1 would certainly cause dryness in another as well as they are not entirely dissimilar from each other. She will be scheduling her annual exam if it isn't already scheduled. 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 well directional annual when she is scheduled Orders: Orders CT NG by PCR Today N89.8 - Other specified noninflammatory disorders of vagina, Z20.2 - Contact with and (suspected) exposure to infections with a predominantly sexual mode of transmission Bacterial Vaginosis Panel Today N89.8 - Other specified noninflammatory disorders of vagina HIV Ab/Ag Today N94.10 - Unspecified dyspareunia, N95.1 - Menopausal and female climacteric states, R68.2 - Dry mouth, unspecified, Z11.3 - Encounter for screening for infections with a predominantly sexual mode of transmission Syphilis Screen Today N94.10 - Unspecified dyspareunia, N95.1 - Menopausal and female climacteric states, R68.2 - Dry mouth, unspecified, Z11.3 - Encounter for screening for infections with a predominantly sexual mode of transmission Coding Level of Care Code Est Pt Level 3 (18281) Diagnoses Sherice-menopausal N95.1 Encounter for screening examination for sexually transmitted disease Z11.3 Dyspareunia in female N94.10 Oral dryness R68.2 Time Spent (min) 30 Comment Most spent explaining possible reasons for her challenges and solutions
[2024-11-13 15:16] VITALS: BP 116/72; BMI 31.3
== END 2024-11-13 16:02 | disposition home or self-care (01) ==
PROVIDERS: PCP Internal Medicine; Visit Provider Advanced Practice Midwife
DX: N95.1 Menopausal and female climacteric states (principal); Z11.3 Encounter for screening for infections with a predominantly sexual mode of transmission; N94.10 Unspecified dyspareunia; R68.2 Dry mouth, unspecified
CPT/HCPCS: 99213

== ENCOUNTER 2024-11-13 15:00 | Outpatient (REF) | payer OTHER, SELFPAY ==
[2024-11-14 08:39] LABS: Syphilis Screen Nonreactive (Nonreactive)
[2024-11-14 08:55] LABS: HIV AB/AG Nonreactive (Nonreactive); HIV Num 1 0.07 S/CO (0.00-0.99)
[2024-11-15 11:37] LABS: Bacterial Vaginosis PCR POSITIVE (Negative); Candida Group PCR NOT DETECTED (Not Detect); Candida glab krusei PCR NOT DETECTED (Not Detect); Trichomonas vaginalis PCR NOT DETECTED (Not Detect)
[2024-11-15 12:07] LABS: CT PCR NOT DETECTED (Not Detect.); NG PCR NOT DETECTED (Not Detect.)
== END 2024-11-13 15:01 | disposition home or self-care (01) ==
LOC: HO.LAB 15:00
PROVIDERS: PCP Internal Medicine; Visit Provider Advanced Practice Midwife
DX: Z13.89 Encounter for screening for other disorder (principal)
CPT/HCPCS: 81515; 86780; 87389; 87491; 87591; 99212

== ENCOUNTER 2024-11-13 16:06 | Outpatient (REF) | payer OTHER, SELFPAY ==
[2024-11-13 16:32] LABS: MANUAL DIFF FLAG NO
[2024-11-13 17:21] LABS: Basophils Absolute Auto 0.1 X10*3/uL (0.0-0.2); Basophils Percent Auto 0.7 % (0-2); Eosinophils Absolute Auto 0.3 X10*3/uL (0.0-0.4); Hematocrit 34.7 % (37.0-47.0); Hemoglobin 10.8 g/dl (12.0-16.0); Imm Gran Abs Auto 0.02 X10*3/uL (0.00-0.03); Imm Gran Pct Auto 0.3 % (0.0-0.4); Lymphocytes Absolute Auto 2.2 X10*3/uL (1.2-4.9); Mean Corpuscular HGB Conc 31.1 g/dl (31.0-35.0); Mean Corpuscular Hemoglobin 26.3 pg (27.0-33.0); Mean Corpuscular Volume 84.6 fL (80.0-98.0); Mean Platelet Volume 9.6 fL (9.4-12.3); Monocytes Absolute Auto 0.3 X10*3/uL (0.1-1.2); Monocytes Percent Auto 4.4 % (2-11); Neutrophils Percent Auto 58.6 % (45-73); Platelet Count 367 X10*3/uL (160-400); Red Cell Distribution Width 14.6 % (11.0-16.0); White Blood Count 6.8 X10*3/uL (4.8-10.8)
[2024-11-13 18:11] LABS: Alanine Aminotransferase 22 U/L (0-31); Albumin Level 4.1 g/dL (3.5-5.0); Alkaline Phosphatase 126 U/L (39-117); Anion Gap 8 (12-20); Aspartate Amino Transferase 20 U/L (5-31); Bilirubin Total 0.2 mg/dL (0.0-1.0); Blood Urea Nitrogen 11 mg/dL (9-16); C Reactive Protein 0.36 mg/dL (< or = 0.50); Calcium 9.2 mg/dL (8.4-10.2); Carbon Dioxide 25 mmol/L (22-29); Chloride 111 mmol/L (96-108); Estimated Glomerular Filt Rate 59; Glucose Random 83 mg/dL (60-115); Iron 54 mcg/dL (30-160); Percent Iron Saturation 18 % (15-50); Potassium 3.8 mmol/L (3.3-5.1); Sodium 140 mmol/L (135-145); Total Iron Binding Capacity 304 mcg/dL (228-428); Total Protein 7.8 g/dL (6.5-8.0); Unsaturated Iron Binding 250 ug/dL
[2024-11-13 18:21] LABS: Rheumatoid Factor 201.2 IU/mL (<15.0)
[2024-11-13 18:23] LABS: C Reactive Protein 0.32 mg/dL (< or = 0.50)
[2024-11-13 18:26] LABS: Ferritin 29 ng/mL (10-250)
[2024-11-13 18:42] LABS: Folate 8.1 ng/mL (> or = 4.0); Vitamin B12 381 pg/mL (200-900)
[2024-11-13 18:50] LABS: Erythrocyte Sedimentation Rate 23 MM/HR (0-20)
[2024-11-14 08:59] LABS: HBc Num1 0.17 S/CO (0.00-0.79); HBsAGNum1 0.29 S/CO (0.00-0.99); Hepatitis A Antibody IgM 0.16 Index (0-0.79); Hepatitis B Core Antibody Nonreactive (Nonreactive); Hepatitis B Surface Antigen Negative (Negative); ~HepC Num1 0.12 S/CO (0.00-0.79); ~Hepatitis A Antibody IgM Nonreactive (Nonreactive); ~Hepatitis B Surface Antibody NONREACTIVE (Nonreactive); ~Hepatitis C Antibody Nonreactive (Nonreactive)
[2024-11-14 15:54] LABS: Cyclic Citrullinated Peptide <16 UNITS
[2024-11-14 16:27] LABS: Homocysteine 13.8 umol/L (<10.4)
[2024-11-16 11:39] LABS: TS Negative Control Passed; TS Panel A 0; TS Panel B 0; TS Positive Control Passed; TSpotTB Negative (Negative)
[2024-11-17 06:20] LABS: Methylmalonic Acid 503 nmol/L (55-335)
[2024-11-18 15:43] LABS: Nicotinamide <20 ng/mL (see note); Vit B3 - Nicotinic Acid <20 ng/mL (see note); Vitamin B5 (Pantothenic Acid) <=40 ng/mL (<275)
[2024-11-18 16:44] LABS: Vitamin B6 6.5 ng/mL (2.1-21.7)
[2024-11-19 14:33] LABS: Vitamin B2 (Riboflavin) 146.5 nmol/L (6.2-39.0)
[2024-11-23 08:38] LABS: Vitamin B1 18 nmol/L (8-30)
== END 2024-11-13 16:07 | disposition home or self-care (01) ==
LOC: HO.LAB 16:06
PROVIDERS: Nurse Practitioner Family; Student in an Organized Health Care Education/Training Program; PCP Internal Medicine; Visit Provider Advanced Practice Midwife
DX: M05.9 Rheumatoid arthritis with rheumatoid factor, unspecified (principal); K58.9 Irritable bowel syndrome, unspecified; D50.9 Iron deficiency anemia, unspecified; N89.8 Other specified noninflammatory disorders of vagina; Z13.6 Encounter for screening for cardiovascular disorders; N95.1 Menopausal and female climacteric states; N94.10 Unspecified dyspareunia; R68.2 Dry mouth, unspecified
CPT/HCPCS: 36415; 80053; 81515; 82607; 82728; 82746; 83090; 83540; 83921; 84207; 84252; 84425; 84591; 85025; 85652; 86140; 86200; 86431; 86481; 86704; 86706; 86709; 86780; 86803; 87340; 87389; 87491; 87591; 99212

== ENCOUNTER 2025-02-05 09:16 | Outpatient (AMB) | payer OTHER, SELFPAY ==
--- NOTE | 2025-02-05 09:24 | MHC.OFFVIS ---
Vital Signs 02/05/25 09:35 Height 5 ft 2 in Weight 172 lb BMI 31.5 BP 92/62 Blood Pressure Location Lt brachial Position Sitting Pulse 78 Pulse Source Pulse Oximeter Pulse Oximetry (%) 100 Oxygen Delivery Method Room Air Intake Visit Reasons: TENTATIVE exacerbation of sx. Intake Note: ESTABLISHED PATIENT for mgmt of [facility]. CC: C.O. N+V, dysphagia, lack of appetite, umbilical central pain which spreads to the epigastric region. Pt also reports foreign body sensation in the esophagus. Pt reports her GERD has become worse since running out of her sucralfate. Pharmacy did not send a refill in her most recent package within the last 2 weeks. Electrostatic Paint Operator Required: No Electrostatic Paint Operator Services: Electrostatic Paint Operator Offered & Declined Accompanied by: Daughter Allergies morphine [MORPHINE] Allergy (Intermediate, Verified 02/05/25 09:26) RASH HPI HPI TENTATIVE exacerbation of sx.: Details: LAST VISIT: Irritable bowel syndrome (IBS) GERD (gastroesophageal reflux disease) Chronic idiopathic constipation Screen for colon cancer Postprandial diarrhea Plan Will recheck CRP today although patient does have elevation of rheumatoid factor and is being seen by rheumatology. History of fibromyalgia. Will check calprotectin. Will stop mesalamine at this point. Patient will try to take fiber supplement to help her control her bowels. Will avoid lactose. Discussed with patient low FODMAP diet. List of food recommended as well as list of food to avoid given to patient. Patient will start taking Nexium in the morning and sucralfate at bedtime. Patient will be also scheduled for upper endoscopy to rule out gastritis, duodenitis, esophagitis, Barretts, H pylori. Will walk patient to schedulers office to book procedure. I will see her after, sooner on as needed basis. What to expect before during and after procedure discussed with patient. Stressed the importance of good bowel prep and clear liquid diet day before procedure. Patient will call our office if she will have any GI concerning symptoms. She is agreeable to this plan and verbalizes understanding of instructions. She was given the opportunity to ask questions and all questions answered. ? Thank you for allowing me to participate in her care Orders Orders C Reactive Protein Today K58.9 Calprotectin, Fecal Today R15.9 Medications New sucralfate 10 mL PO BEDTIME 400 mL 3RF K21.9 bisacodyl (Dulcolax (bisacodyl)) take 4 tabs at noon the day before your colonoscopy 20 mg (4 x 5 mg) PO ONCE 1 day 4 tabs 0RF Z12.11 polyethylene glycol 3350 (Miralax) As directed by gastroenterology department at [facility] 238 grams PO ONCE 238 grams 0RF Z12.11 Refilled esomeprazole magnesium 40 mg PO DAILY 90 caps 1RF K21.9 linaclotide (Linzess) 290 mcg PO QAM 30 caps 4RF K59.00 Discontinued mesalamine ER Discontinued Reason: Doctor's Order 1.5 grams (4 x 0.375 gram) PO QAM 120 caps 2RF UPPER ENDOSCOPY AND COLONOSCOPY: Findings: Larynx:normal Esophagus: GE junction at 38 cm, diaphragm hiatus at 38 cm, mild esophagitis and possible tongue of short segment barretts, bx taken and balloon dilation done to 18 mm to LES and UES, no tears seen Stomach: Normal mucosa. Biopsies were obtained. Grade 2 flap valve on retroflexed examination of the cardia. Pylorus seemed tight, balloon dilation to 19 mm with wire guided technique with tear noted at outlet Duodenum: Normal bulb and descending duodenum, bx taken Intervention: Biopsies as noted above, balloon with wire guidance at pylorus and without wire at esophagus COLONOSCOPY Instrument: Olympus variable stiffness pediatric scope 190L Colonoscopy Monitoring: Vital signs and clinical assessment, continuous EKG monitoring, Pulse oximetry, Carbon Dioxide monitoring and blood pressure monitoring were done throughout the procedure. Colon withdrawal time was 14 minutes. Procedure: The patient was placed in the left lateral decubitis position and pre-procedure medications were administered. After a digital rectal examination of the ano-rectum, the video colonoscope was inserted into the rectum and advanced through the colon to the cecum/TI. The colonoscope was slowly withdrawn in a retrograde panoramic fashion and the colon mucosa was carefully examined including a retroflexed view of the rectum. Findings and interventions are described below. Procedure Difficulty:moderate Findings: Terminal Ileum-normal, bx taken random bx taken from right, left and rectum, one area on the left was oozing a lot so clip applied for hemostasis Cecum:normal Ascending Colon: normal Transverse Colon -normal Descending Colon:normal Sigmoid Colon: patchy areas of featureless colon, mild diverticulosis noted Rectum: Retroflexion with small internal hemorrhoids, grade I 10-12 mm sessile polyp removed with cold snare Anorectum - normal Colon preparation: [place] Bowel Preparation Scale Right colon; 2 Transverse colon: 2 Left colon; 2 (0 = Unprepared colon segment with mucosa not seen due to solid stool that cannot be cleared. 1 = Portion of mucosa of the colon segment seen, but other areas of the colon segment not well seen due to staining, residual stool and/or opaque liquid. 2 = Minor amount of residual staining, small fragments of stool and/or opaque liquid, but mucosa of colon segment seen well. 3 = Entire mucosa of colon segment seen well with no residual staining, small fragments of stool or opaque liquid) Impression and Post Procedure Diagnosis: Endoscopy Findings: pyloric stenosis possible barretts Colonoscopy Findings: diverticulosis colon polyps internal hemorrhoids Plan: Await Pathology results Repeat Colonoscopy in 3-5 years if adenomatous polyp, 5 yrs if hyperplastic due to the size or earlier if clinically indicated High fiber diet leaflet avoid straining at stool, epsom salts and sitz bath, anusol supps or cream PATHOLOGY: Addendum Addendum #1 No fungi are seen in part E, supported by PAS stain. No change is made to the diagnoses. Electronically Signed By: Ernie Rodriguez MD 11/06/24 [id number] Diagnosis A. Duodenum, biopsy: Chronic inactive duodenitis. B. Stomach, biopsy: Oxyntic mucosa with mild chronic inactive inflammation; no Helicobacter organisms seen. C. GE junction, biopsy: - Cardiac-type mucosa with moderate chronic inactive inflammation; no intestinal metaplasia seen. - Active esophagitis (maximum eosinophil count 2 per high powered field). D. Esophagus, distal, biopsy: Active esophagitis (scattered eosinophils and neutrophils). E. Esophagus, proximal, biopsy: Active esophagitis (neutrophils); no atypia or fungi identified. F. Terminal ileum, biopsy: Small intestinal mucosa within normal limits. G. Colon, right, biopsy: Colonic mucosa within normal limits. H. Colon, transverse, biopsy: Colonic mucosa within normal limits. I. Colon, left, biopsy: Colonic mucosa within normal limits. J. Rectum, biopsy: Rectal mucosa within normal limits. K. Rectum, polypectomy: Colonic mucosa with surface hyperplastic changes and prominence of muscle. Comment: The findings in part K may represent a leiomyoma; the differential includes a hyperplastic mucosal polyp with prominent muscularis mucosae. No features of malignancy are seen. TODAY'S VISIT: Patient is here today for requested visit and to discuss upper endoscopy and colonoscopy results. Patient reports trouble swallowing epigastric pain no matter what she eats. Patient reports that she feels very bloated no matter what she eats. She is moving her bowels, however has to use Linzess every day in order to have a bowel movement. Patient reports 2-3 bowel movements, however sometimes no bowel movement for day or 2. Patient reports that she is taking Nexium and pharmacy has not filled her script for sucralfate. Patient reports that when she was taking sucralfate she was feeling better. Patient reports significant bloating. Patient is trying to eat more fruits and vegetables. Patient reports occasional dyspepsia with dysphagia without odynophagia. Denies melena, hematochezia. Active esophagitis found in proximal and distal esophagus. Hyperplastic mucosal polyp in rectum otherwise normal colonoscopy. Colonic mucosa within normal limits. Five year recommendation due to size of a polyp FOR[facility]LY [facility] Medical History Rash and nonspecific skin eruption Screening examination for infectious disease Hypovitaminosis D Bacterial vaginosis Vitamin D deficiency Migraine Hypertriglyceridemia Bipolar disorder current episode depressed Irritable bowel syndrome (IBS) GERD without esophagitis Recurrent major depression-severe Asthma Opioid use disorder, mild, in early remission Obesity (BMI 30-39.9) Anxiety Opioid dependence Memory impairment Loss of hearing Fibromyalgia Surgical History Hx of excision of mass History of esophagogastroduodenoscopy (EGD) History of tubal ligation History of lumbar fusion History of cholecystectomy Family History Father No problems noted. 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 Sexual orientation: Straight/Heterosexual Cognitive needs: No Hearing needs: No Vision needs: No Female Reproductive History Menstrual Age of Menarche: 10 Review of Systems Const Denies weight gain and Denies weight loss ENT Reports no additional complaints, Denies dysphagia and Denies odynophagia Card Reports no additional complaints Resp Reports no additional complaints GI Reports abdominal pain (Epigastric), Denies belching, Denies melena, Reports bloating, Denies change in bowel habits, Reports constipation, Denies dysphagia, Denies excessive flatus, Reports dyspepsia, Reports heartburn, Denies diarrhea, Denies loose stools, Reports nausea, Denies odynophagia and Denies vomiting Reports no additional complaints Musc Reports no additional complaints Neuro Reports no additional complaints Psych Reports no additional complaints Endo Reports no additional complaints Physical Exam Vital Signs: Last Vital Signs Pulse 78 02/05/25 09:35 BP 92/62 02/05/25 09:35 Pulse Ox 100 02/05/25 09:35 Oxygen Delivery Method Room Air 02/05/25 09:35 BMI result Body Mass Index 31.5 Const General: healthy appearing and no acute distress Nutritional Appearance: obese Orientation/consciousness: patient oriented x3 Resp Effort & Inspection: normal respiratory effort, able to speak in complete sentences, no tracheal deviation and symmetric chest movement Auscultation: clear to auscultation bilaterally Cardio Rate: regular rate GI Inspection: Yes normal to inspection, No distended and Yes obesity Palpation (GI): Soft to palpation, not firm, nontender and No hepatosplenomegaly present Auscultation: normal bowel sounds General: Yes no CVA tenderness Back/Spine/Pelvis Back: no CVA tenderness Skin General skin exam: elasticity normal, turgor normal and dry skin Neuro General: patient oriented x3 Psych Appearance: grossly normal Mental Status: mental status grossly normal Assessment & Plan Assessment & Plan (1) Irritable bowel syndrome (IBS): Code(s): K58.9 - Irritable bowel syndrome, unspecified Category: Medical Qualifiers: Irritable bowel syndrome type: with constipation Qualified Code(s): K58.1 - Irritable bowel syndrome with constipation (2) GERD (gastroesophageal reflux disease): Code(s): K21.9 - Gastro-esophageal reflux disease without esophagitis Qualifiers: Esophagitis presence: with esophagitis Esophagitis bleeding: without hemorrhage Qualified Code(s): K21.00 - Gastro-esophageal reflux disease with esophagitis, without bleeding (3) Chronic idiopathic constipation: Code(s): K59.04 - Chronic idiopathic constipation (4) Screen for colon cancer: Code(s): Z12.11 - Encounter for screening for malignant neoplasm of colon (5) Postprandial diarrhea: Code(s): K52.9 - Noninfective gastroenteritis and colitis, unspecified Plan Patient will continue taking Nexium in the morning and take sucralfate at bedtime. If symptoms continue she can take sucralfate twice a day in the afternoon and at bedtime. Patient will be sent for upper GI with barium swallow to evaluate her reflux. Discussed with patient upper endoscopy and colonoscopy results. Esophagitis seen in her esophagus and she needs to avoid dietary triggers. Staying upright for minimum 3 hours after meals discussed with patient. Patient will follow low FODMAP diet. Discussed with her that her symptoms could be related to the food that she eats. List of food recommended as well as list of food to avoid given to patient. Patient is reporting severe abdominal bloating postprandially depending on what she eats. Patient will try to stay away from carbs as much as possible. Avoid lactose as well. Continue taking Linzess. Increase fluid intake and activity to promote better bowel motility. Patient will try to stay awake from soda and will increase water. Follow-up in 2-3 months, sooner on as needed basis. She is agreeable to this plan and verbalizes understanding of instructions. She was given the opportunity to ask questions and all questions answered. Thank you for allowing me to participate in her care Orders: Orders [place] upper GI w Ba Swallow Today K21.9 - Gastro-esophageal reflux disease without esophagitis Medications: Refilled sucralfate 10 mL PO BEDTIME 400 mL 3RF K21.9 - Gastro-esophageal reflux disease without esophagitis linaclotide (Linzess) 290 mcg PO QAM 90 caps 4RF K59.00 - Constipation, unspecified esomeprazole magnesium 40 mg PO DAILY 90 caps 1RF K21.9 - Gastro-esophageal reflux disease without esophagitis Coding Level of Care Code Est Pt Level 4 (79921) Complex EM visit Add On G2211 Diagnoses Irritable bowel syndrome with constipation K58.1 Irritable bowel syndrome type: with constipation Gastroesophageal reflux disease with esophagitis without hemorrhage K21.00 Esophagitis presence: with esophagitis Esophagitis bleeding: without hemorrhage Chronic idiopathic constipation K59.04 Screen for colon cancer Z12.11 Postprandial diarrhea K52.9 Time Spent (min) 40 Comment 25 minutes spent with patient and additional 15 minutes spent reviewing her records
[2025-02-05 09:35] VITALS: BP 92/62; PULSE 78; O2SAT 100; BMI 31.5
== END 2025-02-05 10:07 | disposition home or self-care (01) ==
LOC: HO.HGI 09:16
PROVIDERS: PCP Internal Medicine; Visit Provider Nurse Practitioner Family
DX: K21.00 Gastro-esophageal reflux disease with esophagitis, without bleeding (principal); K52.9 Noninfective gastroenteritis and colitis, unspecified; K59.04 Chronic idiopathic constipation
CPT/HCPCS: 99214; G2211

== ENCOUNTER → 2025-02-05 09:16 | Outpatient (BNVA) | payer OTHER, SELFPAY | PROVIDERS: PCP Internal Medicine; Visit Provider Nurse Practitioner Family | DX: K59.04 Chronic idiopathic constipation (principal); K58.1 Irritable bowel syndrome with constipation; K21.9 Gastro-esophageal reflux disease without esophagitis; R13.10 Dysphagia, unspecified; R10.13 Epigastric pain | CPT/HCPCS: 99212 ==

== ENCOUNTER 2025-02-25 08:00 | Outpatient (REF) | payer OTHER, SELFPAY ==
--- NOTE | ~2025-02-25 | FL_ITS ---
EXAMINATION: XR UPPER GI SERIES WITH SMALL BOWEL CLINICAL INFORMATION: Gastroesophageal reflux disease without esophagitis COMPARISON: None available. TECHNIQUE: Routine upper GI exam was performed in upright view and lying. FINDINGS: On oral administration of thick barium and effervescent granules an upright standing view there is normal propagation bolus from the oral cavity through the pharynx, esophagus into stomach without obstruction. There is mild transient area of narrowing or spasm in the midesophagus at the level of aortic knob on several images but no intraluminal filling defect seen. A prominent cricoesophageal sphincter is noted. On placing patient in supine and prone lying the course, caliber and peristalsis of the stomach are multiple rodo in the right upper quadrant from previous cholecystectomy., duodenal bulb and the sweep is normal. The mucosal pattern of stomach, duodenum and sweep is normal. FLUOROSCOPY TIME: 1 minute 27 seconds DOSE AREA PRODUCT: 38.11 uGy-m2 (microgray-meter squared) FL/FL upper GI w air w Ba Swallow IMPRESSION: Prominent area of narrowing or spasm midesophagus at the level of aortic knob. Moderate prominence of cricoesophageal sphincter with no obstruction seen. Otherwise unremarkable upper GI air contrast study. Electronically signed by: Milad Gtz MD 02/25/2025 12:06 PM EDT RP
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
== END 2025-02-25 08:01 | disposition home or self-care (01) ==
LOC: HO.XRAY 08:00
PROVIDERS: PCP Internal Medicine; Visit Provider Nurse Practitioner Family
DX: K21.9 Gastro-esophageal reflux disease without esophagitis (principal)
CPT/HCPCS: 74246

== ENCOUNTER → 2025-02-25 08:01 | Outpatient (BNV) | payer OTHER, SELFPAY | PROVIDERS: PCP Internal Medicine; Visit Provider Radiology Diagnostic Radiology | DX: K21.9 Gastro-esophageal reflux disease without esophagitis (principal) | CPT/HCPCS: 74246 ==

== ENCOUNTER → 2025-03-21 13:36 | Outpatient (AMB) | payer OTHER, SELFPAY ==
--- NOTE | 2025-03-21 13:40 | A.OFFVIS_ITS ---
Vital Signs 03/21/25 13:42 Height 5 ft 2 in Weight 167 lb 8.821 oz BMI 30.6 BP 109/70 Blood Pressure Location Lt brachial Position Sitting Pulse 97 Intake Visit Reasons: N+V exacerbation. FUV req by pt. Intake Note: Shira presents in the office as a N/V exacerbation. She states that she is still having nausea and vomiting and issues with her stomach. 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 FUV req by pt.: Details: LAST VISIT Irritable bowel syndrome (IBS) GERD (gastroesophageal reflux disease) Chronic idiopathic constipation Screen for colon cancer Postprandial diarrhea Plan Patient will continue taking Nexium in the morning and take sucralfate at bedtime. If symptoms continue she can take sucralfate twice a day in the afternoon and at bedtime. Patient will be sent for upper GI with barium swallow to evaluate her reflux. Discussed with patient upper endoscopy and colonoscopy results. Esophagitis seen in her esophagus and she needs to avoid dietary triggers. Staying upright for minimum 3 hours after meals discussed with patient. Patient will follow low FODMAP diet. Discussed with her that her symptoms could be related to the food that she eats. List of food recommended as well as list of food to avoid given to patient. Patient is reporting severe abdominal bloating postprandially depending on what she eats. Patient will try to stay away from carbs as much as possible. Avoid lactose as well. Continue taking Linzess. Increase fluid intake and activity to promote better bowel motility. Patient will try to stay awake from soda and will increase water. Follow-up in 2-3 months, sooner on as needed basis. She is agreeable to this plan and verbalizes understanding of instructions. She was given the opportunity to ask questions and all questions answered. ? Thank you for allowing me to participate in her care Orders FL upper GI w Ba Swallow Today K21.9 Refilled sucralfate 10 mL PO BEDTIME 400 mL 3RF K21.9 linaclotide (Linzess) 290 mcg PO QAM 90 caps 4RF K59.00 esomeprazole magnesium 40 mg PO DAILY 90 caps 1RF K21.9 TODAY'S VISIT Patient is here today for requested visit. Patient reports that he continues to have nausea and significant acid reflux. Patient also reports epigastric pain postprandially. Upper GI series did not show significant reflux. Esophageal narrowing noted, however patient denies having trouble swallowing. Still having trouble moving her bowels. Currently she is taking Linzess in the morning and Dulcolax at bedtime. Patient is taking Nexium in the morning. Patient forgets to take sucralfate. Patient admits to not always avoiding dietary triggers. Reports abdominal pain and bloating [facility] History Rash and nonspecific skin eruption Screening examination for infectious disease Hypovitaminosis D Bacterial vaginosis Vitamin D deficiency Migraine Hypertriglyceridemia Bipolar disorder current episode depressed Irritable bowel syndrome (IBS) GERD without esophagitis Recurrent major depression-severe Asthma Opioid use disorder, mild, in early remission Obesity (BMI 30-39.9) Anxiety Opioid dependence Memory impairment Loss of hearing Fibromyalgia Surgical History Hx of excision of mass History of esophagogastroduodenoscopy (EGD) History of tubal ligation History of lumbar fusion History of cholecystectomy Family History Father No problems noted. 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 Sexual orientation: Straight/Heterosexual Cognitive needs: No Hearing needs: No Vision needs: No Female Reproductive History Menstrual Age of Menarche: 10 Review of Systems Const Denies weight gain and Denies weight loss ENT Reports no additional complaints, Denies dysphagia and Denies odynophagia Card Reports no additional complaints Resp Reports no additional complaints GI Reports abdominal pain (Epigastric), Denies belching, Denies melena, Reports bloating, Denies change in bowel habits, Reports constipation, Denies dysphagia, Denies excessive flatus, Reports dyspepsia, Reports heartburn, Denies diarrhea, Denies loose stools, Reports nausea, Denies odynophagia and Reports vomiting Reports no additional complaints Musc Reports no additional complaints Neuro Reports no additional complaints Psych Reports no additional complaints Endo Reports no additional complaints Physical Exam Vital Signs: Last Vital Signs Pulse 97 03/21/25 13:42 BP 109/70 03/21/25 13:42 BMI result Body Mass Index 30.6 Const General: healthy appearing and no acute distress Nutritional Appearance: obese Orientation/consciousness: patient oriented x3 Resp Effort & Inspection: normal respiratory effort, able to speak in complete sentences, no tracheal deviation and symmetric chest movement Auscultation: clear to auscultation bilaterally Cardio Rate: regular rate GI Inspection: Yes normal to inspection, No distended and Yes obesity Palpation (GI): Soft to palpation, not firm, nontender and No hepatosplenomegaly present Auscultation: normal bowel sounds General: Yes no CVA tenderness Back/Spine/Pelvis Back: no CVA tenderness Skin General skin exam: elasticity normal, turgor normal and dry skin Neuro General: patient oriented x3 Psych Appearance: grossly normal Mental Status: mental status grossly normal Results Reviewed Results Reviewed: UPPER GI SERIES WITH BARIUM SWALLOW IMPRESSION: Prominent area of narrowing or spasm midesophagus at the level of aortic knob. Moderate prominence of cricoesophageal sphincter with no obstruction seen. Otherwise unremarkable upper GI air contrast study. Assessment & Plan Assessment & Plan (1) GERD without esophagitis: Code(s): K21.9 - Gastro-esophageal reflux disease without esophagitis Category: Medical (2) Irritable bowel syndrome (IBS): Code(s): K58.9 - Irritable bowel syndrome, unspecified Category: Medical Qualifiers: Irritable bowel syndrome type: with constipation Qualified Code(s): K58.1 - Irritable bowel syndrome with constipation (3) Gastroesophageal reflux disease: Code(s): K21.9 - Gastro-esophageal reflux disease without esophagitis Qualifiers: Esophagitis presence: esophagitis presence not specified Qualified Code(s): K21.9 - Gastro-esophageal reflux disease without esophagitis (4) Chronic idiopathic constipation: Code(s): K59.04 - Chronic idiopathic constipation (5) Postprandial diarrhea: Code(s): K52.9 - Noninfective gastroenteritis and colitis, unspecified (6) Postprandial epigastric pain: Code(s): R10.13 - Epigastric pain Plan Patient will continue taking Nexium every morning. She will take sucralfate twice a day in the afternoon and at bedtime. Avoid dietary triggers and late night snacking. Staying upright for minimum 3 hours after meals discussed with patient. Discussed with patient low FODMAP diet. List of food recommended as well as list of food to avoid given to patient. Will stop Linzess and patient will stop taking Motegrity. Patient has follow-up appointment already. She will call our office if she will have any additional GI concerning symptoms. She is agreeable to current plan of care and verbalizes understanding of instructions. She was given the opportunity to ask questions and all questions answered. Thank you for allowing me to participate in her care Medications: New prucalopride (Motegrity) 2 mg PO DAILY 30 tabs 2RF K59.04 - Chronic idiopathic constipation Changed From sucralfate 10 mL PO BEDTIME 400 mL 3RF K21.9 - Gastro-esophageal reflux disease without esophagitis To sucralfate 10 mL PO BID 400 mL 3RF K21.9 - Gastro-esophageal reflux disease without esophagitis Coding Level of Care Code Est Pt Level 4 (22989) Complex EM visit Add On G2211 Diagnoses GERD without esophagitis K21.9 Irritable bowel syndrome with constipation K58.1 Irritable bowel syndrome type: with constipation Gastroesophageal reflux disease, unspecified whether esophagitis present K21.9 Esophagitis presence: esophagitis presence not specified Chronic idiopathic constipation K59.04 Postprandial diarrhea K52.9 Postprandial epigastric pain R10.13 Time Spent (min) 40 Comment 25 minutes spent with patient and additional 15 minutes spent reviewing her records
--- OUTSIDE RECORDS SUMMARY | 2025-03-21 13:40 | XMS_ITS | Patient Health Record ---
Author Organization [facility] Address [address] [place] [address] Care Team Providers Care Reinspector Name Role Phone Braydon Guido Unavailable [phone] Reason For Referral No Information Plan Of Treatment No Information
--- OUTSIDE RECORDS SUMMARY | 2025-03-21 13:40 | XMS_ITS | Data Portability ---
Author Organization FELIPE - Manuel Whelan [facility], [facility] Address [address] [place] [address] Care Team Providers Care Maintenance Helper Name Role Phone DESIRAE MORGAN Primary Care [...] nondispl aced greater tuberosi ty fracture (05/2024 ) Evaluate and Treat 2-3x/wee k x 8-12 weeks Goal: - Decrease pain/swe lling - Increase range of motion Recommen ded Modaliti es: - Heat prior to stretchi ng - Ice at the end of the session - Addition al modaliti es prn, but emphasis should be on manual therapy Precauti ons: WBAT, no motion restrict ions Therapeu tic Exercise : - Pendulum s - Passive, active-a ssist, active range of motion as tolerate d, focusing on gradual progress ion over time - Scapular shrugs/r etractio ns without resistan ce - Submaxim al isometri c rotator cuff strength ening Emphasiz e importan ce of home program, 3x/day 2024 025 [email or web address] Not available 03/04/2025 14:31:05 physical therapis t referral - DIAGNOSI S: Right non-disp laced greater tuberosi ty fracture , 05/22/20 24; capsulit is Evaluate and Treat 2x/week x 8-12 weeks Goal: - Decrease pain/swe lling - Increase range of motion Recommen ded Modaliti es: - Heat prior to stretchi ng - Ice at the end of the session - Addition al modaliti es prn, but emphasis should be on manual therapy Precauti ons: WBAT, no motion restrict ions Therapeu tic Exercise : - Pendulum s - Passive, active-a ssist, active range of motion as tolerate d, focusing on gradual progress ion over time - Scapular shrugs/r etractio ns without resistan ce - Submaxim al isometri c rotator cuff strength [...] FOR RTC TEAR PAIN,SWE LLING 2023 024 [facility] ([facility]), [address], [place], [address], 09/05/2024 08:43:22 XR, hand, 3 or more view - room 112 3V R hand 2023 024 [email or web address], [address], [address], [place], [address], 08/01/2024 08:02:18 Medication Orders None recorded . Patient TargetsNo targets recorded. Patient InstructionsNo instructions recorded. Reason for Referral OT- s/p RIGHT HAND SECOND LA OXIMAL PHALANX OPEN REDUCTION INTERNAL FIXATION SX 06/04/24 DR Sarah Beth GOODWIN, scar massage Referring Physician: Regina Triplett, Orthopedic [...] non-displaced greater tuberosity fracture, 05/22/2024; capsulitisEvaluate and Eqrvm7s/week x 8-12 weeksGoal: - Decrease pain/swelling - [...] XR, hand, 3 or more view http:/ /[employer] [email or web address] 0:7083 ?Encry pted=s hAaTro YD8dLq bEUv6g %2BXZw aYqtaq 0bqfl% 2Fg9IQ a4ajBk vP9nXo QUaueC m3YtLR FvZlgJ JJ8mAn HZtai3 1i7348 AC0Kqa 36AVqq jKiQtr MwF INTERFACE [facility] [address], [place], [address], 06/17/2024 14:04:41 06/17/20 24 06/17/2024 XR, hand, 3 or more view http:/ /[email or web address] [email or web address] 0:7083 ?Encry pted=s hAaTro YD8dLq bEUv6g %2BXZw aYqtaq 0bqfl% 2Fg9IQ a4ajBk vP9nXo QUaueC m3YtLR FvZlgJ JJ8mAn HZtai3 5k6798 AC0Kqa 36AVqq jKiQtr MwF INTERFACE [facility] [address] [facility] [address], [place], [address], 06/17/2024 14:04:43 07/12/20 24 07/12/2024 XR, hand, 3 or more view http:/ /[email or web address] [email or web address] 0:7083 ?Encry pted=s hAaTro YD8dLq bEUv6g %2BXZw aYqtaq 0bqfl% 2Fg9IQ a4ajBk vP9nXo QUaueC m3YtLR FvZlgJ JJ8mAn HZtai3 5z3919 AC0Kqa HmAVKO jKiQtr MwF INTERFACE [facility] [address], [place], [address], 07/12/2024 12:13:43 07/12/20 24 07/12/2024 XR, hand, 3 or more view http:/ [email or web address]:7083 ?Encry pted=s hAaTro YD8dLq bEUv6g %2BXZw aYqtaq 0bqfl% 2Fg9IQ a4ajBk vP9nXo QUaueC m3YtLR FvZlgJ JJ8mAn HZtai3 2x5920 AC0Kqa HmAVKO jKiQtr MwF INTERFACE [facility] [address], [place], [address], 07/12/2024 12:13:45 09/05/20 24 08/31/2024 MRI, christopher theresa, w/o contr ast [facility] Access ion Number : [id number] Patien t Name: Samreen Britton ra Medica l Record Number : [id number] Date of : 1974 Date of Exam: 2023 Referr ing Physic vishnu: Elpidio [facility] [address], [address] [place] [address] Exam: MR Should er (C-) CPT 40458 - Right Room Descri ption: [place] GE Pion 3T MR Should er (C-) CPT 98790 CLINIC AL INDICA TION: Pain in right [...] provid er will be docume nted in [facility] onnect Action able Findsukhwinder sifuentes sierrarodriguez e [place] [id number] 4. Electr onical ly Signed By: Calvin Richard rd, MD [facility] ([facility]) [address], [place], [address], 09/13/2024 09:07:35 Result Notes Documentation Provider Name and Address Organization Details Recorded Time Xr, Hand, 3 Or More View : [email or web address]?E ncrypted=kcUrRevSC7kHigHJi 6g%3WIKtrPotwz2sdbk%2Fg9IQ c8dlRgjB7xTnNQritCx2FeWAUf JjiFFS2qKuXAxec03m7406ZO1R qaHmAVKOjKiQtrMwF Not Available [facility] 07/12/2024 12:13:44 Xr, Hand, 3 Or More View : [email or web address] ncrypted=maQbRsxOM0zYglFTq 6g%3LFBruTtrax2vujo%2Fg9IQ m4sdJuaM1qBaRDoltTn8YwBGBl VvcUSH7lDzFNhkp62e2238TM0C qaHmAVKOjKiQtrMwF Not Available [facility] 07/12/2024 12:13:46 Mri, Shoulder, W/o Contrast : [facility] Accession Number: [id number] Patient Name: Shira Britton Date of : 1975 Date of Exam: 08-31-2024 Referring Physician: Regina Triplett [facility] ([facility]) [address] [facility], [address] [place] [address] Exam: MR Shoulder (C-) CPT 05909 - Right Room Description: [facility] 3T MR Shoulder (C-) CPT 84093 CLINICAL INDICATION: Pain in right shoulder, Other [...] or ordering provider will be documented in [employer] Actionable Findings, message ID [id number]. Electronically Signed By: Calvin calderonFormerly [facility] 09/13/2024 09:07:35 Problems Name Problem SNOMED Code Status Onset Date Resolution Date Notes Provider Name and Address Organization Details Recorded Time Pain of left shoulder region Active 024 Regina Triplett, PASTE PLANT SUPERVISOR [address], [place], [address] , [facility] 09/10/2024 12:37:25 Problem Notes None recorded. Procedures Surgical History Date Name Laterality Status Provider Name and Address Organization Details Recorded Time 5 Sports Shoulder completed Hillary Live MD [address], [place], [address], [facility] 02/17/2025 10:29:07 5 Sports Shoulder completed Hillary Live MD [address], [place], [address], [facility] 09/27/2024 12:10:25 4 OPEN REDUCTION INTERNAL FIXATION, PHALANX (FINGER) (SURG) completed MAMTA LUJAN [facility] 06/06/2024 13:50:12 Imaging Results None recorded. Procedure Notes None recorded. Medical Equipment None Reported. Allergies Allergen ID Allergen Name Allergen Category Reaction Reaction Severity Criticality Documentation Date Start Date Code Code System Note Provider Name and Address Organization Details Recorded Time 455349 morphine medicatio n Not available Not available Not available 05/29/2024 7052 RxNorm DILCIA calderonFormerly [facility] 4 11:10:11 Medications Name Sig Start [...] enidate ER 10 mg capsule,ext ended release vbjknnoi95- 50 active Not Available Not Available Not Available dexmethylph enidate ER 20 mg capsule,ext ended release xgleogup47- 50 TAKE 1 CAPSULE BY MOUTH EVERY DAY IN THE MORNING active Not Available Not Available No t Available dexmethylph enidate ER 15 mg capsule,ext ended release ntvvejds07- 50 active Not Available Not Available Not [...] Updated DateTime 09/27/2024 157.48 cm 31.1 kg/m2 19462.7 g ROCK ZULETA [facility] 09/27/2024 11:14:29 Date Recorded Body height Body mass index (BMI) Body weight Provider Name and Address Organization Details Last Updated DateTime 02/13/2025 157.48 cm 31.1 kg/m2 81527.7 g KENYA Mccurdy [facility] 02/13/2025 10:55:03 Date Recorded Body height Body mass index (BMI) Body weight Provider Name and Address Organization Details Last Updated DateTime 02/17/2025 157.48 cm 31.1 kg/m2 02079.7 g ROCK ZULETA [facility] 02/17/2025 09:41:32 Date Recorded Body height Body mass index (BMI) Body weight Provider Name and Address Organization Details Last Updated DateTime 07/12/2024 157.48 cm 31.1 kg/m2 69312.7 g DILCIA TORRES [facility] 07/12/2024 12:07:03 Date Recorded Body height Body mass index (BMI) Body weight Provider Name and Address Organization Details Last Updated DateTime 08/05/2024 157.48 cm 31.1 kg/m2 48087.7 g KENYA Mccurdy [facility] 08/05/2024 15:49:17 Social History None recorded. Functional Status None recorded. Mental Status None recorded. Family History Nothing Reported. Medical History Condition Response Allergies/Hayfever N Coronary Artery Disease N Anxiety/Depression N Breathing or lung disorders N Emphysema N Nerve Disorders N Thyroid Problems N COPD N Pacemaker N Anemia N Kidney/Bladder Problems N Vascular Disease N Heart Trouble N Heart Attack (OR) N Gastrointestinal Disease Y Cholesterol N Diabetes N Autoimmune disease N Inflammatory Joint disease N Bleeding Disorder N Orthotics N Arthritis Y Seizures/Epilepsy N Blood Clot N AIDS/HIV N Congestive Heart Failure (CHF) N Acid Reflux (GERD) N Cancer N Stroke N Asthma Y Circulation Problems Y Peripheral Vascular Disease N Sleep Apnea N Hepatitis N Heart Disease N Rheumatoid Arthritis Y Arrhythmia N Pulmonary Embolism N Headaches Y Fibromyalgia N Hypertension N Osteoporosis N Gynecological HistoryNo gynecological history recorded. Obstetrics History GPAL:G 0 P 0 0 0 0 Past Encounters Encounter ID Performer Location Encounter Start Date Encounter Closed Date Diagnosis/Indication Diagnosis SNOMED-CT Code Diagnosis ICD10 Code Diagnosis Note [id number] Monse Foster PA-C [facility] [address] [place] [address] 05/29/2024 10:04:44 06/20/2024 08:15:53 Fracture of proximal phalanx of finger 172939687 S62.610A [id number] Monse Foster PA-C [facility] [address] [place] [address] 06/12/2024 08:37:14 06/12/2024 09:42:17 Postoperative care 089918303 Z48.89 [id number] Regina Triplett CNP [facility] [address] [place] [address] 06/17/2024 13:26:59 07/03/2024 15:46:23 Pain in right hand 8715475581 27612 M79.418 [id number] Regina Triplett CNP [facility] [address] [place] [address] 07/12/2024 11:57:49 08/01/2024 08:02:17 Pain in right hand 4825876139 76983 M79.641 Postoperative visit 1836 13123 Z48.89 Contusion of right shoulder 9600458922 8999110 S40.011A [id number] Regina Triplett CNP [facility] [address] [place] [address] 08/05/2024 15:35:25 08/22/2024 08:22:51 Chronic pain of right upper limb 2598688100 4478328 M25.511 G89.29 Pain in right hand 55581 29095 70107 M79.998 [id number] MD VENU Moffett [address] [place] [address] 09/27/2024 11:10:50 10/08/2024 13:57:53 Closed fracture proximal humerus, greater tuberosity 192826610 S42.254D [id number] Regina Triplett, PASTE PLANT SUPERVISOR [facility] [address] [place] [address] 02/13/2025 10:31:09 02/19/2025 15:28:03 [id number] MD VENU Moffett [facility] [address] [place] [address] 02/17/2025 09:26:58 03/04/2025 14:31:05 Adhesive capsulitis of right shoulder 5803038549 86532 M75.01 Health Concerns Section Related Observation LastModified by Organization Detai ls LastModified Time None Recorded Concern Status LastModified by Organization Details LastModified Time None Recorded Advance Directives Directive None Recorded Payers Insurance Date Sequence Insurance Name Policy Number Policy Palmer Covered Member ID Palmer Member ID Guarantor Name 09/27/2024 PROGRESSIVE Shira Rome 03/04/2025 1 [facility] - DOS ON OR AFTER 2022 - ONE CARE (MEDICARE REPLACEMENT/ADV ANTAGE - HMO) Shira Rome [id number] Shira Rome Notes Date Note Type Note [...] which were negative for fracture. Regina Triplett, PASTE PLANT SUPERVISOR [address] [facility] [employer] [address], [place], [address], [facility] 07/12/2024 12:29:55 08/05/2024 text/html Beatrice is a [...] relief no help from anti-inflammatories Regina Triplett, PASTE PL[employer] SUPERVISOR [address] [facility] [employer] [address], [place], [address], [facility] 08/05/2024 16:31:15 09/27/2024 text/html Issue: Right shoulder nondisplaced greater tuberosity fracture, 05/22/2024 Interval History: This is a 49-year-old uygax-mwsf-dvvdfyja woman with rheumatoid arthritis who was involved [...] Imaging: Imaging: Right shoulder MRI performed at [facility] 08/31/2024 independently reviewed by me on [...] tendon down the bicipital groove. Impression: 49-year-old ecskj-kvee-meaazzdx woman with nondisplaced right greater tuberosity fracture [...] any underlying rotator cuff or biceps pathology. [facility] speech recognition chief learning officer software was used to create portions of this document. An attempt at proofreading has been made to minimize errors. Please call for corrections. Hillary Live MD [address], [place], [address], [facility] 09/27/2024 12:10:41 02/13/2025 text/html Shira is a [...] for follow up Regina Triplett CNP [address] [facility] [address], [place], [address], [facility] 02/13/2025 11:33:00 02/17/2025 text/html Issue: Right shoulder nondisplaced greater tuberosity fracture, 05/22/2024 Interval History: This is a 49-year-old nezay-jocb-ongukjgf woman with rheumatoid arthritis who was involved [...] Imaging: Imaging: Right shoulder MRI performed at [facility] 08/31/2024 independently reviewed by me on [...] tendon down the bicipital groove. Impression: 49-year-old jvpye-odfg-elfpjmdm woman with nondisplaced right greater tuberosity fracture [...] another 2 to 3 months for recheck. [facility] speech recognition chief learning officer software was used to create portions of this document. An attempt at proofreading has been made to minimize errors. Please call for corrections. Hillary Live MD [address] [place] [address] [address], [place], [address], [facility] 02/17/2025 10:29:39 OBGyn Episode No OBEpisode recorded.
[2025-03-21 13:42] VITALS: BP 109/70; PULSE 97; BMI 30.6
== END ==
LOC: HO.HGI 13:37
PROVIDERS: PCP Internal Medicine; Visit Provider Nurse Practitioner Family
DX: K21.9 Gastro-esophageal reflux disease without esophagitis (principal); K58.1 Irritable bowel syndrome with constipation; K59.04 Chronic idiopathic constipation; R10.13 Epigastric pain
CPT/HCPCS: 99214; G2211

== ENCOUNTER → 2025-03-21 13:36 | Outpatient (BNVA) | payer OTHER, SELFPAY | PROVIDERS: PCP Internal Medicine; Visit Provider Nurse Practitioner Family | DX: K21.9 Gastro-esophageal reflux disease without esophagitis (principal); K58.1 Irritable bowel syndrome with constipation; K59.04 Chronic idiopathic constipation; R10.13 Epigastric pain | CPT/HCPCS: 99212 ==

== ENCOUNTER 2025-04-17 12:08 | Outpatient (AMB) | payer OTHER, SELFPAY ==
[2025-04-17 12:09] VITALS: BMI 30.6
--- NOTE | 2025-04-17 12:09 | A.OFFPC_ITS ---
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: No Accompanied by: Self / Same As Patient Allergies morphine (MORPHINE) Allergy (Intermediate, Verified 04/17/25 12:26) RASH Medication List - Last Reconciled 04/17/25 by Fidencio Gomez MD albuterol sulfate 90 mcg/actuation (Ventolin HFA) 2 puffs inhalation Q6-8H PRN ascorbate calcium (vitamin C) 500 mg PO DAILY 90 days [Bathmat As directed] bisacodyl (Dulcolax (bisacodyl)) 10 mg (2 x 5 mg) PO BEDTIME bisacodyl (Fleet Bisacodyl) 10 mg (30 mL) MO DAILY PRN 7 days [Boost supplement drinks As directed BID with meals] buspirone 20 mg PO TID cetirizine 10 mg PO DAILY PRN 90 days cholecalciferol (vitamin D3) 50 mcg PO DAILY clotrimazole-betamethasone 1-0.05 % 1 appl topical BID cyanocobalamin (vitamin B-12) 500 mcg PO DAILY 30 days [DETACHABLE SHOWER HEAD As directed] dexmethylphenidate mg PO DAILY PRN dexmethylphenidate ER 40 mg PO QAM duloxetine 60 mg PO DAILY esomeprazole magnesium 40 mg PO DAILY famotidine 40 mg PO DAILY ferrous gluconate 324 mg PO DAILY 90 days folic acid 1 mg PO DAILY galcanezumab-gnlm (Emgality Pen) 120 mg subcut ONCE 30 days hydrocortisone 2.5% 1 appl MO Q8-12H lamotrigine 200 mg PO BID magnesium citrate 150 mL PO DAILY 1 day magnesium oxide 400 mg PO BEDTIME 90 days melatonin 3 - 9 mg (1 - 3 x 3 mg) PO DAILY PRN 30 days methotrexate sodium 15 mg (6 x 2.5 mg) PO QWEEK 90 days Motegrity (prucalopride) 2 mg PO DAILY NS ondansetron 4 mg PO Q6H PRN 14 days prazosin 2 mg PO DAILY propranolol mg PO DAILY [Wilkinson size memory form foam bed topper As directed] riboflavin (vitamin B2) 400 mg PO DAILY 90 days [SHOWER BENCH As directed] sucralfate 10 mL PO BID sumatriptan succinate 50 - 100 mg orally at onset of headache, may repeat in 2 hrs PRN; max 2 tabs per day or 4 tabs/week (may take with Ibuprofen) 30 days [TOILET SEAT with GRAB BAR As directed] topiramate 100 mg PO DAILY zolpidem 10 mg PO BEDTIME PRN Tobacco use date assessed: 04/17/25 Dental Screening Dental Screen Date: 04/17/25 Did you have a dental visit in the last 12 months?: Yes Did you have a dental problem in the last 6 months where you did not have access to dental care?: No Was dental information given to patient?: Patient has dentist HPI DM HPI Details Chief Complaint The patient presents with multiple complaints including joint pain, depression, and gastrointestinal issues. History of Present Illness - The patient is a 50-year-old female pr esenting with management of rheumatoid arthritis, shoulder pain, sacroiliac joint pain, depression, anxiety, diverticulosis, and dysphagia. - Rheumatoid arthritis: High rheumatoid factor, negative CCP, seropositive RA, is currently on methotrexate, has follow-up with Dr. Patel in May 2025. - Right shoulder pain: Exacerbated by fa ll about a month ago, no imaging done, plans for x-ray. - Sacroiliac joint pain: Significant shiv n, no surgery due to lack of support, considering cortisone injections. - Depression and anxiety: Long-standing history, dissatisfaction with treatment, upcoming psychiatrist appointment. - Diverticulosis and dysphagia: Diagnose d with diverticulosis on last colonoscopy; dysphagia present - has upcoming appointment with GI in a couple of weeks Social History - Housing: Currently living in the [facility] with her daughter after selling her house. - Family status: Single mother with a da hayder. - Functional status: Reports difficulty with mobility due to pain and falls. Plan - Follow up with Dr. Patel for rheumatoi d arthritis in May. - Obtain x-ray for shoulder pain. - Consider cortisone injections for sacr oiliac joint pain. - Discuss medication regimen with psychi atrist for depression and anxiety. - Schedule upper endoscopy for dysphagia and diverticulosis evaluation. Patient was informed and verbally consented to the use of an ambient scribe for clinic note documentation during this visit. Discussion Notes I discussed with the patient the importance of following up with Dr. Patel for rheumatoid arthritis management and obtaining an x-ray for her shoulder pain. We also talked about considering cortisone injections for her sacroiliac joint pain. I advised her to discuss her medication regimen with her psychiatrist to address her depression and anxiety. Additionally, we planned for an upper endoscopy to evaluate her dysphagia and diverticulosis. I emphasized the need for regular follow-ups and to keep her appointments with specialists. Patient Instructions - Follow up with Dr. Patel for rheumatoi d arthritis management in May. - Obtain an x-ray for shoulder pain asse ssment. - Consider cortisone injections for sacr oiliac joint pain. - Discuss medication regimen with psychi atrist for depression and anxiety management. - Schedule and attend an upper endoscopy for evaluation of dysphagia and diverticulosis. [facility] Medical History Rash and nonspecific skin eruption Screening examination for infectious disease Hypovitaminosis D Bacterial vaginosis Vitamin D deficiency Migraine Hypertriglyceridemia Bipolar disorder current episode depressed Irritable bowel syndrome (IBS) GERD without esophagitis Recurrent major depression-severe Asthma Opioid use disorder, mild, in early remission Obesity (BMI 30-39.9) Anxiety Opioid dependence Memory impairment Loss of hearing Fibromyalgia Surgical History Hx of excision of mass History of esophagogastroduodenoscopy (EGD) History of tubal ligation History of lumbar fusion History of cholecystectomy Family History Father No problems noted. 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 1. Little interest or pleasure in doing things: nearly every day 2. Feeling down, depressed, or hopeless: nearly every day 3. Trouble falling or staying asleep, or sleeping too much: nearly every day 4. Feeling tired or having little energy: nearly every day 5. Poor appetite or overeating: nearly every day 6. Feeling bad about yourself - or that you are a failure or have let yourself or your family down: nearly every day 7. Trouble concentrating on things, such as reading the newspaper or watching television: nearly every day 8. Moving or speaking so slowly that other people could have noticed. Or the opposite - being so fidgety or restless that you have been moving around a lot more than usual: nearly every day 9. Thoughts that you would be better off or of hurting yourself in some way: several days Total score: 25 Depression Screening Interpretation: Positive Depression Screening Follow-up: Existing condition, In treatment and Community Mental Health Worker F/U Depression Screening Done: Yes 18236 - PHQ-9 Billing: Yes Source: Developed by Drs. Braydon Kellogg, Angela Ni, Adrian Monge and colleagues, with an educational chaz from [email or web address]. Thrive Questionnaire Date Thrive assessed: 04/17/25 I am a: Patient What is your living situation today?: I have a steady place to live Within the past 12 months, did the food you bought not last and you didn't have the money to get more?: Never true Within the past 12 months, did you worry whether your food would run out before you got money to buy more?: Never true Do you have trouble paying for medicines?: No Do you have trouble getting transportation to medical appointments?: No Do you have trouble paying your heating and electricity bill?: No Do you have trouble taking care of your child, family member or friend?: No Do you have trouble with day-to-day activities such as bathing, preparing meals, shopping, managing finances, etc.?: No Are you currently unemployed and looking for a job?: No Are you interested in more education?: No Please select the resources that you would like help with: None Currently or been in a relationship where the following occur: No concerns reported THRIVE Score: 0 AUDIT C Alcohol Use Questionnaire (AUDIT-C) 1. How often do you have a drink containing alcohol?: Monthly or less 2. How many drinks containing alcohol do you have on a typical day when you are drinking?: 1 or 2 3. How often do you have six or more drinks on one occasion?: Never Total Score: 1 Score Reviewed/Action Taken: Yes CINTHIA-7 AMB Questionnaire CINTHIA-7 Date CINTHIA - 7 assessed: 04/17/25 Feeling nervous, anxious, or on edge: 0 = Not at all Not being able to stop or control worryin = Not at all Worrying too much about different things: 0 = Not at all Trouble relaxin = Not at all Being so restless that it is hard to sit still: 0 = Not at all Becoming easily annoyed or irritable: 0 = Not at all Feeling afraid as if something awful might happen: 0 = Not at all Total CINTHIA-7 score (0-4 normal; 5-9 mild; 10-14 moderate; 15-21 severe): 0 Source: Developed by Drs. Braydon Kellogg, Angela Ni, Adrian Monge and colleagues, with an educational chaz from [email or web address]. Review of Systems Const Denies chills, Reports fatigue, Denies fever(s) and Reports headache(s) (on and off) ENT Reports dysphagia, Reports dizziness (occasionally), Denies otalgia, Reports headache(s) (on and off), Denies neck pain, Denies odynophagia and Denies sore throat Card Denies chest pain, Denies irregular heart rhythm, Denies palpitations and Reports dyspnea on exertion (mild) Resp Denies chest congestion, Denies cough and Reports dyspnea on exertion (mild) GI Denies abdominal pain, Reports constipation (chronic), Reports dysphagia, Denies heartburn, Denies diarrhea, Denies nausea, Denies odynophagia and Denies vomiting Denies difficulty voiding, Reports nocturia, Denies dysuria and Denies urinary urgency Musc Reports back pain (chronic), Reports myalgias (involving multiple joints), Reports arthralgias (involving multiple joints; increased over R shoulder lately), Denies joint swelling, Reports muscle weakness (especially in both legs) and Denies neck pain Skin/Breast Denies rash Neuro Reports dizziness (occasionally), Reports headache(s) (on and off) and Denies paresthesias Psych Denies anxiety and Reports depression Endo Reports fatigue and Denies palpitations Juan R/Lymph Denies easy bruising Aller/Immun Denies seasonal rhinorrhea Physical exam (Primary Care) Vital Signs: Oxygen Delivery Method Room Air 04/17/25 12:09 BMI result Body Mass Index 30.6 Tobacco/Smoking Status: Tobacco use Status Tobacco use date assessed 04/17/25 04/17/25 12:19 Patient Tobacco Use Status Never used Tobacco 04/17/25 12:19 e-Cigarette/Vaping Use Never Used 04/17/25 12:19 PHQ-9: PHQ-9 Score PHQ-9: Total score 04/17/25 12:42 Depression Screening Interpretation: Positive Depression Screening Follow-up: Existing condition, In treatment and Community Mental Health Worker F/U Thrive Assessment: Date of Thrive Assessment Date Thrive assessed 04/17/25 04/17/25 12:19 Currently or been in a relationship where the following occur: No concerns reported Const General: no acute distress and alert HENMT Ears: TM's normal bilaterally and EAC's normal Throat: Yes posterior oropharynx normal and Yes tonsils normal (no TP congestio n) Neck Neck: Yes supple and No lymphadenopathy Thyroid: Thyroid normal Resp Auscultation: clear to auscultation bilaterally, no rales and no wheezes Cardio Rate: regular rate Rhythm: regular rhythm Heart sounds: no murmurs GI Palpation (GI): Soft to palpation and nontender Auscultation: normal bowel sounds General: Yes no CVA tenderness Back/Spine/Pelvis Back: no CVA tenderness Thoracic/Lumbar Spine: lumbar spinal tenderness and straight leg raise positive (bilaterally) Sacroiliac joints: bilaterally tender to palpation Skin Rashes: no rashes Extrem General: Yes no clubbing, cyanosis or edema Right upper extremity: shoulder/upper arm Details: tenderness Location: of the A-C joint Coding Level of Care Code Est Pt Level 4 (61608) Diagnoses Right shoulder pain, unspecified chronicity M25.511 Chronicity: unspecified Fibromyalgia M79.7 Spondylosis of lumbosacral spine with radiculopathy M47.27 Hypertriglyceridemia E78.1 Migraine without status migrainosus, not intractable, unspecified migraine type G43.909 Migraine type: unspecified Status migrainosus presence: without status migrainosus Intractability: not intractable Mild cognitive impairment G31.84 Mild intermittent asthma without complication J45.20 Asthma severity: mild Asthma persistence: intermittent Asthma complication type: uncomplicated GERD without esophagitis K21.9 Dysphagia, unspecified type R13.10 Dysphagia type: unspecified Irritable bowel syndrome with constipation K58.1 Irritable bowel syndrome type: with constipation Vitamin D deficiency E55.9 Insomnia, unspecified type G47.00 Insomnia type: unspecified Anxiety F41.9 Bipolar affective disorder, current episode depressed, current episode severity unspecified F31.30 Current episode severity: unspecified Obesity (BMI 30-39.9) E66.9 Additional Codes PHQ-9 - 26862 - PHQ-9 Billing: Yes ([id number]) Assessment & Plan Assessment & Plan (1) Right shoulder pain: Code(s): M25.511 - Pain in right shoulder Category: Medical Qualifiers: Chronicity: unspecified Qualified Code(s): M25.511 - Pain in right shoulder Plan: S/P fall about a month ago Will send her for x-rays of the right shoulder for further evaluation Will also refer her to physical therapy for further evaluation and management (2) Fibromyalgia: Code(s): M79.7 - Fibromyalgia Category: Medical Plan: Continue Duloxetine 60 mg QD She is encouraged again to continue to exercise regularly and stay active as much as she can to help manage her fibromyalgia symptoms better although she states that her lower back issues (pain) is making this much more difficult for her (3) Spondylosis of lumbosacral spine with radiculopathy: Code(s): M47.27 - Other spondylosis with radiculopathy, lumbosacral region Category: Surgical Plan: Reinforced activity and weight-lifting restrictions Patient has had right posterior sacroiliac joint fusion done last year in April 2023 and subsequently had RFA ablation and SI joint injections done with variable results Sacral CT done back in October 2023 revealed (+) [id number] sacroiliac osteoarthritis bilaterally. There is partial osseous bridging across the allograft at the right SI joint accounting for less than 20 percent of the potential allograft contact area. No osseous bridging at the synovial portion of the SI joint. was noted. There is solid osseous fusion at L5-S1 [place] up with [facility] as scheduled (4) Hypertriglyceridemia: Code(s): E78.1 - Pure hyperglyceridemia Category: Medical Plan: Reinforced low cholesterol diet She has not had her cholesterol levels checked since 08/2021 although her triglyceride level was normal at 128 mg/dl at the time Will have patient recheck her labs and fasting lipids in a few months for follow up (5) Migraine: Code(s): G43.909 - Migraine, unspecified, not intractable, without status migrainosus Category: Medical Qualifiers: Migraine type: unspecified Status migrainosus presence: without status migrainosus Intractability: not intractable Qualified Code(s): G43.909 - Migraine, unspecified, not intractable, without status migrainosus Plan: Continue Vitamin B2 400 mg QD and Topiramate 100 mg Q HS for [place] prophylaxis She is also currently on Emgality 120 mg SQ once a month and takes Sumatriptan PRN for symptomatic relief Follow up with neurology as scheduled (6) Mild cognitive impairment: Code(s): G31.84 - Mild cognitive impairment of uncertain or unknown etiology Category: Medical Plan: She was diagnosed with mild cognitive impairment with memory loss a few years ago by Dr. Bautista She was referred back to neurology by pain management last year and is now seeing [facility] for her regular follow up Brain MRI done in January 2024 came out normal (7) Asthma: Code(s): J45.909 - Unspecified asthma, uncomplicated Category: Medical Qualifiers: Asthma severity: mild Asthma persistence: intermittent Asthma comp lication type: uncomplicated Qualified Code(s): J45.20 - Mild intermittent asthma, uncomplicated Plan: Controlled Continue Ventolin HFA 1 to 2 inhalations Q 6 hours PRN (8) GERD without esophagitis: Code(s): K21.9 - Gastro-esophageal reflux disease without esophagitis Category: Medical Plan: Dietary restrictions reinforced Continue Omeprazole 40 mg QD and Famotidine 20 mg Q HS Follow up with GI as scheduled (9) Dysphagia: Code(s): R13.10 - Dysphagia, unspecified Category: Medical Qualifiers: Dysphagia type: unspecified Qualified Code(s): R13.10 - Dysphagia, unspecified Plan: Barium swallow done a few weeks ago revealed (+) prominent area of narrowing or spasm midesophagus at the level of aortic knob. Moderate prominence of cricoesophageal sphincter with no obstruction seen. Otherwise unremarkable upper GI air contrast study. Follow up with GI as scheduled later this month (10) Irritable bowel syndrome (IBS): Code(s): K58.9 - Irritable bowel syndrome, unspecified Category: Medical Qualifiers: Irritable bowel syndrome type: with constipation Qualified Code(s): K58.1 - Irritable bowel syndrome with constipation Plan: Continue Trulance 3 mg QD, Senna 8.6 mg Q HS and Dulcolax 10 mg Q HS PRN Patient also used to take Dicyclomine 20 mg QID PRN but has not done so in a while now Follow up with GI as scheduled - she has been advised to speak to GI about getting a screening colonoscopy done as she has never had one done in the past (11) Vitamin D deficiency: Code(s): E55.9 - Vitamin D deficiency, unspecified Category: Surgical Plan: Continue Vitamin D3 2000 units QD (12) Insomnia: Code(s): G47.00 - Insomnia, unspecified Category: Medical Qualifiers: Insomnia type: unspecified Qualified Code(s): G47.00 - Insomnia, unspecified Plan: Sleep hygiene reinforced Continue Zolpidem 10 mg Q HS PRN (13) Anxiety: Code(s): F41.9 - Anxiety disorder, unspecified Category: Medical Plan: Continue Buspirone 20 mg TID, Clonidine 0.1 mg 1/2 to 1 tablet BID PRN and Hydroxyzine 25 mg 1 to 2 tablets TID PRN and Q HS Follow up with psychiatry as scheduled (14) Bipolar disorder current episode depressed: Code(s): F31.30 - Bipolar disorder, current episode depressed, mild or moderate severity, unspecified Category: Medical Qualifiers: Current episode severity: unspecified Qualified Code(s): F31.30 - Bipolar disorder, current episode depressed, mild or moderate severity, unspecified Plan: Continue current medications, including Duloxetine 60 mg QD, Lamictal 200 mg BID and Prazosin 2 mg Q HS Follow up with psychiatry as scheduled (15) Obesity (BMI 30-39.9): Code(s): E66.9 - Obesity, unspecified Category: Medical Plan: Reinforced diet; exercise and weight loss are unrealistic expectations in this patient due to her multiple physical comorbidities Plan - Follow up with Dr. Patel for rheumatoid arthritis in May 2025 - Obtain x-ray for shoulder pain. - Consider cortisone injections for sacroiliac joint pain. - Discuss medication regimen with psychiatrist for depression and anxiety. - Follow up with GI as scheduled for further evaluation and management of her dysphagia Patient was informed and verbally consented to the use of an ambient scribe for clinic note documentation during this visit. Discussion Notes I discussed with the patient the importance of following up with Dr. Patel for rheumatoid arthritis management and obtaining an x-ray for her shoulder pain. We also talked about considering cortisone injections for her sacroiliac joint pain. I advised her to discuss her medication regimen with her psychiatrist to address her depression and anxiety. Follow up in 3 months Orders: Orders XR shoulder RT min 2V 04/17/25 M25.511 - Pain in right shoulder, Z91.81 - History of falling PT Evaluation and Treatment 04/17/25 M25.511 - Pain in right shoulder, Z91.81 - History of falling Referrals Pain Management Referral M54.50 - Low back pain, unspecified
--- OUTSIDE RECORDS SUMMARY | 2025-04-17 12:30 | XMS_ITS | Patient Health Record ---
Author Organization [facility] Address [address] [place] [address] Care Team Providers Care Sealer Dry Cell Name Role Phone Braydon Giudo Unavailable [phone] Reason For Referral No Information Plan Of Treatment No Information
== END 2025-04-17 12:50 | disposition home or self-care (01) ==
LOC: HO.HMCH 12:09
PROVIDERS: PCP Internal Medicine; Visit Provider Internal Medicine
DX: M25.511 Pain in right shoulder (principal); M79.7 Fibromyalgia; M47.27 Other spondylosis with radiculopathy, lumbosacral region; F31.30 Bipolar disorder, current episode depressed, mild or moderate severity, unspecified; E78.1 Pure hyperglyceridemia; G43.909 Migraine, unspecified, not intractable, without status migrainosus; G31.84 Mild cognitive impairment of uncertain or unknown etiology; J45.20 Mild intermittent asthma, uncomplicated; K21.9 Gastro-esophageal reflux disease without esophagitis; R13.10 Dysphagia, unspecified; K58.1 Irritable bowel syndrome with constipation; E55.9 Vitamin D deficiency, unspecified

== ENCOUNTER → 2025-04-17 12:08 | Outpatient (BNVA) | payer OTHER, SELFPAY | PROVIDERS: PCP Internal Medicine; Visit Provider Internal Medicine | DX: M25.511 Pain in right shoulder (principal); E11.9 Type 2 diabetes mellitus without complications; M79.7 Fibromyalgia; M06.9 Rheumatoid arthritis, unspecified; F41.9 Anxiety disorder, unspecified; K57.90 Diverticulosis of intestine, part unspecified, without perforation or abscess without bleeding; R13.10 Dysphagia, unspecified; M53.3 Sacrococcygeal disorders, not elsewhere classified; M47.27 Other spondylosis with radiculopathy, lumbosacral region; E78.1 Pure hyperglyceridemia; G43.909 Migraine, unspecified, not intractable, without status migrainosus; G31.84 Mild cognitive impairment of uncertain or unknown etiology; J45.20 Mild intermittent asthma, uncomplicated; K21.9 Gastro-esophageal reflux disease without esophagitis; K58.1 Irritable bowel syndrome with constipation; E55.9 Vitamin D deficiency, unspecified; G47.00 Insomnia, unspecified; F31.30 Bipolar disorder, current episode depressed, mild or moderate severity, unspecified; E66.9 Obesity, unspecified; Z68.30 Body mass index [BMI] 30.0-30.9, adult; Z91.81 History of falling | CPT/HCPCS: 96127; 99212 ==

== ENCOUNTER 2025-05-06 11:49 | Outpatient (AMB) | payer OTHER, SELFPAY ==
--- NOTE | 2025-05-06 11:54 | MHC.OFFVIS ---
Vital Signs 05/06/25 11:58 Height 5 ft 2 in Weight 169 lb BMI 30.9 BP 98/50 L Blood Pressure Location Rt brachial Position Sitting Pulse 74 Pulse Source Pulse Oximeter Pulse Oximetry (%) 99 Oxygen Delivery Method Room Air Intake Visit Reasons: 3m f/u barium swallow Intake Note: ESTABLISHED PATIENT for mgmt of chronic constipation + IBS Chief Complaint; C.O. constipation + bloating within the last few weeks per pt. Pt denies any significant changes but also denies any improvements in condition since last visit. Spindle Plumber Required: No Accompanied by: Self / Same As Patient Allergies morphine (MORPHINE) Allergy (Intermediate, Verified 05/06/25 12:02) RASH HPI HPI 3m f/u barium swallow: Details: LAST VISIT GERD without esophagitis Irritable bowel syndrome (IBS) Gastroesophageal reflux disease Chronic idiopathic constipation Postprandial diarrhea Postprandial epigastric pain Plan Patient will continue taking Nexium every morning. She will take sucralfate twice a day in the afternoon and at bedtime. Avoid dietary triggers and late night snacking. Staying upright for minimum 3 hours after meals discussed with patient. Discussed with patient low FODMAP diet. List of food recommended as well as list of food to avoid given to patient. Will stop Linzess and patient will stop taking Motegrity. Patient has follow-up appointment already. She will call our office if she will have any additional GI concerning symptoms. She is agreeable to current plan of care and verbalizes understanding of instructions. She was given the opportunity to ask questions and all questions answered. ? Thank you for allowing me to participate in her care New prucalopride (Motegrity) 2 mg PO DAILY 30 tabs 2RF K59.04 Changed Changed From sucralfate 10 mL PO BEDTIME 400 mL 3RF K21.9 Changed To sucralfate 10 mL PO BID 400 mL 3RF K21.9 TODAY'S VISIT Patient is here today for follow-up. Patient continues to have problem moving her bowels. Started Motegrity, unsure if she is taking Dulcolax. Patient will have check her med box. Her medication is back by her pharmacy. She has no bowel movement sometimes for up to 3 days despite taking the Motegrity. We have discussed in the past that she can take Dulcolax in the evening as needed. She is taking sucralfate to help with epigastric pain in the afternoon and bedtime. This can be constipating. Maybe she can try to cut it down to taking it at bedtime only. Patient had upper GI series that shows some achalasia, however she is not having as much trouble swallowing. Occasional epigastric pain depending on what she eats. Patient is trying to avoid dietary triggers. She is changing her diet. Trying to follow FODMAP diet as much as possible. Patient denies melena, hematochezia, unintentional weight loss or ribbon like stools. [facility] Medical History Rash and nonspecific skin eruption Screening examination for infectious disease Hypovitaminosis D Bacterial vaginosis Vitamin D deficiency Migraine Hypertriglyceridemia Bipolar disorder current episode depressed Irritable bowel syndrome (IBS) GERD without esophagitis Recurrent major depression-severe Asthma Opioid use disorder, mild, in early remission Obesity (BMI 30-39.9) Anxiety Opioid dependence Memory impairment Loss of hearing Fibromyalgia Surgical History Hx of excision of mass History of esophagogastroduodenoscopy (EGD) History of tubal ligation History of lumbar fusion History of cholecystectomy Family History Father No problems noted. 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 Sexual orientation: Straight/Heterosexual Cognitive needs: No Hearing needs: No Vision needs: No Female Reproductive History Menstrual Age of Menarche: 10 Review of Systems Const Denies weight gain and Denies weight loss ENT Reports no additional complaints, Denies dysphagia and Denies odynophagia Card Reports no additional complaints Resp Reports no additional complaints GI Reports abdominal pain (Epigastric), Denies belching, Denies melena, Reports bloating, Denies change in bowel habits, Reports constipation, Denies dysphagia, Denies excessive flatus, Reports dyspepsia, Reports heartburn, Denies diarrhea, Denies loose stools, Reports nausea, Denies odynophagia and Reports vomiting Reports no additional complaints Musc Reports no additional complaints Neuro Reports no additional complaints Psych Reports no additional complaints Endo Reports no additional complaints Physical Exam Const General: healthy appearing and no acute distress Nutritional Appearance: obese Orientation/consciousness: patient oriented x3 Resp Effort & Inspection: normal respiratory effort, able to speak in complete sentences, no tracheal deviation and symmetric chest movement Auscultation: clear to auscultation bilaterally Cardio Rate: regular rate GI Inspection: Yes normal to inspection, No distended and Yes obesity Palpation (GI): Soft to palpation, not firm, nontender and No hepatosplenomegaly present Auscultation: normal bowel sounds General: Yes no CVA tenderness Back/Spine/Pelvis Back: no CVA tenderness Skin General skin exam: elasticity normal, turgor normal and dry skin Neuro General: patient oriented x3 Psych Appearance: grossly normal Mental Status: mental status grossly normal Results Reviewed Results Reviewed: UPPER GI WITH BARIUM SWALLOW: IMPRESSION: Prominent area of narrowing or spasm midesophagus at the level of aortic knob. Moderate prominence of cricoesophageal sphincter with no obstruction seen. Otherwise unremarkable upper GI air contrast study. Assessment & Plan Assessment & Plan (1) GERD without esophagitis: Code(s): K21.9 - Gastro-esophageal reflux disease without esophagitis Category: Medical (2) Irritable bowel syndrome (IBS): Code(s): K58.9 - Irritable bowel syndrome, unspecified Category: Medical Qualifiers: Irritable bowel syndrome type: with constipation Qualified Code(s): K58.1 - Irritable bowel syndrome with constipation (3) Dysphagia: Code(s): R13.10 - Dysphagia, unspecified Category: Medical Qualifiers: Dysphagia type: unspecified Qualified Code(s): R13.10 - Dysphagia, unspecified (4) Gastroesophageal reflux disease: Code(s): K21.9 - Gastro-esophageal reflux disease without esophagitis Qualifiers: Esophagitis presence: esophagitis presence not specified Qualified Code(s): K21.9 - Gastro-esophageal reflux disease without esophagitis (5) Chronic idiopathic constipation: Code(s): K59.04 - Chronic idiopathic constipation (6) Postprandial diarrhea: Code(s): K52.9 - Noninfective gastroenteritis and colitis, unspecified (7) Postprandial epigastric pain: Code(s): R10.13 - Epigastric pain Plan Patient will continue Nexium. May try to take sucralfate only at nighttime as she continues to be constipated despite taking to take ready. Patient will check to see if she is taking Dulcolax at night time. If patient is not taking any she can start taking to room at bedtime. Increase fluid intake and activity to promote better bowel motility. Patient was encouraged to avoid dietary triggers and late night snacking. Staying upright for minimum 3 hours after meals discussed with patient. Patient still is having trouble with abdominal bloating postprandially. We will send enzymes to see if that will help with bloating. Message sent to pharmacy not to pack this medication with others as she has to take it she has before meals. May take simethicone as needed if she continues to be bloated. Patient will return in 4-5 weeks to re-evaluate. If she continues to have trouble swallowing I will send her for repeat endoscopy. Patient however is feeling better when it comes to swallowing she can continue went dietary restriction. Chewing her food well. Continue PPI and sucralfate. Patient is agreeable to current plan of care and verbalizes understanding of instructions. She was given the opportunity to ask questions and all questions answered. Thank you for allowing me to participate in her care Medications: New gmozxq-eewvjgtu-[id number] 24,000-76,000 -120,000 unit (Creon) administer with meals and/or snacks 1 cap PO QID 120 caps 3RF K86.89 - Other specified diseases of pancreas kueyoa-zrtroagr-cnmqzjz 24,000-76,000 -120,000 unit (Creon) administer with meals and/or snacks 1 cap PO QID 120 caps 3RF K86.89 - Other specified diseases of pancreas Refilled bisacodyl (Dulcolax (bisacodyl)) 10 mg (2 x 5 mg) PO BEDTIME 180 tabs 4RF Coding Level of Care Code Est Pt Level 4 (33354) Complex EM visit Add On G2211 Diagnoses GERD without esophagitis K21.9 Irritable bowel syndrome with constipation K58.1 Irritable bowel syndrome type: with constipation Dysphagia, unspecified type R13.10 Dysphagia type: unspecified Gastroesophageal reflux disease, unspecified whether esophagitis present K21.9 Esophagitis presence: esophagitis presence not specified Chronic idiopathic constipation K59.04 Postprandial diarrhea K52.9 Postprandial epigastric pain R10.13 Time Spent (min) 40 Comment 25 minutes spent with patient and additional 10 minutes spent reviewing her records
[2025-05-06 11:58] VITALS: BP 98/50; PULSE 74; O2SAT 99; BMI 30.9
--- OUTSIDE RECORDS SUMMARY | 2025-05-06 12:45 | XMS_ITS | Patient Health Record ---
Author Organization [facility] Address [address] [place] [address] Care Team Providers Care Fan Runner Name Role Phone Braydon Guido Unavailable [phone] Reason For Referral No Information Plan Of Treatment No Information
== END 2025-05-06 12:16 | disposition home or self-care (01) ==
LOC: HO.HGI 11:49
PROVIDERS: PCP Internal Medicine; Visit Provider Nurse Practitioner Family
DX: K21.9 Gastro-esophageal reflux disease without esophagitis (principal); K58.1 Irritable bowel syndrome with constipation; R13.10 Dysphagia, unspecified; R10.13 Epigastric pain
CPT/HCPCS: 99214; G2211

== ENCOUNTER → 2025-05-06 11:49 | Outpatient (BNVA) | payer OTHER, SELFPAY | PROVIDERS: PCP Internal Medicine; Visit Provider Nurse Practitioner Family | DX: K21.9 Gastro-esophageal reflux disease without esophagitis (principal); K58.1 Irritable bowel syndrome with constipation; R13.10 Dysphagia, unspecified; K59.04 Chronic idiopathic constipation; R10.13 Epigastric pain | CPT/HCPCS: 99212 ==

== ENCOUNTER 2025-06-02 12:57 | Outpatient (REF) | payer OTHER, SELFPAY ==
[2025-06-02 13:26] LABS: MANUAL DIFF FLAG NO
[2025-06-02 14:18] LABS: Hematocrit 37.1 % (37.0-47.0); Hemoglobin 11.8 g/dl (12.0-16.0); Imm Gran Abs Auto 0.03 X10*3/uL (0.00-0.03); Imm Gran Pct Auto 0.4 % (0.0-0.4); Lymphocytes Absolute Auto 1.4 X10*3/uL (1.2-4.9); Mean Corpuscular HGB Conc 31.8 g/dl (31.0-35.0); Mean Corpuscular Hemoglobin 28.4 pg (27.0-33.0); Mean Corpuscular Volume 89.4 fL (80.0-98.0); NRBC Abs Auto 0.000 X10*3/uL (0.0-0.012); NRBC Pct Auto 0.0 /100WBC (0.0-0.2); Platelet Count 345 X10*3/uL (160-400); Red Blood Count 4.15 X10*6/uL (4.20-5.50); White Blood Count 8.2 X10*3/uL (4.8-10.8)
[2025-06-02 14:49] LABS: Alanine Aminotransferase 22 U/L (0-31); Albumin Level 4.5 g/dL (3.5-5.0); Alkaline Phosphatase 134 U/L (39-117); Anion Gap 11 (12-20); Aspartate Amino Transferase 20 U/L (5-31); Blood Urea Nitrogen 9 mg/dL (9-16); Calcium 9.8 mg/dL (8.4-10.2); Carbon Dioxide 26 mmol/L (22-29); Chloride 107 mmol/L (96-108); Estimated Glomerular Filt Rate 51; Iron 69 mcg/dL (30-160); Percent Iron Saturation 26 % (15-50); Potassium 4.0 mmol/L (3.3-5.1); Sodium 140 mmol/L (135-145); Total Iron Binding Capacity 264 mcg/dL (228-428); Total Protein 7.8 g/dL (6.5-8.0); Unsaturated Iron Binding 195 ug/dL
[2025-06-02 15:02] LABS: Ferritin 127 ng/mL (10-250)
[2025-06-02 15:18] LABS: Folate > 20.0 ng/mL (> or = 4.0); Vitamin B12 876 pg/mL (200-900)
[2025-06-03 13:59] LABS: HBS Num1 0.00 mIU/mL (0-7.99); HBc Num1 0.10 S/CO (0.00-0.79); HBsAGNum1 0.37 S/CO (0.00-0.99); Hepatitis A Antibody IgM 0.27 Index (0-0.79); Hepatitis B Surface Antigen Negative (Negative); ~HepC Num1 0.13 S/CO (0.00-0.79); ~Hepatitis A Antibody IgM Nonreactive (Nonreactive); ~Hepatitis B Surface Antibody NONREACTIVE (Nonreactive); ~Hepatitis C Antibody Nonreactive (Nonreactive)
[2025-06-05 05:10] LABS: TS Negative Control Passed; TS Panel A 0; TS Panel B 0; TS Positive Control Passed; TSpotTB Negative (Negative)
== END 2025-06-02 12:58 | disposition home or self-care (01) ==
LOC: HO.LAB 12:57
PROVIDERS: Nurse Practitioner Family; PCP Internal Medicine; Visit Provider Student in an Organized Health Care Education/Training Program
DX: Z11.59 Encounter for screening for other viral diseases (principal); M05.9 Rheumatoid arthritis with rheumatoid factor, unspecified; D50.8 Other iron deficiency anemias; E53.8 Deficiency of other specified B group vitamins
CPT/HCPCS: 36415; 80053; 82607; 82728; 82746; 83090; 83540; 83921; 85025; 85652; 86140; 86481; 86704; 86706; 86709; 86803; 87340

== ENCOUNTER 2025-06-03 14:56 | Outpatient (AMB) | payer OTHER, SELFPAY ==
--- NOTE | 2025-06-03 15:07 | A.OFFVIS_ITS ---
Vital Signs 06/03/25 15:14 Height 5 ft 2 in Weight 165 lb 12.602 oz BMI 30.3 BP 115/84 Blood Pressure Location Lt brachial Position Sitting Pulse 75 Pulse Source Pulse Oximeter Pulse Oximetry (%) 99 Oxygen Delivery Method Room Air Intake Visit Reasons: RA Intake Note: Patient presents for RA follow up. Allergies morphine (MORPHINE) Allergy (Intermediate, Verified 06/03/25 15:13) RASH Medication List - Last Reconciled 06/03/25 by Ivanna Patel MD albuterol sulfate 90 mcg/actuation (Ventolin HFA) 2 puffs inhalation Q6-8H PRN ascorbate calcium (vitamin C) 500 mg PO DAILY 90 days [Bathmat As directed] bisacodyl (Fleet Bisacodyl) 10 mg (30 mL) PA DAILY PRN 7 days bisacodyl (Dulcolax (bisacodyl)) 10 mg (2 x 5 mg) PO BEDTIME [Boost supplement drinks As directed BID with meals] cetirizine 10 mg PO DAILY PRN 90 days cholecalciferol (vitamin D3) 50 mcg PO DAILY clotrimazole-betamethasone 1-0.05 % 1 appl topical BID cyanocobalamin (vitamin B-12) 500 mcg PO DAILY 30 days [DETACHABLE SHOWER HEAD As directed] dexmethylphenidate mg PO DAILY PRN dexmethylphenidate ER 40 mg PO QAM duloxetine 60 mg PO DAILY esomeprazole magnesium 40 mg PO DAILY famotidine 40 mg PO DAILY ferrous gluconate 324 mg PO DAILY 90 days folic acid 1 mg PO DAILY galcanezumab-gnlm (Emgality Pen) 120 mg subcut ONCE 30 days hydrocortisone 2.5% 1 appl PA Q8-12H lamotrigine 200 mg PO BID lmfjuj-aawwxscf-mbmoipl 24,000-76,000 -120,000 unit (Creon) 1 cap PO QID lorazepam 0.5 mg PO BID PRN magnesium citrate 150 mL PO DAILY 1 day magnesium oxide 400 mg PO BEDTIME 90 days melatonin 3 - 9 mg (1 - 3 x 3 mg) PO DAILY PRN 30 days methotrexate sodium 15 mg (6 x 2.5 mg) PO QWEEK 90 days Motegrity (prucalopride) 2 mg PO DAILY NS ondansetron 4 mg PO Q6H PRN 14 days prazosin 2 mg PO DAILY propranolol mg PO DAILY [Wilkinson size memory form foam bed topper As directed] riboflavin (vitamin B2) 400 mg PO DAILY 90 days [SHOWER BENCH As directed] sucralfate 10 mL PO BID sumatriptan succinate 50 - 100 mg orally at onset of headache, may repeat in 2 hrs PRN; max 2 tabs per day or 4 tabs/week (may take with Ibuprofen) 30 days [TOILET SEAT with GRAB BAR As directed] topiramate 100 mg PO DAILY zolpidem 10 mg PO BEDTIME PRN HPI Comments Details: Patient is a 49-year-old female with depression and anxiety, overactive bladder, back pain status post multiple back surgeries and polyarthralgias in the setting of positive rheumatoid factor here today for follow up Interval History: Patient last seen 11/08/24 with me - Medrol taper - Completed Medrol taper and found that there was improvement in her symptoms that returned after the taper was complete. Diagnosed with rheumatoid arthritis based on polyarticular joint pain, elevated rheumatoid factor and response to prednisone. She was started on methotrexate Today - On methotrexate 15mg weekly, folic acid 1mg daily - Notes a 70-80% improvement Rheumatologic History: Seropositve RA - 10/2024 - positive RF, swelling to hands, response to prednisolone - Started on MTx 10/2024 Patient was 1st seen 12/19/2023 after referral for a elevated rheumatoid factor in the setting of polyarthralgias. Her other autoimmune markers were negative but her ESR and CRP were elevated. She was trialed on leflunomide and prednisone however there was a delay in follow-up since her provider had left the practice. At her follow-up she was discontinued off of leflunomide 04/09/2024 Current Rheumatology Medication(s): Methotrextae 15mg weekly Folic acid 1mg daily PFSH Medical History Rash and nonspecific skin eruption Screening examination for infectious disease Hypovitaminosis D Bacterial vaginosis Migraine Hypertriglyceridemia Bipolar disorder current episode depressed Irritable bowel syndrome (IBS) GERD without esophagitis Recurrent major depression-severe Asthma Opioid use disorder, mild, in early remission Obesity (BMI 30-39.9) Anxiety Opioid dependence Memory impairment Loss of hearing Fibromyalgia Surgical History Vitamin D deficiency Hx of excision of mass History of esophagogastroduodenoscopy (EGD) History of tubal ligation History of lumbar fusion History of cholecystectomy Family History Father No problems noted. 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 Sexual orientation: Straight/Heterosexual Cognitive needs: No Hearing needs: No Vision needs: No Female Reproductive History Menstrual Age of Menarche: 10 Review of Systems Const Details: Review of Systems Constitutional: Denies fever, chills, weight loss ENT: Denies vision changes, eye pain or eye redness, dental caries, dry mouth GI: Denies nausea, vomiting, diarrhea, abdominal pain, change in BM Pulm: Denies SOB, ROCHA, hemoptysis, wheezing Cards: Denies chest pain, palpitations Skin: Denies Raynaud's, rash, nail changes, photosensitivity, SOFTWARE REVERSE ENGINEER: Denies headaches, weakness, paresthesias, recurrent falls MSK: as per HPI All other systems reviewed and are unremarkable except noted above Physical Exam Exam Exam: Vital signs reviewed Physical Examination CONSTITUITIONAL Patient alert and cooperative. Well appearing and in no apparent painful distress MSK Hands * Right Hand: Able to make a fist. No swelling or tenderness to palpation of the MCPs, PIPs or DIPs. No deformities noted. * Left Hand: Able to make a fist. No swelling or tenderness to palpation of the MCPs, PIPs or DIPs. No deformities noted. Wrists * Right Wrist: Full ROM to flexion and extension. No swelling or TTP * Left Wrist: Full ROM to flexion and extension. No swelling or TTP Elbows * Right Elbow: Full ROM. No swelling or TTP. No TTP of the medial epicondyle. No TTP of the lateral epicondyle * Left Elbow: Full ROM. No swelling or TTP. No TTP of the medial epicondyle. No TTP of the lateral epicondyle Shoulders * Right shoulder: Full ROM. No swelling noted. No TTP of the AC joint. No TTP of the subacromial bursa. No TTP of the posterior shoulder * Left shoulder: Full ROM. No swelling noted. No TTP of the AC joint. No TTP of the subacromial bursa. No TTP of the posterior shoulder Knees * Right knee: Full ROM. No swelling noted. No TTP of the knee joint line. No TTP of pes anserine bursa * Left knee: Full ROM. No swelling noted. No TTP of the knee joint line. No TTP of pes anserine bursa. * Crepitations felt bilaterally Ankles * Right ankle: Good ankle dorsiflexion and plantar flexion. No swelling. No TTP of the ankle joint * Left ankle: Good ankle dorsiflexion and plantar flexion. No swelling. No TTP of the ankle joint Feet * Right foot: Negative squeeze test * Left foot: Negative squeeze test Tender points? * No tenderness to palpation of the bilateral trapezius, supraspinatus, anterior costochondral junctions, bilateral suboccipital muscle insertions SKIN No rashes Vital Signs: Last Vital Signs Pulse 75 06/03/25 15:14 BP 115/84 06/03/25 15:14 Pulse Ox 99 06/03/25 15:14 Oxygen Delivery Method Room Air 06/03/25 15:14 BMI result Body Mass Index 30.3 Results Reviewed Results Reviewed: Laboratory Tests 11/13/24 06/02/25 16:30 13:24 WBC 8.2 RBC 4.15 L Hgb 11.8 L Hct 37.1 Plt Count 345 ESR 32 H Sodium 140 Potassium 4.0 Chloride 107 Carbon Dioxide 26 BUN 9 Creatinine 1.13 AST 20 ALT 22 C-Reactive Protein 0.32 1.43 H Laboratory Tests 11/08/23 11/13/24 14:49 16:30 Rheumatoid Factor 201.2 H Cycl Citrul Peptide IgG <16 IVANA Screen NEGATIVE Assessment & Plan Assessment & Plan (1) Seropositive rheumatoid arthritis: Code(s): M05.9 - Rheumatoid arthritis with rheumatoid factor, unspecified Category: Medical Plan: #Seropositive RA Patient is a 50-year-old female with newly diagnosed RA on methotrexate Plan - Methotrexate 15mg weekly (split dosing) PO - Folic acid 1 mg daily - RTC 4 months - Labs before visit: CBC, CMP, ESR, CRP (2) Fibromyalgia: Code(s): M79.7 - Fibromyalgia Category: Medical Plan: #Fibromyalgia Patient with fibromyalgia. Currently on duloxetine. We will continue the same. Plan - Continue duloxetine (3) Encounter for methotrexate monitoring: Code(s): Z51.81 - Encounter for therapeutic drug level monitoring; Z79.631 - long term care administrator (current) use of antimetabolite agent Plan: #Long-term Current Use of Methotrexate Discussed with patient the benefits and risks of methotrexate for managing their rheumatic condition Benefits include reduced pain, reduced mortality, maintenance of remission and reduction of flares Risks include oral ulcers, photosensitivity, hepatotoxicity, hematologic toxicity, pneumonitis, flu-like symptoms (especially day after administration), nodulosis, lymphomas ? Limit alcohol and avoid Bactrim ? Monitoring: ?CBC, BMP, LFTs every 3-4 months and hepatitis serologies as needed Plan I spent 30 minutes reviewing the record and labs, taking a history, examining the patient, discussing the treatment plan and documenting in the medical record Orders: Orders Complete Blood Count Auto Diff 4 Months Z79.899 - Other termite control representative (current) drug therapy Comprehensive Met. Panel 4 Months Z79.899 - Other long-term (current) drug therapy C Reactive Protein 4 Months Z79.899 - Other long-term (current) drug therapy Erythrocyte Sedimentation Rate 4 Months Z79.899 - Other termite control representative (current) d rug therapy Coding Level of Care Code Est Pt Level 4 (51715) Complex EM visit Add On G2211 Diagnoses Seropositive rheumatoid arthritis M05.9 Fibromyalgia M79.7 Encounter for methotrexate monitoring Z51.81; Z79.631
[2025-06-03 15:14] VITALS: BP 115/84; PULSE 75; O2SAT 99; BMI 30.3
--- OUTSIDE RECORDS SUMMARY | 2025-06-03 18:00 | XMS_ITS | Patient Health Record ---
Author Organization [facility] Address [address] [place] [address] Care Team Providers Care Inventory Control Planner Name Role Phone Braydon Guido Unavailable [phone] Reason For Referral No Information Plan Of Treatment No Information
== END 2025-06-03 15:42 | disposition home or self-care (01) ==
LOC: HO.RHES 14:57
PROVIDERS: PCP Internal Medicine; Visit Provider Student in an Organized Health Care Education/Training Program
DX: M05.9 Rheumatoid arthritis with rheumatoid factor, unspecified (principal); M79.7 Fibromyalgia; Z51.81 Encounter for therapeutic drug level monitoring; Z79.631 Long term (current) use of antimetabolite agent
CPT/HCPCS: 99214; G2211

== ENCOUNTER → 2025-06-03 14:56 | Outpatient (BNVA) | payer OTHER, SELFPAY | PROVIDERS: PCP Internal Medicine; Visit Provider Student in an Organized Health Care Education/Training Program | DX: M05.79 Rheumatoid arthritis with rheumatoid factor of multiple sites without organ or systems involvement (principal); Z79.631 Long term (current) use of antimetabolite agent; Z79.899 Other long term (current) drug therapy | CPT/HCPCS: 99212 ==

== ENCOUNTER 2025-06-26 15:55 | Outpatient (AMB) | payer OTHER, SELFPAY ==
--- NOTE | 2025-06-26 16:01 | A.OFFVIS_ITS ---
Vital Signs 06/26/25 16:03 Height 5 ft 2 in Weight 171 lb BMI 31.3 BP 108/58 L Blood Pressure Location Rt brachial Position Sitting Pulse 70 Pulse Source Pulse Oximeter Pulse Oximetry (%) 95 Oxygen Delivery Method Room Air Intake Visit Reasons: TENTATIVE, LVM Med + Sx concerns. CL appt Intake Note: ESTABLISHED PATIENT for mgmt of chronic constipation + IBS Chief Complaint; C.O. difficulty with chronic sx despite current therapies. Pt states her reflux has been significantly worse as of late, particularly at night. Pt also reports having difficulties with BM irregularities. Pt taking Creon but states that it is not enough. Had been taking motegrity PRN which was helpful but would like to inquire with provider. Sterile Supervisor Required: No Accompanied by: Self / Same As Patient Allergies morphine (MORPHINE) Allergy (Intermediate, Verified 06/26/25 16:02) RASH HPI HPI TENTATIVE, LVM Med + Sx concerns. CL appt: Details: LAST VISIT: GERD without esophagitis Irritable bowel syndrome (IBS) Dysphagia Gastroesophageal reflux disease Chronic idiopathic constipation Postprandial diarrhea Postprandial epigastric pain Plan Patient will continue Nexium. May try to take sucralfate only at nighttime as she continues to be constipated despite taking to take ready. Patient will check to see if she is taking Dulcolax at night time. If patient is not taking any she can start taking to room at bedtime. Increase fluid intake and activity to promote better bowel motility. Patient was encouraged to avoid dietary triggers and late night snacking. Staying upright for minimum 3 hours after meals discussed with patient. Patient still is having trouble with abdominal bloating postprandially. We will send enzymes to see if that will help with bloating. Message sent to pharmacy not to pack this medication with others as she has to take it she has before meals. May take simethicone as needed if she continues to be bloated. Patient will return in 4-5 weeks to re-evaluate. If she continues to have trouble swallowing I will send her for repeat endoscopy. Patient however is feeling better when it comes to swallowing she can continue went dietary restriction. Chewing her food well. Continue PPI and sucralfate. Patient is agreeable to current plan of care and verbalizes understanding of instructions. She was given the opportunity to ask questions and all questions answered. ? Thank you for allowing me to participate in her care New rufmpm-[id number] 24,000-76,000 -120,000 unit (Creon) administer with meals and/or snacks 1 cap PO QID 120 caps 3RF K86.89 [id number] 24,000-76,000 -120,000 unit (Creon) administer with meals and/or snacks 1 cap PO QID 120 caps 3RF K86.89 Refilled bisacodyl (Dulcolax (bisacodyl)) 10 mg (2 x 5 mg) PO BEDTIME 180 tabs 4RF TODAY'S VISIT Patient is here today for request visit. Patient reports she continues to have epigastric pain specially at night time. Patient denies related night. Patient reports dyspepsia without dysphagia or odynophagia. Reports occasional nausea. Waking up with nausea frequently. For the most part Nexium is helpful, however she feels like the food sits in her stomach. Feeling gassy, epigastric burning postprandially. Patient is taking sucralfate to help with symptoms. Taking integrity is needed. Taking Creon with meals feels like it helping little bit with bloating, however she is still unable to have a bowel movement. Patient reports that she is drinking fluids. Eats about 2 meals a day. Unable to eat big portions. Patient denies melena, hematochezia, unintentional weight loss or ribbon like stools. Patient denies any use in her stools. Bowel movements every 3-4 days. Has 2s strain in order to have a bowel movement. [facility] Medical History Rash and nonspecific skin eruption Screening examination for infectious disease Hypovitaminosis D Bacterial vaginosis Migraine Hypertriglyceridemia Bipolar disorder current episode depressed Irritable bowel syndrome (IBS) GERD without esophagitis Recurrent major depression-severe Asthma Opioid use disorder, mild, in early remission Obesity (BMI 30-39.9) Anxiety Opioid dependence Memory impairment Loss of hearing Fibromyalgia Surgical History Vitamin D deficiency Hx of excision of mass History of esophagogastroduodenoscopy (EGD) History of tubal ligation History of lumbar fusion History of cholecystectomy Family History Father No problems noted. 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 Sexual orientation: Straight/Heterosexual Cognitive needs: No Hearing needs: No Vision needs: No Female Reproductive History Menstrual Age of Menarche: 10 Review of Systems Const Denies weight gain and Denies weight loss ENT Reports no additional complaints, Denies dysphagia and Denies odynophagia Card Reports no additional complaints Resp Reports no additional complaints GI Reports abdominal pain (Epigastric), Denies belching, Denies melena, Reports bloating, Denies change in bowel habits, Reports constipation, Denies dysphagia, Denies excessive flatus, Reports dyspepsia, Reports heartburn, Denies diarrhea, Denies loose stools, Reports nausea, Denies odynophagia and Reports vomiting Reports no additional complaints Musc Reports no additional complaints Neuro Reports no additional complaints Psych Reports no additional complaints Endo Reports no additional complaints Physical Exam Vital Signs: Last Vital Signs Pulse 70 06/26/25 16:03 BP 108/58 L 06/26/25 16:03 Pulse Ox 95 06/26/25 16:03 Oxygen Delivery Method Room Air 06/26/25 16:03 BMI result Body Mass Index 31.3 Const General: healthy appearing and no acute distress Nutritional Appearance: obese Orientation/consciousness: patient oriented x3 Resp Effort & Inspection: normal respiratory effort, able to speak in complete sentences, no tracheal deviation and symmetric chest movement Auscultation: clear to auscultation bilaterally Cardio Rate: regular rate GI Inspection: Yes normal to inspection, No distended and Yes obesity Palpation (GI): Soft to palpation, not firm, nontender and No hepatosplenomegaly present Auscultation: normal bowel sounds General: Yes no CVA tenderness Back/Spine/Pelvis Back: no CVA tenderness Skin General skin exam: elasticity normal, turgor normal and dry skin Neuro General: patient oriented x3 Psych Appearance: grossly normal Mental Status: mental status grossly normal Assessment & Plan Assessment & Plan (1) GERD without esophagitis: Code(s): K21.9 - Gastro-esophageal reflux disease without esophagitis Category: Medical (2) Irritable bowel syndrome (IBS): Code(s): K58.9 - Irritable bowel syndrome, unspecified Category: Medical Qualifiers: Irritable bowel syndrome type: with constipation Qualified Code(s): K58.1 - Irritable bowel syndrome with constipation (3) Dysphagia: Code(s): R13.10 - Dysphagia, unspecified Category: Medical Qualifiers: Dysphagia type: unspecified Qualified Code(s): R13.10 - Dysphagia, unspecified (4) Gastroesophageal reflux disease: Code(s): K21.9 - Gastro-esophageal reflux disease without esophagitis Qualifiers: Esophagitis presence: esophagitis presence not specified Qualified Code(s): K21.9 - Gastro-esophageal reflux disease without esophagitis (5) Chronic idiopathic constipation: Code(s): K59.04 - Chronic idiopathic constipation (6) Postprandial diarrhea: Code(s): K52.9 - Noninfective gastroenteritis and colitis, unspecified (7) Postprandial epigastric pain: Code(s): R10.13 - Epigastric pain (8) Postprandial abdominal bloating: Code(s): R14.0 - Abdominal distension (gaseous) Plan Patient will continue taking Nexium in the morning. Trying not to take sucralfate the same time. Sucralfate in the afternoon and bedtime. Patient was encouraged to eat something small after taking Nexium. Continue Creon with meals if helps with bloating. Patient was encouraged to take Motegrity daily to help with bowel movements. May take additional Dulcolax in the evening. Increase fluid intake and activity to promote bowel motility. Patient will return in 2 months. Patient was encouraged to contact us if she will have any GI concerning symptoms. Patient is agreeable to current plan of care and verbalizes understanding of instructions. She was given the opportunity to ask questions and all questions answered. Thank you for allowing me to participate in her care Coding Level of Care Code Est Pt Level 4 (19684) Complex EM visit Add On G2211 Diagnoses GERD without esophagitis K21.9 Irritable bowel syndrome with constipation K58.1 Irritable bowel syndrome type: with constipation Dysphagia, unspecified type R13.10 Dysphagia type: unspecified Gastroesophageal reflux disease, unspecified whether esophagitis present K21.9 Esophagitis presence: esophagitis presence not specified Chronic idiopathic constipation K59.04 Postprandial diarrhea K52.9 Postprandial epigastric pain R10.13 Postprandial abdominal bloating R14.0 Time Spent (min) 35 Comment 25 minutes spent with patient and additional 10 minutes spent reviewing her records
[2025-06-26 16:03] VITALS: BP 108/58; PULSE 70; O2SAT 95; BMI 31.3
--- OUTSIDE RECORDS SUMMARY | 2025-06-26 19:35 | XMS_ITS | Patient Health Record ---
Author Organization [facility] Address [address] [place] [address] Care Team Providers Care Child Neurologist Name Role Phone Braydon Guido Unavailable [phone] Reason For Referral No Information Plan Of Treatment No Information
== END 2025-06-26 18:57 | disposition home or self-care (01) ==
LOC: HO.HGI 15:56
PROVIDERS: PCP Internal Medicine; Visit Provider Nurse Practitioner Family
DX: K21.9 Gastro-esophageal reflux disease without esophagitis (principal); K58.1 Irritable bowel syndrome with constipation; R13.10 Dysphagia, unspecified; K59.04 Chronic idiopathic constipation; K52.9 Noninfective gastroenteritis and colitis, unspecified; R10.13 Epigastric pain; R14.0 Abdominal distension (gaseous)
CPT/HCPCS: 99214; G2211

== ENCOUNTER → 2025-06-26 15:55 | Outpatient (BNVA) | payer OTHER, SELFPAY | PROVIDERS: PCP Internal Medicine; Visit Provider Nurse Practitioner Family | DX: K21.9 Gastro-esophageal reflux disease without esophagitis (principal); K58.1 Irritable bowel syndrome with constipation; R13.10 Dysphagia, unspecified; K59.04 Chronic idiopathic constipation; R10.13 Epigastric pain; R14.0 Abdominal distension (gaseous) | CPT/HCPCS: 99212 ==

== ENCOUNTER 2025-07-16 11:01 | Outpatient (AMB) | payer OTHER, SELFPAY ==
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
[2025-07-16 11:07] VITALS: BP 100/80; PULSE 77; O2SAT 100; BMI 31.3
--- OUTSIDE RECORDS SUMMARY | 2025-07-16 13:11 | XMS_ITS | Data Portability ---
Author Organization FELIPE - [facility], [facility] Address [address] [place] [address] Care Team Providers Care Technical Specialist Name Role Phone DESIRAE MORGAN Primary Care Provider Assessment No assessment recorded. Plan of Treatment Reminders Order Date Submit Date Provider Last Modified By Organization Details Last Modified Time Details Appointments None recorded. Lab None recorded. Referral physical therapist referral - DIAGNOSIS : Right shoulder adhesive capsuliti s; healed nondispla angie greater tuberosit y fracture (05/2024) Evaluate and Treat 2-3x/week x 8-12 weeks Goal: - Decrease pain/swel ling - Increase range of motion Recommend ed Modalitie s: - Heat prior to stretchin g - Ice at the end of the session - Additiona l modalitie s prn, but emphasis should be on manual therapy Precautio ns: WBAT, no motion restricti ons Therapeut ic Exercise: - Pendulums - Passive, active-as sist, active range of motion as tolerated , focusing on gradual progressi on over time - Scapular shrugs/re tractions without resistanc e - Submaxima l isometric rotator cuff strengthe zay Emphasize importanc e of home program, 3x/day 2024 025 [email or web address] Not available 5 14:31:05 physical therapist referral - DIAGNOSIS : Right non-displ aced greater tuberosit y fracture, 4; capsuliti s Evaluate and Treat 2x/week x 8-12 weeks Goal: - Decrease pain/swel ling - Increase range of motion Recommend ed Modalitie s: - Heat prior to stretchin g - Ice at the end of the session - Additiona l modalitie s prn, but emphasis should be on manual therapy Precautio ns: WBAT, no motion restricti ons Therapeut ic Exercise: - Pendulums - Passive, active-as sist, active range of motion as tolerated , focusing on gradual progressi on over time - Scapular shrugs/re tractions without resistanc e - Submaxima l isometric rotator cuff strengthe zay; may progress to theraband s/weights as tolerated once motion improves Emphasize importanc e of home program, 3x/day 2024 025 [email or web address] Not available 5 13:57:53 occupatio nal therapist , hand referral - OT- s/p RIGHT HAND SECOND PROXIMAL PHALANX OPEN REDUCTION INTERNAL FIXATION SX 06/04/24 DR Sarah Beth GOODWIN, scar massage 2023 024 [email or web address] Not available 4 08:02:18 occupatio nal therapist referral - Add R shoulder, contusion and RC pain, ROM and strengthe zay R shoulder 2023 024 [email or web address] Not available 4 08:02:18 Procedures None recorded. Surgeries None recorded. Imaging MRI, shoulder, w/o contrast - EVAL FOR RTC TEAR PAIN,SWEL LING 2023 024 [facility] ([facility]), [address], [place], [address], 4 08:43:22 XR, hand, 3 or more view - room 112 3V R hand 2023 024 [email or web address] [facility], [address], [address], [place], [address], 4 08:02:18 Medication Orders None recorded. Patient TargetsNo targets recorded. Patient InstructionsNo instructions recorded. Reason for Referral OT- s/p RIGHT HAND SECOND OR OXIMAL PHALANX OPEN REDUCTION INTERNAL FIXATION SX [...] non-displaced greater tuberosity fracture, 05/22/2024; capsulitisEvaluate and Vjkbv7o/week x 8-12 weeksGoal: - Decrease pain/swelling - [...] hand, 3 or more view [email or web address] ?Encry pted=s hAaTro YD8dLq bEUv6g %2BXZw aYqtaq 0bqfl% 2Fg9IQ a4ajBk vP9nXo QUaueC m3YtLR FvZlgJ JJ8mAn HZtai3 7s3085 AC0Kqa 36AVqq jKiQtr MwF INTERFACE [facility] [address] [facility], [place], [address], 06/17/2024 14:04:41 06/17/2006/17/2024 XR, hand, 3 or more view [email or web address] ?Encry pted=s hAaTro YD8dLq bEUv6g %2BXZw aYqtaq 0bqfl% 2Fg9IQ a4ajBk vP9nXo QUaueC m3YtLR FvZlgJ JJ8mAn HZtai3 5j5307 AC0Kqa 36AVqq jKiQtr MwF INTERFACE [facility] [address] [facility] [address], [place], [address], 06/17/2024 14:04:43 07/12/20 24 07/12/2024 XR, hand, 3 or more view [email or web address] ?Encry pted=s hAaTro YD8dLq bEUv6g %2BXZw aYqtaq 0bqfl% 2Fg9IQ a4ajBk vP9nXo QUaueC m3YtLR FvZlgJ JJ8mAn HZtai3 5j6839 AC0Kqa HmAVKO jKiQtr MwF INTERFACE [facility] [address] [facility] [place] [address], [place], [address], 07/12/2024 12:13:43 07/12/20 24 07/12/2024 XR, hand, 3 or more view [email or web address] ?Encry pted=s hAaTro YD8dLq bEUv6g %2BXZw aYqtaq 0bqfl% 2Fg9IQ a4ajBk vP9nXo QUaueC m3YtLR FvZlgJ JJ8mAn HZtai3 2t3834 AC0Kqa HmAVKO jKiQtr MwF INTERFACE [facility] [address], [place], [address], 07/12/2024 12:13:45 09/05/20 24 08/31/2024 MRI, shoadry theresa, w/o contr ast [facility] Access ion Number : [id number] Name: Samreen Britton ra Medica l Record Number : [id number] Date of : 1974 Date of Exam: 2023 Referr ing Physic vishnu: Elpidio [facility] [address] [facility] [place] [address] Exam: MR Should er (C-) CPT 90703 - Right Room Descri ption: [place] GE Pion 3T MR Should er (C-) CPT 59080 CLINIC AL INDICA TION: Pain in right [...] icated to the orderi ng or respon TVbeatle provid er by the medica l record s depart ment. Receip t of this commun icatio n by the respon sible or orderi ng provid er will be docume nted in [facility] onnect Action able Findsukhwinder sifuentes, rose [place]ary [place] [id number] 4. Electr onical ly Signed By: Calvin Richard rd, MD [facility] ([facility]) [address] [place], [address], 09/13/2024 09:07:35 Result Notes Documentation Provider Name and Address Organization Details Recorded Time Xr, Hand, 3 Or More View : [email or web address] ncrypted=qwAyZdfVU8cAwaOMx 6g%0GNQzaNubfu0nijb%2Fg9IQ z7riXobD3aGfTArueRx8JsLVIh ZyxMWO2rDyNNpqt97j5877JW0Z qaHmAVKOjKiQtrMwF Not Available [facility] 07/12/2024 12:13:44 Xr, Hand, 3 Or More View : [email or web address] ncrypted=sbFpVnwVP5bLmaPRr 6g%4TBNfxPdkaw1siia%2Fg9IQ o8mhDgpU2kXsFShilIe6KyKPKl PbmQKE9dLtINmkh00b8738PC1U qaHmAVKOjKiQtrMwF Not Available [facility] 07/12/2024 12:13:46 Mri, Shoulder, W/o Contrast : [facility] Accession Number: [id number] Patient Name: Shira Britton Date of : 1975 Date of Exam: 08-31-2024 Referring Physician: Regina Triplett [facility] ([facility]) [address] [place] [address] Exam: MR Shoulder (C-) CPT 87840 - Right [facility] CPT 93488 CLINICAL INDICATION: Pain in right shoulder, Other [...] or ordering provider will be documented in Power[employer] Actionable Findings, message ID [id number]. Electronically Signed By: [facility] 09/13/2024 09:07:35 Problems Name Problem SNOMED Code Status Onset Date Resolution Date Notes Provider Name and Address Organization Details Recorded Time Pain of left shoulder region Active 024 Regina Triplett, LEADERSHIP DEVELOPMENT INSTRUCTOR [address] [address], [place], [address] , [facility] 09/10/2024 12:37:25 Problem Notes None recorded. Procedures Surgical History Date Name Laterality Status Provider Name and Address Organization Details Recorded Time 5 Sports Shoulder completed Hillary Live MD [address] [address], [place], [address], [facility] 02/17/2025 10:29:07 5 Sports Shoulder completed Hillary Live MD [address] [address], [place], [address], [facility] 09/27/2024 12:10:25 4 OPEN REDUCTION INTERNAL FIXATION, PHALANX (FINGER) (SURG) completed MAMTA LUJAN [facility] 06/06/2024 13:50:12 Imaging Results None recorded. Procedure Notes None recorded. Medical Equipment None Reported. Allergies Allergen ID Allergen Name Allergen Category Reaction Reaction Severity Criticality Documentation Date Start Date Code Code System Note Provider Name and Address Organization Details Recorded Time 096272 morphine medicatio n Not available Not available Not available 05/29/2024 7052 RxNorm [facility] 4 11:10:11 Medications Name Sig Start Date Stop Date Status Note LastModified by Organization Details LastModified Time amoxicillin 500 mg capsule TAKE 1 CAPSULE BY MOUTH 3 TIMES A DAY FOR 7 DAYS active Not Available Not Available N ot Available clonidine HCl 0.1 mg tablet active [...] active Not Available Not Available Not Available metronidazol e 0.75 % (37.5 mg/5 gram) vaginal gel INSERT 1 APPLICATORF UL VAGINALLY DAILY AT BEDTIME FOR 5 DAYS active Not Available Not Available No t Available famotidine 40 mg tablet active Not Available Not Available Not Available prednisone 5 mg tablet active Not Available Not Available No t Available methylpredni solone 4 mg tablet active Not Available Not Available Not Available leflunomide 10 mg tablet TAKE 1 TABLET BY MOUTH EVERY DAY FOR 2 WEEKS, THEN 2 TABLETS DAILY active Not Available Not Available No t Available metronidazol e 500 mg tablet TAKE 1 TABLET BY [...] Not Available Not Available No t Available dexmethylphe nidate 5 mg tablet TAKE 1 TABLET BY MOUTH EVERY DAY active Not Available Not Available No t Available hydrocortiso ne 2.5 % topical cream with perineal applicator active Not Available Not Available N ot Available propranolol 10 mg tablet active Not Available Not Available Not Available famotidine 20 mg tablet active Not Available Not Available Not Available magnesium oxide 400 mg (241.3 mg magnesium) tablet active Not Available Not Available Not Available cyanocobalam in (vit B-12) 500 mcg tablet TAKE 1 TABLET BY MOUTH EVERY DAY active Not Available Not Available No t Available pantoprazole 40 mg tablet,delay ed release active Not Available Not Available N ot Available esomeprazole magnesium 40 mg capsule,sharonda yed release active Not Available Not Available Not Available buspirone 10 mg tablet active Not Available Not Available No t Available clotrimazole -betamethaso ne 1 %-0.05 % topical cream 1 APPL TOPICALLY 2 TIMES A DAY active Not Available Not Available Not Available hydroxyzine HCl 25 mg tablet active Not Available Not Available Not Available polyethylene glycol 3350 17 gram/dose oral powder active Not Available Not Available Not Available zolpidem 10 mg tablet active Not Available Not Available No t Available ferrous sulfate 325 mg (65 mg iron) tablet,delay ed release TAKE 1 TABLET BY MOUTH DAILY active Not Available Not Available Not Available ondansetron 4 mg disintegrati ng tablet DISSOLVE 1 TABLET BY MOUTH EVERY 6 HOURS NEEDED FOR NAUSEA AND VOMITING FOR 14 DAYS active Not Available Not Available Not Available topiramate 100 mg tablet active Not Available Not Available Not Available prazosin 2 mg capsule active Not Available Not Available N ot Available Ventolin HFA 90 mcg/actuatio n aerosol inhaler INHALE 2 PUFFS EVERY 6 TO 8 HOURS NEEDED FOR SHORTNESS OF BREATH OR WHEEZE active Not Available Not Available No t Available oxycodone 5 mg tablet TAKE 1 TABLET BY MOUTH EVERY 8 HOURS NEEDED FOR PAIN active Not Available Not Available No t Available Laxative (bisacodyl) 5 mg tablet,delay ed release TAKE 2 TABLETS BY MOUTH EVERY DAY AT BEDTIME active Not Available Not Available No t Available cyclobenzapr ine 5 mg tablet active Not Available Not Available Not Available duloxetine 30 mg capsule,sharonda yed release active Not Available Not Available Not Available duloxetine 60 mg capsule,sharonda yed release active Not Available Not Available Not Available tizanidine 4 mg capsule TAKE 1 CAPSULE BY MOUTH THREE TIMES DAILY NEEDED FOR MUSCLE SPASMS active Not Available Not Available No t Available dexmethylphe nidate ER 10 mg capsule,exte nded release rxhponco19-5 0 active Not Available Not Available Not Available dexmethylphe nidate ER 20 mg capsule,exte nded release oeadwuua49-8 0 TAKE 1 CAPSULE BY MOUTH EVERY DAY IN THE MORNING active Not Available Not Available No t Available dexmethylphe nidate ER 15 mg capsule,exte nded release ryqjehxk67-9 0 active Not Available Not Available Not Available ferrous gluconate 324 mg (38 mg iron) tablet TAKE 1 TABLET BY MOUTH DAILY active Not Available Not Available Not Available cholecalcife rol (vitamin D3) 50 mcg (2,000 unit) capsule active Not Available Not Available Not Available mesalamine ER 0.375 gram capsule,exte nded release 24 hr TAKE 4 CAPSULES BY MOUTH EVERY MORNING active Not Available Not Available No t Available magnesium 400 mg (as magnesium oxide) capsule active Not Available Not Available Not Available Myrbetriq 25 mg tablet,exten ded release TAKE 1 TABLET BY MOUTH EVERY [...] No t Available Emgality Pen 120 mg/mL subcutaneous pen injector active Not Available Not Available Not Available Flowflex COVID-19 Antigen Home Test kit active Not Available Not Available Not Available Vitals Date Recorded Body height Body mass index (BMI) Body weight Provider Name and Address Organization Details Last Updated DateTime 09/27/2024 157.48 cm 31.1 kg/m2 85503.7 g ROCK SONG [facility] 09/27/2024 11:14:29 Date Recorded Body height Body mass index (BMI) Body weight Provider Name and Address Organization Details Last Updated DateTime 02/13/2025 157.48 cm 31.1 kg/m2 31648.7 g KENYA Mccurdy [facility] 02/13/2025 10:55:03 Date Recorded Body height Body mass index (BMI) Body weight Provider Name and Address Organization Details Last Updated DateTime 02/17/2025 157.48 cm 31.1 kg/m2 97808.7 g ROCK ZULETA [facility] 02/17/2025 09:41:32 Date Recorded Body height Body mass index (BMI) Body weight Provider Name and Address Organization Details Last Updated DateTime 07/12/2024 157.48 cm 31.1 kg/m2 41575.7 g DILCIA TORRES [facility] 07/12/2024 12:07:03 Date Recorded Body height Body mass index (BMI) Body weight Provider Name and Address Organization Details Last Updated DateTime 08/05/2024 157.48 cm 31.1 kg/m2 53625.7 g KENYA FERNANDEZ [place] [facility] 08/05/2024 15:49:17 Social History None recorded. Functional Status None recorded. Mental Status None recorded. Family History Nothing Reported. Medical History Condition Response Allergies/Hayfever N Coronary Artery Disease N Anxiety/Depression N Breathing or lung disorders N Emphysema N Nerve Disorders N Thyroid Problems N COPD N Pacemaker N Anemia N Kidney/Bladder Problems N Vascular Disease N Heart Trouble N Heart Attack ([place]) N Gastrointestinal Disease Y Cholesterol N Diabetes [...] Diagnosis SNOMED-CT Code Diagnosis ICD10 Code Diagnosis IMO Codes Diagnosis Note [id number] Monse Foster PA-C [facility] [address] [place] [address] 05/29/2024 10:04:44 06/20/2024 08:15:53 Fracture of proximal phalanx of finger 731256526 S62.610A [id number] Monse Foster PA-C [facility] [address] [place] [address] 06/12/2024 08:37:14 06/12/2024 09:42:17 Postoperative care 890878913 Z48.89 [id number] Regina Triplett CNP [facility] [address] [place] [address] 06/17/2024 13:26:59 07/03/2024 15:46:23 Pain of right hand 8775687667 35448 M79.786 [id number] Regina Triplett CNP [facility] [address] [place] [address] 07/12/2024 11:57:49 08/01/2024 08:02:17 Pain of right hand 8092054525 09470 M79.357 [id number] Postoperative visit 1836 43644 Z48.89 [id number] Contusion of right shoulder 6871114859 7733708 S40.011A 629655 [id number] Regina Triplett CNP [facility] [address] [place] [address] 08/05/2024 15:35:25 08/22/2024 08:22:51 Chronic pain of right upper limb 4685564476 7136069 M25.511 G89.29 501242 Pain of right hand 43130 68601 19363 M79.641 [id number] MD [facility] [address] [place] [address] [place] [address] 09/27/2024 11:10:50 10/08/2024 13:57:53 Closed fracture proximal humerus, greater tuberosity 701596727 S42.254D 73407662 [id number] Regina Triplett, LEADERSHIP DEVELOPMENT INSTRUCTOR [facility] [address] [place] [address] 02/13/2025 10:31:09 02/19/2025 15:28:03 [id number] MD VENU Moffett [facility] [address] [place] [address] 02/17/2025 09:26:58 03/04/2025 14:31:05 Adhesive capsulitis of right shoulder 4715122550 94494 M75.01 [id number] Health Concerns Section Related Observation LastModified by Organization Detai ls LastModified Time None Recorded Concern Status LastModified by Organization Details LastModified Time None Recorded Advance Directives Directive None Recorded Payers Insurance Date Sequence Insurance Name Policy Number Policy Palmer Covered Member ID Palmer Member ID Guarantor Name 09/27/2024 PROGRESSIVE Shira Rome 05/12/2025 1 [facility] - DOS ON OR AFTER 2022 - ONE CARE (MEDICARE REPLACEMENT/ADV ANTAGE - HMO) Shira Rome [id number] Shira Rome Notes Date Note Type Note [...] hospital which were negative for fracture. Regina Uziel, LEADERSHIP DEVELOPMENT INSTRUCTOR [address], [place], [address], [facility] 07/12/2024 12:29:55 08/05/2024 text/html ROS as noted in the HPI Beatrice is a 49-year-old female who was [...] no relief no help from anti-inflammatories Regina Uziel, LEADERSHIP DEVELOPMENT INSTRUCTOR [address] [facility] [address], [place], [address], [facility] 08/05/2024 16:31:15 09/27/2024 text/html Issue: Right shoulder nondisplaced greater tuberosity fracture, 05/22/2024 Interval History: This is a 49-year-old hgqlp-vzlo-hhanwpcp woman with rheumatoid arthritis who was involved [...] Imaging: Imaging: Right shoulder MRI performed at [facility] 08/31/2024 independently reviewed by me on [...] tendon down the bicipital groove. Impression: 49-year-old sfgbs-wrno-hldbnzrd woman with nondisplaced right greater tuberosity fracture [...] any underlying rotator cuff or biceps pathology. [employer] speech recognition technical instructor course developer software was used to create portions of this document. An attempt at proofreading has been made to minimize errors. Please call for corrections. Hillary Live MD [address], [place], [address], [facility] 09/27/2024 12:10:41 02/13/2025 text/html ROS as noted in the HPI Shira is a 49-year-old female who is [...] for follow up Regina Triplett CNP [address] [facility] [address], [place], [address], [facility] 02/13/2025 11:33:00 02/17/2025 text/html Issue: Right shoulder nondisplaced greater tuberosity fracture, 05/22/2024 Interval History: This is a 49-year-old byarn-pppg-botgezkp woman with rheumatoid arthritis who was involved [...] Imaging: Imaging: Right shoulder MRI performed at [facility] 08/31/2024 independently reviewed by me on [...] tendon down the bicipital groove. Impression: 49-year-old bhugm-hwud-oaefgqjd woman with nondisplaced right greater tuberosity fracture [...] another 2 to 3 months for recheck. [facility] speech recognition technical instructor course developer software was used to create portions of this document. An attempt at proofreading has been made to minimize errors. Please call for corrections. Hillary Live MD [address] [place] [address] [address], [place], [address], [facility] 02/17/2025 10:29:39 OBGyn Episode No OBEpisode recorded.
--- OUTSIDE RECORDS SUMMARY | 2025-07-16 13:11 | XMS_ITS | Patient Health Record ---
Author Organization [facility] Address [address] [place] [address] Care Team Providers Care Manager Merchandise Name Role Phone Braydon Guido Unavailable [phone] Reason For Referral No Information Plan Of Treatment No Information
== END 2025-07-16 12:15 | disposition home or self-care (01) ==
LOC: HO.HSMS 11:02
PROVIDERS: PCP Internal Medicine; Visit Provider Nurse Practitioner Family
DX: R51.9 Headache, unspecified (principal); Z91.81 History of falling; R29.818 Other symptoms and signs involving the nervous system; R41.3 Other amnesia; G43.709 Chronic migraine without aura, not intractable, without status migrainosus; R41.89 Other symptoms and signs involving cognitive functions and awareness; G47.10 Hypersomnia, unspecified
CPT/HCPCS: 99214

== ENCOUNTER → 2025-07-16 11:01 | Outpatient (BNVA) | payer OTHER, SELFPAY | PROVIDERS: PCP Internal Medicine; Visit Provider Nurse Practitioner Family | DX: G43.709 Chronic migraine without aura, not intractable, without status migrainosus (principal); G47.10 Hypersomnia, unspecified; R41.3 Other amnesia; R29.818 Other symptoms and signs involving the nervous system; Z91.81 History of falling | CPT/HCPCS: 99212 ==